=== PATIENT | male | born 1950 | race Caucasian/White ===

== ENCOUNTER 2018-06-22 02:18 | Emergency (ER) | payer OTHER ==
[2018-06-22] MEDS ORDERED: IBUPROFEN 400 MG TAB ONE (02:45)
[2018-06-22] MEDS ORDERED: HYDROCODONE/APAP 7.5/325 MG TAB ONE (02:46)
--- NOTE | 2018-06-22 03:09 | EDPHYS ---
Physician Documentation [facility] Name: Liam Richards Age: 68 yrs Sex: Male : 1950 Arrival Date: 06/22/2018 Time: 02:24 Bed 15 Private MD: ED Physician Lm Galindo HPI: 06/22 02:32 This 68 yrs old Male presents to ER via EMS with complaints of Knee Injury. cp 02:32 The patient presents with an injury, pain, that is acute, swelling, tenderness. The cp complaints affect the left knee. Context: resulted from a mis-step, while walking down stairs, left knee hyper flexed and foot landed under patient, the patient can fully bear weight, the patient is able to ambulate, with moderate difficulty. Onset: The symptoms/episode began/occurred tonight. Associated signs and symptoms: Pertinent negatives calf tenderness, numbness, tingling, warmth. Treatment prior to arrival includes: no previous treatment. Historical: - Allergies: 02:29 No Known Allergies; tl2 - Home Meds: 02:29 metoprolol succinate 25 mg oral Tb24 1 tab once daily [Active]; tl2 hydrochlorothiazide/lisinopril 10 mg daily [Active]; atorvastatin 40 mg oral tab 1 tab once daily [Active]; amlodipine 5 mg tab 1 tab once daily [Active]; aspirin 81 mg Oral chew 1 tab once daily [Active]; - PMHx: 02:29 Hypertension; Hyperlipidemia; tl2 - PSHx: 02:29 left total knee replacement; tl2 - Immunization history:: Adult Immunizations up to date. - Social history:: Smoking status: Patient/guardian denies using tobacco, the patient reports quitting approximately 3 years ago. - Ebola Screening: : No symptoms or risks identified at this time. ROS: 02:34 Eyes: Negative for injury, pain, redness, and discharge. cp 02:34 Constitutional: Negative for chills, fever, poor PO intake. 02:34 ENT: Negative for drainage from ear(s), ear pain, sore throat, difficulty swallowing, difficulty handling secretions. 02:34 Cardiovascular: Negative for chest pain, palpitations. 02:34 Respiratory: Negative for cough, shortness of breath, wheezing. 02:34 Abdomen/GI: Negative for nausea, vomiting, and diarrhea. 02:34 MS/extremity: Positive for injury or acute deformity, decreased range of motion, pain, swelling, tenderness, of the left knee. 02:34 Neuro: Negative for loss of consciousness, syncope, near syncope, weakness. 02:34 All other systems are negative. Exam: 02:38 Constitutional: The patient appears in no acute distress, alert, awake, cp non-diaphoretic, well developed, well nourished. 02:38 Head/Face: Normocephalic, atraumatic. cp 02:38 Eyes: Periorbital structures: appear normal, Conjunctiva: normal, no exudate, no injection, Lids and lashes: appear normal, bilaterally. 02:38 ENT: External ear(s): are unremarkable, Nose: is normal, Mouth: is normal, Posterior pharynx: is normal, airway is patent. 02:38 Neck: C-spine: vertebral tenderness, is not appreciated, crepitus, is not appreciated, ROM/movement: is normal, is supple, without pain, no range of motions limitations, no nuchal rigidity. 02:38 Chest/axilla: Inspection: normal. 02:38 Cardiovascular: Rate: normal. 02:38 Respiratory: the patient does not display signs of respiratory distress, Respirations: normal, no use of accessory muscles, no retractions, no splinting, no tachypnea. 02:38 Abdomen/GI: Inspection: abdomen appears normal, Palpation: abdomen is soft and non-tender, in all quadrants. 02:38 Back: pain, is absent, ROM is normal. 02:38 Musculoskeletal/extremity: Joints: All joints are normal except the left knee displays painful range of motion, swelling, tenderness. 02:38 Skin: cellulitis, is not appreciated, no rash present. Vital Signs: 02:29 BP 153 / 83; Pulse 76; Resp 18; Temp 98.5(O); Pulse Ox 96% on R/A; Weight 114.31 kg; tl2 Height 5 ft. 11 in. (180.34 cm); Pain 0/10; 02:29 Body Mass Index 35.15 (114.31 kg, 180.34 cm) tl2 Procedures: 03:20 Splinting: Splint applied to left knee using knee immobilizer, applied by nurse. cp Examined by me, post splint application: neurovascular intact, Patient tolerated well. 03:20 Crutch training provided to patient and/or family. Return demonstration given. cp MDM: 02:25 Patient medically screened. cp 02:30 Differential diagnosis: dislocation, closed fracture, contusion, tendonitis, ligament cp injury. 03:07 Data reviewed: vital signs, nurses notes, radiologic studies, plain films. cp 03:07 Test interpretation: by ED physician or midlevel provider: plain radiologic studies. cp Counseling: I had a detailed discussion with the patient and/or guardian regarding: the historical points, exam findings, and any diagnostic results supporting the discharge/admit diagnosis, radiology results, the need for outpatient follow up, a orthopedic surgeon, to return to the emergency department if symptoms worsen or persist or if there are any questions or concerns that arise at home. Response to treatment: the patient's symptoms have mildly improved after treatment, and as a result, I will discharge patient. 06/22 02:31 Order name: XRAY Knee LEFT 3 view; Complete Time: 02:55 cp 06/23 02:55 Interpretation: Report reviewed. cp 06/22 03:03 Order name: Crutches; Complete Time: 03:21 cp 06/22 03:03 Order name: Knee Immobilizer; Complete Time: 03:21 cp Administered Medications: 02:44 Drug: Hydrocodone-Acetaminophen (7.5 mg-325 mg) 1 tabs Route: PO; ao 03:21 Follow up: Response: No adverse reaction ao 02:45 Drug: Ibuprofen 800 mg Route: PO; ao 03:22 Follow up: Response: No adverse reaction ao Disposition: 06/22/18 03:08 Discharged to Home. Impression: Pain in left knee. - Condition is Stable. - Discharge Instructions: Knee Immobilizer, Knee Pain. - Prescriptions for Naprosyn 500 mg Oral Tablet - take 1 tablet by ORAL route 2 times per day take with food; 20 tablet. Tylenol- Codeine #3 300-30 mg Oral Tablet - take 2 tablets by ORAL route every 6 hours As needed; 15 tablet. - Medication Reconciliation Form, Thank You Letter, Antibiotic Education, Prescription Opioid Use form. - Follow up: Collin Odonnell MD; When: 2 - 3 days; Reason: Recheck today's complaints. - Problem is new. - Symptoms have improved. Addendum: 06/24/2018 06:30 Co-signature as Attending Physician, Lm Galindo MD I agree with the assessment and c fonseca plan of care. Signatures: Dispatcher [employer] Lm Adams MD MD cha Page, Corey, PA PA Chris Paige, RN RN Lydia Montaño RN RN tl2 Corrections: (The following items were deleted from the chart) 06/22 03:23 03:08 06/22/2018 03:08 Discharged to Home. Impression: Pain in left knee. Condition is ao Stable. Forms are Medication Reconciliation Form, Thank You Letter, Antibiotic Education, Prescription Opioid Use. Follow up: Collin Odonnell; When: 2 - 3 days; Reason: Recheck today's complaints. Problem is new. Symptoms have improved. cp
--- NOTE | 2018-06-22 03:09 | ER ---
Nurse's Notes [facility] Name: Liam Richards Age: 68 yrs Sex: Male : 1950 Arrival Date: 06/22/2018 Time: 02:24 Bed 15 Private MD: Diagnosis: Pain in left knee Presentation: 06/22 02:24 Presenting complaint: Patient states: I was going down the stairs and my left knee gave tl2 out and I landed on my left knee. Reports having a total replacement on left knee about 15 years ago. States he feels his knee is "loose and grinding". Transition of care: patient was not received from another setting of care. Onset of symptoms was June 22, 2018 at 01:50. Risk Assessment: Do you want to hurt yourself or someone else? Patient reports no desire to harm self or others. Initial Sepsis Screen: Does the patient meet any 2 criteria? No. Patient's initial sepsis screen is negative. Does the patient have a suspected source of infection? No. Patient's initial sepsis screen is negative. Care prior to arrival: None. 02:24 Method Of Arrival: EMS: [facility] tl2 02:24 Acuity: ALE 4 tl2 Triage Assessment: 02:29 General: Appears in no apparent distress. comfortable, Behavior is calm, cooperative, tl2 appropriate for age. Pain: Complains of pain in left knee. Musculoskeletal: Circulation, motion, and sensation intact. Range of motion: limited in left knee. Musculoskeletal: Swelling present in left knee. Injury Description: knee prosthetic appears to be dislocated. Historical: - Allergies: 02:29 No Known Allergies; tl2 - Home Meds: 02:29 metoprolol succinate 25 mg oral Tb24 1 tab once daily [Active]; tl2 hydrochlorothiazide/lisinopril 10 mg daily [Active]; atorvastatin 40 mg oral tab 1 tab once daily [Active]; amlodipine 5 mg tab 1 tab once daily [Active]; aspirin 81 mg Oral chew 1 tab once daily [Active]; - PMHx: 02:29 Hypertension; Hyperlipidemia; tl2 - PSHx: 02:29 left total knee replacement; tl2 - Immunization history:: Adult Immunizations up to date. - Social history:: Smoking status: Patient/guardian denies using tobacco, the patient reports quitting approximately 3 years ago. - Ebola Screening: : No symptoms or risks identified at this time. Screenin:31 Abuse screen: Denies threats or abuse. Nutritional screening: No deficits noted. tl2 Tuberculosis screening: No symptoms or risk factors identified. Fall Risk Fall in past 12 months (25 points). Gait- Impaired (20 pts.). Assessment: 02:30 General: Appears in no apparent distress. comfortable, Behavior is calm, cooperative, ao appropriate for age. Pain: Complains of pain in left knee Pain currently is 0 out of 10 on a pain scale. Neuro: Level of Consciousness is awake, alert, obeys commands, Oriented to person, place, time, situation, Appropriate for age Moves all extremities. Weakness in left leg(s) foot/feet Speech is normal, Facial symmetry appears normal. Cardiovascular: Denies chest pain, shortness of breath, Capillary refill < 3 seconds Patient's skin is warm and dry. Respiratory: Airway is patent Respiratory effort is even, unlabored, Respiratory pattern is regular, symmetrical. GI: Abdomen is obese. : No deficits noted. No signs and/or symptoms were reported regarding the genitourinary system. EENT: No signs and/or symptoms were reported regarding the EENT system. Derm: Skin is pink, warm \\T\\ dry. normal, Skin temperature is warm swelling left leg noted. Musculoskeletal: Range of motion: limited in left knee. Vital Signs: 02:29 BP 153 / 83; Pulse 76; Resp 18; Temp 98.5(O); Pulse Ox 96% on R/A; Weight 114.31 kg; tl2 Height 5 ft. 11 in. (180.34 cm); Pain 0/10; 02:29 Body Mass Index 35.15 (114.31 kg, 180.34 cm) tl2 ED Course: 02:24 Patient arrived in ED. tl2 02:25 Lm Stoddard PA is PHCP. cp 02:25 Lm Galindo MD is Attending Physician. cp 02:26 Triage completed. tl2 02:28 Chris Bridges, ELISABET is Primary Nurse. ao 02:29 Arm band placed on right wrist. tl2 02:31 Patient has correct armband on for positive identification. Bed in low position. Call tl2 light in reach. Side rails up X2. Adult w/ patient. 02:55 X-ray completed. Portable x-ray completed in exam room. Patient tolerated procedure kw well. 02:56 XRAY Knee LEFT 3 view In Process Unspecified. EDMS 03:07 Collin Odonnell MD is Referral Physician. cp 03:22 No provider procedures requiring assistance completed. Patient did not have IV access ao during this emergency room visit. Administered Medications: 02:44 Drug: Hydrocodone-Acetaminophen (7.5 mg-325 mg) 1 tabs Route: PO; ao 03:21 Follow up: Response: No adverse reaction ao 02:45 Drug: Ibuprofen 800 mg Route: PO; ao 03:22 Follow up: Response: No adverse reaction ao Outcome: 03:08 Discharge ordered by MD. cp 03:22 Discharged to home ambulatory, with crutches. ao 03:22 Condition: stable 03:22 Discharge instructions given to patient, Instructed on discharge instructions, follow up and referral plans. Demonstrated understanding of instructions, follow-up care, medications, Prescriptions given X 2. 03:23 Patient left the ED. ao Signatures: Dispatcher [employer] EDAZ Gayathri Calzada kw Lm Stoddard PA PA cp Chris Bridges, RN RN ao Lydia Ferrara RN RN tl2 Corrections: (The following items were deleted from the chart) 02:51 02:36 No provider procedures requiring assistance completed. ao ao 02:51 02:36 IV discontinued, intact, bleeding controlled, No redness/swelling at site. ao Pressure dressing applied, ao 02:51 08 23:50 Inserted saline lock: 20 gauge in right forearm, using aseptic technique. aoao 06/22 02:52 02:36 Condition: stable ao ao 02:52 02:36 Discharged to home ambulatory, ao ao 02:52 02:36 Discharge instructions given to patient, Instructed on discharge instructions, ao follow up and referral plans. Demonstrated understanding of instructions, follow-up care, Prescriptions given X 1, ao
[2018-06-22 03:28] VITALS: BP 153/83; TEMP 98.5; O2SAT 96
--- NOTE | 2018-06-22 09:09 | RAD REPORT ---
EXAM DESCRIPTION: RAD - Knee Left 3 View - 06/22/2018 2:56 am CLINICAL HISTORY: Left knee pain status post injury FINDINGS: A left knee arthroplasty has been performed The prosthesis is in good position without evidence of loosening. The bones are osteoporotic. A small joint effusion is suspected No fracture or dislocation is seen. If the patient continues to have symptoms to suggest an occult fr acture then CT would be recommended
== END 2018-06-22 03:23 | disposition home or self-care (01) ==
LOC: ER 02:18
DX: M25.562 Pain in left knee (principal); Z96.652 Presence of left artificial knee joint; I10 Essential (primary) hypertension; E78.5 Hyperlipidemia, unspecified; W10.8XXA Fall (on) (from) other stairs and steps, initial encounter
CPT/HCPCS: 99284

== ENCOUNTER 2018-11-02 01:18 | Emergency (ER) | payer OTHER ==
[2018-11-02] MEDS ORDERED: ONDANSETRON 4 MG/2 ML VIAL ONE ×2 (02:05→05:27)
[2018-11-02] MEDS ORDERED: MORPHINE 4 MG/ML SYR ONE ×4 (02:05→07:34)
[2018-11-02] MEDS ORDERED: FAMOTIDINE 20 MG/2 ML VIAL IV ONE (02:06)
[2018-11-02] MEDS ORDERED: NA CHLORIDE 0.9% 1,000 ML ONE ×2 (02:06→03:57)
[2018-11-02 02:15] LABS: Absolute Lymphocytes (CBC) 0.5 K/uL (0.7-4.9); Absolute Monocytes 1.2 K/uL (0.1-1.3); Absolute Neutrophil 13.5 K/uL (1.8-8.0); Basophils % 0.2 % (0-1.3); Hematocrit 45.4 % (39.6-49.0); MPV 8.9 fL (7.6-11.3); RBC Red Blood Cell Count 5.11 M/uL (4.33-5.43)
[2018-11-02 02:47] LABS: AST/SGOT 250 U/L (15-37); Albumin 3.5 g/dL (3.4-5.0); Alkaline Phosphatase 142 U/L (45-117); BUN Blood Urea Nitrogen 48 mg/dL (7-18); Bicarbonate 25 mmol/L (21-32); Bilirubin Direct 5.9 mg/dL (0-0.2); Glucose Level 136 mg/dL (74-106); Lipase 90 U/L (73-393); Potassium 3.9 mmol/L (3.5-5.1); Protein, Total 7.4 g/dL (6.4-8.2); Sodium Level 138 mmol/L (136-145); Troponin I < 0.02 ng/mL (0.0-0.045)
[2018-11-02 02:50] LABS: ALT/SGPT 343 U/L (12-78); Bilirubin Total 7.3 mg/dL (0.2-1.0)
[2018-11-02 02:54] LABS: Blood Morphology Comment NOT SEEN (NOT SEEN); Platelet Estimate ADEQ; Urine White Blood Cell Casts OK
[2018-11-02] MEDS ORDERED: FENTANYL CITR 100 MCG/2 ML ONE (03:30)
[2018-11-02] MEDS ORDERED: CEFOXITIN/SWI 1gm 1 GM/10 ML SYR ONE ×2 (06:39)
--- NOTE | 2018-11-02 07:08 | ER ---
Nurse's Notes [facility] Name: Liam Richards Age: 68 yrs Sex: Male : 1950 Arrival Date: 11/02/2018 Time: 01:19 Bed 19 Private MD: Diagnosis: Abdominal pain. Acute cholecystitis. Jaundice. Elevated liver functions Possible partial small bowel obstruction Presentation: 11/02 01:40 Presenting complaint: Patient states: bloated feeling and abdominal pain started 2 days rr5 ago. i keep on burping and passing gas. pain score of 8/10. Transition of care: patient was not received from another setting of care. Onset of symptoms was October 31, 2018. Risk Assessment: Do you want to hurt yourself or someone else? Patient reports no desire to harm self or others. Initial Sepsis Screen: Does the patient meet any 2 criteria? No. Patient's initial sepsis screen is negative. Does the patient have a suspected source of infection? No. Patient's initial sepsis screen is negative. Care prior to arrival: None. 01:42 Method Of Arrival: Ambulatory rr5 01:42 Acuity: ALE 3 rr5 Historical: - Allergies: 01:40 No Known Allergies; rr5 - Home Meds: 01:40 amlodipine 5 mg tab 1 tab once daily [Active]; aspirin 81 mg Oral chew 1 tab once daily rr5 [Active]; atorvastatin 40 mg Oral tab 1 tab once daily [Active]; hydrochlorothiazide/lisinopril 10 mg daily [Active]; metoprolol succinate 25 mg Oral Tb24 1 tab once daily [Active]; - PMHx: 01:40 Hyperlipidemia; Hypertension; AAA; rr5 - PSHx: 01:40 Carotid surgery; Heart stents; rr5 - Immunization history:: Adult Immunizations up to date, Pneumococcal vaccine is up to date, Flu vaccine is up to date. - Social history:: Smoking status: Patient/guardian denies using tobacco, Patient/guardian denies using alcohol, street drugs. - Ebola Screening: : Patient negative for fever greater than or equal to 101.5 degrees Fahrenheit, and additional compatible Ebola Virus Disease symptoms Patient denies exposure to infectious person Patient denies travel to an Ebola-affected area in the 21 days before illness onset. Screenin:40 Abuse screen: Denies threats or abuse. Denies injuries from another. Nutritional rr5 screening: No deficits noted. Tuberculosis screening: No symptoms or risk factors identified. Fall Risk IV access (20 points). Total Gabriel Fall Scale indicates No Risk (0-24 pts). Assessment: 01:40 General: Appears in no apparent distress. uncomfortable, ill, Behavior is calm, rr5 cooperative, appropriate for age. Pain: Complains of pain in abdomen Pain does not radiate. Pain currently is 8 out of 10 on a pain scale. Quality of pain is described as aching, Pain began gradually, Is intermittent. 01:40 Neuro: Level of Consciousness is awake, alert, obeys commands, Oriented to person, rr5 place, time, situation. Cardiovascular: Capillary refill < 3 seconds Patient's skin is warm and dry. Respiratory: Airway is patent Respiratory effort is even, unlabored, Respiratory pattern is tachypnea. GI: Bowel sounds present X 4 quads. Abdomen is tender to palpation X 4 quads. Reports lower abdominal pain, upper abdominal pain, bloating, flatulence, since 2 days ago burping. : No signs and/or symptoms were reported regarding the genitourinary system. EENT: No signs and/or symptoms were reported regarding the EENT system. Derm: Skin is intact, Skin is yellow. Musculoskeletal: Capillary refill < 3 seconds, Range of motion: intact in all extremities. 02:35 Reassessment: No changes from previously documented assessment. informed CT scan oral rr5 consumed at 0235H. 03:00 Reassessment: Patient appears in no apparent distress at this time. No changes from rr5 previously documented assessment. ED provider informed patient still having severe pain. 03:52 Reassessment: Patient appears in no apparent distress at this time. awaiting for CT rr5 scan procedure. 04:45 Reassessment: No changes from previously documented assessment. Patient and/or family cc3 updated on plan of care and expected duration. Pain level reassessed. Patient is alert, oriented x 3, equal unlabored respirations, skin warm/dry/pink. Patient came back from CT scan department. 05:25 Reassessment: Patient and/or family updated on plan of care and expected duration. Pain ea level reassessed. Patient is alert, oriented x 3, equal unlabored respirations, skin warm/dry/pink. Pt complaining of abdominal pain, provider notified, med order obtained, medication administered, pt tolerated well. 06:45 Reassessment: Patient and/or family updated on plan of care and expected duration. Pain ea level reassessed. Patient is alert, oriented x 3, equal unlabored respirations, skin warm/dry/pink. 07:13 Reassessment: Patient appears in no apparent distress at this time. No changes from em previously documented assessment. Patient and/or family updated on plan of care and expected duration. Pain level reassessed. Patient is alert, oriented x 3, equal unlabored respirations, skin warm/dry/pink. pending transfer. 07:31 Reassessment: Patient appears in no apparent distress at this time. Patient and/or em family updated on plan of care and expected duration. Pain level reassessed. Patient is alert, oriented x 3, equal unlabored respirations, skin warm/dry/pink. pt rates pain 8/10, request more pain medication prior to transfer, Dr. Galindo notified, new medication orders received. 07:40 Reassessment: report called to ELISABET Gutierres at [facility], pending completion of em ultrasound. Vital Signs: 01:40 BP 110 / 59; Pulse 75; Resp 24; Temp 97.9; Pulse Ox 98% ; Weight 115.67 kg; Height 5 rr5 ft. 11 in. (180.34 cm); Pain 8/10; 02:30 BP 108 / 70; Pulse 73; Resp 16; Pulse Ox 98% ; rr5 03:30 BP 103 / 63; Pulse 79; Resp 17; Pulse Ox 99% ; rr5 05:24 BP 104 / 63; Pulse 80; Resp 18; Pulse Ox 98% on R/A; ea 07:21 BP 118 / 70; Pulse 73; Resp 16; Temp 98.2(O); Pulse Ox 96% on 2 lpm NC; Pain 8/10; em 01:40 Body Mass Index 35.56 (115.67 kg, 180.34 cm) rr5 ED Course: 01:19 Patient arrived in ED. ag3 01:28 Lm Stoddard PA is PHCP. cp 01:28 Farhad Pires MD is Attending Physician. cp 01:40 Arm band placed on. rr5 01:42 Michael Srinivasan RN is Primary Nurse. rr5 01:44 Triage completed. rr5 02:00 Inserted saline lock: 18 gauge in right forearm, using aseptic technique. Blood rr5 collected. 02:08 X-ray completed. Portable x-ray completed in exam room. Patient tolerated procedure sg4 well. 02:10 XRAY Chest (1 view) In Process Unspecified. EDMS 04:[address] via stretcher. kw1 04:37 CT Abd/Pelvis - Without Cont: give oral contrast In Process Unspecified. EDMS 04:38 CT completed. Patient tolerated procedure well. Patient moved back from CT. kw1 05:25 Patient has correct armband on for positive identification. Bed in low position. Call ea light in reach. Side rails up X 1. 07:16 Report given to Benny TORRES. ea 07:45 No provider procedures requiring assistance completed. Patient transferred, IV remains em in place. 08:09 Ultrasound completed. Patient tolerated well. sg3 08:09 US Abdomen Limited In Process Unspecified. EDMS Administered Medications: 02:00 Drug: Pepcid 20 mg Route: IVP; Site: right forearm; rr5 04:01 Follow up: Response: No adverse reaction rr5 02:02 Drug: Zofran 4 mg Route: IVP; Site: left forearm; rr5 04:01 Follow up: Response: No adverse reaction rr5 02:05 Drug: morphine 4 mg Route: IVP; Site: right forearm; rr5 04:01 Follow up: Response: No adverse reaction rr5 02:13 Drug: NS 0.9% 1000 ml Route: IV; Rate: 100 ml/hr; Site: right forearm; rr5 08:10 Follow up: IV Status: Infusion continued upon transfer; IV Intake: 500ml em 03:29 Drug: NS 0.9% 1000 ml Route: IV; Rate: 1 bolus; Site: right forearm; rr5 07:15 Follow up: IV Status: Completed infusion; IV Intake: 1000ml em 03:30 Drug: fentaNYL (PF) 50 mcg Route: IVP; Site: right forearm; rr5 04:30 Follow up: Response: No adverse reaction; Pain is decreased ea 04:20 Not Given (Other Intervention Used; low BP): morphine 4 mg IVP once rr5 05:24 Drug: morphine 4 mg Route: IVP; Site: right antecubital; ea 06:00 Follow up: Response: No adverse reaction; Pain is decreased ea 05:24 Drug: Zofran 4 mg Route: IVP; Site: right antecubital; ea 06:00 Follow up: Response: No adverse reaction ea 06:39 Drug: Mefoxin 2 grams Route: IVPB; Infused Over: 30 mins; Site: right antecubital; ea 07:16 Follow up: Response: No adverse reaction; IV Status: Completed infusion ea 07:20 Follow up: Response: No adverse reaction; IV Status: Completed infusion em 07:33 Drug: morphine 4 mg Route: IVP; Site: right forearm; em 08:09 Follow up: Response: No adverse reaction; Pain is decreased em Intake: 07:15 IV: 1000ml; Total: 1000ml. em 08:10 IV: 500ml; Total: 1500ml. em Outcome: 07:08 ER care complete, transfer ordered by . becka 08:09 Transferred by ground EMS to [facility], Transfer form completed. em X-rays sent w/ patient. 08:09 Condition: good 08:09 Instructed on the need for transfer, Demonstrated understanding of instructions. 08:26 Patient left the ED. em Signatures: Dispatcher [employer] EDMS Farhad Pires MD MD pkBenny Child, LOOM CHANGER LOOM CHANGER em Lm Stoddard PA PA cp Antunez, Elena, RN RN Montserrat Madden kw1 Natali Hui sg3 Janie Lee cc3 Ruthann Cabrera3 Jazzmine Sharma sg4 Michael Srinivasan, RN RN rr5 Corrections: (The following items were deleted from the chart) 07:34 07:31 Reassessment: Patient appears in no apparent distress at this time. Patient em and/or family updated on plan of care and expected duration. Pain level reassessed. Patient is alert, oriented x 3, equal unlabored respirations, skin warm/dry/pink. pt rates pain 8/10, request more pain medication prior to transfer em
--- NOTE | 2018-11-02 07:08 | EDPHYS ---
Physician Documentation [facility] Name: Liam Richards Age: 68 yrs Sex: Male : 1950 Arrival Date: 11/02/2018 Time: 01:19 Bed 19 Private MD: ED Physician Farhad Pires HPI: 11/02 02:05 This 68 yrs old Male presents to ER via Ambulatory with complaints of cp Abdominal Pain. 02:05 The patient presents with abdominal pain that is diffuse, abdominal distention that is cp diffuse. Onset: The symptoms/episode began/occurred 2 day(s) ago. 02:05 Associated signs and symptoms: Pertinent positives: nausea, Pertinent negatives: blood cp in stools, chest pain, constipation, diarrhea, dysuria, fever, shortness of breath, testicular pain, vomiting. Historical: - Allergies: 01:40 No Known Allergies; rr5 - Home Meds: 01:40 amlodipine 5 mg tab 1 tab once daily [Active]; aspirin 81 mg Oral chew 1 tab once daily rr5 [Active]; atorvastatin 40 mg Oral tab 1 tab once daily [Active]; hydrochlorothiazide/lisinopril 10 mg daily [Active]; metoprolol succinate 25 mg Oral Tb24 1 tab once daily [Active]; - PMHx: 01:40 Hyperlipidemia; Hypertension; AAA; rr5 - PSHx: 01:40 Carotid surgery; Heart stents; rr5 - Immunization history:: Adult Immunizations up to date, Pneumococcal vaccine is up to date, Flu vaccine is up to date. - Social history:: Smoking status: Patient/guardian denies using tobacco, Patient/guardian denies using alcohol, street drugs. - Ebola Screening: : Patient negative for fever greater than or equal to 101.5 degrees Fahrenheit, and additional compatible Ebola Virus Disease symptoms Patient denies exposure to infectious person Patient denies travel to an Ebola-affected area in the 21 days before illness onset. ROS: 02:10 Constitutional: Negative for body aches, chills, fever, poor PO intake. cp 02:10 Eyes: Negative for injury, pain, redness, and discharge. cp 02:10 ENT: Negative for drainage from ear(s), ear pain, sore throat, difficulty swallowing, difficulty handling secretions. 02:10 Cardiovascular: Negative for chest pain, edema, palpitations. 02:10 Respiratory: Negative for cough, shortness of breath, wheezing. 02:10 Abdomen/GI: Positive for abdominal pain, nausea, abdominal distension, Negative for vomiting, diarrhea, constipation, anorexia, black/tarry stool, rectal bleeding. 02:10 Back: Negative for injury or acute deformity, decreased range of motion. 02:10 : Negative for urinary symptoms, testicular pain 02:10 Skin: Negative for cellulitis, rash. 02:10 Neuro: Negative for altered mental status, headache, weakness. 02:10 All other systems are negative. Exam: 02:15 Head/Face: Normocephalic, atraumatic. cp 02:15 Constitutional: The patient appears in no acute distress, alert, awake, non-diaphoretic, non-toxic, well developed, well nourished, obese, in obvious pain, uncomfortable. 02:15 Eyes: Periorbital structures: appear normal, Conjunctiva: normal, no exudate, no cp injection, Lids and lashes: appear normal, bilaterally. 02:15 ENT: External ear(s): are unremarkable, Ear canal(s): are normal, clear, TM's: are normal, Nose: is normal, Mouth: Lips: moist, Oral mucosa: pink and intact, moist, Posterior pharynx: is normal, airway is patent, no erythema, no exudate, Voice: is normal. 02:15 Neck: ROM/movement: is normal, is supple, without pain, no range of motions limitations, no meningismus, no nuchal rigidity. 02:15 Chest/axilla: Inspection: normal, Palpation: is normal, no crepitus, no tenderness. 02:15 Cardiovascular: Rate: normal, Rhythm: regular, Edema: is not appreciated, JVD: is not appreciated. 02:15 Respiratory: the patient does not display signs of respiratory distress, Respirations: normal, no use of accessory muscles, no retractions, no splinting, no tachypnea, labored breathing, is not present, Breath sounds: are clear throughout, no decreased breath sounds, no stridor, no wheezing. 02:15 Abdomen/GI: Inspection: obese Bowel sounds: active, all quadrants, Palpation: soft, in all quadrants, severe abdominal tenderness, in all quadrants, rebound tenderness, is not appreciated, voluntary guarding, is elicited in all quadrants. 02:15 Back: CVA tenderness, is absent. 02:15 Skin: cellulitis, is not appreciated, no rash present. 02:15 Neuro: Orientation: to person, place \T\ time. Mentation: is normal, Cerebellar function: is grossly normal, Motor: moves all fours, strength is normal, Sensation: is normal. Vital Signs: 01:40 BP 110 / 59; Pulse 75; Resp 24; Temp 97.9; Pulse Ox 98% ; Weight 115.67 kg; Height 5 rr5 ft. 11 in. (180.34 cm); Pain 8/10; 02:30 BP 108 / 70; Pulse 73; Resp 16; Pulse Ox 98% ; rr5 03:30 BP 103 / 63; Pulse 79; Resp 17; Pulse Ox 99% ; rr5 05:24 BP 104 / 63; Pulse 80; Resp 18; Pulse Ox 98% on R/A; ea 07:21 BP 118 / 70; Pulse 73; Resp 16; Temp 98.2(O); Pulse Ox 96% on 2 lpm NC; Pain 8/10; em 01:40 Body Mass Index 35.56 (115.67 kg, 180.34 cm) rr5 MDM: 01:28 Patient medically screened. cp 03:30 Data reviewed: vital signs, nurses notes, lab test result(s). cp 03:40 Transition of care: After a detail discussion of the patient's case, care is cp transferred to Farhad Pires MD. 11/02 01:50 Order name: Basic Metabolic Panel cp 11/02 01:50 Order name: CBC with Diff; Complete Time: 02:57 cp 11/02 02:53 Interpretation: Normal except: WBC 15.2; SHAUN% 88.8; LYM% 3.0; NEUT A 13.5. cp 11/02 01:50 Order name: Hepatic Function; Complete Time: 02:53 cp 11/02 02:53 Interpretation: Normal except: AST 250; ALT 343; ALK 142; BILIT 7.3; BILID 5.9; GLOB cp 3.9; A/G 0.9. 11/02 01:50 Order name: Lipase; Complete Time: 02:53 cp 11/02 01:50 Order name: Urine Microscopic Only cp 11/02 01:50 Order name: XRAY Chest (1 view) cp 11/02 01:50 Order name: Magnesium; Complete Time: 02:53 cp 11/02 01:50 Order name: Troponin I; Complete Time: 02:53 cp 11/02 01:50 Order name: Basic Metabolic Panel; Complete Time: 02:53 EDMS 11/02 02:54 Interpretation: Normal except: GLUC 136; BUN 48; CRE 2.04; GFR 33. cp 11/02 02:55 Order name: CBC Smear Scan; Complete Time: 02:57 EDMS 11/02 05:19 Order name: Lactate; Complete Time: 08:17 pkl 11/02 08:21 Order name: Urine Dipstick--Ancillary (enter results) ag 11/02 01:50 Order name: IV Saline Lock; Complete Time: 02:13 cp 11/02 01:50 Order name: Labs collected and sent; Complete Time: 02:13 cp 11/02 01:50 Order name: EKG; Complete Time: 01:50 cp 11/02 02:55 Order name: CT Abd/Pelvis - Without Cont: give oral contrast cp 11/02 06:37 Order name: US Abdomen Limited pkl 11/02 01:50 Order name: Urine Dipstick-Ancillary (obtain specimen); Complete Time: 08:09 cp 11/02 01:50 Order name: EKG - Nurse/Tech; Complete Time: 02:13 cp Administered Medications: 02:00 Drug: Pepcid 20 mg Route: IVP; Site: right forearm; rr5 04:01 Follow up: Response: No adverse reaction rr5 02:02 Drug: Zofran 4 mg Route: IVP; Site: left forearm; rr5 04:01 Follow up: Response: No adverse reaction rr5 02:05 Drug: morphine 4 mg Route: IVP; Site: right forearm; rr5 04:01 Follow up: Response: No adverse reaction rr5 02:13 Drug: NS 0.9% 1000 ml Route: IV; Rate: 100 ml/hr; Site: right forearm; rr5 08:10 Follow up: IV Status: Infusion continued upon transfer; IV Intake: 500ml em 03:29 Drug: NS 0.9% 1000 ml Route: IV; Rate: 1 bolus; Site: right forearm; rr5 07:15 Follow up: IV Status: Completed infusion; IV Intake: 1000ml em 03:30 Drug: fentaNYL (PF) 50 mcg Route: IVP; Site: right forearm; rr5 04:30 Follow up: Response: No adverse reaction; Pain is decreased ea 04:20 Not Given (Other Intervention Used; low BP): morphine 4 mg IVP once rr5 05:24 Drug: morphine 4 mg Route: IVP; Site: right antecubital; ea 06:00 Follow up: Response: No adverse reaction; Pain is decreased ea 05:24 Drug: Zofran 4 mg Route: IVP; Site: right antecubital; ea 06:00 Follow up: Response: No adverse reaction ea 06:39 Drug: Mefoxin 2 grams Route: IVPB; Infused Over: 30 mins; Site: right antecubital; ea 07:16 Follow up: Response: No adverse reaction; IV Status: Completed infusion ea 07:20 Follow up: Response: No adverse reaction; IV Status: Completed infusion em 07:33 Drug: morphine 4 mg Route: IVP; Site: right forearm; em 08:09 Follow up: Response: No adverse reaction; Pain is decreased em Disposition: 07:03 Co-signature as Attending Physician, Farhad Pires MD. becka Disposition: 11/02/18 07:[address] [facility]. Diagnosis is Abdominal pain. Acute cholecystitis. Jaundice. Elevated liver functions Possible partial small bowel obstruction. - Reason for transfer: Higher level of care. - Accepting physician is Dr. King. - Condition is Stable. - Problem is new. - Symptoms are unchanged. Signatures: Dispatcher [employer] EDDC Lm Galindo MD MD cha Lam, Pin, MD MD pkl Munoz, Edgar, ANESTHESIOLOGY MEDICAL DOCTOR ANESTHESIOLOGY MEDICAL DOCTOR em Lm Stoddard, PA PA Mary Leal RN RN ea Roque, Raymond, RN RN rr5 Corrections: (The following items were deleted from the chart) 02:48 01:50 Creatinine for Radiology+C.LAB.BRZ ordered. EDDC EDMS 02:53 02:53 Normal except: AST 250; ALT 343; ALK 142; BILIT 7.3; BILID 5.9; GLOB 3.9. cp cp 03:24 01:51 Abdomen Pelvis W Con+CT.RAD.BRZ ordered. EDDC EDMS 08:26 07:08 11/02/2018 07:[address] [facility]. Diagnosis is em Abdominal pain. Acute cholecystitis. Jaundice. Elevated liver functions Possible partial small bowel obstruction. Reason for transfer: Higher level of care. Accepting physician is Dr. King. Condition is Stable. Problem is new. Symptoms are unchanged. pkl
[2018-11-02 08:38] VITALS: BP 118/70; TEMP 98.2; O2SAT 96
[2018-11-02 08:40] LABS: Urine Blood NEGATIVE (NEG); Urine Glucose NEGATIVE (NEG); Urine Protein 2+ (NEG); Urine Specific Gravity >1.030 (1.005-1.030)
[2018-11-02 08:41] LABS: Urine Amorphous Sediment 1+ /HPF (NONE SEEN); Urine Bacteria 20-50 /HPF (NONE SEEN); Urine Culture Reflex Order REFLEXED; Urine RBC <5 /HPF (NONE SEEN)
--- NOTE | 2018-11-02 09:26 | RAD REPORT ---
EXAM DESCRIPTION: CT - Abdomen Pelvis Wo Contrast - 11/02/2018 6:25 am CLINICAL HISTORY: Abdominal pain /abdominal bloating COMPARISON: October 2015 TECHNIQUE: Computed axial tomography of the abdomen and pelvis was obtained. IV was not requested. O ral contrast was given. Coronal reconstructions performed. Preliminary report generated by virtual radiologic and review prior to dictation All CT scans are pe rformed using dose optimization technique as appropriate and may include automated exposure control o r mA/KV adjustment according to patient size. FINDINGS: An aorto bi-iliac stent has been placed into an abdominal aortic aneurysm. Periaortic hem atoma is not noted. The evaluation of solid organs and vessels is limited secondary to the lack of contrast administratio n. The liver, spleen, pancreas, adrenals and kidneys appear grossly normal. The cecum measures 9 centimeters. The transverse colon measures 4.5 centimeters. The descending colon is decompressed. There is no evidence of diverticulitis. Small inguinal hernias contain fat Borderline gallbladder distention IMPRESSION: Cecal distention measuring 9 centimeters. Most likely this is secondary to an ileus. Fol lowup abdominal plain film series is recommended. Borderline gallbladder distention
--- NOTE | 2018-11-02 09:31 | RAD REPORT ---
EXAM DESCRIPTION: US - Abdomen Exam Limited - 11/02/2018 8:09 am CLINICAL HISTORY: Abdominal pain. FINDINGS: Gallbladder is mildly distended. Gallbladder wall measures 4 millimeters. A gallstone is n ot seen. The biliary tree is normal caliber. IMPRESSION: Gallbladder is mildly distended with a mildly thickened wall. This may indicate acalculo us cholecystitis David of the ER notified 924 AM. November 02, 2018
--- NOTE | 2018-11-02 10:45 | RAD REPORT ---
EXAM DESCRIPTION: Matty Single View11/02/2018 2:11 am CLINICAL HISTORY: abd pain COMPARISON: 2016 FINDINGS: The lungs appear clear of acute infiltrate. The heart is borderline enlarged IMPRESSION: No acute abnormalities displayed
--- NOTE | 2018-11-02 13:54 | EKG ---
Test Date: 2018-11-02 Test Time: 02:16:10 Paper Machine Supervisor: KETURAH MEASUREMENT RESULTS: Intervals: Rate: 71 MD: 154 QRSD: 150 QT: 418 QTc: 454 [place]: P: 12 MD: 154 QRS: -34 T: -11 INTERPRETIVE STATEMENTS: Normal sinus rhythm Left axis deviation Right bundle branch block Inferior infarct, age undetermined T wave abnormality, consider lateral ischemia Abnormal ECG Compared to ECG 11/18/2015 06:41:06 Left-axis deviation now present Myocardial infarct finding now present T-wave abnormality now present Possible ischemia now present Sinus bradycardia no longer present Electronically Signed On 11-02-18 13:53:38 PLATE FINISHER by Ivan Talavera
== END 2018-11-02 08:26 | disposition short-term general hospital (02) ==
LOC: ER 01:18
DX: K81.0 Acute cholecystitis (principal); R17 Unspecified jaundice; R79.89 Other specified abnormal findings of blood chemistry; I10 Essential (primary) hypertension; E78.5 Hyperlipidemia, unspecified; Z79.82 Long term (current) use of aspirin; Z95.818 Presence of other cardiac implants and grafts
CPT/HCPCS: 36415; 71045; 74176; 76705; 80048; 80076; 81003; 81015; 83605; 83690; 83735; 84484; 85025; 87086; 87088; 93005; 99285; J2405; J3010; J7030

== ENCOUNTER 2019-09-12 07:54 | Emergency (ER) | payer OTHER ==
--- OUTSIDE RECORDS SUMMARY | 2019-09-12 07:58 | XMS REPORT ---
:1950 [facility] Address [address] [place] [address] Care Team Providers Name Role Phone ENRIQUE WESLEYEOMA Unavailable Unavailable Problems This patient has no known problems. Allergies, Adverse Reactions, Alerts This patient has no known allergies or adverse reactions. Medications This patient has no known medications. Results Test Description Test Time Test Comments Text Results Atomic Results Result Comments CBC W/PLT COUNT & AUTO DIFFERENTIAL 2018-11-08 15:04:00 Test Item Value Reference Range Comments WHITE BLOOD CELL COUNT (BEAKER) (test remz=094) 12.6 K/ L 3.5-10.5 RED BLOOD CELL COUNT (BEAKER) (test vcjh=960) 4.90 M/ L 4.63-6.08 HEMOGLOBIN (BEAKER) (test xist=835) 14.3 GM/DL 13.7-17.5 HEMATOCRIT (BEAKER) (test tkla=615) 45.5 % 40.1-51.0 MEAN CORPUSCULAR VOLUME (BEAKER) (test laul=425) 92.9 fL 79.0-92.2 MEAN CORPUSCULAR HEMOGLOBIN (BEAKER) (test qcpx=447) 29.2 pg 25.7-32.2 MEAN CORPUSCULAR HEMOGLOBIN CONC (BEAKER) (test fbdo=455) 31.4 GM/DL 32.3- 36.5 RED CELL DISTRIBUTION WIDTH (BEAKER) (test emxu=034) 14.9 % 11.6-14.4 PLATELET COUNT (BEAKER) (test qbam=565) 275 K/CU MM 150-450 MEAN PLATELET VOLUME (BEAKER) (test kfhz=225) 10.5 fL 9.4-12.4 NUCLEATED RED BLOOD CELLS (BEAKER) (test ultb=051) 0 /100 WBC 0-0 NEUTROPHILS RELATIVE PERCENT (BEAKER) (test kaxm=351) 74 % LYMPHOCYTES RELATIVE PERCENT (BEAKER) (test dqnw=437) 11 % MONOCYTES RELATIVE PERCENT (BEAKER) (test ruwn=213) 8 % EOSINOPHILS RELATIVE PERCENT (BEAKER) (test hehh=039) 2 % BASOPHILS RELATIVE PERCENT (BEAKER) (test ptve=881) 0 % NEUTROPHILS ABSOLUTE COUNT (BEAKER) (test uxmy=203) 9.36 K/ L 1.78-5.38 LYMPHOCYTES ABSOLUTE COUNT (BEAKER) (test wfgx=783) 1.43 K/ L 1.32-3.57 MONOCYTES ABSOLUTE COUNT (BEAKER) (test kfdg=132) 0.95 K/ L 0.30-0.82 EOSINOPHILS ABSOLUTE COUNT (BEAKER) (test blss=976) 0.19 K/ L 0.04-0.54 BASOPHILS ABSOLUTE COUNT (BEAKER) (test zkfh=577) 0.05 K/ L 0.01-0.08 IMMATURE GRANULOCYTES-RELATIVE PERCENT (BEAKER) (test 5 % 0-1 lcfc=1603) POCT-GLUCOSE [id number] 11:32:00 Test Item Value Reference Range Comments POC-GLUCOSE METER (BEAKER) 105 mg/dL 70-110 TESTED AT [address] (test nmcj=2010) [facility] [address] POCT-GLUCOSE [id number] 08:33:00 Test Item Value Reference Range Comments POC-GLUCOSE METER (BEAKER) 161 mg/dL 70-110 TESTED AT [address] (test gtqj=0937) [facility] [address] [id number] 06:09:00 Test Item Value Reference Range Comments MAGNESIUM (BEAKER) (test tmil=044) 1.8 mg/dL 1.6-2.6 COMPREHENSIVE METABOLIC [id number] 06:09:00 Test Item Value Reference Range Comments TOTAL PROTEIN (BEAKER) 6.9 gm/dL 6.0-8.3 (test qhee=311) ALBUMIN (BEAKER) (test 3.3 g/dL 3.5-5.0 yaiu=7957) ALKALINE PHOSPHATASE 164 U/L 40-150 (BEAKER) (test yayz=203) BILIRUBIN TOTAL (BEAKER) 1.5 mg/dL 0.2-1.2 (test hjyd=118) SODIUM (BEAKER) (test 140 meq/L 136-145 pynk=689) POTASSIUM (BEAKER) (test 3.1 meq/L 3.5-5.1 yoec=434) CHLORIDE (BEAKER) (test 102 meq/L 98-107 xpgi=878) CO2 (BEAKER) (test 30 meq/L 22-29 bxtv=510) BLOOD UREA NITROGEN 15 mg/dL 7-21 (BEAKER) (test qmvx=536) CREATININE (BEAKER) (test 1.04 mg/dL 0.57-1.25 udgu=012) GLUCOSE RANDOM (BEAKER) 121 mg/dL 70-105 (test scju=648) CALCIUM (BEAKER) (test 9.2 mg/dL 8.4-10.2 stfd=701) AST (SGOT) (BEAKER) (test 58 U/L 5-34 vkkt=635) ALT (SGPT) (BEAKER) (test 74 U/L 6-55 fvri=335) EGFR (BEAKER) (test 71 mL/min/1.73 sq m ESTIMATED GFR IS NOT nkgb=5826) ACCURATE CREATININE CLEARANCE IN PREDICTING GLOMERULAR FILTRATION RATE. ESTIMATED GFR IS NOT APPLICABLE FOR DIALYSIS PATIENTS. PROTHROMBIN [id number] 05:59:00 Test Item Value Reference Range Comments PROTIME (BEAKER) (test duhv=310) 14.2 seconds 11.7-14.7 INR (BEAKER) (test xyfn=658) 1.1 <=5.9 RECOMMENDED COUMADIN/WARFARIN INR THERAPY RANGESSTANDARD DOSE: 2.0 - 3.0 Includes: PROPHYLAXIS forvenous thrombosis, systemic embolization; TREATMENT for venous thrombosis and/or pulmonary embolus.HIGH RISK: Target INR is 2.5-3.5 for patients with mechanical heart valves.POCT-GLUCOSE [id number] 22:57:00 Test Item Value Reference Range Comments POC-GLUCOSE METER (BEAKER) 128 mg/dL 70-[address] [facility] [address] (test piwl=3625) [facility] [address] C. DIFFICILE GDH [id number] 19:04:00 Test Item Value Reference Range Comments CDT TOXIN (test Negative Negative sniu=[id number]) CDT GDH ANTIGEN (test Negative Negative No indication of Clostridium qutl=[id number]) difficile infection and no colonization. Discontinue enteric isolation and therapy. Testing performed by [employer] Rapid Cassette Assay. For GDH, published sensitivity of the assay is 98.7% compared to cytotoxicity testing. For Toxin AB, published sensitivity is 87.8% and specificity 99.4% compared to cytotoxicity testing.Verification of kit performance was done by the [facility] Microbiology Lab prior to clinical use.BLOOD [id number] 19:01:00 Test Item Value Reference Range Comments CULTURE (BEAKER) (test crpt=0060) No growth in 5 days POCT-GLUCOSE [id number] 18:29:00 Test Item Value Reference Range Comments POC-GLUCOSE METER (BEAKER) 143 mg/dL 70-110 TESTED AT [address] (test noir=2789) [place] [address] POCT-GLUCOSE [id number] 12:40:00 Test Item Value Reference Range Comments POC-GLUCOSE METER (BEAKER) 128 mg/dL 70-110 TESTED AT [address] (test fzhb=8762) [place] [address] TISSUE [id number] 09:49:00Surgical Pathology Report Case: [id number] Authorizing Provider: Parker Hurd MD Collected: 11/03/2018 0140 Ordering Location: [address] Received: 11/04/2018 0817 Cardiovascular Pathologist: Andrew Almaraz MD Specimen: Gallbladder, subtotal gallbladder Special stains for fungal organisms (GMS, PAS) performed on block A2 are NEGATIVE.Addendum electronically signed by Andrew Almaraz MD on 11/07/2018 at 9:49 AMPART A GALLBLADDER , SUBTOTAL CHOLECYSTECTOMY:GANGRENOUS NECROSIS OF GALLBLADDER.SPECIAL STAINS FOR INFECTIOUS ORGANISMS PENDING, AN ADDENDUM REPORT WILL FOLLOW. Signing Pathologist Direct Phone Line: [phone] signed by Andrew Almaraz MD on 11/06/2018 at 8:48 [id number], [id number] cholecystitis Subtotal gallbladderThe specimen is received in formalin-filled container labeled with the patient's information and labeled "subtotal gallbladder". It consists of an intact gallbladder measuring 8.5 x 3 cm with a gallbladder wall thickness up to 0.3 cm. the serosa is blue-purple and dull with green discoloration grosslyappearing to be gangrene. The mucosa is flattened and smooth and has a green discoloration throughout. No stones are present within the container.Section code: A1, resection margin en face; A2, gallbladder wall. CG/ew PERFORMEDBLOCK A2- GMS, PASPROTHROMBIN [id number] 06:22:00 Test Item Value Reference Range Comments PROTIME (BEAKER) (test xegf=472) 14.2 seconds 11.7-14.7 INR (BEAKER) (test kzxi=507) 1.1 <=5.9 RECOMMENDED COUMADIN/WARFARIN INR THERAPY RANGESSTANDARD DOSE: 2.0 - 3.0 Includes: PROPHYLAXIS forvenous thrombosis, systemic embolization; TREATMENT for venous thrombosis and/or pulmonary embolus.HIGH RISK: Target INR is 2.5-3.5 for patients with mechanical heart valves.[id number] 06:20:00 Test Item Value Reference Range Comments MAGNESIUM (BEAKER) (test tqkc=150) 1.7 mg/dL 1.6-2.6 COMPREHENSIVE METABOLIC [id number] 06:20:00 Test Item Value Reference Range Comments TOTAL PROTEIN (BEAKER) 6.0 gm/dL 6.0-8.3 (test duet=219) ALBUMIN (BEAKER) (test 2.9 g/dL 3.5-5.0 qzgb=6316) ALKALINE PHOSPHATASE 162 U/L 40-150 (BEAKER) (test nmro=169) BILIRUBIN TOTAL (BEAKER) 1.4 mg/dL 0.2-1.2 (test qxvu=987) SODIUM (BEAKER) (test 141 meq/L 136-145 vham=224) POTASSIUM (BEAKER) (test 3.6 meq/L 3.5-5.1 lote=644) CHLORIDE (BEAKER) (test 107 meq/L 98-107 rpnx=847) CO2 (BEAKER) (test 26 meq/L 22-29 qioo=719) BLOOD UREA NITROGEN 19 mg/dL 7-21 (BEAKER) (test oelm=289) CREATININE (BEAKER) (test 0.91 mg/dL 0.57-1.25 hhtk=898) GLUCOSE RANDOM (BEAKER) 123 mg/dL 70-105 (test eskg=536) CALCIUM (BEAKER) (test 8.6 mg/dL 8.4-10.2 vvqr=925) AST (SGOT) (BEAKER) (test 57 U/L 5-34 qhxv=149) ALT (SGPT) (BEAKER) (test 75 U/L 6-55 ykhx=688) EGFR (BEAKER) (test 83 mL/min/1.73 sq m ESTIMATED GFR IS NOT qhjz=8393) ACCURATE CREATININE CLEARANCE IN PREDICTING GLOMERULAR FILTRATION RATE. ESTIMATED GFR IS NOT APPLICABLE FOR DIALYSIS PATIENTS. CBC W/PLT COUNT & AUTO [id number] 05:59:00 Test Item Value Reference Range Comments WHITE BLOOD CELL COUNT (BEAKER) (test tmyv=179) 10.3 K/ L 3.5-10.5 RED BLOOD CELL COUNT (BEAKER) (test pbhc=631) 4.26 M/ L 4.63-6.08 HEMOGLOBIN (BEAKER) (test ifmd=383) 12.8 GM/DL 13.7-17.5 HEMATOCRIT (BEAKER) (test wpag=035) 42.4 % 40.1-51.0 MEAN CORPUSCULAR VOLUME (BEAKER) (test wdzv=126) 99.5 fL 79.0-92.2 MEAN CORPUSCULAR HEMOGLOBIN (BEAKER) (test 30.0 pg 25.7-32.2 myzi=720) MEAN CORPUSCULAR HEMOGLOBIN CONC (BEAKER) (test 30.2 GM/DL 32.3-36.5 rovg=956) RED CELL DISTRIBUTION WIDTH (BEAKER) (test 15.3 % 11.6-14.4 uxgj=374) PLATELET COUNT (BEAKER) (test qale=654) 170 K/CU MM 150-450 MEAN PLATELET VOLUME (BEAKER) (test step=599) 10.3 fL 9.4-12.4 NUCLEATED RED BLOOD CELLS (BEAKER) (test 0 /100 WBC 0-0 iqor=351) NEUTROPHILS RELATIVE PERCENT (BEAKER) (test 73 % lvfo=444) LYMPHOCYTES RELATIVE PERCENT (BEAKER) (test 11 % iyea=226) MONOCYTES RELATIVE PERCENT (BEAKER) (test 10 % gogu=760) EOSINOPHILS RELATIVE PERCENT (BEAKER) (test 2 % jier=714) BASOPHILS RELATIVE PERCENT (BEAKER) (test 1 % kknc=251) NEUTROPHILS ABSOLUTE COUNT (BEAKER) (test 7.55 K/ L 1.78-5.38 gtyh=444) LYMPHOCYTES ABSOLUTE COUNT (BEAKER) (test 1.18 K/ L 1.32-3.57 wesx=960) MONOCYTES ABSOLUTE COUNT (BEAKER) (test 1.00 K/ L 0.30-0.82 jdrr=269) EOSINOPHILS ABSOLUTE COUNT (BEAKER) (test 0.15 K/ L 0.04-0.54 flqg=211) BASOPHILS ABSOLUTE COUNT (BEAKER) (test 0.07 K/ L 0.01-0.08 cmkg=854) IMMATURE GRANULOCYTES-RELATIVE PERCENT (BEAKER) 4 % 0-1 (test skdb=5202) POCT-GLUCOSE [id number] 05:23:00 Test Item Value Reference Range Comments POC-GLUCOSE METER (BEAKER) 126 mg/dL 70-110 TESTED AT [address] (test wbcb=7100) [place] [address] POCT-GLUCOSE [id number] 00:18:00 Test Item Value Reference Range Comments POC-GLUCOSE METER (BEAKER) 132 mg/dL 70-110 TESTED AT [address] (test yyjg=4308) [place] [address] ANAEROBIC [id number] 18:46:00 Test Item Value Reference Range Comments CULTURE (BEAKER) (test kazz=5585) No anaerobes isolated POCT-GLUCOSE [id number] 17:39:00 Test Item Value Reference Range Comments POC-GLUCOSE METER (BEAKER) 141 mg/dL 70-110 TESTED AT [address] (test gdre=3975) [place] [address] POCT-GLUCOSE [id number] 12:40:00 Test Item Value Reference Range Comments POC-GLUCOSE METER (BEAKER) 132 mg/dL 70-110 TESTED AT [address] (test xnjt=2339) [place] [address] SURGICALLY OBTAINED CULTURE + GRAM [id number] 12:34:00 Test Item Value Reference Range Comments CULTURE (BEAKER) (test ESCHERICHIA COLI <1+ Escherichia toai=6551) coliESBL Positive Amikacin (test code=1) Ampicillin + Sulbactam (test code=6) Aztreonam (test code=32) Cefepime (test code=51) Cefoxitin (test code=68) Ceftazidime (test code=27) Ceftriaxone (test code=52) Ertapenem (test code=38) Gentamicin (test code=18) Levofloxacin (test code=22) Meropenem (test code=34) Nitrofurantoin (test code=23) Piperacillin + Tazobactam (test code=29) Tetracycline (test code=2) Tobramycin (test code=25) Trimethoprim + Sulfamethoxazole (test code=47) GRAM STAIN RESULT (BEAKER) 1+ WBCs (test zsmn=1221) GRAM STAIN RESULT (BEAKER) No organisms seen (test thfb=370614) MR, ABDOMEN, [id number] 09:00:00FINAL REPORT MRI of the abdomen, MRCP. 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 COMPARISON STUDY: CT scan dated November 02, 2018. TECHNIQUE: Multiplanar, multisequence images of the abdomen were acquired without the administration of intravenous gadolinium as per the MRCP protocol. Three-dimensional reconstructions were acquired and utilized by the dictating radiologist at the time of interpretation. FINDINGS: Atelectasis or consolidation is seen in the lung bases. The abdomen is limited by lack of contrast. Fatty infiltration of the liver is noted. The spleen, kidneys and adrenal glands are unremarkable. A partially visualized aortic aneurysm is seen measuring 4.6 x 4.7 cm in maximal transverse diameter with a stent graft in place. Mild diffuse anasarca is seen. No loculate collections are identified. There are no dilated loops of bowel. A midline laparotomy scar is present. The visualized osseous structures demonstrate degenerative changes. MRCP demonstrates a drainage catheter in the region of the gallbladder fossa with 3.8 x 2.1 cm increased T2-weighted structure in the region of the fossa, most likely some postsurgical fluid such as a seroma. Adjacent edema is seen. No evidence of intra or extra hepatic biliary dilatation is seen with the CBD measuring 3 mm. The pancreatic duct is normal in caliber. IMPRESSION:1. No evidence of Mirizzi syndrome with no evidence of intra or extrahepatic biliary dilatation.2. Postsurgical changes related to open cholecystectomy. A small amount of fluid is seen in the gallbladder fossa as well as a drainage catheter.3. Diffuse anasarca.4. Fatty liver.5. Atelectasis or consolidation in the lung bases.6. Aortic aneurysm with stent graft in place. Signed: Billy Muroort Verified Date/Time: 06/2019 09:00:12 Reading Location: [facility] Diagnostic Imaging Reading Room - [place] [address] RAD, CHEST, 1 VIEW, NON [id number] 08:11:00Reason for exam:->pleural effusionShould this be performed at the bedside?->YesFINAL REPORT CLINICAL HISTORY: pleural effusion TECHNIQUE: 1 view of the chest. COMPARISON: 11/05/2018 IMPRESSION: Pulmonary vascular congestion is again seen with mild increased bilateral lung markings. Blunting of the costophrenic angles is again seen. The cardiomediastinal silhouette is magnified by technique. Signed: Perez Keithort Verified Date/Time: 11/06/2018 08:11 :58 Reading Location: [facility] Radiology Reading Room [id number] 06:51: 00 Test Item Value Reference Range Comments MAGNESIUM (BEAKER) (test mdrf=329) 1.9 mg/dL 1.6-2.6 COMPREHENSIVE METABOLIC [id number] 06:51:00 Test Item Value Reference Range Comments TOTAL PROTEIN (BEAKER) 6.3 gm/dL 6.0-8.3 (test jozx=135) ALBUMIN (BEAKER) (test 2.9 g/dL 3.5-5.0 elrm=4764) ALKALINE PHOSPHATASE 114 U/L 40-150 (BEAKER) (test orik=407) BILIRUBIN TOTAL (BEAKER) 1.7 mg/dL 0.2-1.2 (test cdha=765) SODIUM (BEAKER) (test 144 meq/L 136-145 wpep=455) POTASSIUM (BEAKER) (test 3.3 meq/L 3.5-5.1 kmbd=273) CHLORIDE (BEAKER) (test 107 meq/L 98-107 wsbm=047) CO2 (BEAKER) (test 30 meq/L 22-29 hiah=213) BLOOD UREA NITROGEN 26 mg/dL 7-21 (BEAKER) (test bpvm=850) CREATININE (BEAKER) (test 1.07 mg/dL 0.57-1.25 nugc=991) GLUCOSE RANDOM (BEAKER) 128 mg/dL 70-105 (test crdd=945) CALCIUM (BEAKER) (test 8.9 mg/dL 8.4-10.2 vgjn=123) AST (SGOT) (BEAKER) (test 32 U/L 5-34 dlad=520) ALT (SGPT) (BEAKER) (test 77 U/L 6-55 khsu=154) EGFR (BEAKER) (test 69 mL/min/1.73 sq m ESTIMATED GFR IS NOT ssyy=8650) ACCURATE CREATININE CLEARANCE IN PREDICTING GLOMERULAR FILTRATION RATE. ESTIMATED GFR IS NOT APPLICABLE FOR DIALYSIS PATIENTS. CBC W/PLT COUNT & AUTO [id number] 06:40:00 Test Item Value Reference Range Comments WHITE BLOOD CELL COUNT (BEAKER) (test ityz=677) 10.2 K/ L 3.5-10.5 RED BLOOD CELL COUNT (BEAKER) (test akha=849) 4.16 M/ L 4.63-6.08 HEMOGLOBIN (BEAKER) (test etmx=804) 12.4 GM/DL 13.7-17.5 HEMATOCRIT (BEAKER) (test ppzd=448) 39.4 % 40.1-51.0 MEAN CORPUSCULAR VOLUME (BEAKER) (test wvks=981) 94.7 fL 79.0-92.2 MEAN CORPUSCULAR HEMOGLOBIN (BEAKER) (test 29.8 pg 25.7-32.2 iqiv=723) MEAN CORPUSCULAR HEMOGLOBIN CONC (BEAKER) (test 31.5 GM/DL 32.3-36.5 hemr=770) RED CELL DISTRIBUTION WIDTH (BEAKER) (test 15.2 % 11.6-14.4 yxnj=493) PLATELET COUNT (BEAKER) (test fkzy=482) 192 K/CU MM 150-450 MEAN PLATELET VOLUME (BEAKER) (test yvxt=984) 10.8 fL 9.4-12.4 NUCLEATED RED BLOOD CELLS (BEAKER) (test 0 /100 WBC 0-0 efbo=677) NEUTROPHILS RELATIVE PERCENT (BEAKER) (test 79 % drhr=758) LYMPHOCYTES RELATIVE PERCENT (BEAKER) (test 9 % mcrc=507) MONOCYTES RELATIVE PERCENT (BEAKER) (test 9 % slhh=152) EOSINOPHILS RELATIVE PERCENT (BEAKER) (test 0 % xrow=598) BASOPHILS RELATIVE PERCENT (BEAKER) (test 0 % upru=867) NEUTROPHILS ABSOLUTE COUNT (BEAKER) (test 8.13 K/ L 1.78-5.38 qbns=147) LYMPHOCYTES ABSOLUTE COUNT (BEAKER) (test 0.96 K/ L 1.32-3.57 jmfl=338) MONOCYTES ABSOLUTE COUNT (BEAKER) (test 0.90 K/ L 0.30-0.82 ythb=488) EOSINOPHILS ABSOLUTE COUNT (BEAKER) (test 0.04 K/ L 0.04-0.54 tzix=011) BASOPHILS ABSOLUTE COUNT (BEAKER) (test 0.03 K/ L 0.01-0.08 qmop=785) IMMATURE GRANULOCYTES-RELATIVE PERCENT (BEAKER) 2 % 0-1 (test slgd=9242) PROTHROMBIN [id number] 06:29:00 Test Item Value Reference Range Comments PROTIME (BEAKER) (test bfjq=074) 15.2 seconds 11.7-14.7 INR (BEAKER) (test rvhu=034) 1.2 <=5.9 RECOMMENDED COUMADIN/WARFARIN INR THERAPY RANGESSTANDARD DOSE: 2.0 - 3.0 Includes: PROPHYLAXIS forvenous thrombosis, systemic embolization; TREATMENT for venous thrombosis and/or pulmonary embolus.HIGH RISK: Target INR is 2.5-3.5 for patients with mechanical heart valves.POCT-GLUCOSE [id number] 05:55:00 Test Item Value Reference Range Comments POC-GLUCOSE METER (BEAKER) 164 mg/dL 70-110 TESTED AT [address] (test jnao=2524) [facility] [address] POCT-GLUCOSE [id number] 23:49:00 Test Item Value Reference Range Comments POC-GLUCOSE METER (BEAKER) 127 mg/dL 70-110 TESTED AT [address] (test swrn=7559) [facility] [address] POCT-GLUCOSE [id number] 16:20:00 Test Item Value Reference Range Comments POC-GLUCOSE METER (BEAKER) 134 mg/dL 70-110 TESTED AT [address] (test abwe=8011) [place] [id number] POCT-GLUCOSE [id number] 13:16:00 Test Item Value Reference Range Comments POC-GLUCOSE METER (BEAKER) 154 mg/dL 70-[address] [facility] [address] [facility] (test vegd=0976) [facility] [address] RAD, CHEST, 1 VIEW, NON [id number] 07:38:00Reason for exam:->pleural effusionShould this be performed at the bedside?->YesFINAL REPORT CLINICAL HISTORY: pleural effusion TECHNIQUE: 1 view of the chest. COMPARISON: 11/04/2018 IMPRESSION: The right central line has been removed. Bilateral lower lung opacities are unchanged. The cardiomediastinal silhouette is magnified by technique. Signed: Perez Keith Verified Date/Time: 11/05/2018 07:38:09 Reading Location: [facility] Radiology Reading Room POCT- GLUCOSE [id number] 05:22:00 Test Item Value Reference Range Comments POC-GLUCOSE METER (BEAKER) 141 mg/dL 70-110 TESTED AT [place] [id number] [facility] (test hahv=7111) [place] [id number] 04:47:00 Test Item Value Reference Range Comments MAGNESIUM (BEAKER) (test cgnm=516) 2.1 mg/dL 1.6-2.6 COMPREHENSIVE METABOLIC [id number] 04:47:00 Test Item Value Reference Range Comments TOTAL PROTEIN (BEAKER) 6.0 gm/dL 6.0-8.3 (test evve=334) ALBUMIN (BEAKER) (test 2.9 g/dL 3.5-5.0 owum=0256) ALKALINE PHOSPHATASE 109 U/L 40-150 (BEAKER) (test dxhj=667) BILIRUBIN TOTAL (BEAKER) 1.9 mg/dL 0.2-1.2 (test ypsw=918) SODIUM (BEAKER) (test 144 meq/L 136-145 zwzc=625) POTASSIUM (BEAKER) (test 4.0 meq/L 3.5-5.1 wahm=522) CHLORIDE (BEAKER) (test 110 meq/L 98-107 macy=704) CO2 (BEAKER) (test 27 meq/L 22-29 gzgq=142) BLOOD UREA NITROGEN 33 mg/dL 7-21 (BEAKER) (test lyzv=940) CREATININE (BEAKER) (test 1.21 mg/dL 0.57-1.25 shpw=603) GLUCOSE RANDOM (BEAKER) 123 mg/dL 70-105 (test lllf=091) CALCIUM (BEAKER) (test 9.0 mg/dL 8.4-10.2 epon=592) AST (SGOT) (BEAKER) (test 42 U/L 5-34 ffzu=759) ALT (SGPT) (BEAKER) (test 109 U/L 6-55 gxjr=161) EGFR (BEAKER) (test 59 mL/min/1.73 sq m ESTIMATED GFR IS NOT zeqj=5556) ACCURATE CREATININE CLEARANCE IN PREDICTING GLOMERULAR FILTRATION RATE. ESTIMATED GFR IS NOT APPLICABLE FOR DIALYSIS PATIENTS. PROTHROMBIN [id number] 04:42:00 Test Item Value Reference Range Comments PROTIME (BEAKER) (test ebue=263) 14.4 seconds 11.7-14.7 INR (BEAKER) (test lppg=484) 1.1 <=5.9 RECOMMENDED COUMADIN/WARFARIN INR THERAPY RANGESSTANDARD DOSE: 2.0 - 3.0 Includes: PROPHYLAXIS forvenous thrombosis, systemic embolization; TREATMENT for venous thrombosis and/or pulmonary embolus.HIGH RISK: Target INR is 2.5-3.5 for patients with mechanical heart valves.CBC W/PLT COUNT & AUTO [id number] 04:35:00 Test Item Value Reference Range Comments WHITE BLOOD CELL COUNT (BEAKER) (test jgsb=302) 11.0 K/ L 3.5-10.5 RED BLOOD CELL COUNT (BEAKER) (test tuoo=314) 4.05 M/ L 4.63-6.08 HEMOGLOBIN (BEAKER) (test yuqq=502) 12.0 GM/DL 13.7-17.5 HEMATOCRIT (BEAKER) (test hyzw=123) 38.6 % 40.1-51.0 MEAN CORPUSCULAR VOLUME (BEAKER) (test tgio=278) 95.3 fL 79.0-92.2 MEAN CORPUSCULAR HEMOGLOBIN (BEAKER) (test 29.6 pg 25.7-32.2 ikfw=436) MEAN CORPUSCULAR HEMOGLOBIN CONC (BEAKER) (test 31.1 GM/DL 32.3-36.5 pscd=542) RED CELL DISTRIBUTION WIDTH (BEAKER) (test 15.2 % 11.6-14.4 reby=342) PLATELET COUNT (BEAKER) (test osfn=843) 171 K/CU MM 150-450 MEAN PLATELET VOLUME (BEAKER) (test hsoh=662) 10.8 fL 9.4-12.4 NUCLEATED RED BLOOD CELLS (BEAKER) (test 0 /100 WBC 0-0 badn=656) NEUTROPHILS RELATIVE PERCENT (BEAKER) (test 83 % eykw=517) LYMPHOCYTES RELATIVE PERCENT (BEAKER) (test 7 % wrtt=792) MONOCYTES RELATIVE PERCENT (BEAKER) (test 9 % jzsl=433) EOSINOPHILS RELATIVE PERCENT (BEAKER) (test 1 % mylr=431) BASOPHILS RELATIVE PERCENT (BEAKER) (test 0 % sqmi=189) NEUTROPHILS ABSOLUTE COUNT (BEAKER) (test 9.12 K/ L 1.78-5.38 fesw=177) LYMPHOCYTES ABSOLUTE COUNT (BEAKER) (test 0.72 K/ L 1.32-3.57 sktz=172) MONOCYTES ABSOLUTE COUNT (BEAKER) (test 0.94 K/ L 0.30-0.82 gmms=854) EOSINOPHILS ABSOLUTE COUNT (BEAKER) (test 0.08 K/ L 0.04-0.54 mvzs=660) BASOPHILS ABSOLUTE COUNT (BEAKER) (test 0.02 K/ L 0.01-0.08 oopd=778) IMMATURE GRANULOCYTES-RELATIVE PERCENT (BEAKER) 1 % 0-1 (test ajgq=6466) POCT-GLUCOSE [id number] 23:38:00 Test Item Value Reference Range Comments POC-GLUCOSE METER (BEAKER) 140 mg/dL 70-110 TESTED AT [place] [id number] [facility] (test lthe=3040) [facility] [id number] POCT-GLUCOSE [id number] 18:02:00 Test Item Value Reference Range Comments POC-GLUCOSE METER (BEAKER) 131 mg/dL 70-110 TESTED AT [place] [id number] [facility] (test mjkm=3069) [facility] [address] RAD, ABDOMEN/KUB, 1 VIEW [id number] 16:24:00Reason for exam:->ileus evalShould this be performed at the bedside?->YesFINAL REPORT EXAM: Portable AP radiographs of the abdomen. 3 total images HISTORY PROVIDED: Ileus evaluation COMPARISON: 11/02/2018 IMPRESSION:There are dilated loops of air-filledcolon especially on the right without significantly dilated loops of small bowel which suggests ileus. Stool is seen within the right colon. While no definite free air is seen, this examination is insensitive for the detection of free air. A surgical drain tip projects over the right upper quadrant. Surgical hao project over the left abdomen. An aortobiiliac stent graft is in place. No acute osseous abnormality. Degenerative changes of the spine are noted. Signed: Ottoniel Holly MDReport Verified Date/Time: 11/04 16:24:26 [facility] Electronicallysigned by: OTTONIEL HOLLY on 11/04/2018 04:24 PMPOCT-GLUCOSE [id number] 12:28:00 Test Item Value Reference Range Comments POC-GLUCOSE METER (BEAKER) 152 mg/dL 70-110 TESTED AT [address] (test sonr=5289) [facility] [address] CBC W/PLT COUNT & AUTO [id number] 10:34:00 Test Item Value Reference Range Comments WHITE BLOOD CELL COUNT (BEAKER) (test jxmn=408) 9.0 K/ L 3.5-10.5 RED BLOOD CELL COUNT (BEAKER) (test ljwc=934) 4.00 M/ L 4.63-6.08 HEMOGLOBIN (BEAKER) (test zwbx=400) 11.8 GM/DL 13.7-17.5 HEMATOCRIT (BEAKER) (test vkix=015) 37.7 % 40.1-51.0 MEAN CORPUSCULAR VOLUME (BEAKER) (test bqmf=763) 94.3 fL 79.0-92.2 MEAN CORPUSCULAR HEMOGLOBIN (BEAKER) (test 29.5 pg 25.7-32.2 womk=164) MEAN CORPUSCULAR HEMOGLOBIN CONC (BEAKER) (test 31.3 GM/DL 32.3-36.5 fbuh=951) RED CELL DISTRIBUTION WIDTH (BEAKER) (test 15.0 % 11.6-14.4 rltw=571) PLATELET COUNT (BEAKER) (test yjra=227) 154 K/CU MM 150-450 MEAN PLATELET VOLUME (BEAKER) (test vvvo=690) 10.9 fL 9.4-12.4 NUCLEATED RED BLOOD CELLS (BEAKER) (test 0 /100 WBC 0-0 gvtz=978) (CELLAVISION MANUAL DIFF)2018-11-04 10:34:00 Test Item Value Reference Range Comments NEUTROPHILS - REL (CELLAVISION)(BEAKER) (test 63 % tont=9315) LYMPHOCYTES - REL (CELLAVISION)(BEAKER) (test 5 % ptds=9199) MONOCYTES - REL (CELLAVISION)(BEAKER) (test 6 % zvxq=2156) BANDS - REL (CELLAVISION)(BEAKER) (test msku=2838) 26 % 0-10 NEUTROPHILS - ABS (CELLAVISION)(BEAKER) (test 5.67 K/ul 1.78-5.38 wvnm=8821) LYMPHOCYTES - ABS (CELLAVISION)(BEAKER) (test 0.45 K/ul 1.32-3.57 kcut=0880) MONOCYTES - ABS (CELLAVISION)(BEAKER) (test 0.54 K/uL 0.30-0.82 jtoz=9304) BANDS - ABS (CELLAVISION)(BEAKER) (test dhsw=8466) 2.34 K/uL 0.00-0.80 TOTAL COUNTED (BEAKER) (test hykq=4591) 100 WBC MORPHOLOGY (BEAKER) (test ygrp=801) Normal PLT MORPHOLOGY (BEAKER) (test hpxs=119) Normal POLYCHROMATOPHILLIC RBCS(BEAKER) (test orwk=428) 1+ few ANISOCYTOSIS (BEAKER) (test psfl=031) 1+ few ARTIFACT (CELLAVISION)(BEAKER) (test lgla=1142) Present PLATELET CONCENTRATION (CELLAVISION)(BEAKER) (test Adequate hmub=0855) Received comment: User comments: Slide comments:LACTIC ACID, ARTERIAL, WHOLE [id number] 06:07:00 Test Item Value Reference Range Comments LACTATE BLOOD ARTERIAL (2) 0.8 mmol/L 0.5-2.2 Specimen slightly hemolyzed (BEAKER) (test mcat=3180) POCT-GLUCOSE [id number] 05:56:00 Test Item Value Reference Range Comments POC-GLUCOSE METER (BEAKER) 143 mg/dL 70-[address] [facility] [address] (test mhoh=8481) [facility] [address] [id number] 05:11:00 Test Item Value Reference Range Comments MAGNESIUM (BEAKER) (test okef=907) 1.9 mg/dL 1.6-2.6 COMPREHENSIVE METABOLIC [id number] 05:11:00 Test Item Value Reference Range Comments TOTAL PROTEIN (BEAKER) 5.9 gm/dL 6.0-8.3 (test oufv=652) ALBUMIN (BEAKER) (test 2.8 g/dL 3.5-5.0 sunp=2223) ALKALINE PHOSPHATASE 98 U/L 40-150 (BEAKER) (test ofzm=421) BILIRUBIN TOTAL (BEAKER) 2.3 mg/dL 0.2-1.2 (test hejx=507) SODIUM (BEAKER) (test 142 meq/L 136-145 eskx=047) POTASSIUM (BEAKER) (test 3.8 meq/L 3.5-5.1 rocg=818) CHLORIDE (BEAKER) (test 109 meq/L 98-107 vpgf=500) CO2 (BEAKER) (test 26 meq/L 22-29 hrix=059) BLOOD UREA NITROGEN 40 mg/dL 7-21 (BEAKER) (test ttbw=379) CREATININE (BEAKER) (test 1.48 mg/dL 0.57-1.25 zlmv=548) GLUCOSE RANDOM (BEAKER) 128 mg/dL 70-105 (test baug=783) CALCIUM (BEAKER) (test 8.9 mg/dL 8.4-10.2 diyk=534) AST (SGOT) (BEAKER) (test 74 U/L 5-34 nmet=469) ALT (SGPT) (BEAKER) (test 153 U/L 6-55 ncbu=501) EGFR (BEAKER) (test 47 mL/min/1.73 sq m ESTIMATED GFR IS NOT jrlj=4016) ACCURATE CREATININE CLEARANCE IN PREDICTING GLOMERULAR FILTRATION RATE. ESTIMATED GFR IS NOT APPLICABLE FOR DIALYSIS PATIENTS. PROTHROMBIN [id number] 05:00:00 Test Item Value Reference Range Comments PROTIME (BEAKER) (test sjkq=175) 15.4 seconds 11.7-14.7 INR (BEAKER) (test bdvp=506) 1.2 <=5.9 RECOMMENDED COUMADIN/WARFARIN INR THERAPY RANGESSTANDARD DOSE: 2.0 - 3.0 Includes: PROPHYLAXIS forvenous thrombosis, systemic embolization; TREATMENT for venous thrombosis and/or pulmonary embolus.HIGH RISK: Target INR is 2.5-3.5 for patients with mechanical heart valves.RAD, CHEST, 1 VIEW, NON [id number] 04:38:00Reason for exam:->pleural effusionShould this be performed at the bedside?->YesFINAL REPORT RAD, CHEST, 1 VIEW, NON DEPT INDICATION: pleural effusion COMPARISON: Prior day's exam FINDINGS: Portable frontal view of the chest. IMPRESSION: Support Lines: Interval extubation and removal of the previously seen enteric tube. Unchanged right IJ central venous catheter tip overlying the cavoatrial junction. Lungs and pleura : Slight interval increase in bibasilar bandlike opacities may represent atelectasis. Small bilateral pleural effusions. No pneumothorax.Heart and mediastinum: Stable contours. Additional findings: None. Signed: Celina Alvarado Verified Date/Time: 11/04/2018 04:38:30 Reading Location: [address] Transitional Reading Room POCT-GLUCOSE [id number] 00:09:00 Test Item Value Reference Range Comments POC-GLUCOSE METER (BEAKER) 135 mg/dL 70-110 TESTED AT [address] (test zgnw=6896) [facility] [address] POCT-GLUCOSE [id number] 17:42:00 Test Item Value Reference Range Comments POC-GLUCOSE METER (BEAKER) 160 mg/dL 70-110 TESTED AT [address] (test yjpb=7196) [facility] [address] BILIRUBIN, [id number] 12:54:00 Test Item Value Reference Range Comments BILIRUBIN DIRECT (BEAKER) (test suzh=239) 2.7 mg/dL 0.1-0.5 LACTIC ACID, ARTERIAL, WHOLE [id number] 12:48:00 Test Item Value Reference Range Comments LACTATE BLOOD ARTERIAL (2) (BEAKER) (test 2.3 mmol/L 0.5-2.2 tnkm=5732) HEMOGLOBIN AND [id number] 12:36:00 Test Item Value Reference Range Comments HEMOGLOBIN (BEAKER) (test nodh=635) 12.7 GM/DL 13.7-17.5 HEMATOCRIT (BEAKER) (test riqw=034) 40.4 % 40.1-51.0 BLOOD GAS, [id number] 12:30:00 Test Item Value Reference Range Comments PH ARTERIAL (BEAKER) (test vyxg=227) 7.32 7.35-7.45 PCO2 ARTERIAL (BEAKER) (test havv=679) 49 mmHg 35-45 PO2 ARTERIAL (BEAKER) (test osai=124) 83 mmHg 80-90 O2 SATURATION ARTERIAL (BEAKER) (test rcmp=670) 95.0 % 96.0-97.0 HCO3 ARTERIAL (BEAKER) (test sduh=418) 24 mmol/L 21-29 BASE EXCESS ARTERIAL (BEAKER) (test yoqz=390) -1.9 mmol/L -2.0-3.0 PATIENT TEMPERATURE (BEAKER) (test nrws=1744) 37.5 C FIO2 (BEAKER) (test sznm=4690) 40.0 % POCT-GLUCOSE [id number] 12:18:00 Test Item Value Reference Range Comments POC-GLUCOSE METER (BEAKER) 150 mg/dL 70-[address] [facility] [address] [facility] (test xlvm=4481) [facility] [address] CBC W/PLT COUNT & AUTO [id number] 10:47:00 Test Item Value Reference Range Comments WHITE BLOOD CELL COUNT (BEAKER) (test owgv=614) 8.0 K/ L 3.5-10.5 RED BLOOD CELL COUNT (BEAKER) (test mrya=391) 4.18 M/ L 4.63-6.08 HEMOGLOBIN (BEAKER) (test eavb=735) 12.5 GM/DL 13.7-17.5 HEMATOCRIT (BEAKER) (test xdvq=081) 38.8 % 40.1-51.0 MEAN CORPUSCULAR VOLUME (BEAKER) (test ncai=437) 92.8 fL 79.0-92.2 MEAN CORPUSCULAR HEMOGLOBIN (BEAKER) (test 29.9 pg 25.7-32.2 czjv=381) MEAN CORPUSCULAR HEMOGLOBIN CONC (BEAKER) (test 32.2 GM/DL 32.3-36.5 tpbc=748) RED CELL DISTRIBUTION WIDTH (BEAKER) (test 14.9 % 11.6-14.4 ovcg=367) PLATELET COUNT (BEAKER) (test jhal=094) 145 K/CU MM 150-450 MEAN PLATELET VOLUME (BEAKER) (test qjhc=613) 11.0 fL 9.4-12.4 NUCLEATED RED BLOOD CELLS (BEAKER) (test 0 /100 WBC 0-0 ncza=452) (CELLAVISION MANUAL DIFF)2018-11-03 10:47:00 Test Item Value Reference Range Comments NEUTROPHILS - REL (CELLAVISION)(BEAKER) (test 72 % wtnw=6183) LYMPHOCYTES - REL (CELLAVISION)(BEAKER) (test 1 % jurm=3645) MONOCYTES - REL (CELLAVISION)(BEAKER) (test 2 % adgn=6175) BASOPHILS - REL (CELLAVISION)(BEAKER) (test 1 % zgif=1946) BANDS - REL (CELLAVISION)(BEAKER) (test jvce=6909) 24 % 0-10 NEUTROPHILS - ABS (CELLAVISION)(BEAKER) (test 5.76 K/ul 1.78-5.38 hgjj=5210) LYMPHOCYTES - ABS (CELLAVISION)(BEAKER) (test 0.08 K/ul 1.32-3.57 uqqg=4747) MONOCYTES - ABS (CELLAVISION)(BEAKER) (test 0.16 K/uL 0.30-0.82 cmcr=6672) BASOPHILS - ABS (CELLAVISION)(BEAKER) (test 0.08 K/uL 0.01-0.08 mlhu=1899) BANDS - ABS (CELLAVISION)(BEAKER) (test obis=4162) 1.92 K/uL 0.00-0.80 TOTAL COUNTED (BEAKER) (test errs=0722) 100 RBC MORPHOLOGY (BEAKER) (test jlcr=448) Normal WBC MORPHOLOGY (BEAKER) (test qfzp=168) Normal PLT MORPHOLOGY (BEAKER) (test qhex=220) Normal ARTIFACT (CELLAVISION)(BEAKER) (test gmhj=0976) Present PLATELET CONCENTRATION (CELLAVISION)(BEAKER) (test Decreased xwti=7685) Received comment: User comments: Slide comments:POCT-GLUCOSE [id number] 09: 01:00 Test Item Value Reference Range Comments POC-GLUCOSE METER (BEAKER) 129 mg/dL 70-[address] [facility] [address] [facility] (test tdhl=9446) [place] [address] RAD, CHEST, 1 VIEW, NON [id number] 07:42:00Reason for exam:->intubated cvc placement verificationShould this be performed at the bedside?->YesFINAL REPORT Chest one view AP 11/03/2018 7:42 AM CLINICAL INDICATION: intubated cvc placement verification COMPARISON: 11/02/2018 IMPRESSION : Support hardware is in satisfactory radiographic position. Cardiomediastinal contours are stable. There is central pulmonary vasculature congestion without overt pulmonary edema. There are trace bilateral pleural effusions with adjacent basilar atelectasis. Signed: Silvino Kenny MDReport Verified Date/ Time: 11/03/2018 07:42:20 Reading Location: [address] Neuro Reading Room COMPREHENSIVE METABOLIC [id number] 07:21:00 Test Item Value Reference Range Comments TOTAL PROTEIN (BEAKER) 5.3 gm/dL 6.0-8.3 (test ogxh=868) ALBUMIN (BEAKER) (test 2.7 g/dL 3.5-5.0 ylrm=2093) ALKALINE PHOSPHATASE 98 U/L 40-150 (BEAKER) (test wkkq=196) BILIRUBIN TOTAL (BEAKER) 4.1 mg/dL 0.2-1.2 (test jopf=139) SODIUM (BEAKER) (test 141 meq/L 136-145 atya=269) POTASSIUM (BEAKER) (test 4.0 meq/L 3.5-5.1 iwwn=080) CHLORIDE (BEAKER) (test 110 meq/L 98-107 drvm=101) CO2 (BEAKER) (test 23 meq/L 22-29 lppo=096) BLOOD UREA NITROGEN 46 mg/dL 7-21 (BEAKER) (test tnif=259) CREATININE (BEAKER) (test 1.91 mg/dL 0.57-1.25 wpvi=922) GLUCOSE RANDOM (BEAKER) 122 mg/dL 70-105 (test grtx=340) CALCIUM (BEAKER) (test 8.2 mg/dL 8.4-10.2 mgoo=758) AST (SGOT) (BEAKER) (test 136 U/L 5-34 izny=922) ALT (SGPT) (BEAKER) (test 199 U/L 6-55 pghz=774) EGFR (BEAKER) (test mL/min/1.73 sq m INSUFFICIENT CLINICAL DATA fpow=0334) TO CALCULATE ESTIMATED GFR. Specimen slightly [id number] 07:19:00 Test Item Value Reference Range Comments MAGNESIUM (BEAKER) (test ajwv=738) 1.7 mg/dL 1.6-2.6 PROTHROMBIN TIME/[id number] 05:43:00 Test Item Value Reference Range Comments PROTIME (BEAKER) (test wixi=020) 17.3 seconds 11.7-14.7 INR (BEAKER) (test pgqz=936) 1.4 <=5.9 RECOMMENDED COUMADIN/WARFARIN INR THERAPY RANGESSTANDARD DOSE: 2.0 - 3.0 Includes: PROPHYLAXIS forvenous thrombosis, systemic embolization; TREATMENT for venous thrombosis and/or pulmonary embolus.HIGH RISK: Target INR is 2.5-3.5 for patients with mechanical heart valves.LACTIC ACID, ARTERIAL, WHOLE [id number] 05:17:00 Test Item Value Reference Range Comments LACTATE BLOOD ARTERIAL (2) (BEAKER) (test 1.3 mmol/L 0.5-2.2 jeai=4414) Specimen slightly ictericBLOOD GAS, [id number] 05:11:00 Test Item Value Reference Range Comments PH ARTERIAL (BEAKER) (test ezoe=013) 7.40 7.35-7.45 PCO2 ARTERIAL (BEAKER) (test xoqs=551) 38 mmHg 35-45 PO2 ARTERIAL (BEAKER) (test taox=532) 72 mmHg 80-90 O2 SATURATION ARTERIAL (BEAKER) (test ofmm=865) 94.8 % 96.0-97.0 HCO3 ARTERIAL (BEAKER) (test dxtp=437) 23 mmol/L 21-29 BASE EXCESS ARTERIAL (BEAKER) (test jodp=675) -1.4 mmol/L -2.0-3.0 PATIENT TEMPERATURE (BEAKER) (test wvst=2289) 36.8 C FIO2 (BEAKER) (test csvq=0633) 75.0 % POCT-GLUCOSE [id number] 04:59:00 Test Item Value Reference Range Comments POC-GLUCOSE METER (BEAKER) 121 mg/dL 70-110 TESTED AT [address] (test rjno=5961) [place] [address] BASIC METABOLIC [id number] 00:03:00 Test Item Value Reference Range Comments SODIUM (BEAKER) (test 139 meq/L 136-145 cqxr=151) POTASSIUM (BEAKER) (test 3.8 meq/L 3.5-5.1 pidc=485) CHLORIDE (BEAKER) (test 106 meq/L 98-107 pdnb=647) CO2 (BEAKER) (test 24 meq/L 22-29 ires=389) BLOOD UREA NITROGEN 49 mg/dL 7-21 (BEAKER) (test gqlb=938) CREATININE (BEAKER) (test 2.11 mg/dL 0.57-1.25 apxk=455) GLUCOSE RANDOM (BEAKER) 176 mg/dL 70-105 (test wvhi=937) CALCIUM (BEAKER) (test 8.0 mg/dL 8.4-10.2 lfsp=759) EGFR (BEAKER) (test mL/min/1.73 sq m INSUFFICIENT CLINICAL DATA htra=7008) TO CALCULATE ESTIMATED GFR. Specimen slightly ictericPOCT-GLUCOSE [id number] 23:45:00 Test Item Value Reference Range Comments POC-GLUCOSE METER (BEAKER) 209 mg/dL 70-110 TESTED AT [address] (test fuvl=8221) [place] [address] LACTIC ACID, ARTERIAL, WHOLE [id number] 23:40:00 Test Item Value Reference Range Comments LACTATE BLOOD ARTERIAL (2) (BEAKER) (test 1.8 mmol/L 0.5-2.2 kesa=9474) Specimen slightly ictericBLOOD GAS, [id number] 23:16:00 Test Item Value Reference Range Comments PH ARTERIAL (BEAKER) (test ltts=776) 7.30 7.35-7.45 PCO2 ARTERIAL (BEAKER) (test ziuk=782) 55 mmHg 35-45 PO2 ARTERIAL (BEAKER) (test ehby=518) 66 mmHg 80-90 O2 SATURATION ARTERIAL (BEAKER) (test uwbx=396) 91.0 % 96.0-97.0 HCO3 ARTERIAL (BEAKER) (test ufuk=536) 27 mmol/L 21-29 BASE EXCESS ARTERIAL (BEAKER) (test myxg=240) -0.5 mmol/L -2.0-3.0 PATIENT TEMPERATURE (BEAKER) (test sjxm=8555) 36.7 C FIO2 (BEAKER) (test pncq=0041) 60.0 % LIPID [id number] 23:08:00 Test Item Value Reference Range Comments TRIGLYCERIDES (BEAKER) (test meqh=868) 118 mg/dL CHOLESTEROL (BEAKER) (test ydhg=143) 73 mg/dL HDL CHOLESTEROL (BEAKER) (test ahsb=426) 15 mg/dL LDL CHOLESTEROL CALCULATED (BEAKER) (test 34 mg/dL hkpz=128) Triglyceride Reference Range: Low Risk <150 Borderline 150- 199 High Risk 200-499 Very High Risk >=500Cholesterol Reference Range: Low Risk <200 Borderline 200-239 High Risk > 240HDL Cholesterol Reference Range: Low Risk >=60 High Risk <40LDL Cholesterol Reference Range: Optimal <100 Near Optimal 100-129 Borderline 130-159 High 160-189 Very High >=190 Specimen slightly ictericCT, ABDOMEN, WITHOUT [id number] 22:49:00FINAL REPORT CT, ABDOMEN, WITHOUT CONTRAST INDICATION: RUQ pain, cholecystitis suspected COMPARISON: None TECHNIQUE: Noncontrast abdomen CT. Coronal and sagittal reformatted images obtained. DOSE REDUCTION: Dose modulation, iterative reconstruction, and/or weight-based adjustment of the mA/kV was utilized to reduce the radiation dose to as low as reasonably achievable. FINDINGS: Lower thorax: Bilateral lower lobe consolidative air space opacities favored to represent atelectasis or small bilateral pleural effusions however superimposed infection/aspiration cannot be excluded. The heart is globally enlarged. Coronary artery calcifications. Right basilar pleural based calcifications may be dystrophic however correlate for prior asbestos exposure. Liver: Lack of intravenous contrast material limits evaluation however no discrete lesions are identified.Gallbladder and biliarytree: Gallbladder is distended with gas in the gallbladder wall. There is surrounding pericholecystic fluid and inflammatory stranding with associated pneumobilia. The common bile duct is normal in caliber. Findings are consistent with emphysematous cholecystitis. Additionally there is small volume pneumoperitoneum suggestive of perforation.Pancreas: No acute findings.Spleen: Calcified granulomas in the spleen.Adrenal Glands: No acute findings.Kidneys and ureters: Bilateral perinephric stranding. Nonephrolithiasis or hydronephrosis. No contour deforming renal lesions. Stomach and Duodenum: The enteric tube is seen terminating in the gastric body. Stomach and duodenum are otherwise unremarkable.Visualized Small and large intestine: Normal calibers. Major vascular structures: Incompletely evaluated infrarenal abdominal spine and iliac stent graft with excluded infrarenal abdominal aortic aneurysm measuring 4.5 x 4.3 cm.Peritoneum and retroperitoneum: Pneumoperitoneum as described above. Inflammatory stranding surrounding the gallbladder fossa. No pathologically enlarged intra-abdominal lymph nodes. Skeleton: Multiple degenerative changes of the visualized thoracolumbar spine. No acute fracture or aggressive osseous lesion is identified. Additional findings: None. IMPRESSION:Acute emphysematous cholecystitis with associated pneumoperitoneum consistent with perforation. Incompletely evaluated infrarenal abdominal spine and iliac stent graft with excluded infrarenal abdominal aortic aneurysm measuring 4.5 x 4.3 cm. Bilateral lower lobe consolidative air space opacities favored to represent atelectasis or small bilateral pleural effusions however superimposed infection/aspiration cannotbe excluded. NOTIFICATION: The significant results of this study were discussed with and acknowledged by SELENA Bowie, by telephone on 11/02/2018 10:48 PM. Signed: Celina Alvarado Verified Date/Time: 11/02/2018 22:49:35 Reading Location: [address] Transitional Reading Room POCT-GLUCOSE [id number] 22:34:00 Test Item Value Reference Range Comments POC-GLUCOSE METER (BEAKER) 218 mg/dL 70-[address] [facility] [address] [facility] (test yuqr=1854) [facility] [address] U/S, ABDOMINAL, [id number] 20:43:00Abdomen limited area? Add comment if clarification is needed.->Gall BladderReason for exam:->possible cholelithiasis, choledocholithiasisShould this be performed at the bedside?-> YesFINAL REPORT INDICATION: possible cholelithiasis, choledocholithiasis COMPARISON: Same day CT abdomen and pelvis. TECHNIQUE: Real -time transabdominal lares scale and color Doppler ultrasound of the abdomen. FINDINGS:Liver: Size: 19.7cm. Echogenicity: Normal. Masses/lesions : None. Surface Nodularity: None. Intrahepatic bile ducts: Normal. Common bile duct: 0.9 cm. MPV: 1.1cm. Gallbladder: Diffuse wall echo shadow complex of the gallbladder is concerning for emphysematous cholecystitis. Pancreas: Head and uncinate process: Not well seen. Body and tail: Not well-seen. Right kidney: Size: 11.1 x 5.4 x 6.4 cm. Parenchyma: Normal echogenicity. No cysts. No stones. Hydronephrosis: None. Ascites: None. Regional Vasculature: The visible abdominal aorta, IVC and hepatic veins are patent. The aorta measures 2.4 cm proximally. Additional findings: None. IMPRESSION: Diffuse wall echo shadow complex of the gallbladder is concerning for emphysematous cholecystitis. Noncontrast CT abdomen would be helpful for further evaluation .Hepatomegaly. NOTIFICATION: The significant results of this study were discussed with and acknowledged by SELENA Bowie, by telephone on 2018 8:41 PM. Signed: Celina Alvarado Verified Date/Time: 2018 20:43:03 Reading Location: [address] Reading Room POCT -GLUCOSE [id number] 20:27:00 Test Item Value Reference Range Comments POC-GLUCOSE METER (BEAKER) 297 mg/dL 70-[address] [facility] [address] [facility] (test ahpv=1927) [facility] [address] URINALYSIS W/ [id number] 20:25:00 Test Item Value Reference Range Comments COLOR (BEAKER) (test ipfv=809) Yellow CLARITY (BEAKER) (test nndc=653) Clear SPECIFIC GRAVITY UA (BEAKER) (test plpj=463) 1.014 1.001-1.035 PH UA (BEAKER) (test yvtr=342) 5.0 5.0-8.0 PROTEIN UA (BEAKER) (test ajgy=194) Negative Negative GLUCOSE UA (BEAKER) (test jibg=498) >1000 mg/dL Negative KETONES UA (BEAKER) (test vhya=084) Negative Negative BILIRUBIN UA (BEAKER) (test keal=259) Positive Negative BLOOD UA (BEAKER) (test apdr=128) Small Negative NITRITE UA (BEAKER) (test oujt=267) Negative Negative LEUKOCYTE ESTERASE UA (BEAKER) (test dezg=336) Negative Negative UROBILINOGEN UA (BEAKER) (test qgwt=176) 0.2 mg/dL 0.2-1.0 RBC UA (BEAKER) (test wdaz=380) 2 /HPF WBC UA (BEAKER) (test ywws=107) 2 /HPF BACTERIA (BEAKER) (test fxac=622) Rare MUCUS (BEAKER) (test szty=8366) Rare SQUAMOUS EPITHELIAL (BEAKER) (test ccxt=248) < /HPF SOURCE(BEAKER) (test xnyv=1453) Urine, [place] COMPREHENSIVE METABOLIC [id number] 20:16:00 Test Item Value Reference Range Comments TOTAL PROTEIN (BEAKER) 5.7 gm/dL 6.0-8.3 (test jmyk=223) ALBUMIN (BEAKER) (test 2.9 g/dL 3.5-5.0 apev=7177) ALKALINE PHOSPHATASE 103 U/L 40-150 (BEAKER) (test eoob=464) BILIRUBIN TOTAL (BEAKER) 5.9 mg/dL 0.2-1.2 (test avrv=099) SODIUM (BEAKER) (test 135 meq/L 136-145 zffd=778) POTASSIUM (BEAKER) (test 3.7 meq/L 3.5-5.1 tdxm=728) CHLORIDE (BEAKER) (test 103 meq/L 98-107 zggd=579) CO2 (BEAKER) (test 23 meq/L 22-29 wkvy=895) BLOOD UREA NITROGEN 50 mg/dL 7-21 (BEAKER) (test jmol=028) CREATININE (BEAKER) (test 2.20 mg/dL 0.57-1.25 pqku=570) GLUCOSE RANDOM (BEAKER) 440 mg/dL 70-105 (test ongt=119) CALCIUM (BEAKER) (test 8.5 mg/dL 8.4-10.2 hgus=525) AST (SGOT) (BEAKER) (test 105 U/L 5-34 fsjj=514) ALT (SGPT) (BEAKER) (test 187 U/L 6-55 mbdk=132) EGFR (BEAKER) (test mL/min/1.73 sq m INSUFFICIENT CLINICAL DATA ncup=0127) TO CALCULATE ESTIMATED GFR. Specimen moderately [id number] 20:15:00 Test Item Value Reference Range Comments MAGNESIUM (BEAKER) (test milc=237) 1.7 mg/dL 1.6-2.6 [id number] 20:15:00 Test Item Value Reference Range Comments PHOSPHORUS (BEAKER) (test kxre=239) 3.8 mg/dL 2.3-4.7 LACTIC ACID, ARTERIAL, WHOLE [id number] 20:11:00 Test Item Value Reference Range Comments LACTATE BLOOD ARTERIAL (2) 2.3 mmol/L 0.5-2.2 Specimen slightly hemolyzed (BEAKER) (test ygtk=4755) Specimen slightly ictericPT/[id number] 20:03:00 Test Item Value Reference Range Comments PROTIME (BEAKER) (test szqs=265) 18.7 seconds 11.7-14.7 INR (BEAKER) (test iolh=002) 1.6 <=5.9 PARTIAL THROMBOPLASTIN TIME (BEAKER) (test 33.1 seconds 22.5-36.0 wobi=618) RECOMMENDED COUMADIN/WARFARIN INR THERAPY RANGESSTANDARD DOSE: 2.0 - 3.0 Includes: PROPHYLAXIS forvenous thrombosis, systemic embolization; TREATMENT for venous thrombosis and/or pulmonary embolus.HIGH RISK: Target INR is 2.5-3.5 for patients with mechanical heart valves.HEMOGLOBIN AND [id number] 19 :50:00 Test Item Value Reference Range Comments HEMOGLOBIN (BEAKER) (test nfoh=124) 12.0 GM/DL 13.7-17.5 HEMATOCRIT (BEAKER) (test nlvn=209) 37.9 % 40.1-51.0 BLOOD GAS, [id number] 19:47:00 Test Item Value Reference Range Comments PH ARTERIAL (BEAKER) (test rfqg=747) 7.32 7.35-7.45 PCO2 ARTERIAL (BEAKER) (test blbr=602) 48 mmHg 35-45 PO2 ARTERIAL (BEAKER) (test vtpl=841) 80 mmHg 80-90 O2 SATURATION ARTERIAL (BEAKER) (test lkde=305) 95.4 % 96.0-97.0 HCO3 ARTERIAL (BEAKER) (test tqlk=037) 24 mmol/L 21-29 BASE EXCESS ARTERIAL (BEAKER) (test lhgz=282) -2.4 mmol/L -2.0-3.0 PATIENT TEMPERATURE (BEAKER) (test vhok=1552) 36.0 C FIO2 (BEAKER) (test ljqb=0140) 60.0 % RAD, ABDOMEN/KUB, 1 VIEW [id number] 19:17:00Reason for exam:->OG tube placementShould this be performed at the bedside?->YesFINAL REPORT CLINICAL HISTORY: OG tube placement TECHNIQUE: RAD, ABDOMEN/KUB,1 VIEW AP COMPARISON: Same day plain radiograph of The abdomen. FINDINGS: Gastric decompression tubewith tip overlying the gastric body. Otherwise unchanged appearance of the abdomen when compared to prior study from same day. Please see dedicated plain radiograph of the chest further details on intrathoracic contents. Signed: Celina Alvarado Verified Date/Time: 11/02/2018 19:17:28 Reading Location: [address] Transitional Reading Room RAD , CHEST, 1 VIEW, NON [id number] 19:13:00Reason for exam:->verify intubationShould this be performed at the bedside?->YesFINAL REPORT RAD, CHEST, 1 VIEW, NON DEPT INDICATION: verify intubation COMPARISON: Same date examination. FINDINGS: Portable frontal view of the chest. IMPRESSION: Support Lines: Endotracheal tube terminates 7.7 cm above the beti at the level of the clavicular heads. Enteric tube is seen coursing below the diaphragm, point of termination below the inferior margin of the film.Lungs and pleura: Unchanged bandlike airspace opacities bilateral bases consistent with atelectasis. No pneumothorax.Heart and mediastinum: Stable contours. Additional findings: None. Signed: Celina Alvarado Verified Date/Time: 11/02/2018 19:13:30 Reading Location: [facility] C013T Transitional Reading Room [id number] 18:12:00 Test Item Value Reference Range Comments AMYLASE (BEAKER) (test hdzb=501) 16 U/L 25-125 Specimen moderately ictericBILIRUBIN, [id number] 18:12:00 Test Item Value Reference Range Comments BILIRUBIN DIRECT (BEAKER) (test iiju=095) 5.5 mg/dL 0.1-0.5 [id number] 18:12:00 Test Item Value Reference Range Comments LIPASE (BEAKER) (test vgzn=494) 49 U/L 8-78 Specimen moderately ictericBLOOD GAS, [id number] 17:47:00 Test Item Value Reference Range Comments PH ARTERIAL (BEAKER) (test nlka=163) 7.30 7.35-7.45 PCO2 ARTERIAL (BEAKER) (test tiln=011) 48 mmHg 35-45 PO2 ARTERIAL (BEAKER) (test rqfe=222) 175 mmHg 80-90 O2 SATURATION ARTERIAL (BEAKER) (test inbk=964) 99.1 % 96.0-97.0 HCO3 ARTERIAL (BEAKER) (test rxih=951) 24 mmol/L 21-29 BASE EXCESS ARTERIAL (BEAKER) (test awls=699) -3.4 mmol/L -2.0-3.0 PATIENT TEMPERATURE (BEAKER) (test slnu=5518) 36.0 C FIO2 (BEAKER) (test zegc=9139) 100.0 % POCT-GLUCOSE [id number] 16:31:00 Test Item Value Reference Range Comments POC-GLUCOSE METER (BEAKER) 203 mg/dL 70-[address] [facility] [address] [facility] (test dhzq=6765) [facility] [address] POCT-BLOOD GASES, [id number] 16:04:00 Test Item Value Reference Range Comments TEMP, CELSIUS-POC (BEAKER) 37.0 (test ujmw=3996) FIO2-POC (BEAKER) (test TESTED AT [place] [address] [address] pmny=9070) [place] [address] PH, ARTERIAL-POC (BEAKER) 7.280 7.350-7.450 (test exzf=5242) PCO2, ARTERIAL-POC (BEAKER) 50.6 mm Hg 35.0-45.0 (test qfbg=7798) PO2, ARTERIAL-POC (BEAKER) 98.0 mm Hg 80.0-90.0 (test vnja=3273) SO2, ARTERIAL-POC (BEAKER) 97.0 % 96.0-97.0 (test wwrk=7622) HCO3, ARTERIAL-POC (BEAKER) 23.8 meq/L 21.0-29.0 (test dett=8348) BASE EXCESS, ARTERIAL-POC -3.0 meq/L -2.0-3.0 (BEAKER) (test xqsm=3089) [id number] 16:04:00 Test Item Value Reference Range Comments POC-SODIUM (BEAKER) (test 139 meq/L 135-148 TESTED AT [address] pkot=0069) [place] [address] [id number] 16:04:00 Test Item Value Reference Range Comments POC-POTASSIUM (BEAKER) (test 3.9 meq/L 3.6-5.5 [address] tywi[address]9972) [place] [address] [id number] 16:04:00 Test Item Value Reference Range Comments POC-GLUCOSE (BEAKER) (test 209 mg/dL 70-110 TESTED AT [address] vjxo=1529) [place] [address] POCT-CALCIUM [id number] 16:04:00 Test Item Value Reference Range Comments POC-CALCIUM IONIZED (BEAKER) 1.16 mmol/L 1.12-1.27 TESTED AT [address] (test icjb=7690) [place] [address] [id number] 16:04:00 Test Item Value Reference Range Comments POC-HEMATOCRIT (BEAKER) (test 40 % 40-50 TESTED AT [address] vbki=9224) [place] [address] [id number] 16:04:00 Test Item Value Reference Range Comments POC-HEMOGLOBIN (BEAKER) 13.6 g/dL 13.0-16.[address] [facility] [address] [facility] (test vsro=0445) [facility] [address] [facility] [address] [facility] [address] RAD, ABDOMEN/KUB, 1 VIEW [id number] 14:50:00Reason for exam:->Bowel obstructionShould this be performed at the bedside?->YesFINAL REPORT INDICATION:Bowel obstruction. COMPARISON: None. TECHNIQUE: Abdomen radiograph one view FINDINGS / IMPRESSION:Contrast is present in nondilated small bowel loops in the mid abdomen and pelvis. Gas-filled nondilated colon is present. No obvious free intraperitoneal air. Bifurcating abdominal aortic stent graft noted. Signed: Davonte Cavazos MDReport Verified Date/Time: 11/02/2018 14:50:15 Reading Location: [address] Consult Reading Room Electronically signed by: DAVONTE CAVAZOS M.D. on 2018 02:50 PMCBC W/PLT COUNT & AUTO [id number] 14:40:00 Test Item Value Reference Range Comments WHITE BLOOD CELL COUNT (BEAKER) (test yuoy=502) 16.1 K/ L 3.5-10.5 RED BLOOD CELL COUNT (BEAKER) (test qfqj=261) 4.61 M/ L 4.63-6.08 HEMOGLOBIN (BEAKER) (test kmhf=238) 13.9 GM/DL 13.7-17.5 HEMATOCRIT (BEAKER) (test abih=135) 43.2 % 40.1-51.0 MEAN CORPUSCULAR VOLUME (BEAKER) (test esaa=567) 93.7 fL 79.0-92.2 MEAN CORPUSCULAR HEMOGLOBIN (BEAKER) (test 30.2 pg 25.7-32.2 jubq=572) MEAN CORPUSCULAR HEMOGLOBIN CONC (BEAKER) (test 32.2 GM/DL 32.3-36.5 cdru=358) RED CELL DISTRIBUTION WIDTH (BEAKER) (test 14.6 % 11.6-14.4 glfr=906) PLATELET COUNT (BEAKER) (test qdmh=428) 148 K/CU MM 150-450 MEAN PLATELET VOLUME (BEAKER) (test gtxo=103) 10.8 fL 9.4-12.4 NUCLEATED RED BLOOD CELLS (BEAKER) (test 0 /100 WBC 0-0 lilh=521) (CELLAVISION MANUAL DIFF)2018-11-02 14:40:00 Test Item Value Reference Range Comments NEUTROPHILS - REL (CELLAVISION)(BEAKER) (test 78 % usem=5659) MONOCYTES - REL (CELLAVISION)(BEAKER) (test 9 % tjdw=6992) BANDS - REL (CELLAVISION)(BEAKER) (test 13 % 0-10 hmpk=7732) NEUTROPHILS - ABS (CELLAVISION)(BEAKER) (test 12.56 K/ul 1.78-5.38 cjac=8921) MONOCYTES - ABS (CELLAVISION)(BEAKER) (test 1.45 K/uL 0.30-0.82 zqtl=7806) BANDS - ABS (CELLAVISION)(BEAKER) (test 2.09 K/uL 0.00-0.80 wnef=5369) TOTAL COUNTED (BEAKER) (test ykla=8657) 100 WBC MORPHOLOGY (BEAKER) (test nkjr=026) Normal PLT MORPHOLOGY (BEAKER) (test onwr=652) Normal RONA CELLS (BEAKER) (test kbcw=969) 2+ moderate ARTIFACT (CELLAVISION)(BEAKER) (test etau=1866) Present PLATELET CONCENTRATION (CELLAVISION)(BEAKER) Decreased (test uhuc=7864) Received comment: User comments: Slide comments:COMPREHENSIVE METABOLIC [id number] 14:32:00 Test Item Value Reference Range Comments TOTAL PROTEIN (BEAKER) 6.9 gm/dL 6.0-8.3 Specimen slightly (test ovto=787) hemolyzed ALBUMIN (BEAKER) (test 3.6 g/dL 3.5-5.0 Specimen slightly trjr=9087) hemolyzed ALKALINE PHOSPHATASE 134 U/L 40-150 (BEAKER) (test qaul=474) BILIRUBIN TOTAL (BEAKER) 7.6 mg/dL 0.2-1.2 Specimen slightly (test nkqa=778) hemolyzed SODIUM (BEAKER) (test 136 meq/L 136-145 ffuf=143) POTASSIUM (BEAKER) (test 4.4 meq/L 3.5-5.1 Specimen slightly hmat=115) hemolyzed CHLORIDE (BEAKER) (test 103 meq/L 98-107 igqt=126) CO2 (BEAKER) (test 20 meq/L 22-29 etur=940) BLOOD UREA NITROGEN 54 mg/dL 7-21 (BEAKER) (test gdti=355) CREATININE (BEAKER) (test 2.27 mg/dL 0.57-1.25 Specimen slightly iwbz=836) hemolyzed GLUCOSE RANDOM (BEAKER) 160 mg/dL 70-105 (test mqef=923) CALCIUM (BEAKER) (test 8.8 mg/dL 8.4-10.2 sjnk=787) AST (SGOT) (BEAKER) (test 152 U/L 5-34 Specimen slightly aczi=607) hemolyzed ALT (SGPT) (BEAKER) (test 245 U/L 6-55 Specimen slightly gjth=788) hemolyzed EGFR (BEAKER) (test mL/min/1.73 sq m INSUFFICIENT CLINICAL DATA uore=9684) TO CALCULATE ESTIMATED GFR. Specimen moderately [id number] 14:28:00 Test Item Value Reference Range Comments PROCALCITONIN (BEAKER) (test holq=8521) 15.73 ng/mL <0.05 SEPSIS RISK (ng/mL)Low: 0.05-0.50Intermediate: 0.51-2.00High: & gt;=2.01B-TYPE NATRIURETIC FACTOR (BNP)2018-11-02 14:20:00 Test Item Value Reference Range Comments B-TYPE NATRIURETIC PEPTIDE (BEAKER) (test 191 pg/mL 0-100 xkif=355) TROPONIN [id number] 14:20:00 Test Item Value Reference Range Comments TROPONIN I (BEAKER) (test hpnf=405) 0.03 ng/mL 0.00-0.03 Troponin I (TnI) levels must be interpreted in the context of the presenting symptoms and the clinical findings. Elevated TnI levels indicate myocardial damage, but are not specific for ischemic heart disease. Elevated TnI levels are seen in patients with other cardiac conditions (including myocarditis and congestive heart failure), and slight TnI elevations occur in patients with other conditions, including sepsis, renal failure, acidosis, acute neurological disease, and persistent tachyarrhythmia.LACTIC ACID, VENOUS, WHOLE [id number] 14:10:00 Test Item Value Reference Range Comments LACTATE BLOOD VENOUS (2) 1.6 mmol/L 0.5-2.2 Specimen slightly hemolyzed (BEAKER) (test jzcm=5461) Specimen moderately ictericPT/[id number] 14:08:00 Test Item Value Reference Range Comments PROTIME (BEAKER) (test cgrd=775) 17.3 seconds 11.7-14.7 INR (BEAKER) (test nmah=417) 1.4 <=5.9 PARTIAL THROMBOPLASTIN TIME (BEAKER) (test 22.2 seconds 22.5-36.0 ekpd=415) RECOMMENDED COUMADIN/WARFARIN INR THERAPY RANGESSTANDARD DOSE: 2.0 - 3.0 Includes: PROPHYLAXIS forvenous thrombosis, systemic embolization; TREATMENT for venous thrombosis and/or pulmonary embolus.HIGH RISK: Target INR is 2.5-3.5 for patients with mechanical heart valves.POCT-LACTIC ACID, [id number] 13:28:00 Test Item Value Reference Range Comments POC-LACTIC ACID, ARTERIAL 1.7 mmol/L 0.4-1.[address] [facility] [address]AKER[address] (test tcji=7849) [facility] [address]
[2019-09-12 08:41] LABS: Absolute Lymphocytes (CBC) 0.8 K/uL (0.7-4.9); Basophils % 0.2 % (0-1.3); Hematocrit 17.3 % (39.6-49.0); Lymphocytes % 16.5 % (15.3-44.8); MPV 8.1 fL (7.6-11.3); RBC Red Blood Cell Count 2.08 M/uL (4.33-5.43)
[2019-09-12 09:02] LABS: Albumin 3.6 g/dL (3.4-5.0); Bilirubin Direct 0.2 mg/dL (0-0.2); Bilirubin Total 0.6 mg/dL (0.2-1.0); Potassium 3.9 mmol/L (3.5-5.1); Protein, Total 6.7 g/dL (6.4-8.2)
[2019-09-12] MEDS ORDERED: FAMOTIDINE 20 MG/2 ML VIAL IV ONE (09:24)
[2019-09-12 09:36] LABS: Blood Morphology Comment NOT SEEN (NOT SEEN); Platelet Estimate DECR; Urine White Blood Cell Casts OK
--- NOTE | 2019-09-12 09:43 | RAD REPORT ---
EXAM DESCRIPTION: CTAbdomen Pelvis W Contrast - 09/12/2019 9:21 am CLINICAL HISTORY: Abdominal pain. belching;Abd pain COMPARISON: No comparisons TECHNIQUE: Biphasic CT imaging of the abdomen and pelvis was performed with 100 ml non-ionic IV cont rast. All CT scans are performed using dose optimization technique as appropriate and may include automated exposure control or mA/KV adjustment according to patient size. FINDINGS: Emphysematous lung bases are present. The liver, spleen, pancreas, adrenal glands and kidneys are within normal limits. Cholecystectomy cli ps. No bowel obstruction, free air, free fluid or abscess. Endograft is present within the abdominal aort a. The appendix is normal. Small containing umbilical hernia. Small fat containing left inguinal madonna ia. No evidence of significant lymphadenopathy. Mild lower lumbar degenerative changes. IMPRESSION: No acute intra-abdominal or pelvic finding.
[2019-09-12] MEDS ORDERED: PANTOPRAZOLE 40 MG INJ ONE (09:50)
--- NOTE | 2019-09-12 09:51 | ER ---
Nurse's Notes [facility] Name: Liam Richards Age: 69 yrs Sex: Male : 1950 Arrival Date: 09/12/2019 Time: 08:03 Bed 8 Private MD: Britany Arreola; Ivan Talavera S; Jeff Newton R Diagnosis: Abdominal and pelvic pain;GI Bleed, Anemia, Thrombocytopenia Presentation: 09/12 08:06 Presenting complaint: EMS states: pt complaining hearing heart beat in ears, described sg as a swishing sound, reports having epigastric pain and pressure that is relieved with belching, pain radiates upward into chest describes as feeling "full". Reports having a "pasty stool, that drips while sitting on the pot, has blood in the stool for several weeks." Recently started on new medication to help control high blood sugar, has had a dramatic effect with lowering the sugar levels in the blood, denies Vomiting, reports diarrhea post removal of ruptured gallbladder with gangrenous bowel several months ago. Transition of care: patient was not received from another setting of care. Onset of symptoms was September 12, 2019. Risk Assessment: Do you want to hurt yourself or someone else? Patient reports no desire to harm self or others. Initial Sepsis Screen: Does the patient meet any 2 criteria? No. Patient's initial sepsis screen is negative. Does the patient have a suspected source of infection? Yes: Acute abdominal pain. Care prior to arrival: IV attempt to left hand. 08:06 Method Of Arrival: EMS: [facility] 08:06 Acuity: ALE 3 sg Historical: - Allergies: 08:06 No Known Allergies; sg - Home Meds: 08:32 metoprolol succinate 25 mg Oral Tb24 1 tab once daily [Active]; lisinopril 10 mg Oral sg tab 1 tab once daily [Active]; atorvastatin 40 mg Oral tab .5 tab once daily [Active]; amlodipine 5 mg tab 1 tab once daily [Active]; aspirin 81 mg Oral chew 1 tab once daily [Active]; allopurinol 100 mg Oral tab 1 tab once daily [Active]; glipizide 5 mg Oral tab .5 tab 2 times per day [Active]; Fish Oil 1,000 mg oral cap twice a day [Active]; - PMHx: 08:06 AAA; Hyperlipidemia; Hypertension; sg - PSHx: 08:06 Carotid surgery; Heart stents; sg - Immunization history:: Adult Immunizations up to date. - Social history:: Smoking status: Patient/guardian denies using tobacco. - Ebola Screening: : Patient negative for fever greater than or equal to 101.5 degrees Fahrenheit, and additional compatible Ebola Virus Disease symptoms Patient denies exposure to infectious person Patient denies travel to an Ebola-affected area in the 21 days before illness onset No symptoms or risks identified at this time. Screenin:10 Abuse screen: Denies threats or abuse. Denies injuries from another. Nutritional sg screening: No deficits noted. Tuberculosis screening: No symptoms or risk factors identified. Never had TB. Fall Risk None identified. Assessment: 08:10 General: Appears uncomfortable, well groomed, well developed, well nourished, Behavior sg is calm, cooperative, appropriate for age. Pain: Complains of pain in epigastric area Quality of pain is described as "fullness". Neuro: Level of Consciousness is awake, alert, obeys commands, Oriented to person, place, time, Electrician Assistant are equal bilaterally Moves all extremities. Full function Gait is steady, Speech is normal, Facial symmetry appears normal. Cardiovascular: Capillary refill is brisk in bilateral fingers Patient's skin is warm and dry. Chest pain is denied. Respiratory: Airway is patent Respiratory effort is even, unlabored, Respiratory pattern is regular, symmetrical. GI: Abdomen is round non-distended, a surgical scar is noted on the abdomen Reports diarrhea, bloody stool, epigastric pain, indigestion. : No signs and/or symptoms were reported regarding the genitourinary system. EENT: No signs and/or symptoms were reported regarding the EENT system. Derm: Skin is pink, warm \\T\\ dry. Musculoskeletal: Circulation, motion, and sensation intact. Range of motion: intact in all extremities, Swelling absent a wrap is noted to the left knee, pt reports wearing this for support at home. 08:13 Reassessment: pt ,Queenie, at bedside at this time, awaiting evaluation by an ERP. sg 08:47 Reassessment: Hgb 6.1, HCT 17.3, PLT 27. ss 09:50 Reassessment: Patient appears in no apparent distress at this time. Patient and/or sg family updated on plan of care and expected duration. Pain level reassessed. Patient is alert, oriented x 3, equal unlabored respirations, skin warm/dry/pink. pt and pt family updated on POC and possible transfer, pt and pt family requesting to speak with provider prior to decision [facility], will continue to monitor. 11:00 Reassessment: Patient appears in no apparent distress at this time. Patient is alert, sg oriented x 3, equal unlabored respirations, skin warm/dry/pink. pt receiving first unit of PRBC at this time, awaiting plts from lab, pt tolerating transfusion well, see transfusion record. 11:30 Reassessment: Patient appears in no apparent distress at this time. plts transfusion sg initiated at this time, see transfusion record at this time. 11:50 Reassessment: Patient appears in no apparent distress at this time. Patient and/or sg family updated on plan of care and expected duration. Pain level reassessed. IV in LAC infiltrated, DC'D. New IV access to R Hand 22 G established, Plts continued infusing at new access site. pt tolerating infusion well. 12:10 Reassessment: Patient appears in no apparent distress at this time. plt transfusion sg complete, pt tolerated transfusion well, will continue to monitor. 12:30 Reassessment: Patient appears in no apparent distress at this time. Patient and/or sg family updated on plan of care and expected duration. Pain level reassessed. Patient is alert, oriented x 3, equal unlabored respirations, skin warm/dry/pink. Patient states feeling better. 12:45 Reassessment: Patient appears in no apparent distress at this time. Patient and/or sg family updated on plan of care and expected duration. Pain level reassessed. Patient is alert, oriented x 3, equal unlabored respirations, skin warm/dry/pink. pt receiving 2nd unit PRBC at this time, pt tolerating well, pt Queenie and family friend at bedside at this time. 13:10 Reassessment: pt reports having recently stopped taking Naproxen after several months sg of use for knee pain per his PCP instructions. Vital Signs: 08:05 BP 125 / 54; Pulse 79; Resp 18; Temp 98.2; Pulse Ox 98% on R/A; Pain 5/10; sg 08:39 BP 122 / 50 LA Supine (auto/lg); Pulse 80 MON; Resp 16; Pulse Ox 100% on R/A; sg 10:00 BP 128 / 53; Pulse 86; Resp 17 S; Pulse Ox 100% on R/A; jl7 11:00 BP 120 / 46; Pulse 79; Resp 18; Temp 98.1; Pulse Ox 100% on R/A; sg 11:30 BP 128 / 43; Pulse 81; Resp 16; Temp 97.9; Pulse Ox 100% on R/A; sg 12:00 BP 133 / 46; Pulse 85; Resp 18; Temp 98.0; Pulse Ox 100% on R/A; sg 12:30 BP 126 / 50; Pulse 83; Resp 18; Temp 98.1; Pulse Ox 100% on R/A; sg 12:45 BP 123 / 50; Pulse 83 MON; Resp 17 S; Temp 98.0; Pulse Ox 98% on R/A; sg 13:00 BP 134 / 52; Pulse 81 MON; Resp 18 S; Temp 97.9; Pulse Ox 100% on R/A; sg 13:30 BP 130 / 50 LA Supine (auto/reg); Pulse 84 MON; Resp 18 S; Temp 97.9; Pulse Ox 96% on sg R/A; ED Course: 08:03 Patient arrived in ED. sg 08:06 Arm band placed on. sg 08:10 Triage completed. sg 08:10 Patient has correct armband on for positive identification. Bed in low position. Call sg light in reach. Side rails up X2. freight elevator operator on. Pulse ox on. NIBP on. Warm blanket given. Head of bed elevated. 08:13 Alverto Kaur, RN is Primary Nurse. sg 08:16 Yovany Pollock MD is Attending Physician. kdr 08:25 Initial lab(s) drawn, by me, sent to lab. Inserted saline lock: 20 gauge in right sg antecubital area, using aseptic technique. Blood collected. 08:28 Awaiting ED provider evaluation. sg 08:33 Jeff Newton MD is Private Physician. sg 08:34 Jeff Newton MD is Private Physician. sg 08:34 Britany Arreola is Private Physician. sg 08:34 Ivan Talavera MD is Private Physician. sg 09:20 CT Abd/Pelvis - IV Contrast Only In Process Unspecified. EDMS 09:28 Patient moved back from CT. sg 09:50 attempted to transfer the patient to the .A and per Nay they are not taking any eb transfers currently they are at capacity. 09:57 Assisted to bedside commode. jl7 10:04 Kaylan Canada MD is Hospitalizing Provider. kdr 10:33 Inserted saline lock: 18 gauge in left antecubital area, using aseptic technique. dh3 10:55 initiated a transfer with Jeannie Chaidez from the [facility] transfer center. eb 11:[address] Espinoza the GI senior consulting manager for [facility] with Dr. Pollock for patient eb transfer consultation. 11:55 18 G LAC noted to be infiltrated, will obtain new IV access. sg 11:56 connected the Hospitalist senior consulting manager for [facility] with Dr. Pollock for patient eb transfer consultation. 12:00 Assisted to bedside commode. sg 12:10 administrative approval given by Jeannie Chaidez/ patient has been accepted to [facility] bed 931/ Dr. Ruiz has accepted the patient in transfer/ report to be called to [phone]. 12:15 Inserted saline lock: 22 gauge in right hand, using aseptic technique. sg 12:50 Assisted to bedside commode. sg 13:40 No provider procedures requiring assistance completed. sg Administered Medications: 09:30 Drug: Pepcid 20 mg Route: IVP; Site: right antecubital; sg 10:00 Follow up: Response: No adverse reaction sg 09:50 Drug: ProTONIX 40 mg Route: IVP; Site: right antecubital; sg 10:50 Follow up: Response: No adverse reaction sg 10:00 Drug: ProTONIX 8 mg/hr Route: IV; Rate: 25 ml/hr; Site: right antecubital; sg 11:30 Follow up: IV Pause: 09/12/2019 11:30; IV Pause Reason: Limited IV access/Medication sg interaction; blood products to be administered, pt limited IV access 12:15 Follow up: IV SiteChange: right hand; IV SiteChange Reason: Infiltration; IV Resume: sg 09/12/2019 12:15; IV Resume Reason: Additional IV access/No medication interaction 14:10 Follow up: Response: No adverse reaction; IV Status: Infusion continued upon transfer sg Intake: 13:17 IV: 700ml (Blood Products); Total: 700ml. sg Output: 13:17 Urine: 350ml (Voided); Total: 350ml. sg Outcome: 09:50 ER care complete, transfer ordered by . kdr 10:06 Decision to Hospitalize by Provider. kdr 13:11 ER care complete, transfer ordered by . kdr 13:39 Transferred Note: report given to ELISABET Camacho at [facility] 14:10 Condition: good sg 14:10 Instructed on the need for transfer, safety practices, Demonstrated understanding of instructions. 14:13 Patient left the ED. sg Signatures: Dispatcher [employer] EDMS Alverto Kaur RN Yovany Wilson MD MD [facility] Eva Baez RN RN Deborah Dodge RN RN [facility] Orin Macdonald [facility] Jeannie Peres Corrections: (The following items were deleted from the chart) 08:39 08:13 Reassessment: pt at bedside at this time, awaiting evaluation by an ERP at this time sg
--- NOTE | 2019-09-12 09:51 | EDPHYS ---
Physician Documentation [facility] Name: Liam Richards Age: 69 yrs Sex: Male : 1950 Arrival Date: 09/12/2019 Time: 08:03 Bed 8 Private MD: Britany Arreola; Ivan Talavera S; Jeff Newton R ED Physician Yovany Pollock HPI: 09/12 08:44 This 69 yrs old Male presents to ER via EMS with complaints of Epigastric kdr Pain. 10:40 The patient presents with abdominal pain Profuse belching and abdominal pain with blood kdr per rectum BRed and darker, "pasty." . Onset: The symptoms/episode began/occurred gradually, 2 week(s) ago. The symptoms do not radiate. Associated signs and symptoms: Pertinent positives: Belching and upper abdominal pain. The symptoms are described as achy, crampy, dull, intermittent. Modifying factors: The symptoms are alleviated by nothing, the symptoms are aggravated by movement, Sitting up causes him to have explosive belching that make him uncomfortable. Severity of pain: At its worst the pain was mild moderate just prior to arrival. The patient has experienced similar episodes in the past, a few times. The patient has been recently seen by a physician:. Historical: - Allergies: 08:06 No Known Allergies; sg - Home Meds: 08:32 metoprolol succinate 25 mg Oral Tb24 1 tab once daily [Active]; lisinopril 10 mg Oral sg tab 1 tab once daily [Active]; atorvastatin 40 mg Oral tab .5 tab once daily [Active]; amlodipine 5 mg tab 1 tab once daily [Active]; aspirin 81 mg Oral chew 1 tab once daily [Active]; allopurinol 100 mg Oral tab 1 tab once daily [Active]; glipizide 5 mg Oral tab .5 tab 2 times per day [Active]; Fish Oil 1,000 mg oral cap twice a day [Active]; - PMHx: 08:06 AAA; Hyperlipidemia; Hypertension; sg - PSHx: 08:06 Carotid surgery; Heart stents; sg - Immunization history:: Adult Immunizations up to date. - Social history:: Smoking status: Patient/guardian denies using tobacco. - Ebola Screening: : Patient negative for fever greater than or equal to 101.5 degrees Fahrenheit, and additional compatible Ebola Virus Disease symptoms Patient denies exposure to infectious person Patient denies travel to an Ebola-affected area in the 21 days before illness onset No symptoms or risks identified at this time. ROS: 10:55 Constitutional: Negative for fever, chills, and weight loss, Eyes: Negative for injury, kdr pain, redness, and discharge, ENT: Negative for injury, pain, and discharge, Neck: Negative for injury, pain, and swelling, Cardiovascular: Negative for chest pain, palpitations, and edema, Respiratory: Negative for shortness of breath, cough, wheezing, and pleuritic chest pain, Back: Negative for injury and pain, : Negative for injury, bleeding, discharge, and swelling, MS/Extremity: Negative for injury and deformity, Skin: Negative for injury, rash, and discoloration, Neuro: Negative for headache, weakness, numbness, tingling, and seizure activity. Psych: Negative for depression, anxiety, suicide ideation, homicidal ideation, and hallucinations, Allergy/Immunology: Negative for hives, rash, and allergies, Endocrine: Negative for neck swelling, polydipsia, polyuria, polyphagia, and marked weight changes, Hematologic/Lymphatic: Negative for swollen nodes, abnormal bleeding, and unusual bruising. 10:55 Abdomen/GI: Positive for abdominal pain, nausea, abdominal cramps, rectal bleeding, flatulence, Belching. Exam: 10:55 Constitutional: This is a well developed, well nourished patient who is awake, alert, kdr and in mild distress. Head/Face: Normocephalic, atraumatic. Eyes: Pupils equal round and reactive to light, extra-ocular motions intact. Lids and lashes normal. Conjunctiva and sclera are non-icteric and not injected. Cornea within normal limits. Periorbital areas with no swelling, redness, or edema. Neck: Trachea midline, no thyromegaly or masses palpated, and no cervical lymphadenopathy. Supple, full range of motion without nuchal rigidity, or vertebral point tenderness. No Meningismus. Chest/axilla: Normal chest wall appearance and motion. Nontender with no deformity. No lesions are appreciated. Cardiovascular: Regular rate and rhythm with a normal S1 and S2. No gallops, murmurs, or rubs. Normal PMI, no JVD. No pulse deficits. Respiratory: Lungs have equal breath sounds bilaterally, clear to auscultation and percussion. No rales, rhonchi or wheezes noted. No increased work of breathing, no retractions or nasal flaring. Back: No spinal tenderness. No costovertebral tenderness. Full range of motion. Skin: Warm, dry with normal turgor. Normal color with no rashes, no lesions, and no evidence of cellulitis. MS/ Extremity: Pulses equal, no cyanosis. Neurovascular intact. Full, normal range of motion. Neuro: Awake and alert, GCS 15, oriented to person, place, time, and situation. Cranial nerves II-XII grossly intact. Motor strength 5/5 in all extremities. Sensory grossly intact. Cerebellar exam normal. Normal gait. Psych: Awake, alert, with orientation to person, place and time. Behavior, mood, and affect are within normal limits. 10:55 Abdomen/GI: Inspection: obese scar(s), are noted in the umbilical area and suprapubic area, Bowel sounds: active, all quadrants, Palpation: soft, mild abdominal tenderness, in the abdomen diffusely, Rectal exam: Prostate: normal, rectal tone normal, Stool: daugherty, guaiac positive. Vital Signs: 08:05 BP 125 / 54; Pulse 79; Resp 18; Temp 98.2; Pulse Ox 98% on R/A; Pain 5/10; sg 08:39 BP 122 / 50 LA Supine (auto/lg); Pulse 80 MON; Resp 16; Pulse Ox 100% on R/A; sg 10:00 BP 128 / 53; Pulse 86; Resp 17 S; Pulse Ox 100% on R/A; jl7 11:00 BP 120 / 46; Pulse 79; Resp 18; Temp 98.1; Pulse Ox 100% on R/A; sg 11:30 BP 128 / 43; Pulse 81; Resp 16; Temp 97.9; Pulse Ox 100% on R/A; sg 12:00 BP 133 / 46; Pulse 85; Resp 18; Temp 98.0; Pulse Ox 100% on R/A; sg 12:30 BP 126 / 50; Pulse 83; Resp 18; Temp 98.1; Pulse Ox 100% on R/A; sg 12:45 BP 123 / 50; Pulse 83 MON; Resp 17 S; Temp 98.0; Pulse Ox 98% on R/A; sg 13:00 BP 134 / 52; Pulse 81 MON; Resp 18 S; Temp 97.9; Pulse Ox 100% on R/A; sg 13:30 BP 130 / 50 LA Supine (auto/reg); Pulse 84 MON; Resp 18 S; Temp 97.9; Pulse Ox 96% on sg R/A; MDM: 09:50 Patient medically screened. kdr 10:55 Data reviewed: vital signs, nurses notes, lab test result(s), radiologic studies. kdr Counseling: I had a detailed discussion with the patient and/or guardian regarding: the historical points, exam findings, and any diagnostic results supporting the discharge/admit diagnosis, lab results, radiology results, the need to transfer to another facility. ED course: Due to extensive and complicated GI history, Dr. Guthrie declined consult or admission. The patient continues to be stable in the ED.. 09/12 08:16 Order name: Basic Metabolic Panel; Complete Time: 09:12 [facility] 09/12 08:16 Order name: CBC with Diff; Complete Time: 09:46 [facility] 09/12 08:16 Order name: Creatinine for Radiology; Complete Time: 09:12 kdr 09/12 08:16 Order name: Hepatic Function; Complete Time: 09:12 [facility] 09/12 08:16 Order name: Lipase; Complete Time: 09:12 [facility] 09/12 08:40 Order name: Glucose, Ancillary Testing; Complete Time: 09:12 [facility] 09/12 08:42 Order name: CT Abd/Pelvis - IV Contrast Only; Complete Time: 09:46 [facility] 09/12 08:42 Order name: Type And Screen [facility] 09/12 08:42 Order name: Troponin (emerg Dept Use Only); Complete Time: 09:46 [facility] 09/12 08:51 Order name: CBC Smear Scan; Complete Time: 09:46 [facility] 09/12 09:24 Order name: Bb Add On eb 09/12 10:10 Order name: Packed RBC Leukored [facility] 09/12 10:10 Order name: Platelets, Leukored Pheresis [facility] 09/12 08:16 Order name: IV Saline Lock; Complete Time: 08:35 kdr 09/12 08:16 Order name: Labs collected and sent; Complete Time: 08:35 [facility] 09/12 08:42 Order name: EKG - Nurse/Tech; Complete Time: 10:07 [facility] 09/12 09:39 Order name: EKG Electrocardiogram EDMS Administered Medications: 09:30 Drug: Pepcid 20 mg Route: IVP; Site: right antecubital; sg 10:00 Follow up: Response: No adverse reaction 09:50 Drug: ProTONIX 40 mg Route: IVP; Site: right antecubital; sg 10:50 Follow up: Response: No adverse reaction sg 10:00 Drug: ProTONIX 8 mg/hr Route: IV; Rate: 25 ml/hr; Site: right antecubital; sg 11:30 Follow up: IV Pause: 09/12/2019 11:30; IV Pause Reason: Limited IV access/Medication sg interaction; blood products to be administered, pt limited IV access 12:15 Follow up: IV SiteChange: right hand; IV SiteChange Reason: Infiltration; IV Resume: sg 09/12/2019 12:15; IV Resume Reason: Additional IV access/No medication interaction 14:10 Follow up: Response: No adverse reaction; IV Status: Infusion continued upon transfer sg Disposition: 09/12/19 13:11 Transfer ordered to [facility]. Diagnosis are Abdominal and pelvic pain, GI Bleed, Anemia, Thrombocytopenia. - Reason for transfer: Higher level of care. - Accepting physician is Torey. - Condition is Fair. - Problem is an acute exacerbation. - Symptoms have improved. Signatures: Dispatcher [employer] EDMS Alverto Kaur RN RN Yovany Pollock MD MD [facility] Jeannie Peres Corrections: (The following items were deleted from the chart) 09:50 09:50 09/12/2019 09:[address] [facility]. Diagnosis is GI BLeeding. Reason for transfer: Higher level of care. Accepting physician is [facility]. Condition is Serious. Problem is an acute exacerbation. Symptoms have improved. kdr 10:04 09:50 09/12/2019 09:[address] [facility]. Diagnosis is GI BLeeding; Anemia, unspecified; Thrombocytopenia, unspecified; Weakness. Reason for transfer: Higher level of care. Accepting physician is [facility]. Condition is Serious. Problem is an acute exacerbation. Symptoms have improved. kdr 10:38 10:06 Hospitalization Ordered by Kaylan Canada MD for Inpatient Admission. Preliminary eb diagnosis is Weakness; Anemia, unspecified; GI Bleed; Thrombocytopenia, unspecified. Bed requested for Telemetry/MedSurg (Inpatient). Status is Inpatient Admission. Condition is Fair. Problem is new. Symptoms have improved. UTI on Admission? No. kdr 13:08 10:38 09/12/2019 10:06 Hospitalization Ordered by Kaylan Canada MD for Inpatient kdr Admission. Preliminary diagnosis is Weakness; Anemia, unspecified; GI Bleed; Thrombocytopenia, unspecified. Bed requested for Telemetry/MedSurg (Inpatient). Status is Inpatient Admission. Condition is Fair. Problem is new. Symptoms have improved. UTI on Admission? No. eb 14:13 13:11 09/12/2019 13:11 Transfer ordered to [facility]. Diagnosis is sg Abdominal and pelvic pain; GI Bleed, Anemia, Thrombocytopenia. Reason for transfer: Higher level of care. Accepting physician is Joseph. Condition is Fair. Problem is an acute exacerbation. Symptoms have improved. kdr
[2019-09-12] MEDS ORDERED: PANTOPRAZOLE INJ 80 MG in NA CHLORIDE 0.9% 250 ML IV ONE (10:00)
[2019-09-12] MEDS ORDERED: NA CHLORIDE 0.9% 250 ML ONE ×4 (10:49→12:41)
[2019-09-12 15:01] VITALS: TEMP 97.9
[2019-09-12 15:03] VITALS: BP 130/50; O2SAT 96
--- NOTE | 2019-09-12 16:51 | EKG ---
Test Date: 2019-09-12 Test Time: 08:54:39 Entry Operator: CHANDRIKA MEASUREMENT RESULTS: Intervals: Rate: 79 NJ: 154 QRSD: 150 QT: 424 QTc: 486 [place]: P: 16 NJ: 154 QRS: 11 T: 16 INTERPRETIVE STATEMENTS: Normal sinus rhythm Right bundle branch block Abnormal ECG Compared to ECG 11/02/2018 02:16:10 Left-axis deviation no longer present Myocardial infarct finding no longer present T-wave abnormality no longer present Possible ischemia no longer present Electronically Signed On 09-12-19 16:50:38 JACQUARD TWINE POLISHER OPERATOR by Denis Lomas
== END 2019-09-12 14:13 | disposition short-term general hospital (02) ==
LOC: ER 07:54
PROC: 30233N1 Transfusion of Nonautologous Red Blood Cells into Peripheral Vein, Percutaneous Approach (ICD-10-PCS; principal; 2019-09-12)
DX: K92.2 Gastrointestinal hemorrhage, unspecified (principal); D50.0 Iron deficiency anemia secondary to blood loss (chronic); D69.6 Thrombocytopenia, unspecified; R10.9 Unspecified abdominal pain; R10.2 Pelvic and perineal pain; I10 Essential (primary) hypertension; E78.5 Hyperlipidemia, unspecified; Z95.5 Presence of coronary angioplasty implant and graft
CPT/HCPCS: 93005; 85025; 80048; 36415; 86900; 86850; 86901; 82947; 80076; 84484; 83690; 74177; 36430; Q9967; C9113 ×2; P9035; P9016 ×2; J7030 ×5

== ENCOUNTER 2019-11-16 17:57 | Observation (INO) | payer OTHER ==
--- OUTSIDE RECORDS SUMMARY | 2019-11-16 18:14 | XMS REPORT ---
:1950 [facility] [address] [place] [address] Care Team Providers Name Role Phone MILLY VILLANUEVA Unavailable Unavailable JORGE OWENS Unavailable Unavailable KESHAWN VERDUGO Unavailable Unavailable JONE AVITIA Unavailable Unavailable ENRIQUE WESLEY Unavailable Unavailable Problems This patient has no known problems. Allergies, Adverse Reactions, Alerts This patient has no known allergies or adverse reactions. Medications This patient has no known medications. Results Test Description Test Time Test Comments Text Results Atomic Results Result Comments HEPATIC FUNCTION PANEL 2019-11-13 06:45:00 Test Item Value Reference Range Comments TOTAL PROTEIN (BEAKER) (test drts=026) 6.0 gm/dL 6.0-8.3 ALBUMIN (BEAKER) (test zzud=3768) 3.3 g/dL 3.5-5.0 BILIRUBIN TOTAL (BEAKER) (test nnew=925) 1.7 mg/dL 0.2-1.2 BILIRUBIN DIRECT (BEAKER) (test wsqx=950) 0.8 mg/dL 0.1-0.5 ALKALINE PHOSPHATASE (BEAKER) (test ydeh=652) 114 U/L 40-150 AST (SGOT) (BEAKER) (test gyct=028) 25 U/L 5-34 ALT (SGPT) (BEAKER) (test trah=195) 20 U/L 6-55 Bankruptcy Assistant ID - LEONEL WBASIC METABOLIC [id number] 06:45:00 Test Item Value Reference Range Comments SODIUM (BEAKER) (test 138 meq/L 136-145 kfav=684) POTASSIUM (BEAKER) (test 4.0 meq/L 3.5-5.1 helm=128) CHLORIDE (BEAKER) (test 101 meq/L 98-107 tkye=624) CO2 (BEAKER) (test 28 meq/L 22-29 aqla=291) BLOOD UREA NITROGEN 36 mg/dL 7-21 (BEAKER) (test zehg=664) CREATININE (BEAKER) (test 1.30 mg/dL 0.57-1.25 bcuy=564) GLUCOSE RANDOM (BEAKER) 113 mg/dL 70-105 (test npel=217) CALCIUM (BEAKER) (test 8.5 mg/dL 8.4-10.2 vthu=976) EGFR (BEAKER) (test 55 mL/min/1.73 sq m ESTIMATED GFR IS NOT onth=1332) ACCURATE CREATININE CLEARANCE IN PREDICTING GLOMERULAR FILTRATION RATE. ESTIMATED GFR IS NOT APPLICABLE FOR DIALYSIS PATIENTS. Bankruptcy Assistant ID - LEONEL [facility] (HEMOGRAM ONLY)2019-11-13 04:51:00 Test Item Value Reference Range Comments WHITE BLOOD CELL COUNT 3.6 K/ L 3.5-10.5 (BEAKER) (test trlj=621) RED BLOOD CELL COUNT (BEAKER) 2.87 M/ L 4.63-6.08 (test kksp=384) HEMOGLOBIN (BEAKER) (test 8.2 GM/DL 13.7-17.5 bnhx=463) HEMATOCRIT (BEAKER) (test 24.1 % 40.1-51.0 hihh=877) MEAN CORPUSCULAR VOLUME 84.0 fL 79.0-92.2 (BEAKER) (test rhhl=032) MEAN CORPUSCULAR HEMOGLOBIN 28.6 pg 25.7-32.2 (BEAKER) (test yzku=091) MEAN CORPUSCULAR HEMOGLOBIN 34.0 GM/DL 32.3-36.5 CONC (BEAKER) (test jvbe=464) RED CELL DISTRIBUTION WIDTH 15.3 % 11.6-14.4 (BEAKER) (test pskd=004) PLATELET COUNT (BEAKER) (test 29 K/CU MM 150-450 Discordant PLT result qwub=282) compared to previous result; clinical correlation required. MEAN PLATELET VOLUME (BEAKER) 10.3 fL 9.4-12.4 (test hasw=540) NUCLEATED RED BLOOD CELLS 1 /100 WBC 0-0 (BEAKER) (test jryk=394) (CELLAVISION MANUAL DIFF)2019-11-12 15:26:00 Test Item Value Reference Range Comments NEUTROPHILS - REL (CELLAVISION)(BEAKER) (test 63 % yelk=8529) LYMPHOCYTES - REL (CELLAVISION)(BEAKER) (test 20 % jfkl=3373) MONOCYTES - REL (CELLAVISION)(BEAKER) (test 11 % tobg=6805) MYELOCYTES - REL (CELLAVISION)(BEAKER) (test 1 % 0-0 ifie=4075) BANDS - REL (CELLAVISION)(BEAKER) (test 1 % 0-10 nyvw=1700) ATYPICAL LYMPHOCYTES - REL (CELLAVISION)(BEAKER) 4 % 0-0 (test biyj=2371) NEUTROPHILS - ABS (CELLAVISION)(BEAKER) (test 2.27 K/ul 1.78-5.38 gkye=1479) LYMPHOCYTES - ABS (CELLAVISION)(BEAKER) (test 0.72 K/ul 1.32-3.57 zgfw=9674) MONOCYTES - ABS (CELLAVISION)(BEAKER) (test 0.40 K/uL 0.30-0.82 hgmj=2105) MYELOCYTES-ABS (CELLAVISION)(BEAKER) (test 0.04 K/uL 0.00-0.00 qlvq=4925) BANDS - ABS (CELLAVISION)(BEAKER) (test 0.04 K/uL 0.00-0.80 vikf=6196) ATYPICAL LYMPHOCYTES - ABS (CELLAVISION)(BEAKER) 0.14 K/uL 0.00-0.00 (test bwtx=6269) TOTAL COUNTED (BEAKER) (test becw=2951) 100 MANUAL NRBC PER 100 CELLS (BEAKER) (test 3 /100 WBC 0-0 fnnt=3568) WBC MORPHOLOGY (BEAKER) (test ywig=445) Normal PLT MORPHOLOGY (BEAKER) (test boga=957) Normal HYPOCHROMIA (BEAKER) (test njji=593) 1+ few ANISOCYTOSIS (BEAKER) (test csce=165) 1+ few MICROCYTES (BEAKER) (test rcty=004) 1+ few POIKILOCYTES (BEAKER) (test kwpt=812) 2+ moderate ELLIPTOCYTES (BEAKER) (test kwkk=946) 1+ few OVALOCYTES (BEAKER) (test ywsq=892) 1+ few ARTIFACT (CELLAVISION)(BEAKER) (test btkb=2803) Present PLATELET CONCENTRATION (CELLAVISION)(BEAKER) Decreased (test bzav=3351) Bankruptcy Assistant ID - [id number] ID - Ottoniel Dave comments: Slide comments:CBC W/PLT COUNT & AUTO [id number] 15:25:00 Test Item Value Reference Range Comments WHITE BLOOD CELL COUNT 3.6 K/ L 3.5-10.5 (BEAKER) (test wpso=471) RED BLOOD CELL COUNT (BEAKER) 2.49 M/ L 4.63-6.08 (test oadf=038) HEMOGLOBIN (BEAKER) (test 7.0 GM/DL 13.7-17.5 ezpb=014) HEMATOCRIT (BEAKER) (test 20.4 % 40.1-51.0 yftv=252) MEAN CORPUSCULAR VOLUME 81.9 fL 79.0-92.2 (BEAKER) (test fjgu=148) MEAN CORPUSCULAR HEMOGLOBIN 28.1 pg 25.7-32.2 (BEAKER) (test ouvb=291) MEAN CORPUSCULAR HEMOGLOBIN 34.3 GM/DL 32.3-36.5 CONC (BEAKER) (test xigi=495) RED CELL DISTRIBUTION WIDTH 15.9 % 11.6-14.4 (BEAKER) (test mxdo=127) PLATELET COUNT (BEAKER) (test 13 K/CU MM 150-450 syvv=257) MEAN PLATELET VOLUME (BEAKER) Unable to report due to (test fsrt=218) abnormal Platelet population distribution. NUCLEATED RED BLOOD CELLS 1 /100 WBC 0-0 (BEAKER) (test wqqi=978) BASIC METABOLIC [id number] 15:08:00 Test Item Value Reference Range Comments SODIUM (BEAKER) (test 137 meq/L 136-145 mcce=016) POTASSIUM (BEAKER) (test 4.1 meq/L 3.5-5.1 nkis=369) CHLORIDE (BEAKER) (test 100 meq/L 98-107 blof=085) CO2 (BEAKER) (test 27 meq/L 22-29 dvvz=624) BLOOD UREA NITROGEN 37 mg/dL 7-21 (BEAKER) (test mhau=731) CREATININE (BEAKER) (test 1.56 mg/dL 0.57-1.25 ibik=971) GLUCOSE RANDOM (BEAKER) 117 mg/dL 70-105 (test yqlx=630) CALCIUM (BEAKER) (test 8.7 mg/dL 8.4-10.2 ayzs=938) EGFR (BEAKER) (test 44 mL/min/1.73 sq m ESTIMATED GFR IS NOT rtqo=1101) ACCURATE CREATININE CLEARANCE IN PREDICTING GLOMERULAR FILTRATION RATE. ESTIMATED GFR IS NOT APPLICABLE FOR DIALYSIS PATIENTS. Bankruptcy Assistant ID - JUSTINE FCBC W/PLT COUNT & AUTO [id number] 15:34: 00 Test Item Value Reference Range Comments WHITE BLOOD CELL COUNT (BEAKER) (test 3.1 K/ L 3.5-10.5 xkkt=778) RED BLOOD CELL COUNT (BEAKER) (test 2.92 M/ L 4.63-6.08 rozr=960) HEMOGLOBIN (BEAKER) (test hfmo=787) 8.3 GM/DL 13.7-17.5 HEMATOCRIT (BEAKER) (test pmkj=222) 24.7 % 40.1-51.0 Patient transfused MEAN CORPUSCULAR VOLUME (BEAKER) (test 84.6 fL 79.0-92.2 oxre=017) MEAN CORPUSCULAR HEMOGLOBIN (BEAKER) 28.4 pg 25.7-32.2 (test uihz=453) MEAN CORPUSCULAR HEMOGLOBIN CONC 33.6 GM/DL 32.3-36.5 (BEAKER) (test tnvh=448) RED CELL DISTRIBUTION WIDTH (BEAKER) 16.2 % 11.6-14.4 (test kxlw=927) PLATELET COUNT (BEAKER) (test amuq=176) 16 K/CU MM 150-450 MEAN PLATELET VOLUME (BEAKER) (test 9.7 fL 9.4-12.4 jgsm=841) NUCLEATED RED BLOOD CELLS (BEAKER) 1 /100 WBC 0-0 (test dcyy=967) (CELLAVISION MANUAL DIFF)2019-11-06 15:34:00 Test Item Value Reference Range Comments NEUTROPHILS - REL (CELLAVISION)(BEAKER) (test 75 % oqtp=8710) LYMPHOCYTES - REL (CELLAVISION)(BEAKER) (test 21 % qsjw=8007) MONOCYTES - REL (CELLAVISION)(BEAKER) (test 2 % vpby=3054) BANDS - REL (CELLAVISION)(BEAKER) (test 1 % 0-10 gegr=5987) NEUTROPHILS - ABS (CELLAVISION)(BEAKER) (test 2.33 K/ul 1.78-5.38 mtkv=9666) LYMPHOCYTES - ABS (CELLAVISION)(BEAKER) (test 0.65 K/ul 1.32-3.57 yrcs=8096) MONOCYTES - ABS (CELLAVISION)(BEAKER) (test 0.06 K/uL 0.30-0.82 xnmo=7566) BANDS - ABS (CELLAVISION)(BEAKER) (test 0.03 K/uL 0.00-0.80 ommi=9881) TOTAL COUNTED (BEAKER) (test hjuc=9633) 100 PLT MORPHOLOGY (BEAKER) (test qdlz=175) Normal TOXIC GRANULATION (BEAKER) (test vzut=457) Present PLASMACYTOID LYMPHS(BEAKER) (test jper=2445) Present POLYCHROMATOPHILLIC RBCS(BEAKER) (test epof=422) 1+ few ANISOCYTOSIS (BEAKER) (test habf=087) 3+ many MICROCYTES (BEAKER) (test ipyh=239) 3+ many POIKILOCYTES (BEAKER) (test uhfb=945) 2+ moderate ROULEAUX (BEAKER) (test lzgo=136) 1+ few ELLIPTOCYTES (BEAKER) (test kllm=004) 1+ few ARTIFACT (CELLAVISION)(BEAKER) (test wdct=4881) Present PLATELET CONCENTRATION (CELLAVISION)(BEAKER) Decreased (test srtb=8595) Bankruptcy Assistant ID - [id number] ID - Cedric comments: Slide comments:HEPATIC FUNCTION [id number] 14:06:00 Test Item Value Reference Range Comments TOTAL PROTEIN (BEAKER) (test doxh=266) 6.8 gm/dL 6.0-8.3 ALBUMIN (BEAKER) (test qojz=2389) 3.8 g/dL 3.5-5.0 BILIRUBIN TOTAL (BEAKER) (test wvoa=835) 0.8 mg/dL 0.2-1.2 BILIRUBIN DIRECT (BEAKER) (test owiy=453) 0.4 mg/dL 0.1-0.5 ALKALINE PHOSPHATASE (BEAKER) (test fdpj=291) 111 U/L 40-150 AST (SGOT) (BEAKER) (test prhw=925) 18 U/L 5-34 ALT (SGPT) (BEAKER) (test lrbs=738) 15 U/L 6-55 Bankruptcy Assistant ID - NTPBASIC METABOLIC [id number] 14:06:00 Test Item Value Reference Range Comments SODIUM (BEAKER) (test 140 meq/L 136-145 olmi=875) POTASSIUM (BEAKER) (test 4.1 meq/L 3.5-5.1 oldj=779) CHLORIDE (BEAKER) (test 104 meq/L 98-107 eeux=542) CO2 (BEAKER) (test 24 meq/L 22-29 haup=862) BLOOD UREA NITROGEN 30 mg/dL 7-21 (BEAKER) (test aicc=128) CREATININE (BEAKER) (test 1.51 mg/dL 0.57-1.25 pyhh=175) GLUCOSE RANDOM (BEAKER) 108 mg/dL 70-105 (test ptvp=239) CALCIUM (BEAKER) (test 9.1 mg/dL 8.4-10.2 jeaf=355) EGFR (BEAKER) (test 46 mL/min/1.73 sq m ESTIMATED GFR IS NOT zrbh=9282) ACCURATE CREATININE CLEARANCE IN PREDICTING GLOMERULAR FILTRATION RATE. ESTIMATED GFR IS NOT APPLICABLE FOR DIALYSIS PATIENTS. Bankruptcy Assistant ID - [id number] 14:01:00 Test Item Value Reference Range Comments PROTIME (BEAKER) (test eelz=453) 15.6 seconds 11.9-14.2 INR (BEAKER) (test szsk=862) 1.3 <=5.9 PARTIAL THROMBOPLASTIN TIME (BEAKER) (test 31.1 seconds 22.5-36.0 kjqq=716) Effective 03/26/2019: PT Reference Range ChangeNew: 11.9-14.2 Previous: 11.7- 14.7RECOMMENDED COUMADIN/WARFARIN INR THERAPY RANGESSTANDARD DOSE: 2.0-3.0 Includes: PROPHYLAXIS for venous thrombosis, systemic embolization; TREATMENT for venous thrombosis and/or pulmonary embolus.HIGH RISK: Target INR is2.5-3.5 for patients wiht mechanical heart valves.CBC W/PLT COUNT & AUTO [id number] 10:15:00 Test Item Value Reference Range Comments WHITE BLOOD CELL COUNT (BEAKER) (test hrkp=625) 4.5 K/ L 3.5-10.5 RED BLOOD CELL COUNT (BEAKER) (test ttfv=055) 2.54 M/ L 4.63-6.08 HEMOGLOBIN (BEAKER) (test nbda=328) 7.1 GM/DL 13.7-17.5 HEMATOCRIT (BEAKER) (test tazn=935) 21.3 % 40.1-51.0 MEAN CORPUSCULAR VOLUME (BEAKER) (test oxpk=858) 83.9 fL 79.0-92.2 MEAN CORPUSCULAR HEMOGLOBIN (BEAKER) (test 28.0 pg 25.7-32.2 sacl=748) MEAN CORPUSCULAR HEMOGLOBIN CONC (BEAKER) (test 33.3 GM/DL 32.3-36.5 eiul=112) RED CELL DISTRIBUTION WIDTH (BEAKER) (test 16.2 % 11.6-14.4 nzcl=459) PLATELET COUNT (BEAKER) (test fuyr=733) 15 K/CU MM 150-450 MEAN PLATELET VOLUME (BEAKER) (test ewfs=838) 10.0 fL 9.4-12.4 NUCLEATED RED BLOOD CELLS (BEAKER) (test 0 /100 WBC 0-0 dxos=955) CBC W/PLT COUNT & AUTO [id number] 10:15:00 Test Item Value Reference Range Comments WHITE BLOOD CELL COUNT (BEAKER) (test bpnn=627) 4.2 K/ L 3.5-10.5 RED BLOOD CELL COUNT (BEAKER) (test hcsb=580) 2.45 M/ L 4.63-6.08 HEMOGLOBIN (BEAKER) (test nsjo=243) 6.8 GM/DL 13.7-17.5 HEMATOCRIT (BEAKER) (test syvq=876) 21.1 % 40.1-51.0 MEAN CORPUSCULAR VOLUME (BEAKER) (test napp=079) 86.1 fL 79.0-92.2 MEAN CORPUSCULAR HEMOGLOBIN (BEAKER) (test 27.8 pg 25.7-32.2 loil=764) MEAN CORPUSCULAR HEMOGLOBIN CONC (BEAKER) (test 32.2 GM/DL 32.3-36.5 guvj=030) RED CELL DISTRIBUTION WIDTH (BEAKER) (test 16.4 % 11.6-14.4 cedr=439) PLATELET COUNT (BEAKER) (test mnpz=033) 15 K/CU MM 150-450 MEAN PLATELET VOLUME (BEAKER) (test dobf=996) 10.0 fL 9.4-12.4 NUCLEATED RED BLOOD CELLS (BEAKER) (test 0 /100 WBC 0-0 nwvz=110) (CELLAVISION MANUAL DIFF)2019-11-01 10:15:00 Test Item Value Reference Range Comments NEUTROPHILS - REL (CELLAVISION)(BEAKER) (test 84 % zbey=7052) LYMPHOCYTES - REL (CELLAVISION)(BEAKER) (test 9 % stmq=0929) MONOCYTES - REL (CELLAVISION)(BEAKER) (test 4 % donh=4794) BANDS - REL (CELLAVISION)(BEAKER) (test inhq=2143) 2 % 0-10 ATYPICAL LYMPHOCYTES - REL (CELLAVISION)(BEAKER) 1 % 0-0 (test pczw=2572) NEUTROPHILS - ABS (CELLAVISION)(BEAKER) (test 3.53 K/ul 1.78-5.38 zsvd=9635) LYMPHOCYTES - ABS (CELLAVISION)(BEAKER) (test 0.38 K/ul 1.32-3.57 fspz=2235) MONOCYTES - ABS (CELLAVISION)(BEAKER) (test 0.17 K/uL 0.30-0.82 mqhq=7939) BANDS - ABS (CELLAVISION)(BEAKER) (test objh=3637) 0.08 K/uL 0.00-0.80 ATYPICAL LYMPHOCYTES - ABS (CELLAVISION)(BEAKER) 0.04 K/uL 0.00-0.00 (test vqoy=9851) TOTAL COUNTED (BEAKER) (test qtqv=2818) 100 PLT MORPHOLOGY (BEAKER) (test dsbn=846) Normal TOXIC GRANULATION (BEAKER) (test fbpf=216) Present HYPOCHROMIA (BEAKER) (test ydcd=546) 1+ few ANISOCYTOSIS (BEAKER) (test pals=211) 1+ few ARTIFACT (CELLAVISION)(BEAKER) (test mbym=5087) Present PLATELET CONCENTRATION (CELLAVISION)(BEAKER) (test Decreased hoyp=9181) Received comment: User comments: Slide comments:URIC [id number] 06:30:00 Test Item Value Reference Range Comments URIC ACID (BEAKER) (test cvbm=889) 6.5 mg/dL 2.6-7.2 [id number] 06:30:00 Test Item Value Reference Range Comments MAGNESIUM (BEAKER) (test bdyq=480) 1.8 mg/dL 1.6-2.6 COMPREHENSIVE METABOLIC [id number] 06:30:00 Test Item Value Reference Range Comments TOTAL PROTEIN (BEAKER) 5.5 gm/dL 6.0-8.3 (test crbv=219) ALBUMIN (BEAKER) (test 3.2 g/dL 3.5-5.0 epao=5517) ALKALINE PHOSPHATASE 103 U/L 40-150 (BEAKER) (test vltf=455) BILIRUBIN TOTAL (BEAKER) 0.5 mg/dL 0.2-1.2 (test mdpt=623) SODIUM (BEAKER) (test 137 meq/L 136-145 manc=873) POTASSIUM (BEAKER) (test 4.1 meq/L 3.5-5.1 bmgi=441) CHLORIDE (BEAKER) (test 105 meq/L 98-107 tnrx=246) CO2 (BEAKER) (test 26 meq/L 22-29 oxvy=252) BLOOD UREA NITROGEN 22 mg/dL 7-21 (BEAKER) (test xhyy=113) CREATININE (BEAKER) (test 1.24 mg/dL 0.57-1.25 uyrb=419) GLUCOSE RANDOM (BEAKER) 114 mg/dL 70-105 (test arph=484) CALCIUM (BEAKER) (test 8.5 mg/dL 8.4-10.2 bizu=678) AST (SGOT) (BEAKER) (test 12 U/L 5-34 flsh=043) ALT (SGPT) (BEAKER) (test 10 U/L 6-55 xnpe=752) EGFR (BEAKER) (test 58 mL/min/1.73 sq m ESTIMATED GFR IS NOT rcvj=8244) ACCURATE CREATININE CLEARANCE IN PREDICTING GLOMERULAR FILTRATION RATE. ESTIMATED GFR IS NOT APPLICABLE FOR DIALYSIS PATIENTS. C. DIFFICILE GDH [id number] 19:16:00 Test Item Value Reference Range Comments CDT TOXIN (test Negative Negative kdhi=[id number]) CDT GDH ANTIGEN (test Negative Negative No indication of Clostridium ehro=[id number]) difficile infection and no colonization. Discontinue enteric isolation and therapy. Testing performed by [employer] Rapid Cassette Assay. For GDH, published sensitivity of the assay is 98.7% compared to cytotoxicity testing. For Toxin AB, published sensitivity is 87.8% and specificity 99.4% compared to cytotoxicity testing.Verification of kit performance was done by the [facility] Microbiology Lab prior to clinical use.CBC W/PLT COUNT & AUTO [id number] 10:04:00 Test Item Value Reference Range Comments WHITE BLOOD CELL COUNT (BEAKER) (test ztdl=574) 6.5 K/ L 3.5-10.5 RED BLOOD CELL COUNT (BEAKER) (test wxou=285) 2.62 M/ L 4.63-6.08 HEMOGLOBIN (BEAKER) (test hbny=180) 7.4 GM/DL 13.7-17.5 HEMATOCRIT (BEAKER) (test jxue=076) 22.3 % 40.1-51.0 MEAN CORPUSCULAR VOLUME (BEAKER) (test bybw=477) 85.1 fL 79.0-92.2 MEAN CORPUSCULAR HEMOGLOBIN (BEAKER) (test 28.2 pg 25.7-32.2 abzf=337) MEAN CORPUSCULAR HEMOGLOBIN CONC (BEAKER) (test 33.2 GM/DL 32.3-36.5 juqk=551) RED CELL DISTRIBUTION WIDTH (BEAKER) (test 16.8 % 11.6-14.4 mcxu=083) PLATELET COUNT (BEAKER) (test xamw=070) 18 K/CU MM 150-450 MEAN PLATELET VOLUME (BEAKER) (test mujy=016) 10.4 fL 9.4-12.4 NUCLEATED RED BLOOD CELLS (BEAKER) (test 0 /100 WBC 0-0 dtlg=541) (CELLAVISION MANUAL DIFF)2019-10-31 10:04:00 Test Item Value Reference Range Comments NEUTROPHILS - REL (CELLAVISION)(BEAKER) (test 81 % wckl=7765) LYMPHOCYTES - REL (CELLAVISION)(BEAKER) (test 10 % kayn=0998) MONOCYTES - REL (CELLAVISION)(BEAKER) (test 4 % mhvf=4238) BANDS - REL (CELLAVISION)(BEAKER) (test 5 % 0-10 mbjw=3550) NEUTROPHILS - ABS (CELLAVISION)(BEAKER) (test 5.27 K/ul 1.78-5.38 bdfx=8720) LYMPHOCYTES - ABS (CELLAVISION)(BEAKER) (test 0.65 K/ul 1.32-3.57 uoqu=7098) MONOCYTES - ABS (CELLAVISION)(BEAKER) (test 0.26 K/uL 0.30-0.82 uvin=7782) BANDS - ABS (CELLAVISION)(BEAKER) (test 0.33 K/uL 0.00-0.80 vste=2101) TOTAL COUNTED (BEAKER) (test otai=4634) 100 WBC MORPHOLOGY (BEAKER) (test baqj=086) Normal PLT MORPHOLOGY (BEAKER) (test hnof=449) Normal ANISOCYTOSIS (BEAKER) (test exmc=462) 2+ moderate MICROCYTES (BEAKER) (test jwjy=541) 2+ moderate POIKILOCYTES (BEAKER) (test lbuf=926) 1+ few ARTIFACT (CELLAVISION)(BEAKER) (test vwpv=1678) Present PLATELET CONCENTRATION (CELLAVISION)(BEAKER) Decreased (test cqxn=6436) Received comment: User comments: Slide comments:URIC [id number] 06:50:00 Test Item Value Reference Range Comments URIC ACID (BEAKER) (test elmp=447) 6.8 mg/dL 2.6-7.2 [id number] 06:50:00 Test Item Value Reference Range Comments MAGNESIUM (BEAKER) (test fzoj=974) 1.9 mg/dL 1.6-2.6 COMPREHENSIVE METABOLIC [id number] 06:50:00 Test Item Value Reference Range Comments TOTAL PROTEIN (BEAKER) 5.6 gm/dL 6.0-8.3 (test buvg=584) ALBUMIN (BEAKER) (test 3.3 g/dL 3.5-5.0 aogl=9148) ALKALINE PHOSPHATASE 108 U/L 40-150 (BEAKER) (test tvui=001) BILIRUBIN TOTAL (BEAKER) 0.5 mg/dL 0.2-1.2 (test ycwa=038) SODIUM (BEAKER) (test 138 meq/L 136-145 zemy=368) POTASSIUM (BEAKER) (test 4.3 meq/L 3.5-5.1 cfvk=503) CHLORIDE (BEAKER) (test 107 meq/L 98-107 fkxx=902) CO2 (BEAKER) (test 27 meq/L 22-29 etay=620) BLOOD UREA NITROGEN 26 mg/dL 7-21 (BEAKER) (test tzis=056) CREATININE (BEAKER) (test 1.49 mg/dL 0.57-1.25 vdvy=107) GLUCOSE RANDOM (BEAKER) 116 mg/dL 70-105 (test qlmf=175) CALCIUM (BEAKER) (test 8.6 mg/dL 8.4-10.2 puvi=400) AST (SGOT) (BEAKER) (test 17 U/L 5-34 kevd=566) ALT (SGPT) (BEAKER) (test 14 U/L 6-55 rrgl=540) EGFR (BEAKER) (test 47 mL/min/1.73 sq m ESTIMATED GFR IS NOT gjxb=8801) ACCURATE CREATININE CLEARANCE IN PREDICTING GLOMERULAR FILTRATION RATE. ESTIMATED GFR IS NOT APPLICABLE FOR DIALYSIS PATIENTS. RAD, CHEST, 1 VIEW, NON [id number] 02:37:00Reason for exam:->shortness of breathShould this be performed at the bedside?->YesFINAL REPORT History: Shortness of breath. Comparison: 10/24/2019 Findings: A single view of the chest is submitted. The cardiac silhouette is within normal limits for size. There is atherosclerotic calcification of the aorta. There are coarsened interstitial and patchy airspace opacities in the bilateral lower lungs, possibly atelectasis. Pneumonitis should be excluded clinically. There is no pneumothorax, large pleural effusion or acute bony abnormality. Signed: Jagjit Motley MDReport Verified Date/Time: 10/31/2019 02:37:49 POCT- GLUCOSE [id number] 00:34:00 Test Item Value Reference Range Comments POC-GLUCOSE METER (BEAKER) 122 mg/dL 70-110 : TESTED AT [facility] [address] (test ywnl=5801) [place], [id number]: Bankruptcy Assistant/Button Facing Machine Operator [id number] for Kristin Diaz CBC W/PLT COUNT & AUTO [id number] 10:30:00 Test Item Value Reference Range Comments WHITE BLOOD CELL COUNT (BEAKER) (test pdcq=455) 6.7 K/ L 3.5-10.5 RED BLOOD CELL COUNT (BEAKER) (test wall=006) 2.59 M/ L 4.63-6.08 HEMOGLOBIN (BEAKER) (test bkuc=218) 7.3 GM/DL 13.7-17.5 HEMATOCRIT (BEAKER) (test lthd=500) 21.9 % 40.1-51.0 MEAN CORPUSCULAR VOLUME (BEAKER) (test umwo=689) 84.6 fL 79.0-92.2 MEAN CORPUSCULAR HEMOGLOBIN (BEAKER) (test 28.2 pg 25.7-32.2 yagg=458) MEAN CORPUSCULAR HEMOGLOBIN CONC (BEAKER) (test 33.3 GM/DL 32.3-36.5 zysb=759) RED CELL DISTRIBUTION WIDTH (BEAKER) (test 17.0 % 11.6-14.4 xpxx=695) PLATELET COUNT (BEAKER) (test yzpv=508) 23 K/CU MM 150-450 MEAN PLATELET VOLUME (BEAKER) (test zqrn=674) 9.9 fL 9.4-12.4 NUCLEATED RED BLOOD CELLS (BEAKER) (test 0 /100 WBC 0-0 bfrg=651) (MANUAL DIFFERENTIAL)2019-10-30 10:30:00 Test Item Value Reference Range Comments NEUTROPHILS - REL (DIFF) (BEAKER) (test yrdd=0060) 68 % LYMPHOCYTES - REL (DIFF) (BEAKER) (test bfji=4719) 16 % MONOCYTES - REL (DIFF) (BEAKER) (test khap=0534) 3 % BANDS - REL (DIFF) (BEAKER) (test rcpl=2017) 13 % 0-10 NEUTROPHILS - ABS (DIFF) (BEAKER) (test xtmt=1530) 4.56 K/ L 1.80-8.00 LYMPHOCYTES - ABS (DIFF) (BEAKER) (test fpdi=2556) 1.07 K/ L 1.48-4.50 MONOCYTES - ABS (DIFF) (BEAKER) (test jqei=6429) 0.20 K/ L 0.00-1.30 BANDS-ABS (DIFF) (BEAKER) (test rrpy=1394) 0.9 K/ L 0.0-0.8 TOTAL COUNTED (BEAKER) (test iviz=3385) 100 BANDS + SEGMENTED NEUTROPHILS (BEAKER) (test 5.43 indd=1975) WBC MORPHOLOGY (BEAKER) (test fnat=878) Normal PLT MORPHOLOGY (BEAKER) (test utir=583) Normal RBC MORPHOLOGY (BEAKER) (test copb=215) Normal URIC [id number] 06:58:00 Test Item Value Reference Range Comments URIC ACID (BEAKER) (test assp=765) 7.3 mg/dL 2.6-7.2 [id number] 06:58:00 Test Item Value Reference Range Comments MAGNESIUM (BEAKER) (test zxid=155) 2.0 mg/dL 1.6-2.6 COMPREHENSIVE METABOLIC [id number] 06:58:00 Test Item Value Reference Range Comments TOTAL PROTEIN (BEAKER) 5.5 gm/dL 6.0-8.3 (test sefh=891) ALBUMIN (BEAKER) (test 3.3 g/dL 3.5-5.0 kmjg=8919) ALKALINE PHOSPHATASE 106 U/L 40-150 (BEAKER) (test gbts=502) BILIRUBIN TOTAL (BEAKER) 0.5 mg/dL 0.2-1.2 (test lrjz=502) SODIUM (BEAKER) (test 140 meq/L 136-145 lnfv=953) POTASSIUM (BEAKER) (test 4.4 meq/L 3.5-5.1 uimq=173) CHLORIDE (BEAKER) (test 106 meq/L 98-107 mvre=867) CO2 (BEAKER) (test 26 meq/L 22-29 qjvg=766) BLOOD UREA NITROGEN 30 mg/dL 7-21 (BEAKER) (test fwzh=672) CREATININE (BEAKER) (test 1.51 mg/dL 0.57-1.25 mdns=953) GLUCOSE RANDOM (BEAKER) 107 mg/dL 70-105 (test trmq=098) CALCIUM (BEAKER) (test 8.6 mg/dL 8.4-10.2 lfxe=640) AST (SGOT) (BEAKER) (test 15 U/L 5-34 mjst=716) ALT (SGPT) (BEAKER) (test 12 U/L 6-55 zubx=885) EGFR (BEAKER) (test 46 mL/min/1.73 sq m ESTIMATED GFR IS NOT krcb=9813) ACCURATE CREATININE CLEARANCE IN PREDICTING GLOMERULAR FILTRATION RATE. ESTIMATED GFR IS NOT APPLICABLE FOR DIALYSIS PATIENTS. CBC W/PLT COUNT & AUTO [id number] 10:22:00 Test Item Value Reference Range Comments WHITE BLOOD CELL COUNT (BEAKER) (test acsg=260) 6.3 K/ L 3.5-10.5 RED BLOOD CELL COUNT (BEAKER) (test uwtv=877) 2.66 M/ L 4.63-6.08 HEMOGLOBIN (BEAKER) (test ydjy=581) 7.5 GM/DL 13.7-17.5 HEMATOCRIT (BEAKER) (test vajz=017) 22.1 % 40.1-51.0 MEAN CORPUSCULAR VOLUME (BEAKER) (test xkqg=109) 83.1 fL 79.0-92.2 MEAN CORPUSCULAR HEMOGLOBIN (BEAKER) (test 28.2 pg 25.7-32.2 oyap=426) MEAN CORPUSCULAR HEMOGLOBIN CONC (BEAKER) (test 33.9 GM/DL 32.3-36.5 obsk=820) RED CELL DISTRIBUTION WIDTH (BEAKER) (test 17.2 % 11.6-14.4 sgkf=889) PLATELET COUNT (BEAKER) (test sjnf=817) 24 K/CU MM 150-450 MEAN PLATELET VOLUME (BEAKER) (test frvl=840) 10.7 fL 9.4-12.4 NUCLEATED RED BLOOD CELLS (BEAKER) (test 0 /100 WBC 0-0 ypca=626) (CELLAVISION MANUAL DIFF)2019-10-29 10:22:00 Test Item Value Reference Range Comments NEUTROPHILS - REL (CELLAVISION)(BEAKER) (test 65 % eekf=0206) LYMPHOCYTES - REL (CELLAVISION)(BEAKER) (test 14 % nnfy=7245) MONOCYTES - REL (CELLAVISION)(BEAKER) (test 6 % igyo=2957) EOSINOPHILS - REL (CELLAVISION)(BEAKER) (test 1 % ppwo=9714) BANDS - REL (CELLAVISION)(BEAKER) (test 10 % 0-10 cncw=7021) ATYPICAL LYMPHOCYTES - REL (CELLAVISION)(BEAKER) 3 % 0-0 (test ievz=1364) NEUTROPHILS - ABS (CELLAVISION)(BEAKER) (test 4.10 K/ul 1.78-5.38 hlef=8947) LYMPHOCYTES - ABS (CELLAVISION)(BEAKER) (test 0.88 K/ul 1.32-3.57 isef=7177) MONOCYTES - ABS (CELLAVISION)(BEAKER) (test 0.38 K/uL 0.30-0.82 iblb=7288) EOSINOPHILS - ABS (CELLAVISION)(BEAKER) (test 0.06 K/uL 0.04-0.54 wqvd=1481) BANDS - ABS (CELLAVISION)(BEAKER) (test 0.63 K/uL 0.00-0.80 xkvu=6763) ATYPICAL LYMPHOCYTES - ABS (CELLAVISION)(BEAKER) 0.19 K/uL 0.00-0.00 (test xokg=7942) TOTAL COUNTED (BEAKER) (test uoaa=6456) 100 WBC MORPHOLOGY (BEAKER) (test xnww=000) Normal PLT MORPHOLOGY (BEAKER) (test mxlv=847) Normal ANISOCYTOSIS (BEAKER) (test truo=744) 2+ moderate MICROCYTES (BEAKER) (test rerv=817) 2+ moderate ARTIFACT (CELLAVISION)(BEAKER) (test seqi=8770) Present PLATELET CONCENTRATION (CELLAVISION)(BEAKER) Decreased (test kexu=1085) Received comment: User comments: Slide comments:URIC [id number] 06:25:00 Test Item Value Reference Range Comments URIC ACID (BEAKER) (test vfoa=200) 7.2 mg/dL 2.6-7.2 [id number] 06:25:00 Test Item Value Reference Range Comments MAGNESIUM (BEAKER) (test tvth=297) 2.0 mg/dL 1.6-2.6 COMPREHENSIVE METABOLIC [id number] 06:25:00 Test Item Value Reference Range Comments TOTAL PROTEIN (BEAKER) 5.7 gm/dL 6.0-8.3 (test fgwl=728) ALBUMIN (BEAKER) (test 3.4 g/dL 3.5-5.0 vihj=3224) ALKALINE PHOSPHATASE 97 U/L 40-150 (BEAKER) (test whdm=352) BILIRUBIN TOTAL (BEAKER) 0.8 mg/dL 0.2-1.2 (test owba=713) SODIUM (BEAKER) (test 136 meq/L 136-145 slkf=280) POTASSIUM (BEAKER) (test 4.5 meq/L 3.5-5.1 xoeo=876) CHLORIDE (BEAKER) (test 104 meq/L 98-107 kdbq=126) CO2 (BEAKER) (test 25 meq/L 22-29 vdgi=863) BLOOD UREA NITROGEN 37 mg/dL 7-21 (BEAKER) (test oqsu=392) CREATININE (BEAKER) (test 1.77 mg/dL 0.57-1.25 lizm=998) GLUCOSE RANDOM (BEAKER) 111 mg/dL 70-105 (test qypm=615) CALCIUM (BEAKER) (test 8.7 mg/dL 8.4-10.2 mjck=574) AST (SGOT) (BEAKER) (test 13 U/L 5-34 tbnl=269) ALT (SGPT) (BEAKER) (test 11 U/L 6-55 tpfl=751) EGFR (BEAKER) (test 38 mL/min/1.73 sq m ESTIMATED GFR IS NOT bfzw=5591) ACCURATE CREATININE CLEARANCE IN PREDICTING GLOMERULAR FILTRATION RATE. ESTIMATED GFR IS NOT APPLICABLE FOR DIALYSIS PATIENTS. TROPONIN [id number] 00:30:00 Test Item Value Reference Range Comments TROPONIN I (BEAKER) (test okga=035) 0.03 ng/mL 0.00-0.03 Troponin I (TnI) levels [...] failure, acidosis, acute neurological disease, and persistent tachyarrhythmia.CBC W/PLT COUNT & AUTO [id number] 11:35:00 Test Item Value Reference Range Comments WHITE BLOOD CELL COUNT (BEAKER) (test nudu=679) 3.8 K/ L 3.5-10.5 RED BLOOD CELL COUNT (BEAKER) (test qmnc=372) 2.50 M/ L 4.63-6.08 HEMOGLOBIN (BEAKER) (test tjdf=244) 7.0 GM/DL 13.7-17.5 HEMATOCRIT (BEAKER) (test fgqi=844) 21.1 % 40.1-51.0 MEAN CORPUSCULAR VOLUME (BEAKER) (test khpr=195) 84.4 fL 79.0-92.2 MEAN CORPUSCULAR HEMOGLOBIN (BEAKER) (test 28.0 pg 25.7-32.2 ehpt=644) MEAN CORPUSCULAR HEMOGLOBIN CONC (BEAKER) (test 33.2 GM/DL 32.3-36.5 fxpi=250) RED CELL DISTRIBUTION WIDTH (BEAKER) (test 16.0 % 11.6-14.4 nmgq=498) PLATELET COUNT (BEAKER) (test guxh=279) 28 K/CU MM 150-450 MEAN PLATELET VOLUME (BEAKER) (test hlae=102) 10.4 fL 9.4-12.4 NUCLEATED RED BLOOD CELLS (BEAKER) (test 0 /100 WBC 0-0 ddri=897) (CELLAVISION MANUAL DIFF)2019-10-28 11:35:00 Test Item Value Reference Range Comments NEUTROPHILS - REL (CELLAVISION)(BEAKER) (test 64 % corl=0823) LYMPHOCYTES - REL (CELLAVISION)(BEAKER) (test 19 % rrkk=0065) MONOCYTES - REL (CELLAVISION)(BEAKER) (test 9 % gplm=9149) METAMYELOCYTES - REL (CELLAVISION)(BEAKER) (test 1 % 0-0 ndsc=7104) BANDS - REL (CELLAVISION)(BEAKER) (test tijf=9284) 6 % 0-10 ATYPICAL LYMPHOCYTES - REL (CELLAVISION)(BEAKER) 1 % 0-0 (test ljvq=3111) NEUTROPHILS - ABS (CELLAVISION)(BEAKER) (test 2.43 K/ul 1.78-5.38 ribz=0467) LYMPHOCYTES - ABS (CELLAVISION)(BEAKER) (test 0.72 K/ul 1.32-3.57 jddb=1077) MONOCYTES - ABS (CELLAVISION)(BEAKER) (test 0.34 K/uL 0.30-0.82 eder=7688) METAMYELOCYTES - ABS (CELLAVISION)(BEAKER) (test 0.04 K/uL 0.00-0.00 kwyp=2317) BANDS - ABS (CELLAVISION)(BEAKER) (test egde=1554) 0.23 K/uL 0.00-0.80 ATYPICAL LYMPHOCYTES - ABS (CELLAVISION)(BEAKER) 0.04 K/uL 0.00-0.00 (test lgsa=9325) TOTAL COUNTED (BEAKER) (test sppg=1677) 100 PLT MORPHOLOGY (BEAKER) (test gsac=001) Normal TOXIC GRANULATION (BEAKER) (test tlqw=787) Present POLYCHROMATOPHILLIC RBCS(BEAKER) (test yzkt=629) 1+ few HYPOCHROMIA (BEAKER) (test dalq=429) 1+ few ARTIFACT (CELLAVISION)(BEAKER) (test doyt=8038) Present PLATELET CONCENTRATION (CELLAVISION)(BEAKER) (test Decreased pteo=0375) Received comment: User comments: Slide comments:URIC [id number] 06:55:00 Test Item Value Reference Range Comments URIC ACID (BEAKER) (test xice=152) 6.4 mg/dL 2.6-7.2 [id number] 06:55:00 Test Item Value Reference Range Comments MAGNESIUM (BEAKER) (test mkdq=596) 1.8 mg/dL 1.6-2.6 COMPREHENSIVE METABOLIC [id number] 06:55:00 Test Item Value Reference Range Comments TOTAL PROTEIN (BEAKER) 5.8 gm/dL 6.0-8.3 (test ztzz=632) ALBUMIN (BEAKER) (test 3.4 g/dL 3.5-5.0 yssq=5483) ALKALINE PHOSPHATASE 91 U/L 40-150 (BEAKER) (test nvwe=782) BILIRUBIN TOTAL (BEAKER) 0.8 mg/dL 0.2-1.2 (test xuap=199) SODIUM (BEAKER) (test 135 meq/L 136-145 knut=303) POTASSIUM (BEAKER) (test 4.3 meq/L 3.5-5.1 kani=478) CHLORIDE (BEAKER) (test 102 meq/L 98-107 sbar=448) CO2 (BEAKER) (test 27 meq/L 22-29 igcd=281) BLOOD UREA NITROGEN 33 mg/dL 7-21 (BEAKER) (test gktx=562) CREATININE (BEAKER) (test 1.68 mg/dL 0.57-1.25 elak=046) GLUCOSE RANDOM (BEAKER) 110 mg/dL 70-105 (test rdax=371) CALCIUM (BEAKER) (test 8.6 mg/dL 8.4-10.2 vvml=446) AST (SGOT) (BEAKER) (test 11 U/L 5-34 ewmf=640) ALT (SGPT) (BEAKER) (test 11 U/L 6-55 uayc=051) EGFR (BEAKER) (test 41 mL/min/1.73 sq m ESTIMATED GFR IS NOT qmfr=1113) ACCURATE CREATININE CLEARANCE IN PREDICTING GLOMERULAR FILTRATION RATE. ESTIMATED GFR IS NOT APPLICABLE FOR DIALYSIS PATIENTS. CBC W/PLT COUNT & AUTO [id number] 16:19:00 Test Item Value Reference Range Comments WHITE BLOOD CELL COUNT (BEAKER) (test trhc=569) 2.3 K/ L 3.5-10.5 RED BLOOD CELL COUNT (BEAKER) (test cioj=262) 2.54 M/ L 4.63-6.08 HEMOGLOBIN (BEAKER) (test pmbp=236) 7.2 GM/DL 13.7-17.5 HEMATOCRIT (BEAKER) (test mzdf=609) 21.6 % 40.1-51.0 MEAN CORPUSCULAR VOLUME (BEAKER) (test vqsb=864) 85.0 fL 79.0-92.2 MEAN CORPUSCULAR HEMOGLOBIN (BEAKER) (test 28.3 pg 25.7-32.2 eyds=737) MEAN CORPUSCULAR HEMOGLOBIN CONC (BEAKER) (test 33.3 GM/DL 32.3-36.5 aocj=473) RED CELL DISTRIBUTION WIDTH (BEAKER) (test 16.2 % 11.6-14.4 wkmi=415) PLATELET COUNT (BEAKER) (test kwne=971) 36 K/CU MM 150-450 MEAN PLATELET VOLUME (BEAKER) (test revu=366) 10.3 fL 9.4-12.4 NUCLEATED RED BLOOD CELLS (BEAKER) (test 0 /100 WBC 0-0 gozt=697) NEUTROPHILS RELATIVE PERCENT (BEAKER) (test 44 % sudy=345) LYMPHOCYTES RELATIVE PERCENT (BEAKER) (test 26 % nvlt=959) MONOCYTES RELATIVE PERCENT (BEAKER) (test 26 % krha=365) EOSINOPHILS RELATIVE PERCENT (BEAKER) (test 1 % aidt=572) BASOPHILS RELATIVE PERCENT (BEAKER) (test 0 % kycl=763) NEUTROPHILS ABSOLUTE COUNT (BEAKER) (test 1.02 K/ L 1.78-5.38 kdnc=655) LYMPHOCYTES ABSOLUTE COUNT (BEAKER) (test 0.61 K/ L 1.32-3.57 cpbg=133) MONOCYTES ABSOLUTE COUNT (BEAKER) (test ihqe=498) 0.61 K/ L 0.30-0.82 EOSINOPHILS ABSOLUTE COUNT (BEAKER) (test 0.02 K/ L 0.04-0.54 vbfn=917) BASOPHILS ABSOLUTE COUNT (BEAKER) (test stiq=177) 0.01 K/ L 0.01-0.08 IMMATURE GRANULOCYTES-RELATIVE PERCENT (BEAKER) 3 % 0-1 (test ezjh=1089) COMPREHENSIVE METABOLIC [id number] 13:02:00 Test Item Value Reference Range Comments TOTAL PROTEIN (BEAKER) 5.7 gm/dL 6.0-8.3 (test lzhs=819) ALBUMIN (BEAKER) (test 3.4 g/dL 3.5-5.0 gqla=1969) ALKALINE PHOSPHATASE 82 U/L 40-150 (BEAKER) (test lwqx=622) BILIRUBIN TOTAL (BEAKER) 0.9 mg/dL 0.2-1.2 (test blrw=401) SODIUM (BEAKER) (test 137 meq/L 136-145 amnq=839) POTASSIUM (BEAKER) (test 4.2 meq/L 3.5-5.1 kemu=507) CHLORIDE (BEAKER) (test 104 meq/L 98-107 boor=457) CO2 (BEAKER) (test 25 meq/L 22-29 xuzq=119) BLOOD UREA NITROGEN 31 mg/dL 7-21 (BEAKER) (test icjy=286) CREATININE (BEAKER) (test 1.46 mg/dL 0.57-1.25 kubw=064) GLUCOSE RANDOM (BEAKER) 112 mg/dL 70-105 (test vayt=259) CALCIUM (BEAKER) (test 8.7 mg/dL 8.4-10.2 vjcy=140) AST (SGOT) (BEAKER) (test 12 U/L 5-34 uafn=440) ALT (SGPT) (BEAKER) (test 13 U/L 6-55 zpzw=580) EGFR (BEAKER) (test 48 mL/min/1.73 sq m ESTIMATED GFR IS NOT mwrf=2338) ACCURATE CREATININE CLEARANCE IN PREDICTING GLOMERULAR FILTRATION RATE. ESTIMATED GFR IS NOT APPLICABLE FOR DIALYSIS PATIENTS. URIC [id number] 13:02:00 Test Item Value Reference Range Comments URIC ACID (BEAKER) (test tvuo=124) 5.6 mg/dL 2.6-7.2 [id number] 13:02:00 Test Item Value Reference Range Comments MAGNESIUM (BEAKER) (test pgnf=368) 1.7 mg/dL 1.6-2.6 CBC W/PLT COUNT & AUTO [id number] 12:05:00 Test Item Value Reference Range Comments WHITE BLOOD CELL COUNT (BEAKER) (test jblz=086) 1.9 K/ L 3.5-10.5 RED BLOOD CELL COUNT (BEAKER) (test aoih=920) 2.81 M/ L 4.63-6.08 HEMOGLOBIN (BEAKER) (test vtzz=597) 7.9 GM/DL 13.7-17.5 HEMATOCRIT (BEAKER) (test dtpv=325) 23.3 % 40.1-51.0 MEAN CORPUSCULAR VOLUME (BEAKER) (test yeoi=733) 82.9 fL 79.0-92.2 MEAN CORPUSCULAR HEMOGLOBIN (BEAKER) (test 28.1 pg 25.7-32.2 bino=672) MEAN CORPUSCULAR HEMOGLOBIN CONC (BEAKER) (test 33.9 GM/DL 32.3-36.5 tcyl=993) RED CELL DISTRIBUTION WIDTH (BEAKER) (test 16.2 % 11.6-14.4 esin=211) PLATELET COUNT (BEAKER) (test bigq=974) 39 K/CU MM 150-450 MEAN PLATELET VOLUME (BEAKER) (test indh=497) 9.3 fL 9.4-12.4 NUCLEATED RED BLOOD CELLS (BEAKER) (test 0 /100 WBC 0-0 byig=142) (MANUAL DIFFERENTIAL)2019-10-26 12:05:00 Test Item Value Reference Range Comments NEUTROPHILS - REL (DIFF) (BEAKER) (test mgwj=1200) 28 % LYMPHOCYTES - REL (DIFF) (BEAKER) (test whrw=4286) 36 % MONOCYTES - REL (DIFF) (BEAKER) (test pzjq=6273) 18 % EOSINOPHILS - REL (DIFF) (BEAKER) (test sgww=0223) 3 % BASOPHILS - REL (DIFF) (BEAKER) (test meii=0698) 0 % METAMYELOCYTES-REL (DIFF) (BEAKER) (test alkx=233) 2 % 0-0 BANDS - REL (DIFF) (BEAKER) (test slsa=6444) 8 % 0-10 ATYPICAL LYMPHOCYTE - REL (DIFF) (BEAKER) (test 5 % 0-0 wdwd=977) NEUTROPHILS - ABS (DIFF) (BEAKER) (test vgtx=9508) 0.53 K/ L 1.80-8.00 LYMPHOCYTES - ABS (DIFF) (BEAKER) (test arpu=5075) 0.68 K/ L 1.48-4.50 MONOCYTES - ABS (DIFF) (BEAKER) (test khlm=1422) 0.34 K/ L 0.00-1.30 EOSINOPHILS - ABS (DIFF) (BEAKER) (test gyph=3246) 0.06 K/ L 0.00-0.50 BASOPHILS - ABS (DIFF) (BEAKER) (test aifq=0744) 0.00 K/ L 0.00-0.20 METAMYELOCTYES - ABS (DIFF) (BEAKER) (test 0.04 K/ L 0.00-0.00 nnad=903) BANDS-ABS (DIFF) (BEAKER) (test kndo=5189) 0.2 K/ L 0.0-0.8 ATYPICAL LYMPHOCYTES - ABS (DIFF) (BEAKER) (test 0.10 K/ L 0.00-0.00 geyo=133) TOTAL COUNTED (BEAKER) (test jvbf=0964) 100 BANDS + SEGMENTED NEUTROPHILS (BEAKER) (test 0.68 nqdk=8862) WBC MORPHOLOGY (BEAKER) (test ftup=075) Normal PLT MORPHOLOGY (BEAKER) (test gsyc=664) Normal ANISOCYTOSIS (BEAKER) (test wdaz=957) 1+ few URIC [id number] 07:28:00 Test Item Value Reference Range Comments URIC ACID (BEAKER) (test sowl=153) 4.9 mg/dL 2.6-7.2 [id number] 07:28:00 Test Item Value Reference Range Comments MAGNESIUM (BEAKER) (test skfd=788) 1.8 mg/dL 1.6-2.6 COMPREHENSIVE METABOLIC [id number] 07:28:00 Test Item Value Reference Range Comments TOTAL PROTEIN (BEAKER) 6.0 gm/dL 6.0-8.3 (test rnjv=787) ALBUMIN (BEAKER) (test 3.6 g/dL 3.5-5.0 cgpi=3986) ALKALINE PHOSPHATASE 88 U/L 40-150 (BEAKER) (test qlev=485) BILIRUBIN TOTAL (BEAKER) 1.1 mg/dL 0.2-1.2 (test ayfl=857) SODIUM (BEAKER) (test 137 meq/L 136-145 bwgg=140) POTASSIUM (BEAKER) (test 4.2 meq/L 3.5-5.1 fxvx=735) CHLORIDE (BEAKER) (test 104 meq/L 98-107 txov=171) CO2 (BEAKER) (test 25 meq/L 22-29 wgpr=704) BLOOD UREA NITROGEN 26 mg/dL 7-21 (BEAKER) (test vioi=794) CREATININE (BEAKER) (test 1.40 mg/dL 0.57-1.25 lpep=762) GLUCOSE RANDOM (BEAKER) 115 mg/dL 70-105 (test fgzl=927) CALCIUM (BEAKER) (test 8.9 mg/dL 8.4-10.2 qhae=432) AST (SGOT) (BEAKER) (test 11 U/L 5-34 qhsc=192) ALT (SGPT) (BEAKER) (test 15 U/L 6-55 xian=335) EGFR (BEAKER) (test 50 mL/min/1.73 sq m ESTIMATED GFR IS NOT wvyh=6463) ACCURATE CREATININE CLEARANCE IN PREDICTING GLOMERULAR FILTRATION RATE. ESTIMATED GFR IS NOT APPLICABLE FOR DIALYSIS PATIENTS. CBC W/PLT COUNT & AUTO [id number] 09:37:00 Test Item Value Reference Range Comments WHITE BLOOD CELL COUNT 1.0 K/ L 3.5-10.5 (BEAKER) (test qzrx=056) RED BLOOD CELL COUNT (BEAKER) 2.68 M/ L 4.63-6.08 (test wqwj=927) HEMOGLOBIN (BEAKER) (test 7.5 GM/DL 13.7-17.5 tecg=369) HEMATOCRIT (BEAKER) (test 22.4 % 40.1-51.0 ftve=341) MEAN CORPUSCULAR VOLUME 83.6 fL 79.0-92.2 Discordant MCV results (BEAKER) (test zlqe=480) compared to previous results; clinical correlation required. MEAN CORPUSCULAR HEMOGLOBIN 28.0 pg 25.7-32.2 (BEAKER) (test nccf=219) MEAN CORPUSCULAR HEMOGLOBIN 33.5 GM/DL 32.3-36.5 CONC (BEAKER) (test qnvp=510) RED CELL DISTRIBUTION WIDTH 16.8 % 11.6-14.4 (BEAKER) (test nfvk=530) PLATELET COUNT (BEAKER) (test 46 K/CU MM 150-450 klrs=834) MEAN PLATELET VOLUME (BEAKER) 9.7 fL 9.4-12.4 (test brjq=109) NUCLEATED RED BLOOD CELLS 0 /100 WBC 0-0 (BEAKER) (test jckf=182) (MANUAL DIFFERENTIAL)2019-10-25 09:37:00 Test Item Value Reference Range Comments NEUTROPHILS - REL (DIFF) (BEAKER) (test 6 % evrx=9336) LYMPHOCYTES - REL (DIFF) (BEAKER) (test 69 % gchg=1619) MONOCYTES - REL (DIFF) (BEAKER) (test rafk=6932) 18 % EOSINOPHILS - REL (DIFF) (BEAKER) (test 1 % xzag=4461) BANDS - REL (DIFF) (BEAKER) (test oqzo=6649) 3 % 0-10 ATYPICAL LYMPHOCYTE - REL (DIFF) (BEAKER) (test 3 % 0-0 ataa=864) NEUTROPHILS - ABS (DIFF) (BEAKER) (test 0.06 K/ L 1.80-8.00 pcyw=9012) LYMPHOCYTES - ABS (DIFF) (BEAKER) (test 0.69 K/ L 1.48-4.50 eaol=9380) MONOCYTES - ABS (DIFF) (BEAKER) (test dvyu=3502) 0.18 K/ L 0.00-1.30 EOSINOPHILS - ABS (DIFF) (BEAKER) (test 0.01 K/ L 0.00-0.50 asrk=5396) BANDS-ABS (DIFF) (BEAKER) (test bxgp=2056) 0.0 K/ L 0.0-0.8 ATYPICAL LYMPHOCYTES - ABS (DIFF) (BEAKER) (test 0.03 K/ L 0.00-0.00 xeaf=871) TOTAL COUNTED (BEAKER) (test odcg=6326) 100 BANDS + SEGMENTED NEUTROPHILS (BEAKER) (test 0.09 iqoc=7758) WBC MORPHOLOGY (BEAKER) (test nllo=468) Normal PLT MORPHOLOGY (BEAKER) (test xzaw=108) Normal ANISOCYTOSIS (BEAKER) (test vcfy=644) 2+ moderate HYPOCHROMIA (BEAKER) (test cidu=947) 1+ few MACROCYTES (BEAKER) (test wtgu=723) 2+ moderate MICROCYTES (BEAKER) (test juej=485) 1+ few OVALOCYTES (BEAKER) (test qupm=815) 1+ few POIKILOCYTES (BEAKER) (test lxmf=299) 1+ few URIC [id number] 06:33:00 Test Item Value Reference Range Comments URIC ACID (BEAKER) (test oaza=008) 4.3 mg/dL 2.6-7.2 [id number] 06:33:00 Test Item Value Reference Range Comments MAGNESIUM (BEAKER) (test ueba=291) 1.7 mg/dL 1.6-2.6 COMPREHENSIVE METABOLIC [id number] 06:33:00 Test Item Value Reference Range Comments TOTAL PROTEIN (BEAKER) 5.7 gm/dL 6.0-8.3 (test ufic=240) ALBUMIN (BEAKER) (test 3.4 g/dL 3.5-5.0 kzvl=1372) ALKALINE PHOSPHATASE 81 U/L 40-150 (BEAKER) (test xpfk=980) BILIRUBIN TOTAL (BEAKER) 1.7 mg/dL 0.2-1.2 (test zpoi=431) SODIUM (BEAKER) (test 139 meq/L 136-145 xikw=124) POTASSIUM (BEAKER) (test 4.2 meq/L 3.5-5.1 tgsn=042) CHLORIDE (BEAKER) (test 107 meq/L 98-107 yobh=672) CO2 (BEAKER) (test 24 meq/L 22-29 euic=877) BLOOD UREA NITROGEN 21 mg/dL 7-21 (BEAKER) (test dycq=133) CREATININE (BEAKER) (test 1.08 mg/dL 0.57-1.25 glnv=274) GLUCOSE RANDOM (BEAKER) 110 mg/dL 70-105 (test abnq=408) CALCIUM (BEAKER) (test 8.8 mg/dL 8.4-10.2 gdaz=090) AST (SGOT) (BEAKER) (test 13 U/L 5-34 qpwv=166) ALT (SGPT) (BEAKER) (test 17 U/L 6-55 qzyg=285) EGFR (BEAKER) (test 68 mL/min/1.73 sq m ESTIMATED GFR IS NOT zxtu=0392) ACCURATE CREATININE CLEARANCE IN PREDICTING GLOMERULAR FILTRATION RATE. ESTIMATED GFR IS NOT APPLICABLE FOR DIALYSIS PATIENTS. RAD, CHEST, 1 VIEW, NON [id number] 21:47:00Reason for exam:->chest painShould this be performed at the bedside?->YesFINAL REPORT Chest, 1 view. History: Chest pain. Comparison: 09/14/2019. Discussion : The trachea is midline. There are mildly increased bibasilar opacity suggestive of atelectasis. The lungs are otherwise symmetrically expanded without evidence of focal consolidation, pneumothorax, or significant pleural effusion. The cardiomediastinal silhouette is stable in appearance. Atherosclerotic calcifications noted within the thoracic aorta. No acute osseous abnormalities identified.The soft tissues are unremarkable. IMPRESSION : No acute cardiopulmonary process or significant interval change identified from 09/14/2019. Signed: Ronald Resendiz MDReport Verified Date/Time: 10/24/2019 21:47:50 Reading Location: [address] Neuro Reading Room B-TYPE NATRIURETIC FACTOR ( BNP)2019-10-24 18:50:00 Test Item Value Reference Range Comments B-TYPE NATRIURETIC PEPTIDE (BEAKER) (test 611 pg/mL 0-100 eyqq=578) TROPONIN [id number] 18:27:00 Test Item Value Reference Range Comments TROPONIN I (BEAKER) (test dohv=896) 0.03 ng/mL 0.00-0.03 Troponin I (TnI) levels [...] failure, acidosis, acute neurological disease, and persistent tachyarrhythmia.CBC W/PLT COUNT & AUTO [id number] 13:49:00 Test Item Value Reference Range Comments WHITE BLOOD CELL COUNT (BEAKER) (test nvgc=321) 0.6 K/ L 3.5-10.5 RED BLOOD CELL COUNT (BEAKER) (test bxtf=653) 2.45 M/ L 4.63-6.08 HEMOGLOBIN (BEAKER) (test rjzm=508) 7.0 GM/DL 13.7-17.5 HEMATOCRIT (BEAKER) (test qkie=034) 21.5 % 40.1-51.0 MEAN CORPUSCULAR VOLUME (BEAKER) (test qejt=051) 87.8 fL 79.0-92.2 MEAN CORPUSCULAR HEMOGLOBIN (BEAKER) (test 28.6 pg 25.7-32.2 mkki=381) MEAN CORPUSCULAR HEMOGLOBIN CONC (BEAKER) (test 32.6 GM/DL 32.3-36.5 vwsn=182) RED CELL DISTRIBUTION WIDTH (BEAKER) (test 13.5 % 11.6-14.4 gsgo=288) PLATELET COUNT (BEAKER) (test jiyo=250) 39 K/CU MM 150-450 MEAN PLATELET VOLUME (BEAKER) (test bigh=055) 9.6 fL 9.4-12.4 NUCLEATED RED BLOOD CELLS (BEAKER) (test 0 /100 WBC 0-0 kzck=178) (CELLAVISION MANUAL DIFF)2019-10-24 13:49:00 Test Item Value Reference Range Comments NEUTROPHILS - REL (CELLAVISION)(BEAKER) (test 9 % rtnt=1695) LYMPHOCYTES - REL (CELLAVISION)(BEAKER) (test 68 % vqvu=8612) MONOCYTES - REL (CELLAVISION)(BEAKER) (test 18 % pors=7545) ATYPICAL LYMPHOCYTES - REL (CELLAVISION)(BEAKER) 5 % 0-0 (test tsac=8852) NEUTROPHILS - ABS (CELLAVISION)(BEAKER) (test 0.05 K/ul 1.78-5.38 bvud=1662) LYMPHOCYTES - ABS (CELLAVISION)(BEAKER) (test 0.41 K/ul 1.32-3.57 aguq=0114) MONOCYTES - ABS (CELLAVISION)(BEAKER) (test 0.11 K/uL 0.30-0.82 qjin=8734) ATYPICAL LYMPHOCYTES - ABS (CELLAVISION)(BEAKER) 0.03 K/uL 0.00-0.00 (test ygfv=2454) TOTAL COUNTED (BEAKER) (test tanb=4995) 100 RBC MORPHOLOGY (BEAKER) (test ecan=671) Normal WBC MORPHOLOGY (BEAKER) (test hmda=738) Normal PLT MORPHOLOGY (BEAKER) (test gcay=088) Normal BASIC METABOLIC [id number] 12:26:00 Test Item Value Reference Range Comments SODIUM (BEAKER) (test 140 meq/L 136-145 whle=781) POTASSIUM (BEAKER) (test 4.4 meq/L 3.5-5.1 mgiy=675) CHLORIDE (BEAKER) (test 108 meq/L 98-107 cnty=837) CO2 (BEAKER) (test 24 meq/L 22-29 tfgf=573) BLOOD UREA NITROGEN 20 mg/dL 7-21 (BEAKER) (test hxdx=196) CREATININE (BEAKER) (test 1.21 mg/dL 0.57-1.25 lglj=591) GLUCOSE RANDOM (BEAKER) 105 mg/dL 70-105 (test dhub=055) CALCIUM (BEAKER) (test 9.2 mg/dL 8.4-10.2 lkwl=641) EGFR (BEAKER) (test 59 mL/min/1.73 sq m ESTIMATED GFR IS NOT pncj=2437) ACCURATE CREATININE CLEARANCE IN PREDICTING GLOMERULAR FILTRATION RATE. ESTIMATED GFR IS NOT APPLICABLE FOR DIALYSIS PATIENTS. CBC W/PLT COUNT & AUTO [id number] 10:27:00 Test Item Value Reference Range Comments WHITE BLOOD CELL COUNT (BEAKER) (test cjje=354) 0.8 K/ L 3.5-10.5 RED BLOOD CELL COUNT (BEAKER) (test bjfc=803) 2.70 M/ L 4.63-6.08 HEMOGLOBIN (BEAKER) (test qgmj=795) 7.8 GM/DL 13.7-17.5 HEMATOCRIT (BEAKER) (test qsan=756) 22.6 % 40.1-51.0 MEAN CORPUSCULAR VOLUME (BEAKER) (test attg=354) 83.7 fL 79.0-92.2 MEAN CORPUSCULAR HEMOGLOBIN (BEAKER) (test 28.9 pg 25.7-32.2 cgvu=853) MEAN CORPUSCULAR HEMOGLOBIN CONC (BEAKER) (test 34.5 GM/DL 32.3-36.5 esmi=702) RED CELL DISTRIBUTION WIDTH (BEAKER) (test 14.5 % 11.6-14.4 ncoe=646) PLATELET COUNT (BEAKER) (test xest=316) 18 K/CU MM 150-450 MEAN PLATELET VOLUME (BEAKER) (test mtvw=317) 10.2 fL 9.4-12.4 NUCLEATED RED BLOOD CELLS (BEAKER) (test 0 /100 WBC 0-0 wrke=314) (MANUAL DIFFERENTIAL)2019-10-18 10:27:00 Test Item Value Reference Range Comments NEUTROPHILS - REL (DIFF) (BEAKER) (test livj=9532) 28 % LYMPHOCYTES - REL (DIFF) (BEAKER) (test ffak=2914) 67 % MONOCYTES - REL (DIFF) (BEAKER) (test yczm=2406) 2 % EOSINOPHILS - REL (DIFF) (BEAKER) (test euln=7040) 2 % BANDS - REL (DIFF) (BEAKER) (test ttzv=8202) 1 % 0-10 NEUTROPHILS - ABS (DIFF) (BEAKER) (test bdrx=3745) 0.22 K/ L 1.80-8.00 LYMPHOCYTES - ABS (DIFF) (BEAKER) (test gyxc=8312) 0.54 K/ L 1.48-4.50 MONOCYTES - ABS (DIFF) (BEAKER) (test iewj=7046) 0.02 K/ L 0.00-1.30 EOSINOPHILS - ABS (DIFF) (BEAKER) (test rvly=2361) 0.02 K/ L 0.00-0.50 BANDS-ABS (DIFF) (BEAKER) (test yydo=3478) 0.0 K/ L 0.0-0.8 TOTAL COUNTED (BEAKER) (test towf=0665) 100 BANDS + SEGMENTED NEUTROPHILS (BEAKER) (test 0.23 pkws=7043) WBC MORPHOLOGY (BEAKER) (test ujze=926) Normal PLT MORPHOLOGY (BEAKER) (test vhcv=972) Normal RBC MORPHOLOGY (BEAKER) (test jnpt=775) Normal [id number] 06:37:00 Test Item Value Reference Range Comments MAGNESIUM (BEAKER) (test bmji=378) 1.9 mg/dL 1.6-2.6 COMPREHENSIVE METABOLIC [id number] 06:37:00 Test Item Value Reference Range Comments TOTAL PROTEIN (BEAKER) 5.8 gm/dL 6.0-8.3 (test cumv=432) ALBUMIN (BEAKER) (test 3.5 g/dL 3.5-5.0 shyh=9392) ALKALINE PHOSPHATASE 80 U/L 40-150 (BEAKER) (test qbzt=094) BILIRUBIN TOTAL (BEAKER) 1.4 mg/dL 0.2-1.2 (test vpyi=549) SODIUM (BEAKER) (test 134 meq/L 136-145 knpc=062) POTASSIUM (BEAKER) (test 4.2 meq/L 3.5-5.1 uzxc=335) CHLORIDE (BEAKER) (test 104 meq/L 98-107 ekql=550) CO2 (BEAKER) (test 25 meq/L 22-29 igyp=850) BLOOD UREA NITROGEN 21 mg/dL 7-21 (BEAKER) (test mmts=436) CREATININE (BEAKER) (test 1.23 mg/dL 0.57-1.25 oxli=849) GLUCOSE RANDOM (BEAKER) 107 mg/dL 70-105 (test zgft=995) CALCIUM (BEAKER) (test 8.6 mg/dL 8.4-10.2 sdza=141) AST (SGOT) (BEAKER) (test 16 U/L 5-34 wctx=412) ALT (SGPT) (BEAKER) (test 24 U/L 6-55 idgc=610) EGFR (BEAKER) (test 58 mL/min/1.73 sq m ESTIMATED GFR IS NOT rhvk=5074) ACCURATE CREATININE CLEARANCE IN PREDICTING GLOMERULAR FILTRATION RATE. ESTIMATED GFR IS NOT APPLICABLE FOR DIALYSIS PATIENTS. CBC W/PLT COUNT & AUTO [id number] 11:30:00 Test Item Value Reference Range Comments WHITE BLOOD CELL COUNT (BEAKER) (test uzdc=635) 0.9 K/ L 3.5-10.5 RED BLOOD CELL COUNT (BEAKER) (test ynep=479) 2.41 M/ L 4.63-6.08 HEMOGLOBIN (BEAKER) (test pnyn=660) 7.0 GM/DL 13.7-17.5 HEMATOCRIT (BEAKER) (test gkwa=443) 20.5 % 40.1-51.0 MEAN CORPUSCULAR VOLUME (BEAKER) (test kjln=520) 85.1 fL 79.0-92.2 MEAN CORPUSCULAR HEMOGLOBIN (BEAKER) (test 29.0 pg 25.7-32.2 kixx=515) MEAN CORPUSCULAR HEMOGLOBIN CONC (BEAKER) (test 34.1 GM/DL 32.3-36.5 lhsy=053) RED CELL DISTRIBUTION WIDTH (BEAKER) (test 13.9 % 11.6-14.4 lejv=337) PLATELET COUNT (BEAKER) (test hyab=364) 23 K/CU MM 150-450 MEAN PLATELET VOLUME (BEAKER) (test fejw=194) 10.4 fL 9.4-12.4 NUCLEATED RED BLOOD CELLS (BEAKER) (test 0 /100 WBC 0-0 jonq=734) (CELLAVISION MANUAL DIFF)2019-10-17 11:30:00 Test Item Value Reference Range Comments NEUTROPHILS - REL (CELLAVISION)(BEAKER) (test 31 % vjzc=4526) LYMPHOCYTES - REL (CELLAVISION)(BEAKER) (test 60 % axfu=0190) MONOCYTES - REL (CELLAVISION)(BEAKER) (test 2 % bpyr=5412) EOSINOPHILS - REL (CELLAVISION)(BEAKER) (test 2 % xvhv=9497) BASOPHILS - REL (CELLAVISION)(BEAKER) (test 1 % xxkf=0021) ATYPICAL LYMPHOCYTES - REL (CELLAVISION)(BEAKER) 4 % 0-0 (test jtgy=3864) NEUTROPHILS - ABS (CELLAVISION)(BEAKER) (test 0.28 K/ul 1.78-5.38 vtpa=2330) LYMPHOCYTES - ABS (CELLAVISION)(BEAKER) (test 0.54 K/ul 1.32-3.57 wojv=4865) MONOCYTES - ABS (CELLAVISION)(BEAKER) (test 0.02 K/uL 0.30-0.82 dyzv=6186) EOSINOPHILS - ABS (CELLAVISION)(BEAKER) (test 0.02 K/uL 0.04-0.54 dhfi=3103) BASOPHILS - ABS (CELLAVISION)(BEAKER) (test 0.01 K/uL 0.01-0.08 xanv=8857) ATYPICAL LYMPHOCYTES - ABS (CELLAVISION)(BEAKER) 0.04 K/uL 0.00-0.00 (test gwhs=4131) TOTAL COUNTED (BEAKER) (test chuj=3800) 100 RBC MORPHOLOGY (BEAKER) (test ihpd=279) Normal WBC MORPHOLOGY (BEAKER) (test kdxa=386) Normal PLT MORPHOLOGY (BEAKER) (test ldzz=687) Normal [id number] 06:36:00 Test Item Value Reference Range Comments MAGNESIUM (BEAKER) (test 2.0 mg/dL 1.6-2.6 Specimen slightly hemolyzed xtvf=160) COMPREHENSIVE METABOLIC [id number] 06:36:00 Test Item Value Reference Range Comments TOTAL PROTEIN (BEAKER) 6.0 gm/dL 6.0-8.3 Specimen slightly (test xedp=151) hemolyzed ALBUMIN (BEAKER) (test 3.5 g/dL 3.5-5.0 Specimen slightly cgel=1926) hemolyzed ALKALINE PHOSPHATASE 75 U/L 40-150 (BEAKER) (test tqlp=213) BILIRUBIN TOTAL (BEAKER) 1.2 mg/dL 0.2-1.2 Specimen slightly (test zkwd=324) hemolyzed SODIUM (BEAKER) (test 134 meq/L 136-145 btwg=938) POTASSIUM (BEAKER) (test 4.4 meq/L 3.5-5.1 Specimen slightly isur=850) hemolyzed CHLORIDE (BEAKER) (test 103 meq/L 98-107 arnl=615) CO2 (BEAKER) (test 26 meq/L 22-29 ljae=228) BLOOD UREA NITROGEN 26 mg/dL 7-21 (BEAKER) (test gvng=254) CREATININE (BEAKER) (test 1.32 mg/dL 0.57-1.25 Specimen slightly rrme=300) hemolyzed GLUCOSE RANDOM (BEAKER) 112 mg/dL 70-105 (test wxez=265) CALCIUM (BEAKER) (test 8.6 mg/dL 8.4-10.2 laml=539) AST (SGOT) (BEAKER) (test 20 U/L 5-34 Specimen slightly wfsa=217) hemolyzed ALT (SGPT) (BEAKER) (test 27 U/L 6-55 Specimen slightly ipzz=792) hemolyzed EGFR (BEAKER) (test 54 mL/min/1.73 sq m ESTIMATED GFR IS NOT sbwm=4920) ACCURATE CREATININE CLEARANCE IN PREDICTING GLOMERULAR FILTRATION RATE. ESTIMATED GFR IS NOT APPLICABLE FOR DIALYSIS PATIENTS. CBC W/PLT COUNT & AUTO [id number] 16:15:00 Test Item Value Reference Range Comments WHITE BLOOD CELL COUNT (BEAKER) (test wvjt=656) 1.0 K/ L 3.5-10.5 RED BLOOD CELL COUNT (BEAKER) (test qpni=251) 2.53 M/ L 4.63-6.08 HEMOGLOBIN (BEAKER) (test mlhw=487) 7.5 GM/DL 13.7-17.5 HEMATOCRIT (BEAKER) (test pkdb=975) 21.4 % 40.1-51.0 MEAN CORPUSCULAR VOLUME (BEAKER) (test yaig=636) 84.6 fL 79.0-92.2 MEAN CORPUSCULAR HEMOGLOBIN (BEAKER) (test 29.6 pg 25.7-32.2 sfvk=402) MEAN CORPUSCULAR HEMOGLOBIN CONC (BEAKER) (test 35.0 GM/DL 32.3-36.5 rfgt=265) RED CELL DISTRIBUTION WIDTH (BEAKER) (test 13.8 % 11.6-14.4 ghpy=607) PLATELET COUNT (BEAKER) (test rbnw=960) 17 K/CU MM 150-450 MEAN PLATELET VOLUME (BEAKER) (test uszk=500) 9.3 fL 9.4-12.4 NUCLEATED RED BLOOD CELLS (BEAKER) (test 0 /100 WBC 0-0 gzep=431) (CELLAVISION MANUAL DIFF)2019-10-16 16:15:00 Test Item Value Reference Range Comments NEUTROPHILS - REL (CELLAVISION)(BEAKER) (test 23 % wgef=5135) LYMPHOCYTES - REL (CELLAVISION)(BEAKER) (test 53 % yvtl=4885) MONOCYTES - REL (CELLAVISION)(BEAKER) (test 7 % sqev=1563) EOSINOPHILS - REL (CELLAVISION)(BEAKER) (test 1 % zzjx=2328) METAMYELOCYTES - REL (CELLAVISION)(BEAKER) (test 1 % 0-0 djzf=8632) BANDS - REL (CELLAVISION)(BEAKER) (test 1 % 0-10 yqxd=3446) ATYPICAL LYMPHOCYTES - REL (CELLAVISION)(BEAKER) 14 % 0-0 (test sceg=0934) NEUTROPHILS - ABS (CELLAVISION)(BEAKER) (test 0.23 K/ul 1.78-5.38 usoo=5783) LYMPHOCYTES - ABS (CELLAVISION)(BEAKER) (test 0.53 K/ul 1.32-3.57 emlg=4132) MONOCYTES - ABS (CELLAVISION)(BEAKER) (test 0.07 K/uL 0.30-0.82 qgfo=4454) EOSINOPHILS - ABS (CELLAVISION)(BEAKER) (test 0.01 K/uL 0.04-0.54 oxdb=1033) METAMYELOCYTES - ABS (CELLAVISION)(BEAKER) (test 0.01 K/uL 0.00-0.00 qsqg=6111) BANDS - ABS (CELLAVISION)(BEAKER) (test 0.01 K/uL 0.00-0.80 fzzl=6747) ATYPICAL LYMPHOCYTES - ABS (CELLAVISION)(BEAKER) 0.14 K/uL 0.00-0.00 (test tpmi=2914) TOTAL COUNTED (BEAKER) (test anln=6661) 100 MANUAL NRBC PER 100 CELLS (BEAKER) (test 3 /100 WBC 0-0 csaf=5994) RBC MORPHOLOGY (BEAKER) (test xhgh=936) Normal PLT MORPHOLOGY (BEAKER) (test qwsa=924) Normal PLASMACYTOID LYMPHS(BEAKER) (test sbgr=5887) Present ARTIFACT (CELLAVISION)(BEAKER) (test qjwj=1500) Present PLATELET CONCENTRATION (CELLAVISION)(BEAKER) Decreased (test cfxk=5792) Received comment: User comments: Slide comments:[id number] 08:34:00 Test Item Value Reference Range Comments MAGNESIUM (BEAKER) (test nord=199) 2.0 mg/dL 1.6-2.6 COMPREHENSIVE METABOLIC [id number] 08:34:00 Test Item Value Reference Range Comments TOTAL PROTEIN (BEAKER) 5.9 gm/dL 6.0-8.3 (test ntvw=152) ALBUMIN (BEAKER) (test 3.6 g/dL 3.5-5.0 ammx=6553) ALKALINE PHOSPHATASE 77 U/L 40-150 (BEAKER) (test fkny=811) BILIRUBIN TOTAL (BEAKER) 1.4 mg/dL 0.2-1.2 (test tdxu=679) SODIUM (BEAKER) (test 137 meq/L 136-145 mfpn=976) POTASSIUM (BEAKER) (test 4.4 meq/L 3.5-5.1 bysi=544) CHLORIDE (BEAKER) (test 105 meq/L 98-107 sveb=632) CO2 (BEAKER) (test 28 meq/L 22-29 wuqa=541) BLOOD UREA NITROGEN 27 mg/dL 7-21 (BEAKER) (test iujd=824) CREATININE (BEAKER) (test 1.20 mg/dL 0.57-1.25 fbyo=872) GLUCOSE RANDOM (BEAKER) 107 mg/dL 70-105 (test nadl=419) CALCIUM (BEAKER) (test 8.7 mg/dL 8.4-10.2 uwqt=402) AST (SGOT) (BEAKER) (test 22 U/L 5-34 jsdt=777) ALT (SGPT) (BEAKER) (test 29 U/L 6-55 fvzm=627) EGFR (BEAKER) (test 60 mL/min/1.73 sq m ESTIMATED GFR IS NOT myet=5564) ACCURATE CREATININE CLEARANCE IN PREDICTING GLOMERULAR FILTRATION RATE. ESTIMATED GFR IS NOT APPLICABLE FOR DIALYSIS PATIENTS. URINALYSIS W/ [id number] 12:20:00 Test Item Value Reference Range Comments COLOR (BEAKER) (test cxzw=529) Yellow CLARITY (BEAKER) (test wufe=895) Clear SPECIFIC GRAVITY UA (BEAKER) (test thgz=107) 1.016 1.001-1.035 PH UA (BEAKER) (test coci=084) 5.5 5.0-8.0 PROTEIN UA (BEAKER) (test ltpu=538) 20 mg/dL Negative GLUCOSE UA (BEAKER) (test cbwt=864) Negative Negative KETONES UA (BEAKER) (test msle=807) Negative Negative BILIRUBIN UA (BEAKER) (test kkbf=153) Negative Negative BLOOD UA (BEAKER) (test bgjo=920) Negative Negative NITRITE UA (BEAKER) (test ukfu=825) Negative Negative LEUKOCYTE ESTERASE UA (BEAKER) (test zqkq=256) Trace Negative UROBILINOGEN UA (BEAKER) (test dfgz=853) 0.2 mg/dL 0.2-1.0 RBC UA (BEAKER) (test xsqa=279) 1 /HPF WBC UA (BEAKER) (test qtul=253) 1 /HPF SQUAMOUS EPITHELIAL (BEAKER) (test evdu=814) 1 /HPF SOURCE(BEAKER) (test foqd=3330) CREATININE, RANDOM [id number] 12:01:00 Test Item Value Reference Range Comments CREATININE URINE (BEAKER) (test zjsc=761) 88.7 mg/dL Reference Range: No NormalsSODIUM, RANDOM [id number] 12:01:00 Test Item Value Reference Range Comments SODIUM URINE (BEAKER) (test ufod=452) 84 meq/L Reference Range: No NormalsCBC W/PLT COUNT & AUTO [id number] 09: 37:00 Test Item Value Reference Range Comments WHITE BLOOD CELL COUNT (BEAKER) (test cfsd=518) 1.0 K/ L 3.5-10.5 RED BLOOD CELL COUNT (BEAKER) (test doul=506) 2.41 M/ L 4.63-6.08 HEMOGLOBIN (BEAKER) (test vsci=951) 6.9 GM/DL 13.7-17.5 HEMATOCRIT (BEAKER) (test jfqg=168) 20.9 % 40.1-51.0 MEAN CORPUSCULAR VOLUME (BEAKER) (test eqdr=630) 86.7 fL 79.0-92.2 MEAN CORPUSCULAR HEMOGLOBIN (BEAKER) (test 28.6 pg 25.7-32.2 owsg=030) MEAN CORPUSCULAR HEMOGLOBIN CONC (BEAKER) (test 33.0 GM/DL 32.3-36.5 efud=043) RED CELL DISTRIBUTION WIDTH (BEAKER) (test 13.8 % 11.6-14.4 tptl=313) PLATELET COUNT (BEAKER) (test ksnl=285) 15 K/CU MM 150-450 MEAN PLATELET VOLUME (BEAKER) (test hnpa=096) 8.7 fL 9.4-12.4 NUCLEATED RED BLOOD CELLS (BEAKER) (test 0 /100 WBC 0-0 hyli=441) (MANUAL DIFFERENTIAL)2019-10-15 09:37:00 Test Item Value Reference Range Comments NEUTROPHILS - REL (DIFF) (BEAKER) (test 32 % lris=1401) LYMPHOCYTES - REL (DIFF) (BEAKER) (test 45 % whbj=6972) MONOCYTES - REL (DIFF) (BEAKER) (test 0 % bvco=1021) EOSINOPHILS - REL (DIFF) (BEAKER) (test 0 % czii=7796) BASOPHILS - REL (DIFF) (BEAKER) (test 0 % ogjo=3990) BANDS - REL (DIFF) (BEAKER) (test 1 % 0-10 gndr=8942) ATYPICAL LYMPHOCYTE - REL (DIFF) (BEAKER) 22 % 0-0 Reactive lymphs (test nlfa=938) NEUTROPHILS - ABS (DIFF) (BEAKER) (test 0.32 K/ L 1.80-8.00 zeva=2561) LYMPHOCYTES - ABS (DIFF) (BEAKER) (test 0.45 K/ L 1.48-4.50 ixyf=3472) MONOCYTES - ABS (DIFF) (BEAKER) (test 0.00 K/ L 0.00-1.30 tyeg=1147) EOSINOPHILS - ABS (DIFF) (BEAKER) (test 0.00 K/ L 0.00-0.50 xcbx=3932) BASOPHILS - ABS (DIFF) (BEAKER) (test 0.00 K/ L 0.00-0.20 kius=8357) BANDS-ABS (DIFF) (BEAKER) (test kvcv=1105) 0.0 K/ L 0.0-0.8 ATYPICAL LYMPHOCYTES - ABS (DIFF) (BEAKER) 0.22 K/ L 0.00-0.00 (test iztw=003) TOTAL COUNTED (BEAKER) (test ywhy=1901) 100 BANDS + SEGMENTED NEUTROPHILS (BEAKER) 0.33 (test dctl=7625) MANUAL NRBC PER 100 CELLS (BEAKER) (test 1 /100 WBC 0-0 jdeq=9907) WBC MORPHOLOGY (BEAKER) (test rqfx=189) Normal PLT MORPHOLOGY (BEAKER) (test fmvy=954) Normal RBC MORPHOLOGY (BEAKER) (test suah=330) Normal [id number] 06:20:00 Test Item Value Reference Range Comments MAGNESIUM (BEAKER) (test bxca=587) 2.0 mg/dL 1.6-2.6 COMPREHENSIVE METABOLIC [id number] 06:20:00 Test Item Value Reference Range Comments TOTAL PROTEIN (BEAKER) 6.0 gm/dL 6.0-8.3 (test funw=200) ALBUMIN (BEAKER) (test 3.6 g/dL 3.5-5.0 ynpj=5525) ALKALINE PHOSPHATASE 78 U/L 40-150 (BEAKER) (test jymd=678) BILIRUBIN TOTAL (BEAKER) 1.2 mg/dL 0.2-1.2 (test cxus=175) SODIUM (BEAKER) (test 135 meq/L 136-145 enim=732) POTASSIUM (BEAKER) (test 4.5 meq/L 3.5-5.1 icrv=973) CHLORIDE (BEAKER) (test 104 meq/L 98-107 bdcm=830) CO2 (BEAKER) (test 24 meq/L 22-29 qvfx=466) BLOOD UREA NITROGEN 32 mg/dL 7-21 (BEAKER) (test njqu=923) CREATININE (BEAKER) (test 1.32 mg/dL 0.57-1.25 miqw=769) GLUCOSE RANDOM (BEAKER) 108 mg/dL 70-105 (test yrhg=505) CALCIUM (BEAKER) (test 8.8 mg/dL 8.4-10.2 qmwc=782) AST (SGOT) (BEAKER) (test 21 U/L 5-34 wpsp=286) ALT (SGPT) (BEAKER) (test 31 U/L 6-55 mfns=959) EGFR (BEAKER) (test 54 mL/min/1.73 sq m ESTIMATED GFR IS NOT ypnb=8460) ACCURATE CREATININE CLEARANCE IN PREDICTING GLOMERULAR FILTRATION RATE. ESTIMATED GFR IS NOT APPLICABLE FOR DIALYSIS PATIENTS. CBC W/PLT COUNT & AUTO [id number] 08:15:00 Test Item Value Reference Range Comments WHITE BLOOD CELL COUNT (BEAKER) (test xars=952) 1.0 K/ L 3.5-10.5 RED BLOOD CELL COUNT (BEAKER) (test mcxw=675) 2.48 M/ L 4.63-6.08 HEMOGLOBIN (BEAKER) (test xfya=013) 7.2 GM/DL 13.7-17.5 HEMATOCRIT (BEAKER) (test vdjb=330) 21.6 % 40.1-51.0 MEAN CORPUSCULAR VOLUME (BEAKER) (test pwgc=876) 87.1 fL 79.0-92.2 MEAN CORPUSCULAR HEMOGLOBIN (BEAKER) (test 29.0 pg 25.7-32.2 mide=020) MEAN CORPUSCULAR HEMOGLOBIN CONC (BEAKER) (test 33.3 GM/DL 32.3-36.5 ccoc=607) RED CELL DISTRIBUTION WIDTH (BEAKER) (test 14.0 % 11.6-14.4 qduq=580) PLATELET COUNT (BEAKER) (test bdcy=467) 14 K/CU MM 150-450 MEAN PLATELET VOLUME (BEAKER) (test icuq=594) 9.5 fL 9.4-12.4 NUCLEATED RED BLOOD CELLS (BEAKER) (test 2 /100 WBC 0-0 yplz=462) (MANUAL DIFFERENTIAL)2019-10-14 08:15:00 Test Item Value Reference Range Comments NEUTROPHILS - REL (DIFF) (BEAKER) (test lvne=9640) 27 % LYMPHOCYTES - REL (DIFF) (BEAKER) (test jjim=6480) 69 % MONOCYTES - REL (DIFF) (BEAKER) (test auzd=0552) 3 % EOSINOPHILS - REL (DIFF) (BEAKER) (test lnlt=3320) 1 % NEUTROPHILS - ABS (DIFF) (BEAKER) (test zjaj=8818) 0.27 K/ L 1.80-8.00 LYMPHOCYTES - ABS (DIFF) (BEAKER) (test oaqy=5990) 0.69 K/ L 1.48-4.50 MONOCYTES - ABS (DIFF) (BEAKER) (test gflb=0104) 0.03 K/ L 0.00-1.30 EOSINOPHILS - ABS (DIFF) (BEAKER) (test gchw=5136) 0.01 K/ L 0.00-0.50 TOTAL COUNTED (BEAKER) (test ulot=4316) 100 WBC MORPHOLOGY (BEAKER) (test gxfi=442) Normal PLT MORPHOLOGY (BEAKER) (test uxzi=116) Normal RBC MORPHOLOGY (BEAKER) (test algg=011) Normal URIC [id number] 06:44:00 Test Item Value Reference Range Comments URIC ACID (BEAKER) (test hfhs=804) 5.7 mg/dL 2.6-7.2 [id number] 06:44:00 Test Item Value Reference Range Comments MAGNESIUM (BEAKER) (test vyvg=838) 2.1 mg/dL 1.6-2.6 COMPREHENSIVE METABOLIC [id number] 06:44:00 Test Item Value Reference Range Comments TOTAL PROTEIN (BEAKER) 6.0 gm/dL 6.0-8.3 (test ybyi=715) ALBUMIN (BEAKER) (test 3.6 g/dL 3.5-5.0 xygt=4285) ALKALINE PHOSPHATASE 80 U/L 40-150 (BEAKER) (test omxt=108) BILIRUBIN TOTAL (BEAKER) 1.3 mg/dL 0.2-1.2 (test mrnh=293) SODIUM (BEAKER) (test 140 meq/L 136-145 taqo=211) POTASSIUM (BEAKER) (test 4.2 meq/L 3.5-5.1 orjp=816) CHLORIDE (BEAKER) (test 106 meq/L 98-107 kwfg=641) CO2 (BEAKER) (test 27 meq/L 22-29 ykix=087) BLOOD UREA NITROGEN 29 mg/dL 7-21 (BEAKER) (test bvqg=354) CREATININE (BEAKER) (test 1.19 mg/dL 0.57-1.25 efko=451) GLUCOSE RANDOM (BEAKER) 108 mg/dL 70-105 (test ziok=532) CALCIUM (BEAKER) (test 8.8 mg/dL 8.4-10.2 tdrh=922) AST (SGOT) (BEAKER) (test 25 U/L 5-34 petl=348) ALT (SGPT) (BEAKER) (test 33 U/L 6-55 kimr=781) EGFR (BEAKER) (test 60 mL/min/1.73 sq m ESTIMATED GFR IS NOT xczr=6014) ACCURATE CREATININE CLEARANCE IN PREDICTING GLOMERULAR FILTRATION RATE. ESTIMATED GFR IS NOT APPLICABLE FOR DIALYSIS PATIENTS. LACTATE DEHYDROGENASE (LDH)2019-10-14 06:44:00 Test Item Value Reference Range Comments LACTATE DEHYDROGENASE (BEAKER) (test itwd=097) 218 U/L 125-220 [id number] 06:29:00 Test Item Value Reference Range Comments PROTIME (BEAKER) (test mowy=114) 15.2 seconds 11.9-14.2 INR (BEAKER) (test ipyp=643) 1.3 <=5.9 PARTIAL THROMBOPLASTIN TIME (BEAKER) (test 31.3 seconds 22.5-36.0 rfpi=636) Effective 03/26/2019: PT Reference Range ChangeNew: 11.9-14.2 Previous: 11.7- 14.7RECOMMENDED COUMADIN/WARFARIN INR THERAPY RANGESSTANDARD DOSE: 2.0-3.0 Includes: PROPHYLAXIS for venous thrombosis, systemic embolization; TREATMENT for venous thrombosis and/or pulmonary embolus.HIGH RISK: Target INR is2.5-3.5 for patients wiht mechanical heart valves.[id number] 06:29:00 Test Item Value Reference Range Comments FIBRINOGEN LEVEL (BEAKER) (test nvuy=061) 244 mg/dl 225-434 CBC W/PLT COUNT & AUTO [id number] 09:59:00 Test Item Value Reference Range Comments WHITE BLOOD CELL COUNT (BEAKER) (test eqtp=932) 1.1 K/ L 3.5-10.5 RED BLOOD CELL COUNT (BEAKER) (test dkjt=436) 2.46 M/ L 4.63-6.08 HEMOGLOBIN (BEAKER) (test jvsf=527) 7.3 GM/DL 13.7-17.5 HEMATOCRIT (BEAKER) (test mpvs=683) 21.1 % 40.1-51.0 MEAN CORPUSCULAR VOLUME (BEAKER) (test aybw=850) 85.8 fL 79.0-92.2 MEAN CORPUSCULAR HEMOGLOBIN (BEAKER) (test 29.7 pg 25.7-32.2 teey=430) MEAN CORPUSCULAR HEMOGLOBIN CONC (BEAKER) (test 34.6 GM/DL 32.3-36.5 dhzi=549) RED CELL DISTRIBUTION WIDTH (BEAKER) (test 14.2 % 11.6-14.4 rtnk=523) PLATELET COUNT (BEAKER) (test wevv=244) 12 K/CU MM 150-450 MEAN PLATELET VOLUME (BEAKER) (test lagn=629) 9.5 fL 9.4-12.4 NUCLEATED RED BLOOD CELLS (BEAKER) (test 0 /100 WBC 0-0 nxsm=793) (CELLAVISION MANUAL DIFF)2019-10-13 09:59:00 Test Item Value Reference Range Comments NEUTROPHILS - REL (CELLAVISION)(BEAKER) (test 39 % egsf=5433) LYMPHOCYTES - REL (CELLAVISION)(BEAKER) (test 56 % rpcy=1452) EOSINOPHILS - REL (CELLAVISION)(BEAKER) (test 2 % wqha=8931) ATYPICAL LYMPHOCYTES - REL (CELLAVISION)(BEAKER) 3 % 0-0 (test ifzo=4613) NEUTROPHILS - ABS (CELLAVISION)(BEAKER) (test 0.43 K/ul 1.78-5.38 hlhu=0359) LYMPHOCYTES - ABS (CELLAVISION)(BEAKER) (test 0.62 K/ul 1.32-3.57 rgnb=7209) EOSINOPHILS - ABS (CELLAVISION)(BEAKER) (test 0.02 K/uL 0.04-0.54 moto=2221) ATYPICAL LYMPHOCYTES - ABS (CELLAVISION)(BEAKER) 0.03 K/uL 0.00-0.00 (test ymeu=0616) TOTAL COUNTED (BEAKER) (test igeo=0844) 100 MANUAL NRBC PER 100 CELLS (BEAKER) (test 2 /100 WBC 0-0 vnml=1522) WBC MORPHOLOGY (BEAKER) (test hbrs=660) Normal GIANT PLATELETS (BEAKER) (test iusq=558) Present LARGE PLT(BEAKER) (test essh=6548) Present POLYCHROMATOPHILLIC RBCS(BEAKER) (test dyif=654) 1+ few ANISOCYTOSIS (BEAKER) (test rpvl=835) 2+ moderate MICROCYTES (BEAKER) (test rxov=904) 2+ moderate POIKILOCYTES (BEAKER) (test yksp=858) 1+ few SPHEROCYTES (BEAKER) (test modu=739) 1+ few ELLIPTOCYTES (BEAKER) (test ybkj=581) 1+ few OVALOCYTES (BEAKER) (test lcld=231) 1+ few TEAR DROP CELLS (BEAKER) (test uvxu=789) 1+ few ARTIFACT (CELLAVISION)(BEAKER) (test acku=5246) Present PLATELET CONCENTRATION (CELLAVISION)(BEAKER) Decreased (test ywoe=2095) Received comment: User comments: Slide comments: WBC: SEGMENTED WITH TOXIC GRANULATIONS PRESENTURIC [id number] 07:06:00 Test Item Value Reference Range Comments URIC ACID (BEAKER) (test dotn=769) 5.5 mg/dL 2.6-7.2 [id number] 07:06:00 Test Item Value Reference Range Comments MAGNESIUM (BEAKER) (test gzje=111) 2.0 mg/dL 1.6-2.6 COMPREHENSIVE METABOLIC [id number] 07:06:00 Test Item Value Reference Range Comments TOTAL PROTEIN (BEAKER) 5.8 gm/dL 6.0-8.3 (test kocj=994) ALBUMIN (BEAKER) (test 3.5 g/dL 3.5-5.0 vyia=6890) ALKALINE PHOSPHATASE 79 U/L 40-150 (BEAKER) (test egkc=645) BILIRUBIN TOTAL (BEAKER) 1.3 mg/dL 0.2-1.2 (test ddjl=786) SODIUM (BEAKER) (test 138 meq/L 136-145 aiza=212) POTASSIUM (BEAKER) (test 4.0 meq/L 3.5-5.1 prbv=204) CHLORIDE (BEAKER) (test 105 meq/L 98-107 rofn=468) CO2 (BEAKER) (test 27 meq/L 22-29 hqfh=298) BLOOD UREA NITROGEN 32 mg/dL 7-21 (BEAKER) (test synw=115) CREATININE (BEAKER) (test 1.24 mg/dL 0.57-1.25 ntpc=303) GLUCOSE RANDOM (BEAKER) 108 mg/dL 70-105 (test lnfd=398) CALCIUM (BEAKER) (test 8.7 mg/dL 8.4-10.2 geuy=982) AST (SGOT) (BEAKER) (test 22 U/L 5-34 sljx=574) ALT (SGPT) (BEAKER) (test 33 U/L 6-55 tmmy=511) EGFR (BEAKER) (test 58 mL/min/1.73 sq m ESTIMATED GFR IS NOT itfp=1812) ACCURATE CREATININE CLEARANCE IN PREDICTING GLOMERULAR FILTRATION RATE. ESTIMATED GFR IS NOT APPLICABLE FOR DIALYSIS PATIENTS. LACTATE DEHYDROGENASE (LDH)2019-10-13 07:06:00 Test Item Value Reference Range Comments LACTATE DEHYDROGENASE (BEAKER) (test onyx=187) 203 U/L 125-220 [id number] 06:11:00 Test Item Value Reference Range Comments PROTIME (BEAKER) (test cgqm=404) 15.6 seconds 11.9-14.2 INR (BEAKER) (test uzdo=513) 1.3 <=5.9 PARTIAL THROMBOPLASTIN TIME (BEAKER) (test 29.5 seconds 22.5-36.0 rrmc=505) Effective 03/26/2019: PT Reference Range ChangeNew: 11.9-14.2 Previous: 11.7- 14.7RECOMMENDED COUMADIN/WARFARIN INR THERAPY RANGESSTANDARD DOSE: 2.0-3.0 Includes: PROPHYLAXIS for venous thrombosis, systemic embolization; TREATMENT for venous thrombosis and/or pulmonary embolus.HIGH RISK: Target INR is2.5-3.5 for patients wiht mechanical heart valves.[id number] 06:11:00 Test Item Value Reference Range Comments FIBRINOGEN LEVEL (BEAKER) (test awey=319) 256 mg/dl 225-434 CBC W/PLT COUNT & AUTO [id number] 09:35:00 Test Item Value Reference Range Comments WHITE BLOOD CELL COUNT (BEAKER) (test qlmo=459) 1.4 K/ L 3.5-10.5 RED BLOOD CELL COUNT (BEAKER) (test yonc=037) 2.66 M/ L 4.63-6.08 HEMOGLOBIN (BEAKER) (test gths=556) 7.7 GM/DL 13.7-17.5 HEMATOCRIT (BEAKER) (test cxts=665) 22.9 % 40.1-51.0 MEAN CORPUSCULAR VOLUME (BEAKER) (test bdtt=468) 86.1 fL 79.0-92.2 MEAN CORPUSCULAR HEMOGLOBIN (BEAKER) (test 28.9 pg 25.7-32.2 cqbt=548) MEAN CORPUSCULAR HEMOGLOBIN CONC (BEAKER) (test 33.6 GM/DL 32.3-36.5 oumf=109) RED CELL DISTRIBUTION WIDTH (BEAKER) (test 14.4 % 11.6-14.4 azfg=149) PLATELET COUNT (BEAKER) (test cuin=936) 12 K/CU MM 150-450 MEAN PLATELET VOLUME (BEAKER) (test xrpx=067) 9.5 fL 9.4-12.4 NUCLEATED RED BLOOD CELLS (BEAKER) (test 0 /100 WBC 0-0 drad=846) (CELLAVISION MANUAL DIFF)2019-10-12 09:35:00 Test Item Value Reference Range Comments NEUTROPHILS - REL (CELLAVISION)(BEAKER) (test 53 % undu=8132) LYMPHOCYTES - REL (CELLAVISION)(BEAKER) (test 41 % bbzn=4830) MONOCYTES - REL (CELLAVISION)(BEAKER) (test 1 % nsyx=5412) EOSINOPHILS - REL (CELLAVISION)(BEAKER) (test 3 % qyjf=2436) BASOPHILS - REL (CELLAVISION)(BEAKER) (test 1 % upnj=5824) BANDS - REL (CELLAVISION)(BEAKER) (test pcon=4394) 1 % 0-10 NEUTROPHILS - ABS (CELLAVISION)(BEAKER) (test 0.74 K/ul 1.78-5.38 ucck=2562) LYMPHOCYTES - ABS (CELLAVISION)(BEAKER) (test 0.57 K/ul 1.32-3.57 mfvf=4026) MONOCYTES - ABS (CELLAVISION)(BEAKER) (test 0.01 K/uL 0.30-0.82 netu=1922) EOSINOPHILS - ABS (CELLAVISION)(BEAKER) (test 0.04 K/uL 0.04-0.54 trra=1487) BASOPHILS - ABS (CELLAVISION)(BEAKER) (test 0.01 K/uL 0.01-0.08 ahnb=6789) BANDS - ABS (CELLAVISION)(BEAKER) (test sdsu=5437) 0.01 K/uL 0.00-0.80 TOTAL COUNTED (BEAKER) (test nwlz=8103) 100 WBC MORPHOLOGY (BEAKER) (test jnom=017) Normal PLT MORPHOLOGY (BEAKER) (test kggx=629) Normal ANISOCYTOSIS (BEAKER) (test gkpb=423) 1+ few MICROCYTES (BEAKER) (test cupe=136) 1+ few ARTIFACT (CELLAVISION)(BEAKER) (test lfnx=4846) Present PLATELET CONCENTRATION (CELLAVISION)(BEAKER) (test Decreased xtdh=6856) Received comment: User comments: Slide comments:[id number] 06:22:00 Test Item Value Reference Range Comments MAGNESIUM (BEAKER) (test jzlo=448) 2.0 mg/dL 1.6-2.6 COMPREHENSIVE METABOLIC [id number] 06:22:00 Test Item Value Reference Range Comments TOTAL PROTEIN (BEAKER) 6.0 gm/dL 6.0-8.3 (test eomv=036) ALBUMIN (BEAKER) (test 3.6 g/dL 3.5-5.0 qcqk=9863) ALKALINE PHOSPHATASE 85 U/L 40-150 (BEAKER) (test owsn=946) BILIRUBIN TOTAL (BEAKER) 1.5 mg/dL 0.2-1.2 (test mlcd=105) SODIUM (BEAKER) (test 139 meq/L 136-145 leqd=915) POTASSIUM (BEAKER) (test 3.9 meq/L 3.5-5.1 ztyi=617) CHLORIDE (BEAKER) (test 105 meq/L 98-107 caag=867) CO2 (BEAKER) (test 27 meq/L 22-29 bwrp=718) BLOOD UREA NITROGEN 33 mg/dL 7-21 (BEAKER) (test xnab=488) CREATININE (BEAKER) (test 1.23 mg/dL 0.57-1.25 agpk=032) GLUCOSE RANDOM (BEAKER) 109 mg/dL 70-105 (test zmgm=815) CALCIUM (BEAKER) (test 8.8 mg/dL 8.4-10.2 lcqx=740) AST (SGOT) (BEAKER) (test 22 U/L 5-34 ehjz=944) ALT (SGPT) (BEAKER) (test 32 U/L 6-55 ngmx=453) EGFR (BEAKER) (test 58 mL/min/1.73 sq m ESTIMATED GFR IS NOT dhig=3641) ACCURATE CREATININE CLEARANCE IN PREDICTING GLOMERULAR FILTRATION RATE. ESTIMATED GFR IS NOT APPLICABLE FOR DIALYSIS PATIENTS. LACTATE DEHYDROGENASE (LDH)2019-10-12 06:22:00 Test Item Value Reference Range Comments LACTATE DEHYDROGENASE (BEAKER) (test lnba=416) 206 U/L 125-220 URIC [id number] 06:21:00 Test Item Value Reference Range Comments URIC ACID (BEAKER) (test aagz=890) 5.4 mg/dL 2.6-7.2 [id number] 05:32:00 Test Item Value Reference Range Comments FIBRINOGEN LEVEL (BEAKER) (test wipv=672) 266 mg/dl 225-434 [id number] 05:32:00 Test Item Value Reference Range Comments PROTIME (BEAKER) (test gkif=087) 15.6 seconds 11.9-14.2 INR (BEAKER) (test rnce=479) 1.3 <=5.9 PARTIAL THROMBOPLASTIN TIME (BEAKER) (test 28.8 seconds 22.5-36.0 zriz=494) Effective 03/26/2019: PT Reference Range ChangeNew: 11.9-14.2 Previous: 11.7- 14.7RECOMMENDED COUMADIN/WARFARIN INR THERAPY RANGESSTANDARD DOSE: 2.0-3.0 Includes: PROPHYLAXIS for venous thrombosis, systemic embolization; TREATMENT for venous thrombosis and/or pulmonary embolus.HIGH RISK: Target INR is2.5-3.5 for patients wiht mechanical heart valves.CBC W/PLT COUNT & AUTO [id number] 12:07:00 Test Item Value Reference Range Comments WHITE BLOOD CELL COUNT (BEAKER) (test stuj=424) 1.6 K/ L 3.5-10.5 RED BLOOD CELL COUNT (BEAKER) (test hjbz=090) 2.31 M/ L 4.63-6.08 HEMOGLOBIN (BEAKER) (test supi=116) 6.9 GM/DL 13.7-17.5 HEMATOCRIT (BEAKER) (test dkup=849) 20.3 % 40.1-51.0 MEAN CORPUSCULAR VOLUME (BEAKER) (test wdbg=309) 87.9 fL 79.0-92.2 MEAN CORPUSCULAR HEMOGLOBIN (BEAKER) (test 29.9 pg 25.7-32.2 ydch=685) MEAN CORPUSCULAR HEMOGLOBIN CONC (BEAKER) (test 34.0 GM/DL 32.3-36.5 seec=622) RED CELL DISTRIBUTION WIDTH (BEAKER) (test 13.8 % 11.6-14.4 qtjr=277) PLATELET COUNT (BEAKER) (test socc=876) 11 K/CU MM 150-450 MEAN PLATELET VOLUME (BEAKER) (test uxob=188) 10.1 fL 9.4-12.4 NUCLEATED RED BLOOD CELLS (BEAKER) (test 0 /100 WBC 0-0 nzew=022) (CELLAVISION MANUAL DIFF)2019-10-11 12:07:00 Test Item Value Reference Range Comments NEUTROPHILS - REL (CELLAVISION)(BEAKER) (test 57 % xtum=9747) LYMPHOCYTES - REL (CELLAVISION)(BEAKER) (test 34 % kauf=7989) MONOCYTES - REL (CELLAVISION)(BEAKER) (test 4 % beph=5924) BASOPHILS - REL (CELLAVISION)(BEAKER) (test 1 % ttac=0311) BANDS - REL (CELLAVISION)(BEAKER) (test dhpv=6253) 4 % 0-10 NEUTROPHILS - ABS (CELLAVISION)(BEAKER) (test 0.91 K/ul 1.78-5.38 ryuh=0222) LYMPHOCYTES - ABS (CELLAVISION)(BEAKER) (test 0.54 K/ul 1.32-3.57 fiiz=3099) MONOCYTES - ABS (CELLAVISION)(BEAKER) (test 0.06 K/uL 0.30-0.82 oarc=1799) BASOPHILS - ABS (CELLAVISION)(BEAKER) (test 0.02 K/uL 0.01-0.08 ljdo=7409) BANDS - ABS (CELLAVISION)(BEAKER) (test gldv=1737) 0.06 K/uL 0.00-0.80 TOTAL COUNTED (BEAKER) (test jyum=0644) 100 WBC MORPHOLOGY (BEAKER) (test zcly=482) Normal PLT MORPHOLOGY (BEAKER) (test yzub=593) Normal HYPOCHROMIA (BEAKER) (test sisa=941) 1+ few ANISOCYTOSIS (BEAKER) (test wltv=325) 1+ few MACROCYTES (BEAKER) (test rhyd=149) 1+ few POIKILOCYTES (BEAKER) (test dqcm=839) 1+ few OVALOCYTES (BEAKER) (test ivor=086) 1+ few ARTIFACT (CELLAVISION)(BEAKER) (test xpjy=7047) Present PLATELET CONCENTRATION (CELLAVISION)(BEAKER) (test Decreased rrlx=3505) Received comment: User comments: Slide comments:[id number] 06:04:00 Test Item Value Reference Range Comments MAGNESIUM (BEAKER) (test cabj=675) 2.0 mg/dL 1.6-2.6 COMPREHENSIVE METABOLIC [id number] 06:04:00 Test Item Value Reference Range Comments TOTAL PROTEIN (BEAKER) 6.0 gm/dL 6.0-8.3 (test xqlh=411) ALBUMIN (BEAKER) (test 3.7 g/dL 3.5-5.0 fxoy=8910) ALKALINE PHOSPHATASE 86 U/L 40-150 (BEAKER) (test qssf=353) BILIRUBIN TOTAL (BEAKER) 1.0 mg/dL 0.2-1.2 (test vojy=722) SODIUM (BEAKER) (test 139 meq/L 136-145 lobw=641) POTASSIUM (BEAKER) (test 4.5 meq/L 3.5-5.1 xkfy=692) CHLORIDE (BEAKER) (test 105 meq/L 98-107 pnif=265) CO2 (BEAKER) (test 29 meq/L 22-29 jjoc=778) BLOOD UREA NITROGEN 34 mg/dL 7-21 (BEAKER) (test note=157) CREATININE (BEAKER) (test 1.32 mg/dL 0.57-1.25 jpas=890) GLUCOSE RANDOM (BEAKER) 110 mg/dL 70-105 (test dgxz=143) CALCIUM (BEAKER) (test 8.9 mg/dL 8.4-10.2 rtck=060) AST (SGOT) (BEAKER) (test 23 U/L 5-34 iaij=126) ALT (SGPT) (BEAKER) (test 33 U/L 6-55 fqnt=591) EGFR (BEAKER) (test 54 mL/min/1.73 sq m ESTIMATED GFR IS NOT qgyf=8357) ACCURATE CREATININE CLEARANCE IN PREDICTING GLOMERULAR FILTRATION RATE. ESTIMATED GFR IS NOT APPLICABLE FOR DIALYSIS PATIENTS. CBC W/PLT COUNT & AUTO [id number] 12:00:00 Test Item Value Reference Range Comments WHITE BLOOD CELL COUNT 1.8 K/ L 3.5-10.5 (BEAKER) (test xcal=816) RED BLOOD CELL COUNT (BEAKER) 2.52 M/ L 4.63-6.08 (test iwem=264) HEMOGLOBIN (BEAKER) (test 7.4 GM/DL 13.7-17.5 jlwi=529) HEMATOCRIT (BEAKER) (test 22.1 % 40.1-51.0 nznu=159) MEAN CORPUSCULAR VOLUME 87.7 fL 79.0-92.2 (BEAKER) (test wsiu=732) MEAN CORPUSCULAR HEMOGLOBIN 29.4 pg 25.7-32.2 (BEAKER) (test zosp=273) MEAN CORPUSCULAR HEMOGLOBIN 33.5 GM/DL 32.3-36.5 CONC (BEAKER) (test hrxi=272) RED CELL DISTRIBUTION WIDTH 13.6 % 11.6-14.4 (BEAKER) (test zkzd=147) PLATELET COUNT (BEAKER) (test 12 K/CU MM 150-450 Discordant PLT result wcqh=394) compared to previous result; clinical correlation required. MEAN PLATELET VOLUME (BEAKER) 9.8 fL 9.4-12.4 (test yrtz=323) NUCLEATED RED BLOOD CELLS 0 /100 WBC 0-0 (BEAKER) (test yctr=462) (CELLAVISION MANUAL DIFF)2019-10-10 12:00:00 Test Item Value Reference Range Comments NEUTROPHILS - REL (CELLAVISION)(BEAKER) (test 57 % xfqz=8228) LYMPHOCYTES - REL (CELLAVISION)(BEAKER) (test 38 % iitd=0174) MONOCYTES - REL (CELLAVISION)(BEAKER) (test 3 % pojf=0598) ATYPICAL LYMPHOCYTES - REL (CELLAVISION)(BEAKER) 2 % 0-0 (test skii=1204) NEUTROPHILS - ABS (CELLAVISION)(BEAKER) (test 1.03 K/ul 1.78-5.38 fjif=0150) LYMPHOCYTES - ABS (CELLAVISION)(BEAKER) (test 0.68 K/ul 1.32-3.57 rlob=6905) MONOCYTES - ABS (CELLAVISION)(BEAKER) (test 0.05 K/uL 0.30-0.82 lmjv=3702) ATYPICAL LYMPHOCYTES - ABS (CELLAVISION)(BEAKER) 0.04 K/uL 0.00-0.00 (test qvgs=2069) TOTAL COUNTED (BEAKER) (test dxxm=8228) 100 WBC MORPHOLOGY (BEAKER) (test qtyg=038) Normal LARGE PLT(BEAKER) (test qomb=1633) Present BASOPHILIC STIPPLING (BEAKER) (test xxpb=587) Present ARTIFACT (CELLAVISION)(BEAKER) (test wftz=7542) Present PLATELET CONCENTRATION (CELLAVISION)(BEAKER) (test Decreased jbyy=9596) Received comment: User comments: Slide comments:BONE MARROW [id number] 11:34 :00Bone Marrow Pathology Report Case: [id number] Authorizing Provider: Akiko Doss, Collected: 09/19/2019 1115 OrderingLocation: [address] Received: 09/19/2019 1147 Service Pathologist: Maria Esther Hemphill MD Specimens: A) -Iliac Crest, Right B) - C) - As reported by [facility], classical cytogenetic studies show a complex karyotype (see attached report). 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 Addendum electronically signed by MariaE sther Hemphill MD on 10/10/2019 at 11:34 AMPreliminary result electronically signed by Maria Esther Hemphill MD on 09/26/2019 at 1:05 PMBONE MARROW ASPIRATE, CLOT, AND DECALCIFIED BIOPSY:-HYPERCELLULAR MARROW WITH INCREASED BLASTS (22%), PROMINENT IMMATURE ERYTHROID COMPONENT, AND BACKGROUND DYSPLASIA -STAINABLE IRON PRESENT WITH RING SIDEROBLASTS-PENDING CYTOGENETIC AND MOLECULAR STUDIES-SEE COMMENTPERIPHERAL BLOOD:-NORMOCYTIC ANEMIA , THROMBOCYTOPENIA, WITH OCCASIONAL CIRCULATING BLASTSSigning Pathologist Direct Phone Line: [phone] signed by Maria Esther Hemphill MD on 09/23/2019 at 2:06 PMApproximately 22% blasts are noted on aspirate smears, present in association with a prominent left-shifted erythroid population with megaloblastoid changes and dyserythropoiesis. Flow cytometry demonstrates a CD34+ myeloblast phenotype ([id number]), and immunostains performed on the biopsy confirm greater than 20% CD34+ blasts in the context of a prominent e-cadherin+CD117+CD34- erythroid component. The overall findings would support involvement by acute myeloid leukemia; final classification per 2016 WHO criteria requires correlation with the cytogenetic and molecular findings. Final results were communicated to Dr. Parnell 09/23/2019. The bone marrow biopsy and aspiration procedure was performed by Dr. Daphne Mix, clinical pathologist. [id number]; 68762; 58446 x 2; 74450; 80289 x 3; 06083 x 2; 16570 x 14; 77620Uzbivdqpdx; no history of prior chemotherapy as per Dr. Chiu marrowA. Received labeled with the patient's information and accession number are separate aspirate smears including one unstained slide for iron stain. B. Received in formalin labeled with the patient's name, accession number and "blood clot" and is a 0.9 x 0.9 x 0.9 cm dark red blood clot. Specimen is sectioned and entirely submitted in cassette B1.C. Received in formalin labeled with the patient's name, accession number and "bone core" and is a daugherty- red 0.5 cm in length x 0.2 cm in diameter bone core. Specimen is submitted entirely in cassette C1. NW/bc BONE MARROW ASPIRATE:QUALITY:Aspirate- AdequateTouch imprint- AdequateMARROW DIFFERENTIAL COUNT: Number of cells counted: 37882% Blasts 5% Promyelocytes 9% Myelocytes/Metamyelocytes 8% Bands/ Segmented granulocytes 2% Eosinophils and precursors 0% Basophils and precursors 51% Erythroid precursors 3% Lymphocytes 0% Monocytes0% Plasma cellsMyeloid: Erythroid Ratio: N/ABlasts: Increased; blasts show high nuclear: cytoplasmic ratios, fine chromatin, and nucleoli; Distinction from left- shifted immature, megaloblastoid erythroid precursorsis morphologically difficultErythropoiesis: Markedly left shifted with megaloblastoid maturation, and many dyserythropoietic forms Myelopoiesis: Left shifted with increased blasts; occasional mature forms show dysplastic changes including hyposegmentationMegakaryocytes:Focally presentStainable iron is present based on an iron stain performed on the aspirate smear.There are numerous ring sideroblasts identified. BONE MARROW BIOPSY:Biopsy- SuboptimalClot- SuboptimalCellular. Sheetsof immature- appearing mononuclear cells replace the normal marrow hematopoietic elements. Megakaryocytes are decreased. Immunohistochemical stains performed on the bone marrow clot and biopsy sections show many e-cadherin positive, CD117 positive, glycophorin positive, MPO negative, CD34 negative immature erythroid cells. CD34 positive blasts are increased with clustering on marrow biopsy; on marrow clot preparation, sheets of CD34+ blasts are noted which account for greater than 20% of marrow cellularity overall. CD61 highlights dysplastic megakaryocytes, and also appears to highlight a subset of the immature mononuclear cells. CD138 highlights rare scattered plasma cells. Pankeratin is negative for metastatic carcinoma. Reticulin stain shows a mild, patchy increase in reticulin fibrosis. Bony trabeculae: Compatible with a largely subcortical samplingStainable iron is present based radha iron stain performed on the clot section. PERIPHERAL BLOOD:RBCs: Normocytic WBCs: Occasional circulating blasts; occasional neutrophils with abnormal nuclear segmentation Platelets: DecreasedThe interpretation of this case included the use of immunohistochemistry or special stains.B1: reticulin, iron, CD138, pankeratin, CD61, MPO, glycophorin, e-cadherin, CD117, CD34C1: reticulin, pankeratin, CD138 , e-cadherin, glycophorin, MPO, CD61, CD34, [id number] Slides Examined: In- house known positive controls were evaluated along with the test tissue. These control slides run alongside of the patients sample show appropriate staining. Internal positive and negative controls when available are evaluated Immunohistochemistry technical testing was performed at [facility], Pathology Laboratory where it was developed and its performance characteristics were determined. It has not been cleared or approved by the U.S. Food and Drug Administration. The FDA has determined that such clearance orapproval is not necessary. The test is used for clinical purposes. It should not be regarded as investigational or for research. This laboratory is certified under the Clinical Laboratory Improvement Amendments of 1988 (CLIA-88 ) as qualified to perform high complexity clinical laboratory testing.[facility], Department of Pathology, [address] [place] [address], [place] [address], [id number] 06:49:00 Test Item Value Reference Range Comments MAGNESIUM (BEAKER) (test hcfa=494) 2.0 mg/dL 1.6-2.6 COMPREHENSIVE METABOLIC [id number] 06:49:00 Test Item Value Reference Range Comments TOTAL PROTEIN (BEAKER) 6.2 gm/dL 6.0-8.3 (test sbqz=929) ALBUMIN (BEAKER) (test 3.7 g/dL 3.5-5.0 kzjx=3857) ALKALINE PHOSPHATASE 91 U/L 40-150 (BEAKER) (test fmix=251) BILIRUBIN TOTAL (BEAKER) 1.2 mg/dL 0.2-1.2 (test cgni=576) SODIUM (BEAKER) (test 139 meq/L 136-145 jznv=882) POTASSIUM (BEAKER) (test 4.3 meq/L 3.5-5.1 iflf=969) CHLORIDE (BEAKER) (test 104 meq/L 98-107 hqip=550) CO2 (BEAKER) (test 29 meq/L 22-29 ccli=161) BLOOD UREA NITROGEN 24 mg/dL 7-21 (BEAKER) (test omdv=572) CREATININE (BEAKER) (test 1.05 mg/dL 0.57-1.25 jxyh=738) GLUCOSE RANDOM (BEAKER) 111 mg/dL 70-105 (test nnpr=708) CALCIUM (BEAKER) (test 8.9 mg/dL 8.4-10.2 ljpb=794) AST (SGOT) (BEAKER) (test 19 U/L 5-34 inhn=676) ALT (SGPT) (BEAKER) (test 27 U/L 6-55 endp=384) EGFR (BEAKER) (test 70 mL/min/1.73 sq m ESTIMATED GFR IS NOT zrcv=4221) ACCURATE CREATININE CLEARANCE IN PREDICTING GLOMERULAR FILTRATION RATE. ESTIMATED GFR IS NOT APPLICABLE FOR DIALYSIS PATIENTS. CBC W/PLT COUNT & AUTO [id number] 10:12:00 Test Item Value Reference Range Comments WHITE BLOOD CELL COUNT (BEAKER) (test kadj=404) 1.6 K/ L 3.5-10.5 RED BLOOD CELL COUNT (BEAKER) (test udin=305) 2.25 M/ L 4.63-6.08 HEMOGLOBIN (BEAKER) (test gtra=458) 6.6 GM/DL 13.7-17.5 HEMATOCRIT (BEAKER) (test wsos=253) 19.6 % 40.1-51.0 MEAN CORPUSCULAR VOLUME (BEAKER) (test wazf=639) 87.1 fL 79.0-92.2 MEAN CORPUSCULAR HEMOGLOBIN (BEAKER) (test 29.3 pg 25.7-32.2 odxz=186) MEAN CORPUSCULAR HEMOGLOBIN CONC (BEAKER) (test 33.7 GM/DL 32.3-36.5 igsa=405) RED CELL DISTRIBUTION WIDTH (BEAKER) (test 13.9 % 11.6-14.4 qxuy=435) PLATELET COUNT (BEAKER) (test ffzm=009) 8 K/CU MM 150-450 MEAN PLATELET VOLUME (BEAKER) (test trch=389) 10.5 fL 9.4-12.4 NUCLEATED RED BLOOD CELLS (BEAKER) (test 0 /100 WBC 0-0 ffbz=781) (CELLAVISION MANUAL DIFF)2019-10-09 10:12:00 Test Item Value Reference Range Comments NEUTROPHILS - REL (CELLAVISION)(BEAKER) (test 50 % mmup=1780) LYMPHOCYTES - REL (CELLAVISION)(BEAKER) (test 47 % prtv=7430) MONOCYTES - REL (CELLAVISION)(BEAKER) (test 1 % uczz=3801) EOSINOPHILS - REL (CELLAVISION)(BEAKER) (test 1 % dylo=7292) NEUTROPHILS - ABS (CELLAVISION)(BEAKER) (test 0.80 K/ul 1.78-5.38 oehi=0211) LYMPHOCYTES - ABS (CELLAVISION)(BEAKER) (test 0.75 K/ul 1.32-3.57 sggl=0948) MONOCYTES - ABS (CELLAVISION)(BEAKER) (test 0.02 K/uL 0.30-0.82 rmgj=9619) EOSINOPHILS - ABS (CELLAVISION)(BEAKER) (test 0.02 K/uL 0.04-0.54 ness=4678) TOTAL COUNTED (BEAKER) (test vpdm=0392) 100 WBC MORPHOLOGY (BEAKER) (test lzid=634) Normal PLT MORPHOLOGY (BEAKER) (test dwim=938) Normal POLYCHROMATOPHILLIC RBCS(BEAKER) (test hnox=234) 1+ few ANISOCYTOSIS (BEAKER) (test npae=327) 2+ moderate MICROCYTES (BEAKER) (test pkrd=883) 2+ moderate ARTIFACT (CELLAVISION)(BEAKER) (test gejp=1179) Present PLATELET CONCENTRATION (CELLAVISION)(BEAKER) Decreased (test zvfm=7384) Received comment: User comments: Slide comments:[id number] 06:39:00 Test Item Value Reference Range Comments MAGNESIUM (BEAKER) (test fbhu=335) 2.1 mg/dL 1.6-2.6 COMPREHENSIVE METABOLIC [id number] 06:39:00 Test Item Value Reference Range Comments TOTAL PROTEIN (BEAKER) 6.0 gm/dL 6.0-8.3 (test rnaf=912) ALBUMIN (BEAKER) (test 3.5 g/dL 3.5-5.0 ebpe=4596) ALKALINE PHOSPHATASE 92 U/L 40-150 (BEAKER) (test nnlx=546) BILIRUBIN TOTAL (BEAKER) 0.8 mg/dL 0.2-1.2 (test uuou=734) SODIUM (BEAKER) (test 140 meq/L 136-145 sfwl=202) POTASSIUM (BEAKER) (test 3.9 meq/L 3.5-5.1 bexy=108) CHLORIDE (BEAKER) (test 105 meq/L 98-107 ngdr=846) CO2 (BEAKER) (test 27 meq/L 22-29 jhxh=059) BLOOD UREA NITROGEN 26 mg/dL 7-21 (BEAKER) (test ysbe=828) CREATININE (BEAKER) (test 1.05 mg/dL 0.57-1.25 fdfv=345) GLUCOSE RANDOM (BEAKER) 116 mg/dL 70-105 (test turg=703) CALCIUM (BEAKER) (test 8.6 mg/dL 8.4-10.2 qidq=670) AST (SGOT) (BEAKER) (test 18 U/L 5-34 uuzb=982) ALT (SGPT) (BEAKER) (test 26 U/L 6-55 jqrv=735) EGFR (BEAKER) (test 70 mL/min/1.73 sq m ESTIMATED GFR IS NOT bgaa=9860) ACCURATE CREATININE CLEARANCE IN PREDICTING GLOMERULAR FILTRATION RATE. ESTIMATED GFR IS NOT APPLICABLE FOR DIALYSIS PATIENTS. CBC W/PLT COUNT & AUTO [id number] 12:03:00 Test Item Value Reference Range Comments WHITE BLOOD CELL COUNT (BEAKER) (test jhth=519) 1.6 K/ L 3.5-10.5 RED BLOOD CELL COUNT (BEAKER) (test pukr=170) 2.42 M/ L 4.63-6.08 HEMOGLOBIN (BEAKER) (test bbtq=123) 7.1 GM/DL 13.7-17.5 HEMATOCRIT (BEAKER) (test quad=435) 20.7 % 40.1-51.0 MEAN CORPUSCULAR VOLUME (BEAKER) (test ujfu=033) 85.5 fL 79.0-92.2 MEAN CORPUSCULAR HEMOGLOBIN (BEAKER) (test 29.3 pg 25.7-32.2 vhpe=485) MEAN CORPUSCULAR HEMOGLOBIN CONC (BEAKER) (test 34.3 GM/DL 32.3-36.5 puni=963) RED CELL DISTRIBUTION WIDTH (BEAKER) (test 13.6 % 11.6-14.4 ykuc=971) PLATELET COUNT (BEAKER) (test caix=800) 7 K/CU MM 150-450 MEAN PLATELET VOLUME (BEAKER) (test azfv=303) 10.8 fL 9.4-12.4 NUCLEATED RED BLOOD CELLS (BEAKER) (test 1 /100 WBC 0-0 whrj=673) (MANUAL DIFFERENTIAL)2019-10-08 12:03:00 Test Item Value Reference Range Comments NEUTROPHILS - REL (DIFF) (BEAKER) (test bbjp=9239) 54 % LYMPHOCYTES - REL (DIFF) (BEAKER) (test jgpv=5722) 42 % MONOCYTES - REL (DIFF) (BEAKER) (test jdjr=3010) 2 % EOSINOPHILS - REL (DIFF) (BEAKER) (test jgkk=8002) 1 % BASOPHILS - REL (DIFF) (BEAKER) (test wicq=1701) 0 % ATYPICAL LYMPHOCYTE - REL (DIFF) (BEAKER) (test 1 % 0-0 oikt=811) NEUTROPHILS - ABS (DIFF) (BEAKER) (test dlpa=5650) 0.86 K/ L 1.80-8.00 LYMPHOCYTES - ABS (DIFF) (BEAKER) (test tlhr=6024) 0.67 K/ L 1.48-4.50 MONOCYTES - ABS (DIFF) (BEAKER) (test bipc=9950) 0.03 K/ L 0.00-1.30 EOSINOPHILS - ABS (DIFF) (BEAKER) (test qcvp=9493) 0.02 K/ L 0.00-0.50 BASOPHILS - ABS (DIFF) (BEAKER) (test xwak=9076) 0.00 K/ L 0.00-0.20 ATYPICAL LYMPHOCYTES - ABS (DIFF) (BEAKER) (test 0.02 K/ L 0.00-0.00 ssrg=273) TOTAL COUNTED (BEAKER) (test quce=4104) 100 WBC MORPHOLOGY (BEAKER) (test yhsu=610) Normal PLT MORPHOLOGY (BEAKER) (test vrbs=234) Normal RBC MORPHOLOGY (BEAKER) (test nqpa=940) Normal [id number] 06:46:00 Test Item Value Reference Range Comments MAGNESIUM (BEAKER) (test grcf=744) 2.0 mg/dL 1.6-2.6 COMPREHENSIVE METABOLIC [id number] 06:46:00 Test Item Value Reference Range Comments TOTAL PROTEIN (BEAKER) 5.8 gm/dL 6.0-8.3 (test useg=786) ALBUMIN (BEAKER) (test 3.4 g/dL 3.5-5.0 uram=6193) ALKALINE PHOSPHATASE 94 U/L 40-150 (BEAKER) (test nhow=062) BILIRUBIN TOTAL (BEAKER) 1.3 mg/dL 0.2-1.2 (test xltr=475) SODIUM (BEAKER) (test 139 meq/L 136-145 knyv=842) POTASSIUM (BEAKER) (test 4.2 meq/L 3.5-5.1 dgxu=243) CHLORIDE (BEAKER) (test 105 meq/L 98-107 qlgm=695) CO2 (BEAKER) (test 28 meq/L 22-29 arok=014) BLOOD UREA NITROGEN 22 mg/dL 7-21 (BEAKER) (test gihm=998) CREATININE (BEAKER) (test 0.99 mg/dL 0.57-1.25 mqsz=459) GLUCOSE RANDOM (BEAKER) 111 mg/dL 70-105 (test xobm=188) CALCIUM (BEAKER) (test 8.7 mg/dL 8.4-10.2 trcc=257) AST (SGOT) (BEAKER) (test 15 U/L 5-34 iaau=535) ALT (SGPT) (BEAKER) (test 23 U/L 6-55 nhre=190) EGFR (BEAKER) (test 75 mL/min/1.73 sq m ESTIMATED GFR IS NOT pwny=8450) ACCURATE CREATININE CLEARANCE IN PREDICTING GLOMERULAR FILTRATION RATE. ESTIMATED GFR IS NOT APPLICABLE FOR DIALYSIS PATIENTS. HEMOGLOBIN AND [id number] 12:40:00 Test Item Value Reference Range Comments HEMOGLOBIN (BEAKER) (test cckm=848) 7.7 GM/DL 13.7-17.5 HEMATOCRIT (BEAKER) (test mcwn=637) 23.0 % 40.1-51.0 CBC W/PLT COUNT & AUTO [id number] 10:59:00 Test Item Value Reference Range Comments WHITE BLOOD CELL COUNT (BEAKER) (test jyyj=594) 1.7 K/ L 3.5-10.5 RED BLOOD CELL COUNT (BEAKER) (test yslq=373) 2.52 M/ L 4.63-6.08 HEMOGLOBIN (BEAKER) (test suve=816) 7.4 GM/DL 13.7-17.5 HEMATOCRIT (BEAKER) (test xqbx=800) 22.1 % 40.1-51.0 MEAN CORPUSCULAR VOLUME (BEAKER) (test aeeh=999) 87.7 fL 79.0-92.2 MEAN CORPUSCULAR HEMOGLOBIN (BEAKER) (test 29.4 pg 25.7-32.2 xpll=161) MEAN CORPUSCULAR HEMOGLOBIN CONC (BEAKER) (test 33.5 GM/DL 32.3-36.5 oflu=107) RED CELL DISTRIBUTION WIDTH (BEAKER) (test 13.6 % 11.6-14.4 ygea=002) PLATELET COUNT (BEAKER) (test ugeo=873) 10 K/CU MM 150-450 MEAN PLATELET VOLUME (BEAKER) (test uwny=453) 11.0 fL 9.4-12.4 NUCLEATED RED BLOOD CELLS (BEAKER) (test 0 /100 WBC 0-0 bkcg=546) (CELLAVISION MANUAL DIFF)2019-10-07 10:59:00 Test Item Value Reference Range Comments NEUTROPHILS - REL (CELLAVISION)(BEAKER) (test 52 % dhdt=5263) LYMPHOCYTES - REL (CELLAVISION)(BEAKER) (test 42 % dozx=7751) MONOCYTES - REL (CELLAVISION)(BEAKER) (test 3 % btsv=3505) EOSINOPHILS - REL (CELLAVISION)(BEAKER) (test 2 % awcw=5436) BASOPHILS - REL (CELLAVISION)(BEAKER) (test 1 % zowz=3160) NEUTROPHILS - ABS (CELLAVISION)(BEAKER) (test 0.88 K/ul 1.78-5.38 mkmd=7121) LYMPHOCYTES - ABS (CELLAVISION)(BEAKER) (test 0.71 K/ul 1.32-3.57 matq=9177) MONOCYTES - ABS (CELLAVISION)(BEAKER) (test 0.05 K/uL 0.30-0.82 xbvx=1426) EOSINOPHILS - ABS (CELLAVISION)(BEAKER) (test 0.03 K/uL 0.04-0.54 sipr=5125) BASOPHILS - ABS (CELLAVISION)(BEAKER) (test 0.02 K/uL 0.01-0.08 zpli=2214) TOTAL COUNTED (BEAKER) (test ammz=1273) 100 WBC MORPHOLOGY (BEAKER) (test enpa=485) Normal PLT MORPHOLOGY (BEAKER) (test vhvz=732) Normal ANISOCYTOSIS (BEAKER) (test pqoe=054) 1+ few MICROCYTES (BEAKER) (test tvbj=816) 1+ few ARTIFACT (CELLAVISION)(BEAKER) (test wwvy=8763) Present PLATELET CONCENTRATION (CELLAVISION)(BEAKER) (test Decreased jbai=5854) Received comment: User comments: Slide comments:[id number] 07:03:00 Test Item Value Reference Range Comments MAGNESIUM (BEAKER) (test fngg=674) 2.1 mg/dL 1.6-2.6 COMPREHENSIVE METABOLIC [id number] 07:03:00 Test Item Value Reference Range Comments TOTAL PROTEIN (BEAKER) 5.8 gm/dL 6.0-8.3 (test dxij=772) ALBUMIN (BEAKER) (test 3.4 g/dL 3.5-5.0 hrdd=1051) ALKALINE PHOSPHATASE 98 U/L 40-150 (BEAKER) (test mfvh=965) BILIRUBIN TOTAL (BEAKER) 1.3 mg/dL 0.2-1.2 (test fbbb=334) SODIUM (BEAKER) (test 139 meq/L 136-145 zgzz=167) POTASSIUM (BEAKER) (test 4.2 meq/L 3.5-5.1 rffo=992) CHLORIDE (BEAKER) (test 105 meq/L 98-107 zciz=639) CO2 (BEAKER) (test 29 meq/L 22-29 shqj=603) BLOOD UREA NITROGEN 21 mg/dL 7-21 (BEAKER) (test ybsu=619) CREATININE (BEAKER) (test 0.98 mg/dL 0.57-1.25 utlk=217) GLUCOSE RANDOM (BEAKER) 108 mg/dL 70-105 (test bcet=382) CALCIUM (BEAKER) (test 8.8 mg/dL 8.4-10.2 mcad=326) AST (SGOT) (BEAKER) (test 16 U/L 5-34 nbpz=923) ALT (SGPT) (BEAKER) (test 24 U/L 6-55 atwt=352) EGFR (BEAKER) (test 76 mL/min/1.73 sq m ESTIMATED GFR IS NOT lmko=6629) ACCURATE CREATININE CLEARANCE IN PREDICTING GLOMERULAR FILTRATION RATE. ESTIMATED GFR IS NOT APPLICABLE FOR DIALYSIS PATIENTS. CBC W/PLT COUNT & AUTO [id number] 10:11:00 Test Item Value Reference Range Comments WHITE BLOOD CELL COUNT (BEAKER) (test qqts=209) 1.9 K/ L 3.5-10.5 RED BLOOD CELL COUNT (BEAKER) (test jwbn=173) 2.63 M/ L 4.63-6.08 HEMOGLOBIN (BEAKER) (test yggp=859) 7.8 GM/DL 13.7-17.5 HEMATOCRIT (BEAKER) (test weht=722) 22.9 % 40.1-51.0 MEAN CORPUSCULAR VOLUME (BEAKER) (test fshf=908) 87.1 fL 79.0-92.2 MEAN CORPUSCULAR HEMOGLOBIN (BEAKER) (test 29.7 pg 25.7-32.2 xaej=635) MEAN CORPUSCULAR HEMOGLOBIN CONC (BEAKER) (test 34.1 GM/DL 32.3-36.5 ucld=306) RED CELL DISTRIBUTION WIDTH (BEAKER) (test 13.6 % 11.6-14.4 yfep=069) PLATELET COUNT (BEAKER) (test gwgc=944) 7 K/CU MM 150-450 MEAN PLATELET VOLUME (BEAKER) (test fkkb=577) 9.4 fL 9.4-12.4 NUCLEATED RED BLOOD CELLS (BEAKER) (test 0 /100 WBC 0-0 vgdd=112) (CELLAVISION MANUAL DIFF)2019-10-06 10:11:00 Test Item Value Reference Range Comments NEUTROPHILS - REL (CELLAVISION)(BEAKER) (test 61 % cubi=1602) LYMPHOCYTES - REL (CELLAVISION)(BEAKER) (test 34 % rtff=7269) MONOCYTES - REL (CELLAVISION)(BEAKER) (test 1 % urpe=4347) EOSINOPHILS - REL (CELLAVISION)(BEAKER) (test 1 % urqn=6504) BASOPHILS - REL (CELLAVISION)(BEAKER) (test 1 % gfgf=1330) ATYPICAL LYMPHOCYTES - REL (CELLAVISION)(BEAKER) 2 % 0-0 (test ljvq=6938) NEUTROPHILS - ABS (CELLAVISION)(BEAKER) (test 1.16 K/ul 1.78-5.38 oslc=4614) LYMPHOCYTES - ABS (CELLAVISION)(BEAKER) (test 0.65 K/ul 1.32-3.57 qefo=8291) MONOCYTES - ABS (CELLAVISION)(BEAKER) (test 0.02 K/uL 0.30-0.82 fbmh=9317) EOSINOPHILS - ABS (CELLAVISION)(BEAKER) (test 0.02 K/uL 0.04-0.54 nkce=7972) BASOPHILS - ABS (CELLAVISION)(BEAKER) (test 0.02 K/uL 0.01-0.08 asze=6370) ATYPICAL LYMPHOCYTES - ABS (CELLAVISION)(BEAKER) 0.04 K/uL 0.00-0.00 (test unvh=6604) TOTAL COUNTED (BEAKER) (test oqwt=8004) 100 RBC MORPHOLOGY (BEAKER) (test bxfa=140) Normal PLT MORPHOLOGY (BEAKER) (test ybcy=165) Normal TOXIC GRANULATION (BEAKER) (test vcte=375) Present ARTIFACT (CELLAVISION)(BEAKER) (test ercp=3256) Present PLATELET CONCENTRATION (CELLAVISION)(BEAKER) (test Decreased eafe=5401) Received comment: User comments: Slide comments:[id number] 07:37:00 Test Item Value Reference Range Comments MAGNESIUM (BEAKER) (test czpl=636) 2.1 mg/dL 1.6-2.6 COMPREHENSIVE METABOLIC [id number] 07:37:00 Test Item Value Reference Range Comments TOTAL PROTEIN (BEAKER) 6.0 gm/dL 6.0-8.3 (test yook=317) ALBUMIN (BEAKER) (test 3.5 g/dL 3.5-5.0 bxaa=0909) ALKALINE PHOSPHATASE 98 U/L 40-150 (BEAKER) (test nhuf=677) BILIRUBIN TOTAL (BEAKER) 1.6 mg/dL 0.2-1.2 (test veek=104) SODIUM (BEAKER) (test 137 meq/L 136-145 nlqr=665) POTASSIUM (BEAKER) (test 4.1 meq/L 3.5-5.1 rruf=105) CHLORIDE (BEAKER) (test 101 meq/L 98-107 bgfm=370) CO2 (BEAKER) (test 30 meq/L 22-29 gtww=249) BLOOD UREA NITROGEN 20 mg/dL 7-21 (BEAKER) (test khwi=665) CREATININE (BEAKER) (test 1.04 mg/dL 0.57-1.25 redl=640) GLUCOSE RANDOM (BEAKER) 104 mg/dL 70-105 (test jodp=594) CALCIUM (BEAKER) (test 8.7 mg/dL 8.4-10.2 pfxs=808) AST (SGOT) (BEAKER) (test 17 U/L 5-34 tupd=779) ALT (SGPT) (BEAKER) (test 25 U/L 6-55 wlzf=844) EGFR (BEAKER) (test 71 mL/min/1.73 sq m ESTIMATED GFR IS NOT wewg=3497) ACCURATE CREATININE CLEARANCE IN PREDICTING GLOMERULAR FILTRATION RATE. ESTIMATED GFR IS NOT APPLICABLE FOR DIALYSIS PATIENTS. CBC W/PLT COUNT & AUTO [id number] 09:09:00 Test Item Value Reference Range Comments WHITE BLOOD CELL COUNT (BEAKER) (test rerp=467) 1.8 K/ L 3.5-10.5 RED BLOOD CELL COUNT (BEAKER) (test frvw=812) 2.38 M/ L 4.63-6.08 HEMOGLOBIN (BEAKER) (test ltei=011) 7.0 GM/DL 13.7-17.5 HEMATOCRIT (BEAKER) (test opdi=916) 20.7 % 40.1-51.0 MEAN CORPUSCULAR VOLUME (BEAKER) (test omat=765) 87.0 fL 79.0-92.2 MEAN CORPUSCULAR HEMOGLOBIN (BEAKER) (test 29.4 pg 25.7-32.2 obdc=091) MEAN CORPUSCULAR HEMOGLOBIN CONC (BEAKER) (test 33.8 GM/DL 32.3-36.5 qbid=098) RED CELL DISTRIBUTION WIDTH (BEAKER) (test 13.8 % 11.6-14.4 nasz=226) PLATELET COUNT (BEAKER) (test bcyk=537) 6 K/CU MM 150-450 MEAN PLATELET VOLUME (BEAKER) (test ulov=401) 10.6 fL 9.4-12.4 NUCLEATED RED BLOOD CELLS (BEAKER) (test 0 /100 WBC 0-0 ubao=795) (CELLAVISION MANUAL DIFF)[id number] 09:09:00 Test Item Value Reference Range Comments NEUTROPHILS - REL (CELLAVISION)(BEAKER) (test 57 % ucou=3905) LYMPHOCYTES - REL (CELLAVISION)(BEAKER) (test 39 % hrgl=5045) EOSINOPHILS - REL (CELLAVISION)(BEAKER) (test 2 % rynw=6656) ATYPICAL LYMPHOCYTES - REL (CELLAVISION)(BEAKER) 2 % 0-0 (test kibk=5183) NEUTROPHILS - ABS (CELLAVISION)(BEAKER) (test 1.03 K/ul 1.78-5.38 wecp=2508) LYMPHOCYTES - ABS (CELLAVISION)(BEAKER) (test 0.70 K/ul 1.32-3.57 cdqd=3841) EOSINOPHILS - ABS (CELLAVISION)(BEAKER) (test 0.04 K/uL 0.04-0.54 yttv=6439) ATYPICAL LYMPHOCYTES - ABS (CELLAVISION)(BEAKER) 0.04 K/uL 0.00-0.00 (test dxcz=1068) TOTAL COUNTED (BEAKER) (test usmy=6339) 100 MANUAL NRBC PER 100 CELLS (BEAKER) (test 2 /100 WBC 0-0 halc=3157) WBC MORPHOLOGY (BEAKER) (test fqzf=365) Normal PLT MORPHOLOGY (BEAKER) (test xeum=879) Normal POLYCHROMATOPHILLIC RBCS(BEAKER) (test dwrb=668) 1+ few ARTIFACT (CELLAVISION)(BEAKER) (test oupj=7017) Present PLATELET CONCENTRATION (CELLAVISION)(BEAKER) Decreased (test pglt=8352) Received comment: User comments: Slide comments:[id number] 06:48:00 Test Item Value Reference Range Comments MAGNESIUM (BEAKER) (test ufem=420) 2.0 mg/dL 1.6-2.6 COMPREHENSIVE METABOLIC [id number] 06:48:00 Test Item Value Reference Range Comments TOTAL PROTEIN (BEAKER) 5.8 gm/dL 6.0-8.3 (test jspu=077) ALBUMIN (BEAKER) (test 3.3 g/dL 3.5-5.0 wyot=4193) ALKALINE PHOSPHATASE 98 U/L 40-150 (BEAKER) (test hzol=064) BILIRUBIN TOTAL (BEAKER) 1.3 mg/dL 0.2-1.2 (test qrog=721) SODIUM (BEAKER) (test 139 meq/L 136-145 zqow=930) POTASSIUM (BEAKER) (test 4.1 meq/L 3.5-5.1 fzhw=237) CHLORIDE (BEAKER) (test 103 meq/L 98-107 utqv=073) CO2 (BEAKER) (test 31 meq/L 22-29 xtno=086) BLOOD UREA NITROGEN 18 mg/dL 7-21 (BEAKER) (test qkfe=741) CREATININE (BEAKER) (test 0.98 mg/dL 0.57-1.25 cnlj=374) GLUCOSE RANDOM (BEAKER) 103 mg/dL 70-105 (test gcvf=127) CALCIUM (BEAKER) (test 8.7 mg/dL 8.4-10.2 ocqs=430) AST (SGOT) (BEAKER) (test 19 U/L 5-34 jymt=654) ALT (SGPT) (BEAKER) (test 28 U/L 6-55 jntz=137) EGFR (BEAKER) (test 76 mL/min/1.73 sq m ESTIMATED GFR IS NOT zvjc=4678) ACCURATE CREATININE CLEARANCE IN PREDICTING GLOMERULAR FILTRATION RATE. ESTIMATED GFR IS NOT APPLICABLE FOR DIALYSIS PATIENTS. CBC W/PLT COUNT & AUTO [id number] 09:29:00 Test Item Value Reference Range Comments WHITE BLOOD CELL COUNT (BEAKER) (test hiqx=423) 1.7 K/ L 3.5-10.5 RED BLOOD CELL COUNT (BEAKER) (test fvag=757) 2.41 M/ L 4.63-6.08 HEMOGLOBIN (BEAKER) (test wrik=666) 7.1 GM/DL 13.7-17.5 HEMATOCRIT (BEAKER) (test okft=639) 21.2 % 40.1-51.0 MEAN CORPUSCULAR VOLUME (BEAKER) (test fpxd=525) 88.0 fL 79.0-92.2 MEAN CORPUSCULAR HEMOGLOBIN (BEAKER) (test 29.5 pg 25.7-32.2 cgka=455) MEAN CORPUSCULAR HEMOGLOBIN CONC (BEAKER) (test 33.5 GM/DL 32.3-36.5 lmkl=608) RED CELL DISTRIBUTION WIDTH (BEAKER) (test 13.9 % 11.6-14.4 dxwx=860) PLATELET COUNT (BEAKER) (test ieus=589) 6 K/CU MM 150-450 MEAN PLATELET VOLUME (BEAKER) (test zfyo=591) 12.8 fL 9.4-12.4 NUCLEATED RED BLOOD CELLS (BEAKER) (test 0 /100 WBC 0-0 rnms=852) (CELLAVISION MANUAL DIFF)2019-10-04 09:29:00 Test Item Value Reference Range Comments NEUTROPHILS - REL (CELLAVISION)(BEAKER) (test 63 % xwex=2825) LYMPHOCYTES - REL (CELLAVISION)(BEAKER) (test 35 % vdpw=9572) MONOCYTES - REL (CELLAVISION)(BEAKER) (test 1 % ftwz=2046) BANDS - REL (CELLAVISION)(BEAKER) (test csky=2733) 1 % 0-10 NEUTROPHILS - ABS (CELLAVISION)(BEAKER) (test 1.07 K/ul 1.78-5.38 txxy=4277) LYMPHOCYTES - ABS (CELLAVISION)(BEAKER) (test 0.60 K/ul 1.32-3.57 pkjg=2954) MONOCYTES - ABS (CELLAVISION)(BEAKER) (test 0.02 K/uL 0.30-0.82 xyvh=4460) BANDS - ABS (CELLAVISION)(BEAKER) (test vqja=6391) 0.02 K/uL 0.00-0.80 TOTAL COUNTED (BEAKER) (test rfil=7539) 100 RBC MORPHOLOGY (BEAKER) (test moti=555) Normal SMUDGE CELLS (BEAKER) (test lhym=6876) Present GIANT PLATELETS (BEAKER) (test pzqt=064) Present ARTIFACT (CELLAVISION)(BEAKER) (test vkdx=9645) Present PLATELET CONCENTRATION (CELLAVISION)(BEAKER) (test Decreased hzch=4957) Received comment: User comments: Slide comments:[id number] 07:14:00 Test Item Value Reference Range Comments MAGNESIUM (BEAKER) (test werg=249) 2.0 mg/dL 1.6-2.6 COMPREHENSIVE METABOLIC [id number] 07:14:00 Test Item Value Reference Range Comments TOTAL PROTEIN (BEAKER) 5.5 gm/dL 6.0-8.3 (test ogum=275) ALBUMIN (BEAKER) (test 3.1 g/dL 3.5-5.0 wkqz=2980) ALKALINE PHOSPHATASE 93 U/L 40-150 (BEAKER) (test rufy=759) BILIRUBIN TOTAL (BEAKER) 0.6 mg/dL 0.2-1.2 (test gcav=773) SODIUM (BEAKER) (test 138 meq/L 136-145 wppy=968) POTASSIUM (BEAKER) (test 4.1 meq/L 3.5-5.1 nwyi=818) CHLORIDE (BEAKER) (test 102 meq/L 98-107 seiw=098) CO2 (BEAKER) (test 30 meq/L 22-29 psci=199) BLOOD UREA NITROGEN 19 mg/dL 7-21 (BEAKER) (test ibgx=296) CREATININE (BEAKER) (test 1.17 mg/dL 0.57-1.25 flfb=846) GLUCOSE RANDOM (BEAKER) 110 mg/dL 70-105 (test ctca=354) CALCIUM (BEAKER) (test 8.3 mg/dL 8.4-10.2 enbx=656) AST (SGOT) (BEAKER) (test 19 U/L 5-34 kxxd=510) ALT (SGPT) (BEAKER) (test 27 U/L 6-55 wypv=285) EGFR (BEAKER) (test 62 mL/min/1.73 sq m ESTIMATED GFR IS NOT ukyd=3401) ACCURATE CREATININE CLEARANCE IN PREDICTING GLOMERULAR FILTRATION RATE. ESTIMATED GFR IS NOT APPLICABLE FOR DIALYSIS PATIENTS. CBC W/PLT COUNT & AUTO [id number] 11:15:00 Test Item Value Reference Range Comments WHITE BLOOD CELL COUNT (BEAKER) (test vhli=002) 1.9 K/ L 3.5-10.5 RED BLOOD CELL COUNT (BEAKER) (test otjg=089) 2.52 M/ L 4.63-6.08 HEMOGLOBIN (BEAKER) (test clpg=992) 7.4 GM/DL 13.7-17.5 HEMATOCRIT (BEAKER) (test rrcr=404) 22.2 % 40.1-51.0 MEAN CORPUSCULAR VOLUME (BEAKER) (test uheu=594) 88.1 fL 79.0-92.2 MEAN CORPUSCULAR HEMOGLOBIN (BEAKER) (test 29.4 pg 25.7-32.2 umhu=321) MEAN CORPUSCULAR HEMOGLOBIN CONC (BEAKER) (test 33.3 GM/DL 32.3-36.5 gqbv=437) RED CELL DISTRIBUTION WIDTH (BEAKER) (test 14.0 % 11.6-14.4 grbl=147) PLATELET COUNT (BEAKER) (test yhxu=903) 4 K/CU MM 150-450 MEAN PLATELET VOLUME (BEAKER) (test vlfx=470) 9.9 fL 9.4-12.4 NUCLEATED RED BLOOD CELLS (BEAKER) (test 0 /100 WBC 0-0 tqii=639) (CELLAVISION MANUAL DIFF)2019-10-03 11:15:00 Test Item Value Reference Range Comments NEUTROPHILS - REL (CELLAVISION)(BEAKER) (test 73 % vbeh=1529) LYMPHOCYTES - REL (CELLAVISION)(BEAKER) (test 23 % cxcm=5608) EOSINOPHILS - REL (CELLAVISION)(BEAKER) (test 3 % ghdw=0576) BASOPHILS - REL (CELLAVISION)(BEAKER) (test 1 % lnfp=8011) NEUTROPHILS - ABS (CELLAVISION)(BEAKER) (test 1.39 K/ul 1.78-5.38 rave=9748) LYMPHOCYTES - ABS (CELLAVISION)(BEAKER) (test 0.44 K/ul 1.32-3.57 ufqf=5087) EOSINOPHILS - ABS (CELLAVISION)(BEAKER) (test 0.06 K/uL 0.04-0.54 obkk=7140) BASOPHILS - ABS (CELLAVISION)(BEAKER) (test 0.02 K/uL 0.01-0.08 cwlv=7624) TOTAL COUNTED (BEAKER) (test htpc=7434) 100 RBC MORPHOLOGY (BEAKER) (test tbzi=609) Normal PLT MORPHOLOGY (BEAKER) (test igmk=265) Normal TOXIC GRANULATION (BEAKER) (test fkjv=709) Present ARTIFACT (CELLAVISION)(BEAKER) (test dfbh=1818) Present PLATELET CONCENTRATION (CELLAVISION)(BEAKER) (test Decreased iejg=2162) Received comment: User comments: Slide comments:[id number] 07:23:00 Test Item Value Reference Range Comments MAGNESIUM (BEAKER) (test swnc=163) 1.9 mg/dL 1.6-2.6 COMPREHENSIVE METABOLIC [id number] 07:23:00 Test Item Value Reference Range Comments TOTAL PROTEIN (BEAKER) 5.5 gm/dL 6.0-8.3 (test piid=502) ALBUMIN (BEAKER) (test 3.1 g/dL 3.5-5.0 jool=2653) ALKALINE PHOSPHATASE 90 U/L 40-150 (BEAKER) (test topc=124) BILIRUBIN TOTAL (BEAKER) 0.9 mg/dL 0.2-1.2 (test vidi=762) SODIUM (BEAKER) (test 138 meq/L 136-145 lvrh=938) POTASSIUM (BEAKER) (test 4.2 meq/L 3.5-5.1 bsen=282) CHLORIDE (BEAKER) (test 101 meq/L 98-107 pjpq=845) CO2 (BEAKER) (test 34 meq/L 22-29 jenp=449) BLOOD UREA NITROGEN 17 mg/dL 7-21 (BEAKER) (test mewt=553) CREATININE (BEAKER) (test 0.98 mg/dL 0.57-1.25 ffkr=824) GLUCOSE RANDOM (BEAKER) 106 mg/dL 70-105 (test qatl=684) CALCIUM (BEAKER) (test 8.6 mg/dL 8.4-10.2 chnz=725) AST (SGOT) (BEAKER) (test 17 U/L 5-34 uloa=225) ALT (SGPT) (BEAKER) (test 27 U/L 6-55 qlez=984) EGFR (BEAKER) (test 76 mL/min/1.73 sq m ESTIMATED GFR IS NOT ypwp=0573) ACCURATE CREATININE CLEARANCE IN PREDICTING GLOMERULAR FILTRATION RATE. ESTIMATED GFR IS NOT APPLICABLE FOR DIALYSIS PATIENTS. BLOOD [id number] 11:00:00 Test Item Value Reference Range Comments CULTURE (BEAKER) (test nlbu=0538) No growth in 5 days BLOOD [id number] 11:00:00 Test Item Value Reference Range Comments CULTURE (BEAKER) (test curs=5877) No growth in 5 days CBC W/PLT COUNT & AUTO [id number] 10:31:00 Test Item Value Reference Range Comments WHITE BLOOD CELL COUNT (BEAKER) (test vmrb=527) 2.0 K/ L 3.5-10.5 RED BLOOD CELL COUNT (BEAKER) (test kqhb=849) 2.49 M/ L 4.63-6.08 HEMOGLOBIN (BEAKER) (test pfic=424) 7.3 GM/DL 13.7-17.5 HEMATOCRIT (BEAKER) (test ojqr=316) 21.7 % 40.1-51.0 MEAN CORPUSCULAR VOLUME (BEAKER) (test vsmi=350) 87.1 fL 79.0-92.2 MEAN CORPUSCULAR HEMOGLOBIN (BEAKER) (test 29.3 pg 25.7-32.2 kfpz=166) MEAN CORPUSCULAR HEMOGLOBIN CONC (BEAKER) (test 33.6 GM/DL 32.3-36.5 pjaw=578) RED CELL DISTRIBUTION WIDTH (BEAKER) (test 14.2 % 11.6-14.4 nzli=368) PLATELET COUNT (BEAKER) (test zerl=811) 5 K/CU MM 150-450 MEAN PLATELET VOLUME (BEAKER) (test jwka=485) 11.1 fL 9.4-12.4 NUCLEATED RED BLOOD CELLS (BEAKER) (test 0 /100 WBC 0-0 yyfj=971) (CELLAVISION MANUAL DIFF)2019-10-02 10:31:00 Test Item Value Reference Range Comments NEUTROPHILS - REL (CELLAVISION)(BEAKER) (test 69 % uqam=2104) LYMPHOCYTES - REL (CELLAVISION)(BEAKER) (test 22 % sezn=3409) MONOCYTES - REL (CELLAVISION)(BEAKER) (test 6 % afgt=3793) EOSINOPHILS - REL (CELLAVISION)(BEAKER) (test 1 % klbc=8562) BANDS - REL (CELLAVISION)(BEAKER) (test fvhi=8631) 2 % 0-10 NEUTROPHILS - ABS (CELLAVISION)(BEAKER) (test 1.38 K/ul 1.78-5.38 rsuk=6701) LYMPHOCYTES - ABS (CELLAVISION)(BEAKER) (test 0.44 K/ul 1.32-3.57 vwai=6293) MONOCYTES - ABS (CELLAVISION)(BEAKER) (test 0.12 K/uL 0.30-0.82 sacy=2755) EOSINOPHILS - ABS (CELLAVISION)(BEAKER) (test 0.02 K/uL 0.04-0.54 okqk=6719) BANDS - ABS (CELLAVISION)(BEAKER) (test odmu=1160) 0.04 K/uL 0.00-0.80 TOTAL COUNTED (BEAKER) (test ahey=8058) 100 RBC MORPHOLOGY (BEAKER) (test zoqv=389) Normal WBC MORPHOLOGY (BEAKER) (test ancv=219) Normal PLT MORPHOLOGY (BEAKER) (test hzsn=711) Normal ARTIFACT (CELLAVISION)(BEAKER) (test ynqu=1557) Present PLATELET CONCENTRATION (CELLAVISION)(BEAKER) (test Decreased chec=9772) Received comment: User comments: Slide comments:[id number] 05:34:00 Test Item Value Reference Range Comments MAGNESIUM (BEAKER) (test hqnr=494) 1.7 mg/dL 1.6-2.6 COMPREHENSIVE METABOLIC [id number] 05:34:00 Test Item Value Reference Range Comments TOTAL PROTEIN (BEAKER) 5.2 gm/dL 6.0-8.3 (test cfot=646) ALBUMIN (BEAKER) (test 3.0 g/dL 3.5-5.0 yeyz=8517) ALKALINE PHOSPHATASE 82 U/L 40-150 (BEAKER) (test bvsa=954) BILIRUBIN TOTAL (BEAKER) 1.0 mg/dL 0.2-1.2 (test elqr=528) SODIUM (BEAKER) (test 138 meq/L 136-145 udzr=605) POTASSIUM (BEAKER) (test 3.7 meq/L 3.5-5.1 swup=484) CHLORIDE (BEAKER) (test 102 meq/L 98-107 etjp=673) CO2 (BEAKER) (test 31 meq/L 22-29 lmcd=624) BLOOD UREA NITROGEN 17 mg/dL 7-21 (BEAKER) (test ytbg=702) CREATININE (BEAKER) (test 1.05 mg/dL 0.57-1.25 xahc=774) GLUCOSE RANDOM (BEAKER) 109 mg/dL 70-105 (test jdfg=082) CALCIUM (BEAKER) (test 8.1 mg/dL 8.4-10.2 lohe=276) AST (SGOT) (BEAKER) (test 14 U/L 5-34 cejm=818) ALT (SGPT) (BEAKER) (test 26 U/L 6-55 xbqt=787) EGFR (BEAKER) (test 70 mL/min/1.73 sq m ESTIMATED GFR IS NOT wltf=7590) ACCURATE CREATININE CLEARANCE IN PREDICTING GLOMERULAR FILTRATION RATE. ESTIMATED GFR IS NOT APPLICABLE FOR DIALYSIS PATIENTS. LACTATE DEHYDROGENASE (LDH)2019-10-01 07:05:00 Test Item Value Reference Range Comments LACTATE DEHYDROGENASE (BEAKER) (test khnw=907) 223 U/L 125-220 URIC [id number] 07:04:00 Test Item Value Reference Range Comments URIC ACID (BEAKER) (test rlac=052) 4.4 mg/dL 2.6-7.2 [id number] 07:04:00 Test Item Value Reference Range Comments MAGNESIUM (BEAKER) (test yfcc=529) 1.8 mg/dL 1.6-2.6 COMPREHENSIVE METABOLIC [id number] 07:04:00 Test Item Value Reference Range Comments TOTAL PROTEIN (BEAKER) 5.4 gm/dL 6.0-8.3 (test ivsl=684) ALBUMIN (BEAKER) (test 3.1 g/dL 3.5-5.0 kpbc=5177) ALKALINE PHOSPHATASE 78 U/L 40-150 (BEAKER) (test dyza=620) BILIRUBIN TOTAL (BEAKER) 0.9 mg/dL 0.2-1.2 (test xdwe=651) SODIUM (BEAKER) (test 138 meq/L 136-145 mrru=922) POTASSIUM (BEAKER) (test 3.9 meq/L 3.5-5.1 slud=455) CHLORIDE (BEAKER) (test 105 meq/L 98-107 ppmm=422) CO2 (BEAKER) (test 30 meq/L 22-29 qrhs=161) BLOOD UREA NITROGEN 18 mg/dL 7-21 (BEAKER) (test ihmt=672) CREATININE (BEAKER) (test 1.08 mg/dL 0.57-1.25 fscm=568) GLUCOSE RANDOM (BEAKER) 108 mg/dL 70-105 (test rqrf=213) CALCIUM (BEAKER) (test 8.3 mg/dL 8.4-10.2 cgox=979) AST (SGOT) (BEAKER) (test 16 U/L 5-34 xelt=678) ALT (SGPT) (BEAKER) (test 30 U/L 6-55 npml=704) EGFR (BEAKER) (test 68 mL/min/1.73 sq m ESTIMATED GFR IS NOT xjlw=2417) ACCURATE CREATININE CLEARANCE IN PREDICTING GLOMERULAR FILTRATION RATE. ESTIMATED GFR IS NOT APPLICABLE FOR DIALYSIS PATIENTS. CBC W/PLT COUNT & AUTO [id number] 06:59:00 Test Item Value Reference Range Comments WHITE BLOOD CELL COUNT (BEAKER) (test zwww=940) 2.0 K/ L 3.5-10.5 RED BLOOD CELL COUNT (BEAKER) (test mmyb=021) 2.38 M/ L 4.63-6.08 HEMOGLOBIN (BEAKER) (test ptxa=469) 6.9 GM/DL 13.7-17.5 HEMATOCRIT (BEAKER) (test yztn=163) 20.8 % 40.1-51.0 MEAN CORPUSCULAR VOLUME (BEAKER) (test wtsz=339) 87.4 fL 79.0-92.2 MEAN CORPUSCULAR HEMOGLOBIN (BEAKER) (test 29.0 pg 25.7-32.2 rele=214) MEAN CORPUSCULAR HEMOGLOBIN CONC (BEAKER) (test 33.2 GM/DL 32.3-36.5 mlzs=221) RED CELL DISTRIBUTION WIDTH (BEAKER) (test 14.4 % 11.6-14.4 gqbk=497) PLATELET COUNT (BEAKER) (test tals=324) 5 K/CU MM 150-450 MEAN PLATELET VOLUME (BEAKER) (test qfzo=012) 10.1 fL 9.4-12.4 NUCLEATED RED BLOOD CELLS (BEAKER) (test 0 /100 WBC 0-0 btsb=557) NEUTROPHILS RELATIVE PERCENT (BEAKER) (test 60 % ppbb=741) LYMPHOCYTES RELATIVE PERCENT (BEAKER) (test 29 % lahs=313) MONOCYTES RELATIVE PERCENT (BEAKER) (test 8 % ikep=685) EOSINOPHILS RELATIVE PERCENT (BEAKER) (test 3 % tnhh=596) BASOPHILS RELATIVE PERCENT (BEAKER) (test 0 % tell=029) NEUTROPHILS ABSOLUTE COUNT (BEAKER) (test 1.22 K/ L 1.78-5.38 kqrl=266) LYMPHOCYTES ABSOLUTE COUNT (BEAKER) (test 0.58 K/ L 1.32-3.57 krgi=697) MONOCYTES ABSOLUTE COUNT (BEAKER) (test vnbr=729) 0.16 K/ L 0.30-0.82 EOSINOPHILS ABSOLUTE COUNT (BEAKER) (test 0.06 K/ L 0.04-0.54 onqf=543) BASOPHILS ABSOLUTE COUNT (BEAKER) (test tpvu=269) 0.00 K/ L 0.01-0.08 IMMATURE GRANULOCYTES-RELATIVE PERCENT (BEAKER) 1 % 0-1 (test vfab=4073) CBC W/PLT COUNT & AUTO [id number] 10:04:00 Test Item Value Reference Range Comments WHITE BLOOD CELL COUNT (BEAKER) (test bjcu=764) 2.2 K/ L 3.5-10.5 RED BLOOD CELL COUNT (BEAKER) (test ofoh=986) 2.53 M/ L 4.63-6.08 HEMOGLOBIN (BEAKER) (test ekiv=169) 7.2 GM/DL 13.7-17.5 HEMATOCRIT (BEAKER) (test itsf=681) 22.3 % 40.1-51.0 MEAN CORPUSCULAR VOLUME (BEAKER) (test rejd=912) 88.1 fL 79.0-92.2 MEAN CORPUSCULAR HEMOGLOBIN (BEAKER) (test 28.5 pg 25.7-32.2 colq=851) MEAN CORPUSCULAR HEMOGLOBIN CONC (BEAKER) (test 32.3 GM/DL 32.3-36.5 phgr=611) RED CELL DISTRIBUTION WIDTH (BEAKER) (test 14.5 % 11.6-14.4 gort=722) PLATELET COUNT (BEAKER) (test bnao=812) 5 K/CU MM 150-450 MEAN PLATELET VOLUME (BEAKER) (test qyca=416) 10.2 fL 9.4-12.4 NUCLEATED RED BLOOD CELLS (BEAKER) (test 0 /100 WBC 0-0 dyuz=871) (CELLAVISION MANUAL DIFF)2019-09-30 10:04:00 Test Item Value Reference Range Comments NEUTROPHILS - REL (CELLAVISION)(BEAKER) (test 63 % fgkk=9447) LYMPHOCYTES - REL (CELLAVISION)(BEAKER) (test 25 % maic=7607) MONOCYTES - REL (CELLAVISION)(BEAKER) (test 10 % llfe=8222) EOSINOPHILS - REL (CELLAVISION)(BEAKER) (test 1 % mrhf=9642) BANDS - REL (CELLAVISION)(BEAKER) (test 1 % 0-10 fiqh=2094) NEUTROPHILS - ABS (CELLAVISION)(BEAKER) (test 1.39 K/ul 1.78-5.38 wmcw=7079) LYMPHOCYTES - ABS (CELLAVISION)(BEAKER) (test 0.55 K/ul 1.32-3.57 uybs=4553) MONOCYTES - ABS (CELLAVISION)(BEAKER) (test 0.22 K/uL 0.30-0.82 xaxq=0406) EOSINOPHILS - ABS (CELLAVISION)(BEAKER) (test 0.02 K/uL 0.04-0.54 ydhu=7985) BANDS - ABS (CELLAVISION)(BEAKER) (test 0.02 K/uL 0.00-0.80 kemo=6427) TOTAL COUNTED (BEAKER) (test lmfb=8686) 100 WBC MORPHOLOGY (BEAKER) (test vpug=521) Normal PLT MORPHOLOGY (BEAKER) (test ekio=450) Normal ANISOCYTOSIS (BEAKER) (test wxvk=058) 2+ moderate MICROCYTES (BEAKER) (test jppw=741) 2+ moderate ARTIFACT (CELLAVISION)(BEAKER) (test zeox=1352) Present PLATELET CONCENTRATION (CELLAVISION)(BEAKER) Decreased (test xkow=7076) Received comment: User comments: Slide comments:URIC [id number] 07:04:00 Test Item Value Reference Range Comments URIC ACID (BEAKER) (test toev=537) 5.0 mg/dL 2.6-7.2 [id number] 07:04:00 Test Item Value Reference Range Comments MAGNESIUM (BEAKER) (test ghgi=277) 1.9 mg/dL 1.6-2.6 COMPREHENSIVE METABOLIC [id number] 07:04:00 Test Item Value Reference Range Comments TOTAL PROTEIN (BEAKER) 5.3 gm/dL 6.0-8.3 (test cahy=980) ALBUMIN (BEAKER) (test 3.1 g/dL 3.5-5.0 xxoy=4050) ALKALINE PHOSPHATASE 74 U/L 40-150 (BEAKER) (test vuey=656) BILIRUBIN TOTAL (BEAKER) 0.9 mg/dL 0.2-1.2 (test nvdj=098) SODIUM (BEAKER) (test 137 meq/L 136-145 hodl=400) POTASSIUM (BEAKER) (test 4.0 meq/L 3.5-5.1 dnhw=962) CHLORIDE (BEAKER) (test 107 meq/L 98-107 ghsy=358) CO2 (BEAKER) (test 27 meq/L 22-29 jglr=418) BLOOD UREA NITROGEN 22 mg/dL 7-21 (BEAKER) (test sohq=496) CREATININE (BEAKER) (test 1.14 mg/dL 0.57-1.25 bhpo=098) GLUCOSE RANDOM (BEAKER) 108 mg/dL 70-105 (test mkzl=411) CALCIUM (BEAKER) (test 8.1 mg/dL 8.4-10.2 uecs=992) AST (SGOT) (BEAKER) (test 18 U/L 5-34 vape=209) ALT (SGPT) (BEAKER) (test 33 U/L 6-55 oifo=264) EGFR (BEAKER) (test 64 mL/min/1.73 sq m ESTIMATED GFR IS NOT dpjx=9940) ACCURATE CREATININE CLEARANCE IN PREDICTING GLOMERULAR FILTRATION RATE. ESTIMATED GFR IS NOT APPLICABLE FOR DIALYSIS PATIENTS. LACTATE DEHYDROGENASE (LDH)2019-09-30 07:04:00 Test Item Value Reference Range Comments LACTATE DEHYDROGENASE (BEAKER) (test kyee=724) 227 U/L 125-220 CBC W/PLT COUNT & AUTO [id number] 12:38:00 Test Item Value Reference Range Comments WHITE BLOOD CELL COUNT (BEAKER) (test wtgh=554) 3.4 K/ L 3.5-10.5 RED BLOOD CELL COUNT (BEAKER) (test epco=826) 2.71 M/ L 4.63-6.08 HEMOGLOBIN (BEAKER) (test raum=334) 7.9 GM/DL 13.7-17.5 HEMATOCRIT (BEAKER) (test kyjo=671) 23.8 % 40.1-51.0 MEAN CORPUSCULAR VOLUME (BEAKER) (test abev=270) 87.8 fL 79.0-92.2 MEAN CORPUSCULAR HEMOGLOBIN (BEAKER) (test 29.2 pg 25.7-32.2 jdln=699) MEAN CORPUSCULAR HEMOGLOBIN CONC (BEAKER) (test 33.2 GM/DL 32.3-36.5 xeuf=276) RED CELL DISTRIBUTION WIDTH (BEAKER) (test 14.0 % 11.6-14.4 ioil=532) PLATELET COUNT (BEAKER) (test jcnd=554) 8 K/CU MM 150-450 MEAN PLATELET VOLUME (BEAKER) (test gldg=669) 11.6 fL 9.4-12.4 NUCLEATED RED BLOOD CELLS (BEAKER) (test 0 /100 WBC 0-0 oxdl=093) (MANUAL DIFFERENTIAL)2019-09-29 12:38:00 Test Item Value Reference Range Comments NEUTROPHILS - REL (DIFF) (BEAKER) (test byxy=7154) 73 % LYMPHOCYTES - REL (DIFF) (BEAKER) (test rnwp=8111) 17 % MONOCYTES - REL (DIFF) (BEAKER) (test dltq=2942) 2 % EOSINOPHILS - REL (DIFF) (BEAKER) (test cila=1103) 2 % BASOPHILS - REL (DIFF) (BEAKER) (test clsd=7287) 0 % BANDS - REL (DIFF) (BEAKER) (test bksj=6524) 3 % 0-10 ATYPICAL LYMPHOCYTE - REL (DIFF) (BEAKER) (test 3 % 0-0 hzjx=186) NEUTROPHILS - ABS (DIFF) (BEAKER) (test wfhs=3742) 2.48 K/ L 1.80-8.00 LYMPHOCYTES - ABS (DIFF) (BEAKER) (test qekv=6533) 0.58 K/ L 1.48-4.50 MONOCYTES - ABS (DIFF) (BEAKER) (test inld=1825) 0.07 K/ L 0.00-1.30 EOSINOPHILS - ABS (DIFF) (BEAKER) (test bvyl=2024) 0.07 K/ L 0.00-0.50 BASOPHILS - ABS (DIFF) (BEAKER) (test ytzx=6349) 0.00 K/ L 0.00-0.20 BANDS-ABS (DIFF) (BEAKER) (test ddsi=2950) 0.1 K/ L 0.0-0.8 ATYPICAL LYMPHOCYTES - ABS (DIFF) (BEAKER) (test 0.10 K/ L 0.00-0.00 gxmu=806) TOTAL COUNTED (BEAKER) (test jkqg=7205) 100 BANDS + SEGMENTED NEUTROPHILS (BEAKER) (test 2.58 anjn=7770) WBC MORPHOLOGY (BEAKER) (test cqrs=128) Normal PLT MORPHOLOGY (BEAKER) (test zvtl=045) Normal RBC MORPHOLOGY (BEAKER) (test nmng=738) Normal U/S, RENAL, [id number] 10:42:00Reason for exam:->AKIFINAL REPORT Renal ultrasound dated 09/29/2019 Comment: Real-time transabdominal renal ultrasound was performed.Right kidney measures 11.3 x 5.6 x 5.9 cm. Left kidney measures 12.0 x 5.4 x 4.7 cm. Right renal cortex measures 1.8 cm. Left renal cortex measures 1.8 cm. Echogenicity of both renal parenchyma is normal. No hydronephrosis, solid or cystic mass seen. The urinary bladder measures 150 cc. Doppler ultrasound demonstrates patent main renal artery and vein bilaterally. Impression: Unremarkable renal ultrasound. Signed : Simon Elizondo Verified Date/Time: 09/29/2019 10:42:42 Reading Location : [address] Radiology Reading Room URIC [id number] 07:42:00 Test Item Value Reference Range Comments URIC ACID (BEAKER) (test fixf=607) 6.3 mg/dL 2.6-7.2 BASIC METABOLIC [id number] 07:42:00 Test Item Value Reference Range Comments SODIUM (BEAKER) (test 136 meq/L 136-145 klui=953) POTASSIUM (BEAKER) (test 4.3 meq/L 3.5-5.1 hynt=070) CHLORIDE (BEAKER) (test 109 meq/L 98-107 ywyj=101) CO2 (BEAKER) (test 22 meq/L 22-29 rpie=068) BLOOD UREA NITROGEN 33 mg/dL 7-21 (BEAKER) (test jxuj=292) CREATININE (BEAKER) (test 1.63 mg/dL 0.57-1.25 buqn=600) GLUCOSE RANDOM (BEAKER) 122 mg/dL 70-105 (test erlc=416) CALCIUM (BEAKER) (test 8.0 mg/dL 8.4-10.2 sqcy=235) EGFR (BEAKER) (test 42 mL/min/1.73 sq m ESTIMATED GFR IS NOT seft=1023) ACCURATE CREATININE CLEARANCE IN PREDICTING GLOMERULAR FILTRATION RATE. ESTIMATED GFR IS NOT APPLICABLE FOR DIALYSIS PATIENTS. LACTATE DEHYDROGENASE (LDH)2019-09-29 07:42:00 Test Item Value Reference Range Comments LACTATE DEHYDROGENASE (BEAKER) (test doju=478) 262 U/L 125-220 UREA NITROGEN, RANDOM [id number] 14:34:00 Test Item Value Reference Range Comments UREA NITROGEN URINE (BEAKER) (test cida=389) 839 mg/dL Reference Range: No NormalsCREATININE, RANDOM [id number] 14:12:00 Test Item Value Reference Range Comments CREATININE URINE (BEAKER) (test ngln=273) 192.6 mg/dL Reference Range: No NormalsPROTEIN, RANDOM [id number] 14:12:00 Test Item Value Reference Range Comments PROTEIN, URINE (BEAKER) (test xdmy=3156) 33 mg/dL 0-14 SODIUM, RANDOM [id number] 14:12:00 Test Item Value Reference Range Comments SODIUM URINE (BEAKER) (test gjqg=875) 27 meq/L Reference Range: No NormalsURINALYSIS W/ [id number] 14:04:00 Test Item Value Reference Range Comments COLOR (BEAKER) (test wjkq=696) Yellow CLARITY (BEAKER) (test lzcv=948) Clear SPECIFIC GRAVITY UA (BEAKER) (test xeoi=291) 1.020 1.001-1.035 PH UA (BEAKER) (test lhiv=756) 5.0 5.0-8.0 PROTEIN UA (BEAKER) (test mram=630) 30 mg/dL Negative GLUCOSE UA (BEAKER) (test xpnn=527) Negative Negative KETONES UA (BEAKER) (test vgjw=960) Trace Negative BILIRUBIN UA (BEAKER) (test iuoi=120) Negative Negative BLOOD UA (BEAKER) (test higw=116) Negative Negative NITRITE UA (BEAKER) (test ncah=258) Negative Negative LEUKOCYTE ESTERASE UA (BEAKER) (test hwlb=851) Negative Negative UROBILINOGEN UA (BEAKER) (test vhjh=837) 0.2 mg/dL 0.2-1.0 RBC UA (BEAKER) (test jlay=707) 1 /HPF WBC UA (BEAKER) (test utys=897) < /HPF BACTERIA (BEAKER) (test vvqs=689) Occasional HYALINE CASTS (BEAKER) (test ddsv=303) 3 /LPF SOURCE(BEAKER) (test hrwz=9162) VANCOMYCIN LEVEL, [id number] 12:54:00 Test Item Value Reference Range Comments VANCOMYCIN TROUGH (BEAKER) (test agfb=674) 15.9 ug/mL 10.0-20.0 CBC W/PLT COUNT & AUTO [id number] 10:21:00 Test Item Value Reference Range Comments WHITE BLOOD CELL COUNT (BEAKER) (test plsn=669) 3.1 K/ L 3.5-10.5 RED BLOOD CELL COUNT (BEAKER) (test cfit=615) 2.12 M/ L 4.63-6.08 HEMOGLOBIN (BEAKER) (test mvus=478) 6.1 GM/DL 13.7-17.5 HEMATOCRIT (BEAKER) (test pymv=009) 18.8 % 40.1-51.0 MEAN CORPUSCULAR VOLUME (BEAKER) (test pzla=543) 88.7 fL 79.0-92.2 MEAN CORPUSCULAR HEMOGLOBIN (BEAKER) (test 28.8 pg 25.7-32.2 oism=974) MEAN CORPUSCULAR HEMOGLOBIN CONC (BEAKER) (test 32.4 GM/DL 32.3-36.5 pksl=106) RED CELL DISTRIBUTION WIDTH (BEAKER) (test 14.3 % 11.6-14.4 ltwv=651) PLATELET COUNT (BEAKER) (test pnlk=184) 11 K/CU MM 150-450 MEAN PLATELET VOLUME (BEAKER) (test ezwg=059) 12.6 fL 9.4-12.4 NUCLEATED RED BLOOD CELLS (BEAKER) (test 0 /100 WBC 0-0 yfwc=001) (CELLAVISION MANUAL DIFF)2019-09-28 10:21:00 Test Item Value Reference Range Comments NEUTROPHILS - REL (CELLAVISION)(BEAKER) (test 67 % yckp=8263) LYMPHOCYTES - REL (CELLAVISION)(BEAKER) (test 18 % njnn=5565) MONOCYTES - REL (CELLAVISION)(BEAKER) (test 10 % tiqw=2065) BANDS - REL (CELLAVISION)(BEAKER) (test btzs=4767) 4 % 0-10 NEUTROPHILS - ABS (CELLAVISION)(BEAKER) (test 2.08 K/ul 1.78-5.38 pjfd=5782) LYMPHOCYTES - ABS (CELLAVISION)(BEAKER) (test 0.56 K/ul 1.32-3.57 wnza=9140) MONOCYTES - ABS (CELLAVISION)(BEAKER) (test 0.31 K/uL 0.30-0.82 njms=5069) BANDS - ABS (CELLAVISION)(BEAKER) (test tluv=5337) 0.12 K/uL 0.00-0.80 TOTAL COUNTED (BEAKER) (test pkis=6960) 100 WBC MORPHOLOGY (BEAKER) (test aazo=996) Normal PLT MORPHOLOGY (BEAKER) (test knof=373) Normal ANISOCYTOSIS (BEAKER) (test mlgl=256) 1+ few MICROCYTES (BEAKER) (test xgwb=547) 1+ few ARTIFACT (CELLAVISION)(BEAKER) (test wbuk=2435) Present PLATELET CONCENTRATION (CELLAVISION)(BEAKER) (test Decreased xrow=6339) Received comment: User comments: Slide comments:URIC [id number] 09:32:00 Test Item Value Reference Range Comments URIC ACID (BEAKER) (test plmo=437) 6.5 mg/dL 2.6-7.2 LACTATE DEHYDROGENASE (LDH)2019-09-28 09:32:00 Test Item Value Reference Range Comments LACTATE DEHYDROGENASE (BEAKER) (test qmio=989) 243 U/L 125-220 BASIC METABOLIC [id number] 07:14:00 Test Item Value Reference Range Comments SODIUM (BEAKER) (test 133 meq/L 136-145 nlho=350) POTASSIUM (BEAKER) (test 4.3 meq/L 3.5-5.1 mpci=060) CHLORIDE (BEAKER) (test 107 meq/L 98-107 niwi=188) CO2 (BEAKER) (test 21 meq/L 22-29 fkqi=856) BLOOD UREA NITROGEN 37 mg/dL 7-21 (BEAKER) (test ebee=610) CREATININE (BEAKER) (test 2.08 mg/dL 0.57-1.25 aeyy=412) GLUCOSE RANDOM (BEAKER) 119 mg/dL 70-105 (test yorg=806) CALCIUM (BEAKER) (test 7.6 mg/dL 8.4-10.2 sapi=783) EGFR (BEAKER) (test 32 mL/min/1.73 sq m ESTIMATED GFR IS NOT hpcb=5804) ACCURATE CREATININE CLEARANCE IN PREDICTING GLOMERULAR FILTRATION RATE. ESTIMATED GFR IS NOT APPLICABLE FOR DIALYSIS PATIENTS. POCT-LACTIC ACID, [id number] 02:57:00 Test Item Value Reference Range Comments POC-LACTIC ACID, VENOUS 1.2 mmol/L 0.9-1.7 TESTED AT [facility] [address] ([facility] (test zeny=1265) [facility] [address] CBC W/PLT COUNT & AUTO [id number] 11:28:00 Test Item Value Reference Range Comments WHITE BLOOD CELL COUNT (BEAKER) (test bvbi=995) 4.6 K/ L 3.5-10.5 RED BLOOD CELL COUNT (BEAKER) (test dnqw=322) 2.66 M/ L 4.63-6.08 HEMOGLOBIN (BEAKER) (test uhkr=662) 7.7 GM/DL 13.7-17.5 HEMATOCRIT (BEAKER) (test gczc=752) 23.2 % 40.1-51.0 MEAN CORPUSCULAR VOLUME (BEAKER) (test wmac=598) 87.2 fL 79.0-92.2 MEAN CORPUSCULAR HEMOGLOBIN (BEAKER) (test 28.9 pg 25.7-32.2 atfe=028) MEAN CORPUSCULAR HEMOGLOBIN CONC (BEAKER) (test 33.2 GM/DL 32.3-36.5 ofke=584) RED CELL DISTRIBUTION WIDTH (BEAKER) (test 14.1 % 11.6-14.4 erfk=089) PLATELET COUNT (BEAKER) (test qkfy=270) 10 K/CU MM 150-450 MEAN PLATELET VOLUME (BEAKER) (test enkh=251) 12.8 fL 9.4-12.4 NUCLEATED RED BLOOD CELLS (BEAKER) (test 0 /100 WBC 0-0 vtbl=337) (CELLAVISION MANUAL DIFF)2019-09-27 11:28:00 Test Item Value Reference Range Comments NEUTROPHILS - REL (CELLAVISION)(BEAKER) (test 82 % uiaq=0491) LYMPHOCYTES - REL (CELLAVISION)(BEAKER) (test 9 % cctw=5457) MONOCYTES - REL (CELLAVISION)(BEAKER) (test 3 % zkql=0358) EOSINOPHILS - REL (CELLAVISION)(BEAKER) (test 2 % kkwk=9219) METAMYELOCYTES - REL (CELLAVISION)(BEAKER) (test 1 % 0-0 toxn=9689) BANDS - REL (CELLAVISION)(BEAKER) (test xjah=2907) 3 % 0-10 NEUTROPHILS - ABS (CELLAVISION)(BEAKER) (test 3.77 K/ul 1.78-5.38 zcih=4416) LYMPHOCYTES - ABS (CELLAVISION)(BEAKER) (test 0.41 K/ul 1.32-3.57 wiqc=2384) MONOCYTES - ABS (CELLAVISION)(BEAKER) (test 0.14 K/uL 0.30-0.82 dnld=7412) EOSINOPHILS - ABS (CELLAVISION)(BEAKER) (test 0.09 K/uL 0.04-0.54 mnuw=6236) METAMYELOCYTES - ABS (CELLAVISION)(BEAKER) (test 0.05 K/uL 0.00-0.00 lkxc=9752) BANDS - ABS (CELLAVISION)(BEAKER) (test gpax=4452) 0.14 K/uL 0.00-0.80 TOTAL COUNTED (BEAKER) (test pklc=8441) 100 WBC MORPHOLOGY (BEAKER) (test zcbh=425) Normal PLT MORPHOLOGY (BEAKER) (test wmpc=022) Normal HYPOCHROMIA (BEAKER) (test oagc=336) 1+ few ANISOCYTOSIS (BEAKER) (test ohmt=023) 1+ few MACROCYTES (BEAKER) (test vyly=190) 1+ few POIKILOCYTES (BEAKER) (test ebcr=266) 1+ few OVALOCYTES (BEAKER) (test bcur=214) 1+ few ARTIFACT (CELLAVISION)(BEAKER) (test flii=7593) Present PLATELET CONCENTRATION (CELLAVISION)(BEAKER) (test Decreased pebt=7006) Received comment: User comments: Slide comments:BASIC METABOLIC [id number] 06:07:00 Test Item Value Reference Range Comments SODIUM (BEAKER) (test 137 meq/L 136-145 ppom=014) POTASSIUM (BEAKER) (test 4.4 meq/L 3.5-5.1 Specimen slightly dhwy=332) hemolyzed CHLORIDE (BEAKER) (test 108 meq/L 98-107 ltxu=391) CO2 (BEAKER) (test 24 meq/L 22-29 shop=177) BLOOD UREA NITROGEN 21 mg/dL 7-21 (BEAKER) (test cuvu=292) CREATININE (BEAKER) (test 1.18 mg/dL 0.57-1.25 Specimen slightly irlt=798) hemolyzed GLUCOSE RANDOM (BEAKER) 113 mg/dL 70-105 (test mxow=103) CALCIUM (BEAKER) (test 8.4 mg/dL 8.4-10.2 njow=782) EGFR (BEAKER) (test 61 mL/min/1.73 sq m ESTIMATED GFR IS NOT fgxj=9920) ACCURATE CREATININE CLEARANCE IN PREDICTING GLOMERULAR FILTRATION RATE. ESTIMATED GFR IS NOT APPLICABLE FOR DIALYSIS PATIENTS. CBC W/PLT COUNT & AUTO [id number] 11:26:00 Test Item Value Reference Range Comments WHITE BLOOD CELL COUNT (BEAKER) (test ektc=464) 3.7 K/ L 3.5-10.5 RED BLOOD CELL COUNT (BEAKER) (test lrtk=390) 2.24 M/ L 4.63-6.08 HEMOGLOBIN (BEAKER) (test xnvg=394) 6.5 GM/DL 13.7-17.5 HEMATOCRIT (BEAKER) (test lkhq=343) 19.4 % 40.1-51.0 MEAN CORPUSCULAR VOLUME (BEAKER) (test btdk=567) 86.6 fL 79.0-92.2 MEAN CORPUSCULAR HEMOGLOBIN (BEAKER) (test 29.0 pg 25.7-32.2 rbzs=043) MEAN CORPUSCULAR HEMOGLOBIN CONC (BEAKER) (test 33.5 GM/DL 32.3-36.5 wsel=690) RED CELL DISTRIBUTION WIDTH (BEAKER) (test 13.9 % 11.6-14.4 vgmd=580) PLATELET COUNT (BEAKER) (test skxn=089) 9 K/CU MM 150-450 MEAN PLATELET VOLUME (BEAKER) (test sfzz=417) 11.4 fL 9.4-12.4 NUCLEATED RED BLOOD CELLS (BEAKER) (test 0 /100 WBC 0-0 cycs=697) (CELLAVISION MANUAL DIFF)2019-09-26 11:26:00 Test Item Value Reference Range Comments NEUTROPHILS - REL (CELLAVISION)(BEAKER) (test 83 % cszt=4043) LYMPHOCYTES - REL (CELLAVISION)(BEAKER) (test 12 % myhr=7523) MONOCYTES - REL (CELLAVISION)(BEAKER) (test 3 % nooi=7775) EOSINOPHILS - REL (CELLAVISION)(BEAKER) (test 2 % oqcu=6510) NEUTROPHILS - ABS (CELLAVISION)(BEAKER) (test 3.07 K/ul 1.78-5.38 qtjm=8908) LYMPHOCYTES - ABS (CELLAVISION)(BEAKER) (test 0.44 K/ul 1.32-3.57 qtnl=1607) MONOCYTES - ABS (CELLAVISION)(BEAKER) (test 0.11 K/uL 0.30-0.82 wewg=1128) EOSINOPHILS - ABS (CELLAVISION)(BEAKER) (test 0.07 K/uL 0.04-0.54 kctc=4341) TOTAL COUNTED (BEAKER) (test cwqd=6059) 100 RBC MORPHOLOGY (BEAKER) (test zpbj=248) Normal PLT MORPHOLOGY (BEAKER) (test jtbj=293) Normal TOXIC GRANULATION (BEAKER) (test tgve=424) Present ARTIFACT (CELLAVISION)(BEAKER) (test auvu=4318) Present PLATELET CONCENTRATION (CELLAVISION)(BEAKER) (test Decreased qlaw=6919) Received comment: User comments: Slide comments:BASIC METABOLIC [id number] 06:55:00 Test Item Value Reference Range Comments SODIUM (BEAKER) (test 141 meq/L 136-145 cjsj=943) POTASSIUM (BEAKER) (test 4.1 meq/L 3.5-5.1 cldb=168) CHLORIDE (BEAKER) (test 112 meq/L 98-107 admg=414) CO2 (BEAKER) (test 25 meq/L 22-29 ooje=089) BLOOD UREA NITROGEN 33 mg/dL 7-21 (BEAKER) (test qavp=314) CREATININE (BEAKER) (test 1.23 mg/dL 0.57-1.25 jpje=978) GLUCOSE RANDOM (BEAKER) 112 mg/dL 70-105 (test pcem=425) CALCIUM (BEAKER) (test 8.4 mg/dL 8.4-10.2 hwbg=137) EGFR (BEAKER) (test 58 mL/min/1.73 sq m ESTIMATED GFR IS NOT ikrm=5428) ACCURATE CREATININE CLEARANCE IN PREDICTING GLOMERULAR FILTRATION RATE. ESTIMATED GFR IS NOT APPLICABLE FOR DIALYSIS PATIENTS. CBC W/PLT COUNT & AUTO [id number] 12:12:00 Test Item Value Reference Range Comments WHITE BLOOD CELL COUNT (BEAKER) (test rhnf=409) 4.7 K/ L 3.5-10.5 RED BLOOD CELL COUNT (BEAKER) (test uktn=190) 2.47 M/ L 4.63-6.08 HEMOGLOBIN (BEAKER) (test xqtx=724) 7.0 GM/DL 13.7-17.5 HEMATOCRIT (BEAKER) (test jxia=907) 21.2 % 40.1-51.0 MEAN CORPUSCULAR VOLUME (BEAKER) (test oary=220) 85.8 fL 79.0-92.2 MEAN CORPUSCULAR HEMOGLOBIN (BEAKER) (test 28.3 pg 25.7-32.2 urod=565) MEAN CORPUSCULAR HEMOGLOBIN CONC (BEAKER) (test 33.0 GM/DL 32.3-36.5 lyzw=293) RED CELL DISTRIBUTION WIDTH (BEAKER) (test 13.8 % 11.6-14.4 zkws=002) PLATELET COUNT (BEAKER) (test sasj=161) 11 K/CU MM 150-450 MEAN PLATELET VOLUME (BEAKER) (test zqax=609) 11.2 fL 9.4-12.4 NUCLEATED RED BLOOD CELLS (BEAKER) (test 0 /100 WBC 0-0 gxtt=210) (CELLAVISION MANUAL DIFF)2019-09-25 12:12:00 Test Item Value Reference Range Comments NEUTROPHILS - REL (CELLAVISION)(BEAKER) (test 76 % fbyc=5943) LYMPHOCYTES - REL (CELLAVISION)(BEAKER) (test 18 % ysuj=5879) MONOCYTES - REL (CELLAVISION)(BEAKER) (test 3 % oqqb=4464) EOSINOPHILS - REL (CELLAVISION)(BEAKER) (test 3 % guof=2345) NEUTROPHILS - ABS (CELLAVISION)(BEAKER) (test 3.57 K/ul 1.78-5.38 bzto=7574) LYMPHOCYTES - ABS (CELLAVISION)(BEAKER) (test 0.85 K/ul 1.32-3.57 byud=0571) MONOCYTES - ABS (CELLAVISION)(BEAKER) (test 0.14 K/uL 0.30-0.82 rarv=3378) EOSINOPHILS - ABS (CELLAVISION)(BEAKER) (test 0.14 K/uL 0.04-0.54 lzyt=3579) TOTAL COUNTED (BEAKER) (test gqrj=0058) 100 PLT MORPHOLOGY (BEAKER) (test zwdr=343) Normal SMUDGE CELLS (BEAKER) (test kpph=3459) Present ANISOCYTOSIS (BEAKER) (test zjqk=848) 3+ many MICROCYTES (BEAKER) (test norl=078) 3+ many ARTIFACT (CELLAVISION)(BEAKER) (test aefp=8027) Present PLATELET CONCENTRATION (CELLAVISION)(BEAKER) (test Decreased qvxf=6204) Received comment: User comments: Slide comments:BASIC METABOLIC [id number] 06:13:00 Test Item Value Reference Range Comments SODIUM (BEAKER) (test 139 meq/L 136-145 rftv=142) POTASSIUM (BEAKER) (test 3.9 meq/L 3.5-5.1 sovi=693) CHLORIDE (BEAKER) (test 107 meq/L 98-107 dumt=957) CO2 (BEAKER) (test 26 meq/L 22-29 iejp=767) BLOOD UREA NITROGEN 39 mg/dL 7-21 (BEAKER) (test ogvv=268) CREATININE (BEAKER) (test 1.55 mg/dL 0.57-1.25 xjdw=473) GLUCOSE RANDOM (BEAKER) 114 mg/dL 70-105 (test pulr=663) CALCIUM (BEAKER) (test 8.2 mg/dL 8.4-10.2 xbpe=867) EGFR (BEAKER) (test 45 mL/min/1.73 sq m ESTIMATED GFR IS NOT fksx=7536) ACCURATE CREATININE CLEARANCE IN PREDICTING GLOMERULAR FILTRATION RATE. ESTIMATED GFR IS NOT APPLICABLE FOR DIALYSIS PATIENTS. CBC W/PLT COUNT & AUTO [id number] 10:10:00 Test Item Value Reference Range Comments WHITE BLOOD CELL COUNT (BEAKER) (test yfmy=878) 5.2 K/ L 3.5-10.5 RED BLOOD CELL COUNT (BEAKER) (test mzzk=619) 2.77 M/ L 4.63-6.08 HEMOGLOBIN (BEAKER) (test fxuw=533) 8.1 GM/DL 13.7-17.5 HEMATOCRIT (BEAKER) (test driz=124) 23.5 % 40.1-51.0 MEAN CORPUSCULAR VOLUME (BEAKER) (test zqfj=748) 84.8 fL 79.0-92.2 MEAN CORPUSCULAR HEMOGLOBIN (BEAKER) (test 29.2 pg 25.7-32.2 srsl=870) MEAN CORPUSCULAR HEMOGLOBIN CONC (BEAKER) (test 34.5 GM/DL 32.3-36.5 cxmm=791) RED CELL DISTRIBUTION WIDTH (BEAKER) (test 13.8 % 11.6-14.4 vbaa=565) PLATELET COUNT (BEAKER) (test qsxy=214) 10 K/CU MM 150-450 MEAN PLATELET VOLUME (BEAKER) (test xtyv=929) 10.7 fL 9.4-12.4 NUCLEATED RED BLOOD CELLS (BEAKER) (test 0 /100 WBC 0-0 awei=897) (CELLAVISION MANUAL DIFF)2019-09-24 10:10:00 Test Item Value Reference Range Comments NEUTROPHILS - REL (CELLAVISION)(BEAKER) (test 85 % tzyw=8970) LYMPHOCYTES - REL (CELLAVISION)(BEAKER) (test 11 % jkvc=8337) MONOCYTES - REL (CELLAVISION)(BEAKER) (test 3 % xhbs=9030) METAMYELOCYTES - REL (CELLAVISION)(BEAKER) (test 1 % 0-0 evpt=3755) NEUTROPHILS - ABS (CELLAVISION)(BEAKER) (test 4.42 K/ul 1.78-5.38 xgxg=1809) LYMPHOCYTES - ABS (CELLAVISION)(BEAKER) (test 0.57 K/ul 1.32-3.57 riyy=5662) MONOCYTES - ABS (CELLAVISION)(BEAKER) (test 0.16 K/uL 0.30-0.82 wsmd=8892) METAMYELOCYTES - ABS (CELLAVISION)(BEAKER) (test 0.05 K/uL 0.00-0.00 vpig=0206) TOTAL COUNTED (BEAKER) (test xxzj=5340) 100 PLT MORPHOLOGY (BEAKER) (test ncqh=563) Normal TOXIC GRANULATION (BEAKER) (test fksa=571) Present POIKILOCYTES (BEAKER) (test jgdz=477) 1+ few ARTIFACT (CELLAVISION)(BEAKER) (test eqjd=7630) Present PLATELET CONCENTRATION (CELLAVISION)(BEAKER) (test Decreased cyfw=4040) Received comment: User comments: Slide comments:BASIC METABOLIC [id number] 06:49:00 Test Item Value Reference Range Comments SODIUM (BEAKER) (test 137 meq/L 136-145 zwnc=010) POTASSIUM (BEAKER) (test 4.1 meq/L 3.5-5.1 ddnx=418) CHLORIDE (BEAKER) (test 106 meq/L 98-107 knjp=486) CO2 (BEAKER) (test 26 meq/L 22-29 tfwh=482) BLOOD UREA NITROGEN 36 mg/dL 7-21 (BEAKER) (test exsi=530) CREATININE (BEAKER) (test 1.40 mg/dL 0.57-1.25 rbdt=101) GLUCOSE RANDOM (BEAKER) 112 mg/dL 70-105 (test kfmr=209) CALCIUM (BEAKER) (test 8.4 mg/dL 8.4-10.2 cuyo=350) EGFR (BEAKER) (test 50 mL/min/1.73 sq m ESTIMATED GFR IS NOT ljvd=3634) ACCURATE CREATININE CLEARANCE IN PREDICTING GLOMERULAR FILTRATION RATE. ESTIMATED GFR IS NOT APPLICABLE FOR DIALYSIS PATIENTS. CBC W/PLT COUNT & AUTO [id number] 10:51:00 Test Item Value Reference Range Comments WHITE BLOOD CELL COUNT (BEAKER) (test xgsy=842) 4.8 K/ L 3.5-10.5 RED BLOOD CELL COUNT (BEAKER) (test drye=770) 2.49 M/ L 4.63-6.08 HEMOGLOBIN (BEAKER) (test twid=232) 7.1 GM/DL 13.7-17.5 HEMATOCRIT (BEAKER) (test jlfg=501) 21.0 % 40.1-51.0 MEAN CORPUSCULAR VOLUME (BEAKER) (test lwkv=047) 84.3 fL 79.0-92.2 MEAN CORPUSCULAR HEMOGLOBIN (BEAKER) (test 28.5 pg 25.7-32.2 vtsn=240) MEAN CORPUSCULAR HEMOGLOBIN CONC (BEAKER) (test 33.8 GM/DL 32.3-36.5 hmhc=035) RED CELL DISTRIBUTION WIDTH (BEAKER) (test 13.6 % 11.6-14.4 ksxh=530) PLATELET COUNT (BEAKER) (test edfa=612) 14 K/CU MM 150-450 MEAN PLATELET VOLUME (BEAKER) (test sfky=301) 11.8 fL 9.4-12.4 NUCLEATED RED BLOOD CELLS (BEAKER) (test 0 /100 WBC 0-0 plmg=377) (CELLAVISION MANUAL DIFF)2019-09-23 10:51:00 Test Item Value Reference Range Comments NEUTROPHILS - REL (CELLAVISION)(BEAKER) (test 83 % zsob=9992) LYMPHOCYTES - REL (CELLAVISION)(BEAKER) (test 11 % wbqr=9990) MONOCYTES - REL (CELLAVISION)(BEAKER) (test 5 % pyjl=5431) EOSINOPHILS - REL (CELLAVISION)(BEAKER) (test 1 % tuqq=8288) NEUTROPHILS - ABS (CELLAVISION)(BEAKER) (test 3.98 K/ul 1.78-5.38 owzh=0769) LYMPHOCYTES - ABS (CELLAVISION)(BEAKER) (test 0.53 K/ul 1.32-3.57 snpk=4450) MONOCYTES - ABS (CELLAVISION)(BEAKER) (test 0.24 K/uL 0.30-0.82 mwld=5637) EOSINOPHILS - ABS (CELLAVISION)(BEAKER) (test 0.05 K/uL 0.04-0.54 nwus=8671) TOTAL COUNTED (BEAKER) (test gnuu=6281) 100 WBC MORPHOLOGY (BEAKER) (test fupz=908) Normal PLT MORPHOLOGY (BEAKER) (test lnqp=381) Normal ANISOCYTOSIS (BEAKER) (test lcao=347) 1+ few MICROCYTES (BEAKER) (test slfy=452) 1+ few ARTIFACT (CELLAVISION)(BEAKER) (test giyt=0345) Present PLATELET CONCENTRATION (CELLAVISION)(BEAKER) (test Decreased paxa=6290) Received comment: User comments: Slide comments:BASIC METABOLIC [id number] 09:26:00 Test Item Value Reference Range Comments SODIUM (BEAKER) (test 139 meq/L 136-145 ahfn=096) POTASSIUM (BEAKER) (test 3.9 meq/L 3.5-5.1 yvju=129) CHLORIDE (BEAKER) (test 106 meq/L 98-107 pxdc=837) CO2 (BEAKER) (test 27 meq/L 22-29 zxgl=110) BLOOD UREA NITROGEN 38 mg/dL 7-21 (BEAKER) (test qqsb=137) CREATININE (BEAKER) (test 1.38 mg/dL 0.57-1.25 sxeu=625) GLUCOSE RANDOM (BEAKER) 128 mg/dL 70-105 (test fbxh=040) CALCIUM (BEAKER) (test 8.6 mg/dL 8.4-10.2 dxgo=266) EGFR (BEAKER) (test 51 mL/min/1.73 sq m ESTIMATED GFR IS NOT andq=0168) ACCURATE CREATININE CLEARANCE IN PREDICTING GLOMERULAR FILTRATION RATE. ESTIMATED GFR IS NOT APPLICABLE FOR DIALYSIS PATIENTS. BASIC METABOLIC [id number] 07:06:00 Test Item Value Reference Range Comments SODIUM (BEAKER) (test 138 meq/L 136-145 anez=194) POTASSIUM (BEAKER) (test 3.8 meq/L 3.5-5.1 xrmo=508) CHLORIDE (BEAKER) (test 106 meq/L 98-107 vrrt=607) CO2 (BEAKER) (test 24 meq/L 22-29 sqjv=394) BLOOD UREA NITROGEN 39 mg/dL 7-21 (BEAKER) (test ehzy=965) CREATININE (BEAKER) (test 1.34 mg/dL 0.57-1.25 sbsc=348) GLUCOSE RANDOM (BEAKER) 94 mg/dL 70-105 (test pdge=934) CALCIUM (BEAKER) (test 8.4 mg/dL 8.4-10.2 xtrh=991) EGFR (BEAKER) (test 53 mL/min/1.73 sq m ESTIMATED GFR IS NOT drqp=5842) ACCURATE CREATININE CLEARANCE IN PREDICTING GLOMERULAR FILTRATION RATE. ESTIMATED GFR IS NOT APPLICABLE FOR DIALYSIS PATIENTS. CBC (HEMOGRAM ONLY)2019-09-22 07:05:00 Test Item Value Reference Range Comments WHITE BLOOD CELL COUNT (BEAKER) (test jlsy=983) 4.7 K/ L 3.5-10.5 RED BLOOD CELL COUNT (BEAKER) (test dkvg=536) 2.61 M/ L 4.63-6.08 HEMOGLOBIN (BEAKER) (test beuc=343) 7.6 GM/DL 13.7-17.5 HEMATOCRIT (BEAKER) (test fuyp=222) 22.1 % 40.1-51.0 MEAN CORPUSCULAR VOLUME (BEAKER) (test kwoq=404) 84.7 fL 79.0-92.2 MEAN CORPUSCULAR HEMOGLOBIN (BEAKER) (test 29.1 pg 25.7-32.2 bjdc=322) MEAN CORPUSCULAR HEMOGLOBIN CONC (BEAKER) (test 34.4 GM/DL 32.3-36.5 ksnq=510) RED CELL DISTRIBUTION WIDTH (BEAKER) (test 14.0 % 11.6-14.4 gphy=772) PLATELET COUNT (BEAKER) (test pahw=270) 17 K/CU MM 150-450 MEAN PLATELET VOLUME (BEAKER) (test jpzo=037) 11.5 fL 9.4-12.4 NUCLEATED RED BLOOD CELLS (BEAKER) (test 0 /100 WBC 0-0 ihlw=834) B-TYPE NATRIURETIC FACTOR (BNP)2019-09-22 07:00:00 Test Item Value Reference Range Comments B-TYPE NATRIURETIC PEPTIDE (BEAKER) (test 137 pg/mL 0-100 mkeo=243) CBC W/PLT COUNT & AUTO [id number] 09:00:00 Test Item Value Reference Range Comments WHITE BLOOD CELL COUNT 4.3 K/ L 3.5-10.5 (BEAKER) (test hfqd=783) RED BLOOD CELL COUNT (BEAKER) 2.27 M/ L 4.63-6.08 (test tkws=038) HEMOGLOBIN (BEAKER) (test 6.6 GM/DL 13.7-17.5 reae=993) HEMATOCRIT (BEAKER) (test 19.4 % 40.1-51.0 tijd=922) MEAN CORPUSCULAR VOLUME 85.5 fL 79.0-92.2 (BEAKER) (test ekni=114) MEAN CORPUSCULAR HEMOGLOBIN 29.1 pg 25.7-32.2 (BEAKER) (test dlrd=923) MEAN CORPUSCULAR HEMOGLOBIN 34.0 GM/DL 32.3-36.5 CONC (BEAKER) (test giei=157) RED CELL DISTRIBUTION WIDTH 13.5 % 11.6-14.4 (BEAKER) (test wmyq=434) PLATELET COUNT (BEAKER) (test 30 K/CU MM 150-450 Discordant PLT results qcjg=686) compared to previous results; clinical correlation required. MEAN PLATELET VOLUME (BEAKER) 10.8 fL 9.4-12.4 (test edqp=096) NUCLEATED RED BLOOD CELLS 0 /100 WBC 0-0 (BEAKER) (test aaac=806) (CELLAVISION MANUAL DIFF)2019-09-21 09:00:00 Test Item Value Reference Range Comments NEUTROPHILS - REL (CELLAVISION)(BEAKER) (test 73 % opaa=8334) LYMPHOCYTES - REL (CELLAVISION)(BEAKER) (test 18 % iwfm=4801) MONOCYTES - REL (CELLAVISION)(BEAKER) (test 8 % ujbt=7986) EOSINOPHILS - REL (CELLAVISION)(BEAKER) (test 1 % sxqd=7021) NEUTROPHILS - ABS (CELLAVISION)(BEAKER) (test 3.14 K/ul 1.78-5.38 plkd=6821) LYMPHOCYTES - ABS (CELLAVISION)(BEAKER) (test 0.77 K/ul 1.32-3.57 syud=3610) MONOCYTES - ABS (CELLAVISION)(BEAKER) (test 0.34 K/uL 0.30-0.82 uwgn=4113) EOSINOPHILS - ABS (CELLAVISION)(BEAKER) (test 0.04 K/uL 0.04-0.54 fbme=8617) TOTAL COUNTED (BEAKER) (test yahw=5353) 100 WBC MORPHOLOGY (BEAKER) (test scbd=078) Normal PLT MORPHOLOGY (BEAKER) (test vrdy=571) Normal ANISOCYTOSIS (BEAKER) (test sdma=306) 2+ moderate MICROCYTES (BEAKER) (test hosx=273) 2+ moderate ARTIFACT (CELLAVISION)(BEAKER) (test wgdl=6402) Present PLATELET CONCENTRATION (CELLAVISION)(BEAKER) Decreased (test wqvh=5591) Received comment: User comments: Slide comments:BASIC METABOLIC [id number] 04:47:00 Test Item Value Reference Range Comments SODIUM (BEAKER) (test 139 meq/L 136-145 qkxk=561) POTASSIUM (BEAKER) (test 3.9 meq/L 3.5-5.1 lmfi=253) CHLORIDE (BEAKER) (test 105 meq/L 98-107 jdkx=503) CO2 (BEAKER) (test 27 meq/L 22-29 grmx=125) BLOOD UREA NITROGEN 43 mg/dL 7-21 (BEAKER) (test qddz=246) CREATININE (BEAKER) (test 1.30 mg/dL 0.57-1.25 ncwc=748) GLUCOSE RANDOM (BEAKER) 116 mg/dL 70-105 (test jhwy=703) CALCIUM (BEAKER) (test 8.7 mg/dL 8.4-10.2 gzvb=624) EGFR (BEAKER) (test 55 mL/min/1.73 sq m ESTIMATED GFR IS NOT hlga=8820) ACCURATE CREATININE CLEARANCE IN PREDICTING GLOMERULAR FILTRATION RATE. ESTIMATED GFR IS NOT APPLICABLE FOR DIALYSIS PATIENTS. COMPREHENSIVE METABOLIC [id number] 07:19:00 Test Item Value Reference Range Comments TOTAL PROTEIN (BEAKER) 6.2 gm/dL 6.0-8.3 (test mtne=764) ALBUMIN (BEAKER) (test 3.9 g/dL 3.5-5.0 lnyf=2267) ALKALINE PHOSPHATASE 70 U/L 40-150 (BEAKER) (test rvkz=714) BILIRUBIN TOTAL (BEAKER) 1.2 mg/dL 0.2-1.2 (test cupk=676) SODIUM (BEAKER) (test 138 meq/L 136-145 ecme=829) POTASSIUM (BEAKER) (test 3.7 meq/L 3.5-5.1 ztwd=931) CHLORIDE (BEAKER) (test 104 meq/L 98-107 tahb=288) CO2 (BEAKER) (test 27 meq/L 22-29 rowf=901) BLOOD UREA NITROGEN 46 mg/dL 7-21 (BEAKER) (test wfep=073) CREATININE (BEAKER) (test 1.44 mg/dL 0.57-1.25 jils=612) GLUCOSE RANDOM (BEAKER) 117 mg/dL 70-105 (test sppj=910) CALCIUM (BEAKER) (test 8.9 mg/dL 8.4-10.2 inpk=817) AST (SGOT) (BEAKER) (test 10 U/L 5-34 szhp=442) ALT (SGPT) (BEAKER) (test 22 U/L 6-55 edie=663) EGFR (BEAKER) (test 48 mL/min/1.73 sq m ESTIMATED GFR IS NOT gabt=5262) ACCURATE CREATININE CLEARANCE IN PREDICTING GLOMERULAR FILTRATION RATE. ESTIMATED GFR IS NOT APPLICABLE FOR DIALYSIS PATIENTS. CBC (HEMOGRAM ONLY)2019-09-20 06:24:00 Test Item Value Reference Range Comments WHITE BLOOD CELL COUNT (BEAKER) (test edir=011) 4.9 K/ L 3.5-10.5 RED BLOOD CELL COUNT (BEAKER) (test wzdy=813) 2.48 M/ L 4.63-6.08 HEMOGLOBIN (BEAKER) (test wfbb=668) 7.2 GM/DL 13.7-17.5 HEMATOCRIT (BEAKER) (test gykz=302) 21.4 % 40.1-51.0 MEAN CORPUSCULAR VOLUME (BEAKER) (test vlpu=168) 86.3 fL 79.0-92.2 MEAN CORPUSCULAR HEMOGLOBIN (BEAKER) (test 29.0 pg 25.7-32.2 xbre=860) MEAN CORPUSCULAR HEMOGLOBIN CONC (BEAKER) (test 33.6 GM/DL 32.3-36.5 tztq=718) RED CELL DISTRIBUTION WIDTH (BEAKER) (test 13.5 % 11.6-14.4 kksj=388) PLATELET COUNT (BEAKER) (test yrsg=798) 18 K/CU MM 150-450 MEAN PLATELET VOLUME (BEAKER) (test ephj=995) 11.3 fL 9.4-12.4 NUCLEATED RED BLOOD CELLS (BEAKER) (test 0 /100 WBC 0-0 xroq=558) FLOW CYTOMETRY [id number] 19:44:00 Test Item Value Reference Range Comments FLOW CYTOMETRY RESULT POINTER (BEAKER) See Separate Report (test mjkl=3556) FLOW CYTOMETRY AP CASE # (BEAKER) (test [id number] zzkr=4073) FLOW [id number] 17:14:00Flow Cytometry Report Case: [id number] Authorizing Provider: Akiko Doss, Collected: 09/19/2019 1115 MD OrderingLocation: [address] Received: 2018 1220 Service Pathologist: Maria Esther Hemphill MD Specimen: Other BONE MARROW, FLOW CYTOMETRY:- INCREASED, ABERRANT CD34+ MYELOBLAST POPULATION (APPROXIMATELY 14% OF TOTAL CELLS)-INCREASED, ABERRANT CD34-, CD117+ IMMATURE POPULATION (APPROXIMATELY 18.3 % OF TOTAL CELLS)-NO MONOTYPIC B CELLPOPULATION-NO ABERRANT T CELL POPULATION- SEE COMMENT The CD117+ CD34 negative population may represent an immature erythroid population (see immunophenotypic findings for full description). These results would support involvement by a high grade myeloid neoplasm, either high grade myelodysplastic syndrome (MDS) or acute myeloid leukemia. As flow cytometric blast counts may be altered by hemodilution and/or lysis of erythroid precursors , these results require correlation with the morphologic and other features for definitive diagnosis - see [id number] for correlation with the bone marrow findings. Results discussed with on 09/19/2019. [id number]; also history of HTN, AAA repair, CAD s/p stents x 2Bone marrowCD8, surface-[place], CD56, surface-Lambda, CD5, CD19, CD10, CD3, CD20, CD4, CD45, CD14, CD13, CD33, CD117, CD34, cKappa, cLambda, CD38, CD138, cytoplasmic (c) MPO, cCD79a, CD7, cCD3, CD16, CD11b, CD36, CD64, HLA-DR, cTdT, [id number] Viability: 89.9% Number of Events Acquired: [id number], aberrant myeloblast population identified (14% of cellularity)POSITIVE: dim CD45, CD34, CD117, CD13, CD33, CD7 (partial), [id number]: CD19, CD14, CD3 (surface and cytoplasmic), CD5, cCD79a , cMPO, HLA-DR, CD16, CD11b, cTdT, CD56 In addition, the following populations are identified: Blasts: the increased, aberrant myeloblast population is described above. Also present is a CD117+ (18.3% of total events) CD34 negative , CD45 dim to negative, CD36+, CD13 negative, CD33 negative, CD7 negative, HLA- DR negative population which may represent an immature erythroid population. Lymphocytes: Bright CD45+ lymphocytes comprise 10.7% of total cells. T cells show a CD4:CD8 ratio of 1.7 and normal expression of the [place] T cell antigens CD3 and CD5. B cells are polytypic with a kappa:lambda ratio of 1.5. Myeloid/ monocytic populations: As identified by CD45 and light scatter characteristics, granulocytes comprise the 29% of cells analyzed, and monocytes comprise 2.0% of total cells. Plasma cells: 0.4% CD138 positive plasma cells are noted with polytypic cytoplasmic light chain expression. The remaining events analyzed represent nonviable cells, non-hematolymphoid cells, and debrisThese tests were developedand their performance characteristics determined by [facility]. They have notbeen cleared or approved by the U.[place]. Food and Drug Administration. The FDA has determined that such clearance or approval is not necessary. It should not be regarded as investigational or for research.This laboratory is certified under the Clinical Laboratory Improvement Amendments of 1988 ("CLIA") as qualified to perform high-complexity clinical testing.[facility], Department of Pathology, [address] [place] [address], [place] [address], [facility] MARROW PROCESS.2019-09-19 12:01: 00 Test Item Value Reference Range Comments ANATOMIC CASE# (BEAKER) (test qxsa=6651) [id number] ORDERED BY DOCTOR# (BEAKER) (test ihfv=8782) Walsh Shirley PERFORMED BY DOCTOR# (BEAKER) (test iaoe=8258) Dominguez CLOT RECEIVED? (BEAKER) (test wiah=8511) Yes BIOPSY RECEIVED? (BEAKER) (test lrgw=5393) Yes CULTURE RECEIVED? (BEAKER) (test pqft=7575) No FLOW RECEIVED? (BEAKER) (test xdnr=3997) Yes CYTOGENICS? (BEAKER) (test ghor=7402) Yes MOLECULAR GENETICS? (BEAKER) (test izqi=7987) Yes Good collection by Dr Mix. Slides are great(Moira).BASIC METABOLIC [id number] 07:40:00 Test Item Value Reference Range Comments SODIUM (BEAKER) (test 137 meq/L 136-145 yyal=985) POTASSIUM (BEAKER) (test 4.1 meq/L 3.5-5.1 aghe=035) CHLORIDE (BEAKER) (test 103 meq/L 98-107 rrwn=442) CO2 (BEAKER) (test 25 meq/L 22-29 eujw=779) BLOOD UREA NITROGEN 47 mg/dL 7-21 (BEAKER) (test envw=677) CREATININE (BEAKER) (test 1.43 mg/dL 0.57-1.25 ozji=751) GLUCOSE RANDOM (BEAKER) 138 mg/dL 70-105 (test zfjp=875) CALCIUM (BEAKER) (test 8.9 mg/dL 8.4-10.2 qvfp=130) EGFR (BEAKER) (test 49 mL/min/1.73 sq m ESTIMATED GFR IS NOT kncy=3951) ACCURATE CREATININE CLEARANCE IN PREDICTING GLOMERULAR FILTRATION RATE. ESTIMATED GFR IS NOT APPLICABLE FOR DIALYSIS PATIENTS. CBC (HEMOGRAM ONLY)2019-09-19 06:02:00 Test Item Value Reference Range Comments WHITE BLOOD CELL COUNT (BEAKER) (test alxs=976) 3.9 K/ L 3.5-10.5 RED BLOOD CELL COUNT (BEAKER) (test qakc=579) 2.48 M/ L 4.63-6.08 HEMOGLOBIN (BEAKER) (test barw=832) 7.3 GM/DL 13.7-17.5 HEMATOCRIT (BEAKER) (test hlge=072) 21.2 % 40.1-51.0 MEAN CORPUSCULAR VOLUME (BEAKER) (test dqun=982) 85.5 fL 79.0-92.2 MEAN CORPUSCULAR HEMOGLOBIN (BEAKER) (test 29.4 pg 25.7-32.2 ojap=194) MEAN CORPUSCULAR HEMOGLOBIN CONC (BEAKER) (test 34.4 GM/DL 32.3-36.5 mylh=399) RED CELL DISTRIBUTION WIDTH (BEAKER) (test 13.7 % 11.6-14.4 evjc=746) PLATELET COUNT (BEAKER) (test wxxj=968) 21 K/CU MM 150-450 MEAN PLATELET VOLUME (BEAKER) (test edzt=682) 11.2 fL 9.4-12.4 NUCLEATED RED BLOOD CELLS (BEAKER) (test 0 /100 WBC 0-0 uosv=009) TISSUE [id number] 17:16:00Surgical Pathology Report Case: [id number] Authorizing Provider: Radha Boone MD Collected: 09/15/2019 1000 Ordering Location: [address] Received: 09/15/2019 1502 Service Pathologist: Sylvia Amaro MD Specimens: A) - Biopsy, Gastric, Gastric Body and Antrum Bx B) -Cecum, Cecum Ulcer Bx A. STOMACH, BODY ANDANTRUM, BIOPSY: - FOCAL INTESTINAL METAPLASIA - CHRONIC INACTIVE GASTRITIS WITH FOCAL ACTIVITY (SEE COMMENT) - FEATURES SUGGESTIVE OF REACTIVE GASTROPATHY - NEGATIVE FOR DEFINITIVE HELICOBACTER BY WARTHIN- STARRY STAIN AND IMMUNOHISTOCHEMISTRYB. CECUM, ULCER, BIOPSY: - ACUTE COLITISWITH ULCERATION, AND FEATURES SUGGESTIVE OF ISCHEMIC TYPE CHANGES ( SEE COMMENT) - ADJACENTCOLONIC MUCOSA WITH EDEMA AND REACTIVE CHANGES Signing Pathologist Direct Phone Line: [phone] signed by Sylvia Amaro MD on 09/18/2019 at 5:16 PMPreliminary result electronically signed by Sylvia Amaro MD on 09/17/2019 at 6:17 PMA. Due to the presence of intestinal metaplasia,additional immunostains were performed to evaluate for atrophic gastritis. Immunostains for gastrin,synaptophysin and chromogranin highlight mainly the G cells, compatible with predominantly antrum sampling. No diagnostic features of metaplastic atrophic gastritis are seen. B. The findings are not specific. Clinical correlation is recommended. Additionally, an immunostain for CMV is negative. 75145 X 2, 05310, 91610 X 2, 06566 X 3Anemia, unspecified type Received in two parts. A. Gastric body and antrum biopsy; B. Cecum ulcer biopsy A. Received in formalin labeled with the patient's name, accession number and "biopsy, gastric" are two irregular daugherty soft-tissue fragments measuring 0.3 cm and 0.2 cm which are submitted in toto in A1. B. Received in formalin labeled with the patient's name, accession number and "cecum" are three irregular daugherty soft-tissue fragments ranging 0.1-0.3 cm which are submitted in toto in B1. CG/bc Performed.The interpretation of this case included the use of immunohistochemistry or special stains.Warthin-StarMoira see the immunohistochemistry results in the COMMENT section. Control Slides Examined: In-house known positive controls were evaluated along withthe test tissue. These control slides run alongside of the patients sample show appropriate staining. Internal positive and negative controls when available are evaluated Immunohistochemistry technical testing was performed at [facility], Pathology Laboratory where it was developed and its performance characteristics were determined. It has not been cleared or approved by the U.S. Food and Drug Administration. The FDA has determined that such clearance or approval is not necessary. The test is used for clinical purposes. It should not be regarded as investigational or for research. This laboratory is certified under the Clinical Laboratory Improvement Amendments of 1988 (CLIA-88) as qualified to perform high complexity clinical laboratory testing.HEMOGLOBIN [id number] 07:46:00 Test Item Value Reference Range Comments HEMOGLOBIN A1C (BEAKER) (test ldsd=341) 6.9 % 4.3-6.1 BASIC METABOLIC [id number] 06:44:00 Test Item Value Reference Range Comments SODIUM (BEAKER) (test 138 meq/L 136-145 tafi=782) POTASSIUM (BEAKER) (test 3.7 meq/L 3.5-5.1 zzvu=888) CHLORIDE (BEAKER) (test 102 meq/L 98-107 jrst=438) CO2 (BEAKER) (test 27 meq/L 22-29 lulo=483) BLOOD UREA NITROGEN 42 mg/dL 7-21 (BEAKER) (test uarg=318) CREATININE (BEAKER) (test 1.54 mg/dL 0.57-1.25 gfye=515) GLUCOSE RANDOM (BEAKER) 116 mg/dL 70-105 (test xkwk=245) CALCIUM (BEAKER) (test 9.1 mg/dL 8.4-10.2 rswp=937) EGFR (BEAKER) (test 45 mL/min/1.73 sq m ESTIMATED GFR IS NOT bqwn=1974) ACCURATE CREATININE CLEARANCE IN PREDICTING GLOMERULAR FILTRATION RATE. ESTIMATED GFR IS NOT APPLICABLE FOR DIALYSIS PATIENTS. CBC (HEMOGRAM ONLY)2019-09-18 06:09:00 Test Item Value Reference Range Comments WHITE BLOOD CELL COUNT (BEAKER) (test sifn=103) 4.9 K/ L 3.5-10.5 RED BLOOD CELL COUNT (BEAKER) (test lxaj=591) 2.46 M/ L 4.63-6.08 HEMOGLOBIN (BEAKER) (test usmr=373) 7.2 GM/DL 13.7-17.5 HEMATOCRIT (BEAKER) (test sgnn=520) 21.3 % 40.1-51.0 MEAN CORPUSCULAR VOLUME (BEAKER) (test mqmz=228) 86.6 fL 79.0-92.2 MEAN CORPUSCULAR HEMOGLOBIN (BEAKER) (test 29.3 pg 25.7-32.2 bedd=331) MEAN CORPUSCULAR HEMOGLOBIN CONC (BEAKER) (test 33.8 GM/DL 32.3-36.5 sfah=035) RED CELL DISTRIBUTION WIDTH (BEAKER) (test 13.7 % 11.6-14.4 xcjg=333) PLATELET COUNT (BEAKER) (test bqwy=780) 24 K/CU MM 150-450 MEAN PLATELET VOLUME (BEAKER) (test iipx=928) 10.7 fL 9.4-12.4 NUCLEATED RED BLOOD CELLS (BEAKER) (test 0 /100 WBC 0-0 aamq=565) HEMOGLOBIN AND [id number] 10:27:00 Test Item Value Reference Range Comments HEMOGLOBIN (BEAKER) (test pqjr=573) 7.4 GM/DL 13.7-17.5 HEMATOCRIT (BEAKER) (test dcjv=131) 21.9 % 40.1-51.0 BASIC METABOLIC [id number] 07:15:00 Test Item Value Reference Range Comments SODIUM (BEAKER) (test 140 meq/L 136-145 momu=447) POTASSIUM (BEAKER) (test 3.8 meq/L 3.5-5.1 bdts=260) CHLORIDE (BEAKER) (test 105 meq/L 98-107 mewj=811) CO2 (BEAKER) (test 28 meq/L 22-29 ygnr=492) BLOOD UREA NITROGEN 28 mg/dL 7-21 (BEAKER) (test hnok=509) CREATININE (BEAKER) (test 1.26 mg/dL 0.57-1.25 grce=692) GLUCOSE RANDOM (BEAKER) 112 mg/dL 70-105 (test xyfm=923) CALCIUM (BEAKER) (test 8.9 mg/dL 8.4-10.2 ipbk=965) EGFR (BEAKER) (test 57 mL/min/1.73 sq m ESTIMATED GFR IS NOT zezc=1656) ACCURATE CREATININE CLEARANCE IN PREDICTING GLOMERULAR FILTRATION RATE. ESTIMATED GFR IS NOT APPLICABLE FOR DIALYSIS PATIENTS. CBC (HEMOGRAM ONLY)2019-09-17 06:30:00 Test Item Value Reference Range Comments WHITE BLOOD CELL COUNT (BEAKER) (test fnws=258) 4.9 K/ L 3.5-10.5 RED BLOOD CELL COUNT (BEAKER) (test hdtu=703) 2.28 M/ L 4.63-6.08 HEMOGLOBIN (BEAKER) (test yoov=326) 6.8 GM/DL 13.7-17.5 HEMATOCRIT (BEAKER) (test bjdw=708) 19.8 % 40.1-51.0 MEAN CORPUSCULAR VOLUME (BEAKER) (test shkm=474) 86.8 fL 79.0-92.2 MEAN CORPUSCULAR HEMOGLOBIN (BEAKER) (test 29.8 pg 25.7-32.2 dwii=417) MEAN CORPUSCULAR HEMOGLOBIN CONC (BEAKER) (test 34.3 GM/DL 32.3-36.5 qflr=309) RED CELL DISTRIBUTION WIDTH (BEAKER) (test 13.9 % 11.6-14.4 cjtk=672) PLATELET COUNT (BEAKER) (test olwf=810) 30 K/CU MM 150-450 MEAN PLATELET VOLUME (BEAKER) (test cczu=376) 10.2 fL 9.4-12.4 NUCLEATED RED BLOOD CELLS (BEAKER) (test 0 /100 WBC 0-0 cuxn=780) B-TYPE NATRIURETIC FACTOR (BNP)2019-09-17 06:18:00 Test Item Value Reference Range Comments B-TYPE NATRIURETIC PEPTIDE (BEAKER) (test 306 pg/mL 0-100 zgpj=043) CBC W/PLT COUNT & AUTO [id number] 13:26:00 Test Item Value Reference Range Comments WHITE BLOOD CELL COUNT (BEAKER) (test vqkz=038) 4.2 K/ L 3.5-10.5 RED BLOOD CELL COUNT (BEAKER) (test nxta=698) 2.46 M/ L 4.63-6.08 HEMOGLOBIN (BEAKER) (test hfrm=978) 7.2 GM/DL 13.7-17.5 HEMATOCRIT (BEAKER) (test covz=458) 20.9 % 40.1-51.0 MEAN CORPUSCULAR VOLUME (BEAKER) (test ndbm=177) 85.0 fL 79.0-92.2 MEAN CORPUSCULAR HEMOGLOBIN (BEAKER) (test 29.3 pg 25.7-32.2 jlvr=806) MEAN CORPUSCULAR HEMOGLOBIN CONC (BEAKER) (test 34.4 GM/DL 32.3-36.5 gcqy=058) RED CELL DISTRIBUTION WIDTH (BEAKER) (test 13.8 % 11.6-14.4 dpji=843) PLATELET COUNT (BEAKER) (test egzh=668) 37 K/CU MM 150-450 MEAN PLATELET VOLUME (BEAKER) (test edcm=675) 10.2 fL 9.4-12.4 NUCLEATED RED BLOOD CELLS (BEAKER) (test 0 /100 WBC 0-0 ixdp=635) (CELLAVISION MANUAL DIFF)2019-09-16 13:26:00 Test Item Value Reference Range Comments NEUTROPHILS - REL (CELLAVISION)(BEAKER) (test 87 % neoq=7466) LYMPHOCYTES - REL (CELLAVISION)(BEAKER) (test 6 % naux=1067) MONOCYTES - REL (CELLAVISION)(BEAKER) (test 5 % woiv=8779) ATYPICAL LYMPHOCYTES - REL (CELLAVISION)(BEAKER) 2 % 0-0 (test tcyx=0716) NEUTROPHILS - ABS (CELLAVISION)(BEAKER) (test 3.65 K/ul 1.78-5.38 fdwq=9579) LYMPHOCYTES - ABS (CELLAVISION)(BEAKER) (test 0.25 K/ul 1.32-3.57 aszn=5050) MONOCYTES - ABS (CELLAVISION)(BEAKER) (test 0.21 K/uL 0.30-0.82 apjo=6576) ATYPICAL LYMPHOCYTES - ABS (CELLAVISION)(BEAKER) 0.08 K/uL 0.00-0.00 (test ixrq=9471) TOTAL COUNTED (BEAKER) (test sozs=2249) 100 WBC MORPHOLOGY (BEAKER) (test tijl=725) Normal PLT MORPHOLOGY (BEAKER) (test lnez=410) Normal POLYCHROMATOPHILLIC RBCS(BEAKER) (test nwpo=517) 1+ few ARTIFACT (CELLAVISION)(BEAKER) (test nfyj=9438) Present PLATELET CONCENTRATION (CELLAVISION)(BEAKER) (test Decreased zyzu=0223) Received comment: User comments: Slide comments:POCT-GLUCOSE [id number] 11: 04:00 Test Item Value Reference Range Comments POC-GLUCOSE METER (BEAKER) 100 mg/dL 70-110 : TESTED AT [address] (test mmps=3997) [facility], [address]: Bankruptcy Assistant/Button Facing Machine Operator SJ=[id number] for JENNIFER ANNHA POCT-GLUCOSE [id number] 09:20:00 Test Item Value Reference Range Comments POC-GLUCOSE METER (BEAKER) 116 mg/dL 70-110 : TESTED AT [place] [id number] [facility] (test vglm=7834) [facility], [address]: Bankruptcy Assistant/Button Facing Machine Operator KQ=[id number] for RODRÍGUEZ QUINN PERIPHERAL BLOOD SMEAR - PATHOLOGIST [id number] 09:10:00 Test Item Value Reference Range Comments PERIPHERAL SMR REVIEW No circulating blasts. No (BEAKER) (test yukz=2284) significantly increased schistocytes. [id number] Andrew Almaraz, (BEAKER) (test vatf=1276) Lorenzo(electronic signature) BASIC METABOLIC [id number] 07:02:00 Test Item Value Reference Range Comments SODIUM (BEAKER) (test 136 meq/L 136-145 yney=833) POTASSIUM (BEAKER) (test 4.3 meq/L 3.5-5.1 ahip=410) CHLORIDE (BEAKER) (test 105 meq/L 98-107 sydm=256) CO2 (BEAKER) (test 26 meq/L 22-29 zqfv=917) BLOOD UREA NITROGEN 22 mg/dL 7-21 (BEAKER) (test lucp=494) CREATININE (BEAKER) (test 1.23 mg/dL 0.57-1.25 lypd=921) GLUCOSE RANDOM (BEAKER) 107 mg/dL 70-105 (test ufpe=991) CALCIUM (BEAKER) (test 8.7 mg/dL 8.4-10.2 tfsg=671) EGFR (BEAKER) (test 58 mL/min/1.73 sq m ESTIMATED GFR IS NOT ubzc=4174) ACCURATE CREATININE CLEARANCE IN PREDICTING GLOMERULAR FILTRATION RATE. ESTIMATED GFR IS NOT APPLICABLE FOR DIALYSIS PATIENTS. B-TYPE NATRIURETIC FACTOR (BNP)2019-09-15 06:51:00 Test Item Value Reference Range Comments B-TYPE NATRIURETIC PEPTIDE (BEAKER) (test 338 pg/mL 0-100 goiu=384) CBC (HEMOGRAM ONLY)2019-09-15 05:13:00 Test Item Value Reference Range Comments WHITE BLOOD CELL COUNT (BEAKER) (test pbka=605) 4.6 K/ L 3.5-10.5 RED BLOOD CELL COUNT (BEAKER) (test zpmx=190) 2.37 M/ L 4.63-6.08 HEMOGLOBIN (BEAKER) (test hvuc=445) 7.1 GM/DL 13.7-17.5 HEMATOCRIT (BEAKER) (test loag=792) 20.2 % 40.1-51.0 MEAN CORPUSCULAR VOLUME (BEAKER) (test swcr=424) 85.2 fL 79.0-92.2 MEAN CORPUSCULAR HEMOGLOBIN (BEAKER) (test 30.0 pg 25.7-32.2 fehi=074) MEAN CORPUSCULAR HEMOGLOBIN CONC (BEAKER) (test 35.1 GM/DL 32.3-36.5 cagx=781) RED CELL DISTRIBUTION WIDTH (BEAKER) (test 14.1 % 11.6-14.4 kecb=955) PLATELET COUNT (BEAKER) (test keuu=678) 50 K/CU MM 150-450 MEAN PLATELET VOLUME (BEAKER) (test jptr=229) 10.1 fL 9.4-12.4 NUCLEATED RED BLOOD CELLS (BEAKER) (test 0 /100 WBC 0-0 iopk=830) RAD, CHEST, 1 VIEW, NON [id number] 14:17:00Reason for exam:->sobShould this be performed at the bedside?->YesFINAL REPORT Exam: Chest radiograph Clinical History: Shortness of breath COMPARISON: November 06, 2018 Findings: The cardiomediastinal silhouette and lungs are normal. The regional skeleton and soft tissue are unremarkable. There is no evidence of pleural effusion or pneumothorax. Impression: No radiographic evidence of acute cardiopulmonary disease. Signed: Chela Lucas MDReport Verified Date/Time: 09/14/2019 14:17:38 Reading Location: [address] Ortho Consult Reading Room Electronically signed by: CHELA LUCAS M.D. on 02:17 PMBASI METABOLIC [id number] 06:39:00 Test Item Value Reference Range Comments SODIUM (BEAKER) (test 136 meq/L 136-145 pvyo=890) POTASSIUM (BEAKER) (test 4.3 meq/L 3.5-5.1 zqux=779) CHLORIDE (BEAKER) (test 105 meq/L 98-107 vhlx=756) CO2 (BEAKER) (test 26 meq/L 22-29 pyod=247) BLOOD UREA NITROGEN 23 mg/dL 7-21 (BEAKER) (test rqpa=251) CREATININE (BEAKER) (test 1.27 mg/dL 0.57-1.25 szoc=919) GLUCOSE RANDOM (BEAKER) 101 mg/dL 70-105 (test fott=663) CALCIUM (BEAKER) (test 8.5 mg/dL 8.4-10.2 yxqt=760) EGFR (BEAKER) (test 56 mL/min/1.73 sq m ESTIMATED GFR IS NOT dyuh=3705) ACCURATE CREATININE CLEARANCE IN PREDICTING GLOMERULAR FILTRATION RATE. ESTIMATED GFR IS NOT APPLICABLE FOR DIALYSIS PATIENTS. CBC (HEMOGRAM ONLY)2019-09-14 05:42:00 Test Item Value Reference Range Comments WHITE BLOOD CELL COUNT (BEAKER) (test cwix=786) 4.8 K/ L 3.5-10.5 RED BLOOD CELL COUNT (BEAKER) (test cuwu=502) 2.48 M/ L 4.63-6.08 HEMOGLOBIN (BEAKER) (test niub=704) 7.2 GM/DL 13.7-17.5 HEMATOCRIT (BEAKER) (test ugce=810) 21.4 % 40.1-51.0 MEAN CORPUSCULAR VOLUME (BEAKER) (test oymq=733) 86.3 fL 79.0-92.2 MEAN CORPUSCULAR HEMOGLOBIN (BEAKER) (test 29.0 pg 25.7-32.2 pvgr=681) MEAN CORPUSCULAR HEMOGLOBIN CONC (BEAKER) (test 33.6 GM/DL 32.3-36.5 sxke=600) RED CELL DISTRIBUTION WIDTH (BEAKER) (test 13.8 % 11.6-14.4 vcgd=916) PLATELET COUNT (BEAKER) (test lacs=937) 28 K/CU MM 150-450 MEAN PLATELET VOLUME (BEAKER) (test wgdl=248) 10.1 fL 9.4-12.4 NUCLEATED RED BLOOD CELLS (BEAKER) (test 0 /100 WBC 0-0 egqr=623) HEMOGLOBIN AND [id number] 20:37:00 Test Item Value Reference Range Comments HEMOGLOBIN (BEAKER) (test jrpx=459) 7.7 GM/DL 13.7-17.5 HEMATOCRIT (BEAKER) (test tiwr=816) 22.8 % 40.1-51.0 TROPONIN [id number] 18:35:00 Test Item Value Reference Range Comments TROPONIN I (BEAKER) (test kugd=293) 0.02 ng/mL 0.00-0.03 Troponin I (TnI) levels must [...] failure, acidosis, acute neurological disease, and persistent tachyarrhythmia.HEMOGLOBIN AND [id number] 11: 58:00 Test Item Value Reference Range Comments HEMOGLOBIN (BEAKER) (test juwk=626) 8.6 GM/DL 13.7-17.5 HEMATOCRIT (BEAKER) (test onla=603) 25.7 % 40.1-51.0 BASIC METABOLIC [id number] 07:08:00 Test Item Value Reference Range Comments SODIUM (BEAKER) (test 139 meq/L 136-145 jimv=120) POTASSIUM (BEAKER) (test 4.5 meq/L 3.5-5.1 anwm=621) CHLORIDE (BEAKER) (test 109 meq/L 98-107 izam=576) CO2 (BEAKER) (test 25 meq/L 22-29 jean=310) BLOOD UREA NITROGEN 26 mg/dL 7-21 (BEAKER) (test xnyb=640) CREATININE (BEAKER) (test 1.28 mg/dL 0.57-1.25 uozr=930) GLUCOSE RANDOM (BEAKER) 113 mg/dL 70-105 (test oosv=813) CALCIUM (BEAKER) (test 8.7 mg/dL 8.4-10.2 uxpw=900) EGFR (BEAKER) (test 56 mL/min/1.73 sq m ESTIMATED GFR IS NOT hddy=3635) ACCURATE CREATININE CLEARANCE IN PREDICTING GLOMERULAR FILTRATION RATE. ESTIMATED GFR IS NOT APPLICABLE FOR DIALYSIS PATIENTS. CBC (HEMOGRAM ONLY)2019-09-13 06:43:00 Test Item Value Reference Range Comments WHITE BLOOD CELL COUNT (BEAKER) (test elvn=577) 5.0 K/ L 3.5-10.5 RED BLOOD CELL COUNT (BEAKER) (test xids=132) 2.55 M/ L 4.63-6.08 HEMOGLOBIN (BEAKER) (test pgcb=066) 7.4 GM/DL 13.7-17.5 HEMATOCRIT (BEAKER) (test uhpp=147) 21.8 % 40.1-51.0 MEAN CORPUSCULAR VOLUME (BEAKER) (test bgae=997) 85.5 fL 79.0-92.2 MEAN CORPUSCULAR HEMOGLOBIN (BEAKER) (test 29.0 pg 25.7-32.2 lkzm=574) MEAN CORPUSCULAR HEMOGLOBIN CONC (BEAKER) (test 33.9 GM/DL 32.3-36.5 cdrf=100) RED CELL DISTRIBUTION WIDTH (BEAKER) (test 13.8 % 11.6-14.4 txhf=252) PLATELET COUNT (BEAKER) (test vmxj=915) 37 K/CU MM 150-450 MEAN PLATELET VOLUME (BEAKER) (test ufub=555) 9.8 fL 9.4-12.4 NUCLEATED RED BLOOD CELLS (BEAKER) (test 0 /100 WBC 0-0 gqax=922) B-TYPE NATRIURETIC FACTOR (BNP)2019-09-13 06:33:00 Test Item Value Reference Range Comments B-TYPE NATRIURETIC PEPTIDE (BEAKER) (test 474 pg/mL 0-100 zygp=396) IRON, TIBC, % SAT. (WITHOUT FERRITIN)2019-09-12 19:12:00 Test Item Value Reference Range Comments IRON (BEAKER) (test ebgw=382) 181.0 ug/dL 40.0-160.0 TOTAL IRON BINDING CAPACITY (BEAKER) (test 264 ug/dL 250-450 auih=599) IRON % SATURATION (2) (BEAKER) (test bqdz=7467) 69 % 20-55 [id number] 19:11:00 Test Item Value Reference Range Comments HAPTOGLOBIN (BEAKER) (test voro=783) 79 mg/dL 14-258 VITAMIN B12 AND [id number] 18:26:00 Test Item Value Reference Range Comments VITAMIN B12 (BEAKER) (test dgao=873) > pg/mL 213-816 FOLATE (BEAKER) (test mxcn=620) 13.1 ng/mL >=7.0 [id number] 18:25:00 Test Item Value Reference Range Comments FERRITIN (BEAKER) (test jiqg=123) 573 ng/mL 5-275 CBC W/PLT COUNT & AUTO [id number] 17:57:00 Test Item Value Reference Range Comments WHITE BLOOD CELL COUNT (BEAKER) (test pabf=094) 5.4 K/ L 3.5-10.5 RED BLOOD CELL COUNT (BEAKER) (test luni=611) 2.66 M/ L 4.63-6.08 HEMOGLOBIN (BEAKER) (test felw=237) 7.9 GM/DL 13.7-17.5 HEMATOCRIT (BEAKER) (test clxf=269) 22.6 % 40.1-51.0 MEAN CORPUSCULAR VOLUME (BEAKER) (test vwts=000) 85.0 fL 79.0-92.2 MEAN CORPUSCULAR HEMOGLOBIN (BEAKER) (test 29.7 pg 25.7-32.2 ijfl=301) MEAN CORPUSCULAR HEMOGLOBIN CONC (BEAKER) (test 35.0 GM/DL 32.3-36.5 zogp=221) RED CELL DISTRIBUTION WIDTH (BEAKER) (test 13.3 % 11.6-14.4 knep=607) PLATELET COUNT (BEAKER) (test snyy=696) 36 K/CU MM 150-450 MEAN PLATELET VOLUME (BEAKER) (test uapx=876) 9.7 fL 9.4-12.4 NUCLEATED RED BLOOD CELLS (BEAKER) (test 0 /100 WBC 0-0 gyci=010) (CELLAVISION MANUAL DIFF)2019-09-12 17:57:00 Test Item Value Reference Range Comments NEUTROPHILS - REL (CELLAVISION)(BEAKER) (test 83 % pkir=0715) LYMPHOCYTES - REL (CELLAVISION)(BEAKER) (test 8 % sfdd=3770) MONOCYTES - REL (CELLAVISION)(BEAKER) (test 7 % tjpj=2642) BANDS - REL (CELLAVISION)(BEAKER) (test 1 % 0-10 ykzv=1560) ATYPICAL LYMPHOCYTES - REL (CELLAVISION)(BEAKER) 1 % 0-0 (test mdec=4064) NEUTROPHILS - ABS (CELLAVISION)(BEAKER) (test 4.48 K/ul 1.78-5.38 eabe=4622) LYMPHOCYTES - ABS (CELLAVISION)(BEAKER) (test 0.43 K/ul 1.32-3.57 lfbo=4448) MONOCYTES - ABS (CELLAVISION)(BEAKER) (test 0.38 K/uL 0.30-0.82 bwlz=4569) BANDS - ABS (CELLAVISION)(BEAKER) (test 0.05 K/uL 0.00-0.80 gfyo=9221) ATYPICAL LYMPHOCYTES - ABS (CELLAVISION)(BEAKER) 0.05 K/uL 0.00-0.00 (test vqar=7376) TOTAL COUNTED (BEAKER) (test acgu=4999) 100 PLT MORPHOLOGY (BEAKER) (test pybq=533) Normal SMUDGE CELLS (BEAKER) (test thzv=8662) Present ANISOCYTOSIS (BEAKER) (test vqnv=220) 2+ moderate MICROCYTES (BEAKER) (test roic=957) 2+ moderate ARTIFACT (CELLAVISION)(BEAKER) (test jhwc=9615) Present PLATELET CONCENTRATION (CELLAVISION)(BEAKER) Decreased (test iiwz=6299) Received comment: User comments: Slide comments:CBC W/PLT COUNT & AUTO [id number] 17:57:00 Test Item Value Reference Range Comments WHITE BLOOD CELL COUNT (BEAKER) (test ldyj=891) 5.5 K/ L 3.5-10.5 RED BLOOD CELL COUNT (BEAKER) (test pgau=729) 2.83 M/ L 4.63-6.08 HEMOGLOBIN (BEAKER) (test xlub=453) 8.4 GM/DL 13.7-17.5 HEMATOCRIT (BEAKER) (test fdxt=553) 24.1 % 40.1-51.0 MEAN CORPUSCULAR VOLUME (BEAKER) (test bltu=827) 85.2 fL 79.0-92.2 MEAN CORPUSCULAR HEMOGLOBIN (BEAKER) (test 29.7 pg 25.7-32.2 ifni=383) MEAN CORPUSCULAR HEMOGLOBIN CONC (BEAKER) (test 34.9 GM/DL 32.3-36.5 naou=432) RED CELL DISTRIBUTION WIDTH (BEAKER) (test 13.2 % 11.6-14.4 iyky=145) PLATELET COUNT (BEAKER) (test fyhe=277) 39 K/CU MM 150-450 MEAN PLATELET VOLUME (BEAKER) (test latp=024) 10.1 fL 9.4-12.4 NUCLEATED RED BLOOD CELLS (BEAKER) (test 0 /100 WBC 0-0 onbx=671) (CELLAVISION MANUAL DIFF)2019-09-12 17:57:00 Test Item Value Reference Range Comments NEUTROPHILS - REL (CELLAVISION)(BEAKER) (test 77 % wphb=3327) LYMPHOCYTES - REL (CELLAVISION)(BEAKER) (test 8 % ytyh=9339) MONOCYTES - REL (CELLAVISION)(BEAKER) (test 12 % dgft=9836) EOSINOPHILS - REL (CELLAVISION)(BEAKER) (test 1 % uwms=3002) ATYPICAL LYMPHOCYTES - REL (CELLAVISION)(BEAKER) 2 % 0-0 (test wqgz=3969) NEUTROPHILS - ABS (CELLAVISION)(BEAKER) (test 4.24 K/ul 1.78-5.38 dvvt=6825) LYMPHOCYTES - ABS (CELLAVISION)(BEAKER) (test 0.44 K/ul 1.32-3.57 xyge=5073) MONOCYTES - ABS (CELLAVISION)(BEAKER) (test 0.66 K/uL 0.30-0.82 mrqo=0446) EOSINOPHILS - ABS (CELLAVISION)(BEAKER) (test 0.06 K/uL 0.04-0.54 khek=3583) ATYPICAL LYMPHOCYTES - ABS (CELLAVISION)(BEAKER) 0.11 K/uL 0.00-0.00 (test wqmr=1331) TOTAL COUNTED (BEAKER) (test nffe=2735) 100 PLT MORPHOLOGY (BEAKER) (test byfg=895) Normal SMUDGE CELLS (BEAKER) (test cpjt=7048) Present ANISOCYTOSIS (BEAKER) (test jmxc=516) 2+ moderate MICROCYTES (BEAKER) (test kdlw=941) 2+ moderate ARTIFACT (CELLAVISION)(BEAKER) (test nwsd=0967) Present PLATELET CONCENTRATION (CELLAVISION)(BEAKER) Decreased (test djwa=7830) Received comment: User comments: Slide comments:LACTATE DEHYDROGENASE (LDH)09-12 17:51:00 Test Item Value Reference Range Comments LACTATE DEHYDROGENASE (BEAKER) (test auqq=663) 292 U/L 125-220 COMPREHENSIVE METABOLIC [id number] 17:51:00 Test Item Value Reference Range Comments TOTAL PROTEIN (BEAKER) 6.0 gm/dL 6.0-8.3 (test lsfd=451) ALBUMIN (BEAKER) (test 3.8 g/dL 3.5-5.0 lrlq=5159) ALKALINE PHOSPHATASE 75 U/L 40-150 (BEAKER) (test lfkb=372) BILIRUBIN TOTAL (BEAKER) 1.4 mg/dL 0.2-1.2 (test sooi=109) SODIUM (BEAKER) (test 142 meq/L 136-145 efyq=494) POTASSIUM (BEAKER) (test 3.7 meq/L 3.5-5.1 jlcf=829) CHLORIDE (BEAKER) (test 110 meq/L 98-107 sfvs=554) CO2 (BEAKER) (test 25 meq/L 22-29 ydjv=098) BLOOD UREA NITROGEN 26 mg/dL 7-21 (BEAKER) (test rxqc=866) CREATININE (BEAKER) (test 1.12 mg/dL 0.57-1.25 clal=790) GLUCOSE RANDOM (BEAKER) 122 mg/dL 70-105 (test vamj=658) CALCIUM (BEAKER) (test 8.5 mg/dL 8.4-10.2 adsf=841) AST (SGOT) (BEAKER) (test 16 U/L 5-34 ouei=802) ALT (SGPT) (BEAKER) (test 22 U/L 6-55 nmvk=924) EGFR (BEAKER) (test 65 mL/min/1.73 sq m ESTIMATED GFR IS NOT fauc=1931) ACCURATE CREATININE CLEARANCE IN PREDICTING GLOMERULAR FILTRATION RATE. ESTIMATED GFR IS NOT APPLICABLE FOR DIALYSIS PATIENTS. [id number] 17:41:00 Test Item Value Reference Range Comments D-DIMER QUANTITATIVE (BEAKER) (test ydwf=084) 1.00 MG/L FEU <0.50 Intended Use: The D-Dimer Assay can be used to aid in the diagnosis of Deep Vein Thrombosis (DVT) and Pulmonary Embolism Disease (PED).In patients with low pre-test probability, various studies concerning STA Liatest D-dimer test have reported that with a cutoff value of 0.50 MG/L FEU, the Negative Predictive Value (NPV) regarding the exclusion of thrombosis is within 95-100% range.PERIPHERAL BLOOD SMEAR - HOLD [id number] 17:41:00 Test Item Value Reference Range Comments PERIPHERAL SMEAR SAVE (BEAKER) (test mkef=6687) saved PROTHROMBIN [id number] 17:38:00 Test Item Value Reference Range Comments PROTIME (BEAKER) (test spqg=298) 15.7 seconds 11.9-14.2 INR (BEAKER) (test tuci=726) 1.3 <=5.9 Effective 03/26/2019: PT Reference Range ChangeNew: 11.9-14.2 Previous: 11.7- 14.7RECOMMENDED COUMADIN/WARFARIN INR THERAPY RANGESSTANDARD DOSE: 2.0-3.0 Includes: PROPHYLAXIS for venous thrombosis, systemic embolization; TREATMENT for venous thrombosis and/or pulmonary embolus.HIGH RISK: Target INR is2.5-3.5 for patients wiht mechanical heart valves.[id number] 17:38:00 Test Item Value Reference Range Comments FIBRINOGEN LEVEL (BEAKER) (test hlvq=298) 329 mg/dl 225-434 RETICULOCYTE [id number] 17:27:00 Test Item Value Reference Range Comments RETICULOCYTE COUNT PCT (BEAKER) (test gsim=933) 0.6 % 0.5-1.8 CBC W/PLT COUNT & AUTO [id number] 15:04:00 Test Item Value Reference Range Comments WHITE BLOOD CELL COUNT (BEAKER) (test lcyf=005) 12.6 K/ L 3.5-10.5 RED BLOOD CELL COUNT (BEAKER) (test qoje=465) 4.90 M/ L 4.63-6.08 HEMOGLOBIN (BEAKER) (test vkke=708) 14.3 GM/DL 13.7-17.5 HEMATOCRIT (BEAKER) (test uqge=381) 45.5 % 40.1-51.0 MEAN CORPUSCULAR VOLUME (BEAKER) (test bkyj=410) 92.9 fL 79.0-92.2 MEAN CORPUSCULAR HEMOGLOBIN (BEAKER) (test 29.2 pg 25.7-32.2 gyqi=670) MEAN CORPUSCULAR HEMOGLOBIN CONC (BEAKER) (test 31.4 GM/DL 32.3-36.5 kdso=742) RED CELL DISTRIBUTION WIDTH (BEAKER) (test 14.9 % 11.6-14.4 sagk=124) PLATELET COUNT (BEAKER) (test dbvb=067) 275 K/CU MM 150-450 MEAN PLATELET VOLUME (BEAKER) (test uncz=652) 10.5 fL 9.4-12.4 NUCLEATED RED BLOOD CELLS (BEAKER) (test 0 /100 WBC 0-0 vfkb=797) NEUTROPHILS RELATIVE PERCENT (BEAKER) (test 74 % gegt=329) LYMPHOCYTES RELATIVE PERCENT (BEAKER) (test 11 % nqtr=547) MONOCYTES RELATIVE PERCENT (BEAKER) (test 8 % jkwn=870) EOSINOPHILS RELATIVE PERCENT (BEAKER) (test 2 % yviw=511) BASOPHILS RELATIVE PERCENT (BEAKER) (test 0 % stvq=175) NEUTROPHILS ABSOLUTE COUNT (BEAKER) (test 9.36 K/ L 1.78-5.38 zqgq=668) LYMPHOCYTES ABSOLUTE COUNT (BEAKER) (test 1.43 K/ L 1.32-3.57 wwfq=785) MONOCYTES ABSOLUTE COUNT (BEAKER) (test 0.95 K/ L 0.30-0.82 bxcz=450) EOSINOPHILS ABSOLUTE COUNT (BEAKER) (test 0.19 K/ L 0.04-0.54 wjgx=204) BASOPHILS ABSOLUTE COUNT (BEAKER) (test 0.05 K/ L 0.01-0.08 psss=743) IMMATURE GRANULOCYTES-RELATIVE PERCENT (BEAKER) 5 % 0-1 (test mawb=1335) POCT-GLUCOSE [id number] 11:32:00 Test Item Value Reference Range Comments POC-GLUCOSE METER (BEAKER) 105 mg/dL 70-110 TESTED AT [address] (test yuyo=1437) [facility] [address] POCT-GLUCOSE [id number] 08:33:00 Test Item Value Reference Range Comments POC-GLUCOSE METER (BEAKER) 161 mg/dL 70-110 TESTED AT [address] (test pfei=6554) [place] [id number] 06:09:00 Test Item Value Reference Range Comments MAGNESIUM (BEAKER) (test xpky=640) 1.8 mg/dL 1.6-2.6 COMPREHENSIVE METABOLIC [id number] 06:09:00 Test Item Value Reference Range Comments TOTAL PROTEIN (BEAKER) 6.9 gm/dL 6.0-8.3 (test sglz=805) ALBUMIN (BEAKER) (test 3.3 g/dL 3.5-5.0 yftb=3057) ALKALINE PHOSPHATASE 164 U/L 40-150 (BEAKER) (test xdrg=616) BILIRUBIN TOTAL (BEAKER) 1.5 mg/dL 0.2-1.2 (test orva=352) SODIUM (BEAKER) (test 140 meq/L 136-145 egig=979) POTASSIUM (BEAKER) (test 3.1 meq/L 3.5-5.1 ayjo=078) CHLORIDE (BEAKER) (test 102 meq/L 98-107 fmaw=653) CO2 (BEAKER) (test 30 meq/L 22-29 jdjn=721) BLOOD UREA NITROGEN 15 mg/dL 7-21 (BEAKER) (test jdcf=773) CREATININE (BEAKER) (test 1.04 mg/dL 0.57-1.25 xqox=456) GLUCOSE RANDOM (BEAKER) 121 mg/dL 70-105 (test vjcm=124) CALCIUM (BEAKER) (test 9.2 mg/dL 8.4-10.2 gmbh=342) AST (SGOT) (BEAKER) (test 58 U/L 5-34 clhl=143) ALT (SGPT) (BEAKER) (test 74 U/L 6-55 ebhs=719) EGFR (BEAKER) (test 71 mL/min/1.73 sq m ESTIMATED GFR IS NOT mjeo=8735) ACCURATE CREATININE CLEARANCE IN PREDICTING GLOMERULAR FILTRATION RATE. ESTIMATED GFR IS NOT APPLICABLE FOR DIALYSIS PATIENTS. PROTHROMBIN TIME/[id number] 05:59:00 Test Item Value Reference Range Comments PROTIME (BEAKER) (test mecl=726) 14.2 seconds 11.7-14.7 INR (BEAKER) (test skzq=069) 1.1 <=5.9 RECOMMENDED COUMADIN/WARFARIN INR THERAPY RANGESSTANDARD DOSE: 2.0 - 3.0 Includes: PROPHYLAXIS forvenous thrombosis, systemic embolization; TREATMENT for venous thrombosis and/or pulmonary embolus.HIGH RISK: Target INR is 2.5-3.5 for patients with mechanical heart valves.POCT-GLUCOSE [id number] 22:57:00 Test Item Value Reference Range Comments POC-GLUCOSE METER (BEAKER) 128 mg/dL 70-110 TESTED AT [facility] [address] [facility] (test vpvv=9110) [facility] [address] C. DIFFICILE GDH [id number] 19:04:00 Test Item Value Reference Range Comments CDT TOXIN (test Negative Negative iqqy=[id number]) CDT GDH ANTIGEN (test Negative Negative No indication of Clostridium ewrb=[id number]) difficile infection and no colonization. Discontinue enteric isolation and therapy. Testing performed by [employer] Rapid Cassette Assay. For GDH, published sensitivity of the assay is 98.7% compared to cytotoxicity testing. For Toxin AB, published sensitivity is 87.8% and specificity 99.4% compared to cytotoxicity testing.Verification of kit performance was done by the [facility] Microbiology Lab prior to clinical use.BLOOD [id number] 19:01:00 Test Item Value Reference Range Comments CULTURE (BEAKER) (test fwvm=7410) No growth in 5 days POCT-GLUCOSE [id number] 18:29:00 Test Item Value Reference Range Comments POC-GLUCOSE METER (BEAKER) 143 mg/dL 70-110 TESTED AT [address] (test ydzt=2990) [place] [address] POCT-GLUCOSE [id number] 12:40:00 Test Item Value Reference Range Comments POC-GLUCOSE METER (BEAKER) 128 mg/dL 70-110 TESTED AT [address] (test kqbh=6305) [place] [address] TISSUE [id number] 09:49:00Surgical Pathology Report Case: [id number] Authorizing Provider: Parker Hurd MD Collected: 11/03/2018 0140 Ordering Location: [address] Received: 11/04/2018 0817 Cardiovascular Pathologist: Andrew Almaraz MD Specimen: Gallbladder, subtotal gallbladder Special stains for fungal organisms (GMS, PAS) performed on block A2 are NEGATIVE.Addendum electronically signed by Andrew Almaraz MD on 11/07/2018 at 9:49 AMPART A GALLBLADDER , SUBTOTAL CHOLECYSTECTOMY:GANGRENOUS NECROSIS OF GALLBLADDER.SPECIAL STAINS FOR INFECTIOUS ORGANISMS PENDING, AN ADDENDUM REPORT WILL FOLLOW. Signing Pathologist Direct Phone Line: [phone] signed by Andrew Almaraz MD on 11/06/2018 at 8:48 [id number], [id number] cholecystitis Subtotal gallbladderThe specimen is received in [...] gallbladder wall. CG/ew PERFORMEDBLOCK A2- GMS, PASPROTHROMBIN TIME/[id number] 06:22:00 Test Item Value Reference Range Comments PROTIME (BEAKER) (test wmzx=077) 14.2 seconds 11.7-14.7 INR (BEAKER) (test tici=549) 1.1 <=5.9 RECOMMENDED COUMADIN/WARFARIN INR THERAPY RANGESSTANDARD DOSE: 2.0 - 3.0 Includes: PROPHYLAXIS forvenous thrombosis, systemic embolization; TREATMENT for venous thrombosis and/or pulmonary embolus.HIGH RISK: Target INR is 2.5-3.5 for patients with mechanical heart valves.[id number] 06:20:00 Test Item Value Reference Range Comments MAGNESIUM (BEAKER) (test pwdq=831) 1.7 mg/dL 1.6-2.6 COMPREHENSIVE METABOLIC [id number] 06:20:00 Test Item Value Reference Range Comments TOTAL PROTEIN (BEAKER) 6.0 gm/dL 6.0-8.3 (test sdfs=278) ALBUMIN (BEAKER) (test 2.9 g/dL 3.5-5.0 eehc=2022) ALKALINE PHOSPHATASE 162 U/L 40-150 (BEAKER) (test wxyn=206) BILIRUBIN TOTAL (BEAKER) 1.4 mg/dL 0.2-1.2 (test dhgb=753) SODIUM (BEAKER) (test 141 meq/L 136-145 alen=943) POTASSIUM (BEAKER) (test 3.6 meq/L 3.5-5.1 uscp=234) CHLORIDE (BEAKER) (test 107 meq/L 98-107 szmf=696) CO2 (BEAKER) (test 26 meq/L 22-29 sksb=282) BLOOD UREA NITROGEN 19 mg/dL 7-21 (BEAKER) (test wyhk=417) CREATININE (BEAKER) (test 0.91 mg/dL 0.57-1.25 ektk=296) GLUCOSE RANDOM (BEAKER) 123 mg/dL 70-105 (test rykh=386) CALCIUM (BEAKER) (test 8.6 mg/dL 8.4-10.2 boyt=820) AST (SGOT) (BEAKER) (test 57 U/L 5-34 jpdk=322) ALT (SGPT) (BEAKER) (test 75 U/L 6-55 okzc=989) EGFR (BEAKER) (test 83 mL/min/1.73 sq m ESTIMATED GFR IS NOT viln=3552) ACCURATE CREATININE CLEARANCE IN PREDICTING GLOMERULAR FILTRATION RATE. ESTIMATED GFR IS NOT APPLICABLE FOR DIALYSIS PATIENTS. CBC W/PLT COUNT & AUTO [id number] 05:59:00 Test Item Value Reference Range Comments WHITE BLOOD CELL COUNT (BEAKER) (test jqzw=528) 10.3 K/ L 3.5-10.5 RED BLOOD CELL COUNT (BEAKER) (test vavs=943) 4.26 M/ L 4.63-6.08 HEMOGLOBIN (BEAKER) (test oyxx=206) 12.8 GM/DL 13.7-17.5 HEMATOCRIT (BEAKER) (test gfkt=890) 42.4 % 40.1-51.0 MEAN CORPUSCULAR VOLUME (BEAKER) (test xggz=729) 99.5 fL 79.0-92.2 MEAN CORPUSCULAR HEMOGLOBIN (BEAKER) (test 30.0 pg 25.7-32.2 dfif=354) MEAN CORPUSCULAR HEMOGLOBIN CONC (BEAKER) (test 30.2 GM/DL 32.3-36.5 rjth=041) RED CELL DISTRIBUTION WIDTH (BEAKER) (test 15.3 % 11.6-14.4 aqws=893) PLATELET COUNT (BEAKER) (test hflx=635) 170 K/CU MM 150-450 MEAN PLATELET VOLUME (BEAKER) (test nyyu=432) 10.3 fL 9.4-12.4 NUCLEATED RED BLOOD CELLS (BEAKER) (test 0 /100 WBC 0-0 phph=710) NEUTROPHILS RELATIVE PERCENT (BEAKER) (test 73 % jxve=413) LYMPHOCYTES RELATIVE PERCENT (BEAKER) (test 11 % desk=336) MONOCYTES RELATIVE PERCENT (BEAKER) (test 10 % bvtb=027) EOSINOPHILS RELATIVE PERCENT (BEAKER) (test 2 % enea=207) BASOPHILS RELATIVE PERCENT (BEAKER) (test 1 % goat=702) NEUTROPHILS ABSOLUTE COUNT (BEAKER) (test 7.55 K/ L 1.78-5.38 hysc=485) LYMPHOCYTES ABSOLUTE COUNT (BEAKER) (test 1.18 K/ L 1.32-3.57 clqb=335) MONOCYTES ABSOLUTE COUNT (BEAKER) (test 1.00 K/ L 0.30-0.82 dbjf=978) EOSINOPHILS ABSOLUTE COUNT (BEAKER) (test 0.15 K/ L 0.04-0.54 tvnl=129) BASOPHILS ABSOLUTE COUNT (BEAKER) (test 0.07 K/ L 0.01-0.08 auwb=881) IMMATURE GRANULOCYTES-RELATIVE PERCENT (BEAKER) 4 % 0-1 (test qubs=9984) POCT-GLUCOSE [id number] 05:23:00 Test Item Value Reference Range Comments POC-GLUCOSE METER (BEAKER) 126 mg/dL 70-110 TESTED AT [address] (test mwcc=5222) [place] [address] POCT-GLUCOSE [id number] 00:18:00 Test Item Value Reference Range Comments POC-GLUCOSE METER (BEAKER) 132 mg/dL 70-110 TESTED AT [address] (test vxrs=4162) [place] [address] ANAEROBIC [id number] 18:46:00 Test Item Value Reference Range Comments CULTURE (BEAKER) (test huwl=5009) No anaerobes isolated POCT-GLUCOSE [id number] 17:39:00 Test Item Value Reference Range Comments POC-GLUCOSE METER (BEAKER) 141 mg/dL 70-110 TESTED AT [address] (test pgeq=0282) [place] [address] POCT-GLUCOSE [id number] 12:40:00 Test Item Value Reference Range Comments POC-GLUCOSE METER (BEAKER) 132 mg/dL 70-110 TESTED AT [address] (test jitt=7568) [place] [address] SURGICALLY OBTAINED CULTURE + GRAM [id number] 12:34:00 Test Item Value Reference Range Comments CULTURE (BEAKER) (test ESCHERICHIA COLI <1+ Escherichia inyv=3062) coliESBL Positive Amikacin (test code=1) Ampicillin + Sulbactam (test code=6) Aztreonam (test code=32) Cefepime (test code=51) Cefoxitin (test code=68) Ceftazidime (test code=27) Ceftriaxone (test code=52) Ertapenem (test code=38) Gentamicin (test code=18) Levofloxacin (test code=22) Meropenem (test code=34) Nitrofurantoin (test code=23) Piperacillin + Tazobactam (test code=29) Tetracycline (test code=2) Tobramycin (test code=25) Trimethoprim + Sulfamethoxazole (test code=47) GRAM STAIN RESULT (BEAKER) 1+ WBCs (test sfon=3628) GRAM STAIN RESULT (BEAKER) No organisms seen (test zzav=652106) MR, ABDOMEN, [id number] 09:00:00FINAL REPORT MRI of the abdomen, MRCP. [...] with stent graft in place. Signed: [facility] Verified Date/Time: 06/2019 09:00:12 Reading Location: [facility] Diagnostic Imaging Reading Room - [place] [address] RAD, CHEST, 1 VIEW, NON [id number] 08:11:00Reason for exam:->pleural effusionShould this be performed at the bedside?->YesFINAL REPORT CLINICAL HISTORY: pleural effusion TECHNIQUE: 1 view of the chest. COMPARISON: 11/05/2018 IMPRESSION: Pulmonary vascular congestion is again seen with mild increased bilateral lung markings. Blunting of the costophrenic angles is again seen. The cardiomediastinal silhouette is magnified by technique. Signed: Perez Keith Verified Date/Time: 11/06/2018 08:11 :58 Reading Location: [facility] Radiology Reading Room [id number] 06:51: 00 Test Item Value Reference Range Comments MAGNESIUM (BEAKER) (test femi=867) 1.9 mg/dL 1.6-2.6 COMPREHENSIVE METABOLIC [id number] 06:51:00 Test Item Value Reference Range Comments TOTAL PROTEIN (BEAKER) 6.3 gm/dL 6.0-8.3 (test nlao=777) ALBUMIN (BEAKER) (test 2.9 g/dL 3.5-5.0 nsts=6824) ALKALINE PHOSPHATASE 114 U/L 40-150 (BEAKER) (test fvqa=375) BILIRUBIN TOTAL (BEAKER) 1.7 mg/dL 0.2-1.2 (test eujx=353) SODIUM (BEAKER) (test 144 meq/L 136-145 igmm=968) POTASSIUM (BEAKER) (test 3.3 meq/L 3.5-5.1 lvwm=841) CHLORIDE (BEAKER) (test 107 meq/L 98-107 ctho=520) CO2 (BEAKER) (test 30 meq/L 22-29 nmnu=993) BLOOD UREA NITROGEN 26 mg/dL 7-21 (BEAKER) (test vfti=430) CREATININE (BEAKER) (test 1.07 mg/dL 0.57-1.25 mooi=096) GLUCOSE RANDOM (BEAKER) 128 mg/dL 70-105 (test pmob=923) CALCIUM (BEAKER) (test 8.9 mg/dL 8.4-10.2 ddyd=262) AST (SGOT) (BEAKER) (test 32 U/L 5-34 ueec=180) ALT (SGPT) (BEAKER) (test 77 U/L 6-55 dbav=268) EGFR (BEAKER) (test 69 mL/min/1.73 sq m ESTIMATED GFR IS NOT mclw=4441) ACCURATE CREATININE CLEARANCE IN PREDICTING GLOMERULAR FILTRATION RATE. ESTIMATED GFR IS NOT APPLICABLE FOR DIALYSIS PATIENTS. CBC W/PLT COUNT & AUTO [id number] 06:40:00 Test Item Value Reference Range Comments WHITE BLOOD CELL COUNT (BEAKER) (test pvww=685) 10.2 K/ L 3.5-10.5 RED BLOOD CELL COUNT (BEAKER) (test ejcl=534) 4.16 M/ L 4.63-6.08 HEMOGLOBIN (BEAKER) (test ammg=696) 12.4 GM/DL 13.7-17.5 HEMATOCRIT (BEAKER) (test bzhb=949) 39.4 % 40.1-51.0 MEAN CORPUSCULAR VOLUME (BEAKER) (test yeuf=814) 94.7 fL 79.0-92.2 MEAN CORPUSCULAR HEMOGLOBIN (BEAKER) (test 29.8 pg 25.7-32.2 oshg=282) MEAN CORPUSCULAR HEMOGLOBIN CONC (BEAKER) (test 31.5 GM/DL 32.3-36.5 qbcx=836) RED CELL DISTRIBUTION WIDTH (BEAKER) (test 15.2 % 11.6-14.4 dpdl=721) PLATELET COUNT (BEAKER) (test dnae=576) 192 K/CU MM 150-450 MEAN PLATELET VOLUME (BEAKER) (test sxnc=491) 10.8 fL 9.4-12.4 NUCLEATED RED BLOOD CELLS (BEAKER) (test 0 /100 WBC 0-0 zfrk=157) NEUTROPHILS RELATIVE PERCENT (BEAKER) (test 79 % giib=105) LYMPHOCYTES RELATIVE PERCENT (BEAKER) (test 9 % kzht=986) MONOCYTES RELATIVE PERCENT (BEAKER) (test 9 % lrcn=646) EOSINOPHILS RELATIVE PERCENT (BEAKER) (test 0 % syoe=528) BASOPHILS RELATIVE PERCENT (BEAKER) (test 0 % bpdk=426) NEUTROPHILS ABSOLUTE COUNT (BEAKER) (test 8.13 K/ L 1.78-5.38 rcea=850) LYMPHOCYTES ABSOLUTE COUNT (BEAKER) (test 0.96 K/ L 1.32-3.57 kbmg=304) MONOCYTES ABSOLUTE COUNT (BEAKER) (test 0.90 K/ L 0.30-0.82 prtz=592) EOSINOPHILS ABSOLUTE COUNT (BEAKER) (test 0.04 K/ L 0.04-0.54 vrwr=076) BASOPHILS ABSOLUTE COUNT (BEAKER) (test 0.03 K/ L 0.01-0.08 zkvz=349) IMMATURE GRANULOCYTES-RELATIVE PERCENT (BEAKER) 2 % 0-1 (test ujhc=0856) PROTHROMBIN [id number] 06:29:00 Test Item Value Reference Range Comments PROTIME (BEAKER) (test adkn=054) 15.2 seconds 11.7-14.7 INR (BEAKER) (test xgxg=219) 1.2 <=5.9 RECOMMENDED COUMADIN/WARFARIN INR THERAPY RANGESSTANDARD DOSE: 2.0 - 3.0 Includes: PROPHYLAXIS forvenous thrombosis, systemic embolization; TREATMENT for venous thrombosis and/or pulmonary embolus.HIGH RISK: Target INR is 2.5-3.5 for patients with mechanical heart valves.POCT-GLUCOSE [id number] 05:55:00 Test Item Value Reference Range Comments POC-GLUCOSE METER (BEAKER) 164 mg/dL 70-110 TESTED AT [address] (test emvw=5021) [facility] [address] POCT-GLUCOSE [id number] 23:49:00 Test Item Value Reference Range Comments POC-GLUCOSE METER (BEAKER) 127 mg/dL 70-110 TESTED AT [address] (test qfas=4457) [facility] [address] POCT-GLUCOSE [id number] 16:20:00 Test Item Value Reference Range Comments POC-GLUCOSE METER (BEAKER) 134 mg/dL 70-110 TESTED AT [address] (test bhdh=8692) [facility] [address] POCT-GLUCOSE [id number] 13:16:00 Test Item Value Reference Range Comments POC-GLUCOSE METER (BEAKER) 154 mg/dL 70-110 TESTED AT [address] (test tvkb=7762) [facility] [address] RAD, CHEST, 1 VIEW, NON [id number] 07:38:00Reason for exam:->pleural effusionShould this be performed at the bedside?->YesFINAL REPORT CLINICAL HISTORY: pleural effusion TECHNIQUE: 1 view of the chest. COMPARISON: 11/04/2018 IMPRESSION: The right central line has been removed. Bilateral lower lung opacities are unchanged. The cardiomediastinal silhouette is magnified by technique. Signed: Perez Keith MDReport Verified Date/Time: 11/05/2018 07:38:09 Reading Location: [facility] Radiology Reading Room POCT- GLUCOSE [id number] 05:22:00 Test Item Value Reference Range Comments POC-GLUCOSE METER (BEAKER) 141 mg/dL 70-110 TESTED AT [address] (test gacu=9026) [place] [address] [id number] 04:47:00 Test Item Value Reference Range Comments MAGNESIUM (BEAKER) (test twgp=116) 2.1 mg/dL 1.6-2.6 COMPREHENSIVE METABOLIC [id number] 04:47:00 Test Item Value Reference Range Comments TOTAL PROTEIN (BEAKER) 6.0 gm/dL 6.0-8.3 (test inka=922) ALBUMIN (BEAKER) (test 2.9 g/dL 3.5-5.0 otoo=7640) ALKALINE PHOSPHATASE 109 U/L 40-150 (BEAKER) (test olcj=190) BILIRUBIN TOTAL (BEAKER) 1.9 mg/dL 0.2-1.2 (test brya=166) SODIUM (BEAKER) (test 144 meq/L 136-145 gbpo=363) POTASSIUM (BEAKER) (test 4.0 meq/L 3.5-5.1 moku=204) CHLORIDE (BEAKER) (test 110 meq/L 98-107 esqp=435) CO2 (BEAKER) (test 27 meq/L 22-29 hndi=093) BLOOD UREA NITROGEN 33 mg/dL 7-21 (BEAKER) (test sejr=255) CREATININE (BEAKER) (test 1.21 mg/dL 0.57-1.25 qxnn=700) GLUCOSE RANDOM (BEAKER) 123 mg/dL 70-105 (test gvwi=892) CALCIUM (BEAKER) (test 9.0 mg/dL 8.4-10.2 kcrq=891) AST (SGOT) (BEAKER) (test 42 U/L 5-34 meqj=089) ALT (SGPT) (BEAKER) (test 109 U/L 6-55 arpi=546) EGFR (BEAKER) (test 59 mL/min/1.73 sq m ESTIMATED GFR IS NOT cgng=2362) ACCURATE CREATININE CLEARANCE IN PREDICTING GLOMERULAR FILTRATION RATE. ESTIMATED GFR IS NOT APPLICABLE FOR DIALYSIS PATIENTS. PROTHROMBIN TIME/[id number] 04:42:00 Test Item Value Reference Range Comments PROTIME (BEAKER) (test crkz=256) 14.4 seconds 11.7-14.7 INR (BEAKER) (test gqre=266) 1.1 <=5.9 RECOMMENDED COUMADIN/WARFARIN INR THERAPY RANGESSTANDARD DOSE: 2.0 - 3.0 Includes: PROPHYLAXIS forvenous thrombosis, systemic embolization; TREATMENT for venous thrombosis and/or pulmonary embolus.HIGH RISK: Target INR is 2.5-3.5 for patients with mechanical heart valves.CBC W/PLT COUNT & AUTO [id number] 04:35:00 Test Item Value Reference Range Comments WHITE BLOOD CELL COUNT (BEAKER) (test zdex=033) 11.0 K/ L 3.5-10.5 RED BLOOD CELL COUNT (BEAKER) (test ibru=624) 4.05 M/ L 4.63-6.08 HEMOGLOBIN (BEAKER) (test apda=622) 12.0 GM/DL 13.7-17.5 HEMATOCRIT (BEAKER) (test kvzv=929) 38.6 % 40.1-51.0 MEAN CORPUSCULAR VOLUME (BEAKER) (test vexi=754) 95.3 fL 79.0-92.2 MEAN CORPUSCULAR HEMOGLOBIN (BEAKER) (test 29.6 pg 25.7-32.2 tmpu=341) MEAN CORPUSCULAR HEMOGLOBIN CONC (BEAKER) (test 31.1 GM/DL 32.3-36.5 yarx=693) RED CELL DISTRIBUTION WIDTH (BEAKER) (test 15.2 % 11.6-14.4 igwr=554) PLATELET COUNT (BEAKER) (test itza=585) 171 K/CU MM 150-450 MEAN PLATELET VOLUME (BEAKER) (test atdg=570) 10.8 fL 9.4-12.4 NUCLEATED RED BLOOD CELLS (BEAKER) (test 0 /100 WBC 0-0 oclk=501) NEUTROPHILS RELATIVE PERCENT (BEAKER) (test 83 % fsjy=471) LYMPHOCYTES RELATIVE PERCENT (BEAKER) (test 7 % otmy=168) MONOCYTES RELATIVE PERCENT (BEAKER) (test 9 % qxky=606) EOSINOPHILS RELATIVE PERCENT (BEAKER) (test 1 % fvem=500) BASOPHILS RELATIVE PERCENT (BEAKER) (test 0 % vmbg=401) NEUTROPHILS ABSOLUTE COUNT (BEAKER) (test 9.12 K/ L 1.78-5.38 wyfn=897) LYMPHOCYTES ABSOLUTE COUNT (BEAKER) (test 0.72 K/ L 1.32-3.57 lwsy=314) MONOCYTES ABSOLUTE COUNT (BEAKER) (test 0.94 K/ L 0.30-0.82 nokh=880) EOSINOPHILS ABSOLUTE COUNT (BEAKER) (test 0.08 K/ L 0.04-0.54 evuq=149) BASOPHILS ABSOLUTE COUNT (BEAKER) (test 0.02 K/ L 0.01-0.08 pbwh=192) IMMATURE GRANULOCYTES-RELATIVE PERCENT (BEAKER) 1 % 0-1 (test sjtf=4897) POCT-GLUCOSE [id number] 23:38:00 Test Item Value Reference Range Comments POC-GLUCOSE METER (BEAKER) 140 mg/dL 70-110 TESTED AT [facility] [address] [facility] (test wusf=1881) [facility] [address] POCT-GLUCOSE [id number] 18:02:00 Test Item Value Reference Range Comments POC-GLUCOSE METER (BEAKER) 131 mg/dL 70-110 TESTED AT [place] [id number] [facility] (test ihel=3783) [facility] [address] RAD, ABDOMEN/KUB, 1 VIEW [id number] 16:24:00Reason for exam:->ileus evalShould this be performed [...] MDReport Verified Date/Time: 11/04 16:24:26 Reading Location: [facility] Reading Room Electronicallysigned by: OTTONIEL HOLLY on 11/04/2018 04:24 PMPOCT-GLUCOSE [id number] 12:28:00 Test Item Value Reference Range Comments POC-GLUCOSE METER (BEAKER) 152 mg/dL 70-110 TESTED AT [address] (test audl=7731) [facility] [address] CBC W/PLT COUNT & AUTO [id number] 10:34:00 Test Item Value Reference Range Comments WHITE BLOOD CELL COUNT (BEAKER) (test gzmy=130) 9.0 K/ L 3.5-10.5 RED BLOOD CELL COUNT (BEAKER) (test qqwu=654) 4.00 M/ L 4.63-6.08 HEMOGLOBIN (BEAKER) (test inxp=174) 11.8 GM/DL 13.7-17.5 HEMATOCRIT (BEAKER) (test hpla=387) 37.7 % 40.1-51.0 MEAN CORPUSCULAR VOLUME (BEAKER) (test uaux=678) 94.3 fL 79.0-92.2 MEAN CORPUSCULAR HEMOGLOBIN (BEAKER) (test 29.5 pg 25.7-32.2 bfba=917) MEAN CORPUSCULAR HEMOGLOBIN CONC (BEAKER) (test 31.3 GM/DL 32.3-36.5 qkmk=982) RED CELL DISTRIBUTION WIDTH (BEAKER) (test 15.0 % 11.6-14.4 xdgw=270) PLATELET COUNT (BEAKER) (test ktgn=169) 154 K/CU MM 150-450 MEAN PLATELET VOLUME (BEAKER) (test yysq=242) 10.9 fL 9.4-12.4 NUCLEATED RED BLOOD CELLS (BEAKER) (test 0 /100 WBC 0-0 gmvp=125) (CELLAVISION MANUAL DIFF)2018-11-04 10:34:00 Test Item Value Reference Range Comments NEUTROPHILS - REL (CELLAVISION)(BEAKER) (test 63 % oyyh=6754) LYMPHOCYTES - REL (CELLAVISION)(BEAKER) (test 5 % shnd=7814) MONOCYTES - REL (CELLAVISION)(BEAKER) (test 6 % pkgf=8171) BANDS - REL (CELLAVISION)(BEAKER) (test ysmn=8135) 26 % 0-10 NEUTROPHILS - ABS (CELLAVISION)(BEAKER) (test 5.67 K/ul 1.78-5.38 eltv=7638) LYMPHOCYTES - ABS (CELLAVISION)(BEAKER) (test 0.45 K/ul 1.32-3.57 dweh=3153) MONOCYTES - ABS (CELLAVISION)(BEAKER) (test 0.54 K/uL 0.30-0.82 ndzy=1247) BANDS - ABS (CELLAVISION)(BEAKER) (test jkmn=7662) 2.34 K/uL 0.00-0.80 TOTAL COUNTED (BEAKER) (test ieny=1228) 100 WBC MORPHOLOGY (BEAKER) (test kaaq=191) Normal PLT MORPHOLOGY (BEAKER) (test ngjh=797) Normal POLYCHROMATOPHILLIC RBCS(BEAKER) (test zwvc=047) 1+ few ANISOCYTOSIS (BEAKER) (test hseh=913) 1+ few ARTIFACT (CELLAVISION)(BEAKER) (test yzbo=3097) Present PLATELET CONCENTRATION (CELLAVISION)(BEAKER) (test Adequate yoet=6514) Received comment: User comments: Slide comments:LACTIC ACID, ARTERIAL, WHOLE [id number] 06:07:00 Test Item Value Reference Range Comments LACTATE BLOOD ARTERIAL (2) 0.8 mmol/L 0.5-2.2 Specimen slightly hemolyzed (BEAKER) (test fmxn=6068) POCT-GLUCOSE [id number] 05:56:00 Test Item Value Reference Range Comments POC-GLUCOSE METER (BEAKER) 143 mg/dL 70-110 TESTED AT [facility] [address] (test ufuj=7674) [place] [address] [id number] 05:11:00 Test Item Value Reference Range Comments MAGNESIUM (BEAKER) (test sdjn=566) 1.9 mg/dL 1.6-2.6 COMPREHENSIVE METABOLIC [id number] 05:11:00 Test Item Value Reference Range Comments TOTAL PROTEIN (BEAKER) 5.9 gm/dL 6.0-8.3 (test rgjh=737) ALBUMIN (BEAKER) (test 2.8 g/dL 3.5-5.0 wqpk=4402) ALKALINE PHOSPHATASE 98 U/L 40-150 (BEAKER) (test dkjd=052) BILIRUBIN TOTAL (BEAKER) 2.3 mg/dL 0.2-1.2 (test udlf=512) SODIUM (BEAKER) (test 142 meq/L 136-145 ucwu=626) POTASSIUM (BEAKER) (test 3.8 meq/L 3.5-5.1 voro=239) CHLORIDE (BEAKER) (test 109 meq/L 98-107 pxaf=414) CO2 (BEAKER) (test 26 meq/L 22-29 kpeh=591) BLOOD UREA NITROGEN 40 mg/dL 7-21 (BEAKER) (test izke=672) CREATININE (BEAKER) (test 1.48 mg/dL 0.57-1.25 anqc=487) GLUCOSE RANDOM (BEAKER) 128 mg/dL 70-105 (test ownp=733) CALCIUM (BEAKER) (test 8.9 mg/dL 8.4-10.2 ybkj=007) AST (SGOT) (BEAKER) (test 74 U/L 5-34 sdrt=786) ALT (SGPT) (BEAKER) (test 153 U/L 6-55 fsqj=355) EGFR (BEAKER) (test 47 mL/min/1.73 sq m ESTIMATED GFR IS NOT jjjr=1646) ACCURATE CREATININE CLEARANCE IN PREDICTING GLOMERULAR FILTRATION RATE. ESTIMATED GFR IS NOT APPLICABLE FOR DIALYSIS PATIENTS. PROTHROMBIN TIME/[id number] 05:00:00 Test Item Value Reference Range Comments PROTIME (BEAKER) (test txia=779) 15.4 seconds 11.7-14.7 INR (BEAKER) (test ajzz=291) 1.2 <=5.9 RECOMMENDED COUMADIN/WARFARIN INR THERAPY RANGESSTANDARD DOSE: 2.0 - 3.0 Includes: PROPHYLAXIS forvenous thrombosis, systemic embolization; TREATMENT for venous thrombosis and/or pulmonary embolus.HIGH RISK: Target INR is 2.5-3.5 for patients with mechanical heart valves.RAD, CHEST, 1 VIEW, NON [id number] 04:38:00Reason for exam:->pleural effusionShould this be [...] Alvarado Verified Date/Time: 11/04/2018 04:38:30 Reading Location: [address] Transitional Reading Room POCT-GLUCOSE [id number] 00:09:00 Test Item Value Reference Range Comments POC-GLUCOSE METER (BEAKER) 135 mg/dL 70-110 TESTED AT [address] (test ayoo=4755) [facility] [address] POCT-GLUCOSE [id number] 17:42:00 Test Item Value Reference Range Comments POC-GLUCOSE METER (BEAKER) 160 mg/dL 70-110 TESTED AT [address] (test aaxf=1842) [facility] [address] BILIRUBIN, [id number] 12:54:00 Test Item Value Reference Range Comments BILIRUBIN DIRECT (BEAKER) (test ipwm=299) 2.7 mg/dL 0.1-0.5 LACTIC ACID, ARTERIAL, WHOLE [id number] 12:48:00 Test Item Value Reference Range Comments LACTATE BLOOD ARTERIAL (2) (BEAKER) (test 2.3 mmol/L 0.5-2.2 buwr=2829) HEMOGLOBIN AND [id number] 12:36:00 Test Item Value Reference Range Comments HEMOGLOBIN (BEAKER) (test syig=823) 12.7 GM/DL 13.7-17.5 HEMATOCRIT (BEAKER) (test iyjp=889) 40.4 % 40.1-51.0 BLOOD GAS, [id number] 12:30:00 Test Item Value Reference Range Comments PH ARTERIAL (BEAKER) (test sewk=291) 7.32 7.35-7.45 PCO2 ARTERIAL (BEAKER) (test veku=498) 49 mmHg 35-45 PO2 ARTERIAL (BEAKER) (test jiut=378) 83 mmHg 80-90 O2 SATURATION ARTERIAL (BEAKER) (test fdnn=450) 95.0 % 96.0-97.0 HCO3 ARTERIAL (BEAKER) (test ejgb=868) 24 mmol/L 21-29 BASE EXCESS ARTERIAL (BEAKER) (test garn=677) -1.9 mmol/L -2.0-3.0 PATIENT TEMPERATURE (BEAKER) (test huhw=6368) 37.5 C FIO2 (BEAKER) (test uqgo=6386) 40.0 % POCT-GLUCOSE [id number] 12:18:00 Test Item Value Reference Range Comments POC-GLUCOSE METER (BEAKER) 150 mg/dL 70-110 TESTED AT [address] (test uxrf=9323) [facility] [address] CBC W/PLT COUNT & AUTO [id number] 10:47:00 Test Item Value Reference Range Comments WHITE BLOOD CELL COUNT (BEAKER) (test kfln=451) 8.0 K/ L 3.5-10.5 RED BLOOD CELL COUNT (BEAKER) (test lkip=217) 4.18 M/ L 4.63-6.08 HEMOGLOBIN (BEAKER) (test qpxj=976) 12.5 GM/DL 13.7-17.5 HEMATOCRIT (BEAKER) (test aunf=265) 38.8 % 40.1-51.0 MEAN CORPUSCULAR VOLUME (BEAKER) (test qoio=351) 92.8 fL 79.0-92.2 MEAN CORPUSCULAR HEMOGLOBIN (BEAKER) (test 29.9 pg 25.7-32.2 lbsq=738) MEAN CORPUSCULAR HEMOGLOBIN CONC (BEAKER) (test 32.2 GM/DL 32.3-36.5 ldxy=472) RED CELL DISTRIBUTION WIDTH (BEAKER) (test 14.9 % 11.6-14.4 dsbd=654) PLATELET COUNT (BEAKER) (test docf=688) 145 K/CU MM 150-450 MEAN PLATELET VOLUME (BEAKER) (test vzih=713) 11.0 fL 9.4-12.4 NUCLEATED RED BLOOD CELLS (BEAKER) (test 0 /100 WBC 0-0 qdwx=690) (CELLAVISION MANUAL DIFF)2018-11-03 10:47:00 Test Item Value Reference Range Comments NEUTROPHILS - REL (CELLAVISION)(BEAKER) (test 72 % zctd=3738) LYMPHOCYTES - REL (CELLAVISION)(BEAKER) (test 1 % kngd=3714) MONOCYTES - REL (CELLAVISION)(BEAKER) (test 2 % qggz=1799) BASOPHILS - REL (CELLAVISION)(BEAKER) (test 1 % cjfl=7439) BANDS - REL (CELLAVISION)(BEAKER) (test lktk=7767) 24 % 0-10 NEUTROPHILS - ABS (CELLAVISION)(BEAKER) (test 5.76 K/ul 1.78-5.38 hujr=0393) LYMPHOCYTES - ABS (CELLAVISION)(BEAKER) (test 0.08 K/ul 1.32-3.57 usuo=7756) MONOCYTES - ABS (CELLAVISION)(BEAKER) (test 0.16 K/uL 0.30-0.82 rplp=0713) BASOPHILS - ABS (CELLAVISION)(BEAKER) (test 0.08 K/uL 0.01-0.08 zuyf=7032) BANDS - ABS (CELLAVISION)(BEAKER) (test zrrp=8831) 1.92 K/uL 0.00-0.80 TOTAL COUNTED (BEAKER) (test ubkk=3138) 100 RBC MORPHOLOGY (BEAKER) (test tzqa=972) Normal WBC MORPHOLOGY (BEAKER) (test bkcc=618) Normal PLT MORPHOLOGY (BEAKER) (test yjfs=243) Normal ARTIFACT (CELLAVISION)(BEAKER) (test aqjo=0502) Present PLATELET CONCENTRATION (CELLAVISION)(BEAKER) (test Decreased lbep=2479) Received comment: User comments: Slide comments:POCT-GLUCOSE [id number] 09: 01:00 Test Item Value Reference Range Comments POC-GLUCOSE METER (BEAKER) 129 mg/dL 70-110 TESTED AT [facility] [address] (test yvep=6134) [place] [address] RAD, CHEST, 1 VIEW, NON [id number] 07:42:00Reason for exam:->intubated cvc placement verificationShould this [...] with adjacent basilar atelectasis. Signed: Silvino Kenny Verified Date/ Time: 11/03/2018 07:42:20 Reading Location: [address] Neuro Reading Room COMPREHENSIVE METABOLIC [id number] 07:21:00 Test Item Value Reference Range Comments TOTAL PROTEIN (BEAKER) 5.3 gm/dL 6.0-8.3 (test sdqp=196) ALBUMIN (BEAKER) (test 2.7 g/dL 3.5-5.0 zmph=3651) ALKALINE PHOSPHATASE 98 U/L 40-150 (BEAKER) (test bnpn=628) BILIRUBIN TOTAL (BEAKER) 4.1 mg/dL 0.2-1.2 (test pxpl=284) SODIUM (BEAKER) (test 141 meq/L 136-145 xntc=797) POTASSIUM (BEAKER) (test 4.0 meq/L 3.5-5.1 rdvb=919) CHLORIDE (BEAKER) (test 110 meq/L 98-107 jadr=577) CO2 (BEAKER) (test 23 meq/L 22-29 klfy=859) BLOOD UREA NITROGEN 46 mg/dL 7-21 (BEAKER) (test ddcs=177) CREATININE (BEAKER) (test 1.91 mg/dL 0.57-1.25 nwdv=522) GLUCOSE RANDOM (BEAKER) 122 mg/dL 70-105 (test kimv=415) CALCIUM (BEAKER) (test 8.2 mg/dL 8.4-10.2 vnlx=245) AST (SGOT) (BEAKER) (test 136 U/L 5-34 yyyg=544) ALT (SGPT) (BEAKER) (test 199 U/L 6-55 fpis=467) EGFR (BEAKER) (test mL/min/1.73 sq m INSUFFICIENT CLINICAL DATA cnfr=5227) TO CALCULATE ESTIMATED GFR. Specimen slightly [id number] 07:19:00 Test Item Value Reference Range Comments MAGNESIUM (BEAKER) (test zimz=660) 1.7 mg/dL 1.6-2.6 PROTHROMBIN TIME/[id number] 05:43:00 Test Item Value Reference Range Comments PROTIME (BEAKER) (test wdwv=876) 17.3 seconds 11.7-14.7 INR (BEAKER) (test imgj=429) 1.4 <=5.9 RECOMMENDED COUMADIN/WARFARIN INR THERAPY RANGESSTANDARD DOSE: 2.0 - 3.0 Includes: PROPHYLAXIS forvenous thrombosis, systemic embolization; TREATMENT for venous thrombosis and/or pulmonary embolus.HIGH RISK: Target INR is 2.5-3.5 for patients with mechanical heart valves.LACTIC ACID, ARTERIAL, WHOLE [id number] 05:17:00 Test Item Value Reference Range Comments LACTATE BLOOD ARTERIAL (2) (BEAKER) (test 1.3 mmol/L 0.5-2.2 srgd=2413) Specimen slightly ictericBLOOD GAS, [id number] 05:11:00 Test Item Value Reference Range Comments PH ARTERIAL (BEAKER) (test pbxi=791) 7.40 7.35-7.45 PCO2 ARTERIAL (BEAKER) (test tsdq=295) 38 mmHg 35-45 PO2 ARTERIAL (BEAKER) (test deil=222) 72 mmHg 80-90 O2 SATURATION ARTERIAL (BEAKER) (test kotn=847) 94.8 % 96.0-97.0 HCO3 ARTERIAL (BEAKER) (test fjid=960) 23 mmol/L 21-29 BASE EXCESS ARTERIAL (BEAKER) (test dvpu=162) -1.4 mmol/L -2.0-3.0 PATIENT TEMPERATURE (BEAKER) (test gzpy=5699) 36.8 C FIO2 (BEAKER) (test ymkf=0441) 75.0 % POCT-GLUCOSE [id number] 04:59:00 Test Item Value Reference Range Comments POC-GLUCOSE METER (BEAKER) 121 mg/dL 70-110 TESTED AT [address] (test psqz=2295) [place] [address] BASIC METABOLIC [id number] 00:03:00 Test Item Value Reference Range Comments SODIUM (BEAKER) (test 139 meq/L 136-145 pgvb=146) POTASSIUM (BEAKER) (test 3.8 meq/L 3.5-5.1 riaw=136) CHLORIDE (BEAKER) (test 106 meq/L 98-107 xoor=467) CO2 (BEAKER) (test 24 meq/L 22-29 bihm=184) BLOOD UREA NITROGEN 49 mg/dL 7-21 (BEAKER) (test cmsr=102) CREATININE (BEAKER) (test 2.11 mg/dL 0.57-1.25 nzho=199) GLUCOSE RANDOM (BEAKER) 176 mg/dL 70-105 (test jhgh=210) CALCIUM (BEAKER) (test 8.0 mg/dL 8.4-10.2 cwtk=227) EGFR (BEAKER) (test mL/min/1.73 sq m INSUFFICIENT CLINICAL DATA qhdj=9286) TO CALCULATE ESTIMATED GFR. Specimen slightly ictericPOCT-GLUCOSE [id number] 23:45:00 Test Item Value Reference Range Comments POC-GLUCOSE METER (BEAKER) 209 mg/dL 70-110 TESTED AT [address] (test cvft=5738) [place] [address] LACTIC ACID, ARTERIAL, WHOLE [id number] 23:40:00 Test Item Value Reference Range Comments LACTATE BLOOD ARTERIAL (2) (BEAKER) (test 1.8 mmol/L 0.5-2.2 xqbq=9158) Specimen slightly ictericBLOOD GAS, [id number] 23:16:00 Test Item Value Reference Range Comments PH ARTERIAL (BEAKER) (test yhix=933) 7.30 7.35-7.45 PCO2 ARTERIAL (BEAKER) (test ksoj=854) 55 mmHg 35-45 PO2 ARTERIAL (BEAKER) (test tfuh=253) 66 mmHg 80-90 O2 SATURATION ARTERIAL (BEAKER) (test zjta=186) 91.0 % 96.0-97.0 HCO3 ARTERIAL (BEAKER) (test smgv=356) 27 mmol/L 21-29 BASE EXCESS ARTERIAL (BEAKER) (test vosy=330) -0.5 mmol/L -2.0-3.0 PATIENT TEMPERATURE (BEAKER) (test xlvb=2375) 36.7 C FIO2 (BEAKER) (test iicu=5737) 60.0 % LIPID [id number] 23:08:00 Test Item Value Reference Range Comments TRIGLYCERIDES (BEAKER) (test agcd=476) 118 mg/dL CHOLESTEROL (BEAKER) (test etiu=629) 73 mg/dL HDL CHOLESTEROL (BEAKER) (test evze=248) 15 mg/dL LDL CHOLESTEROL CALCULATED (BEAKER) (test 34 mg/dL qlrp=445) Triglyceride Reference Range: Low Risk <150 Borderline 150- 199 High Risk 200-499 Very High Risk >=500Cholesterol Reference Range: Low Risk <200 Borderline 200-239 High Risk > 240HDL Cholesterol Reference Range: Low Risk >=60 High Risk <40LDL Cholesterol Reference Range: Optimal <100 Near Optimal 100-129 Borderline 130-159 High 160-189 Very High >=190 Specimen slightly ictericCT, ABDOMEN, WITHOUT [id number] 22:49:00FINAL REPORT CT, ABDOMEN, WITHOUT CONTRAST INDICATION: [...] Alvarado Verified Date/Time: 11/02/2018 22:49:35 Reading Location: [address] Transitional Reading Room POCT-GLUCOSE [id number] 22:34:00 Test Item Value Reference Range Comments POC-GLUCOSE METER (BEAKER) 218 mg/dL 70-110 TESTED AT [facility] [address] [facility] (test brzp=6295) [facility] [address] U/S, ABDOMINAL, [id number] 20:43:00Abdomen limited area? Add comment if clarification [...] Alvarado Verified Date/Time: 2018 20:43:03 Reading Location: [address] Transitional Reading Room POCT -GLUCOSE [id number] 20:27:00 Test Item Value Reference Range Comments POC-GLUCOSE METER (BEAKER) 297 mg/dL 70-110 TESTED AT [facility] [address] [facility] (test hwlb=2978) [facility] [address] URINALYSIS W/ [id number] 20:25:00 Test Item Value Reference Range Comments COLOR (BEAKER) (test jhsx=249) Yellow CLARITY (BEAKER) (test shgj=089) Clear SPECIFIC GRAVITY UA (BEAKER) (test lors=963) 1.014 1.001-1.035 PH UA (BEAKER) (test qjfw=088) 5.0 5.0-8.0 PROTEIN UA (BEAKER) (test xlns=234) Negative Negative GLUCOSE UA (BEAKER) (test qygw=876) >1000 mg/dL Negative KETONES UA (BEAKER) (test cqui=848) Negative Negative BILIRUBIN UA (BEAKER) (test jpqs=292) Positive Negative BLOOD UA (BEAKER) (test jgzj=848) Small Negative NITRITE UA (BEAKER) (test oztj=094) Negative Negative LEUKOCYTE ESTERASE UA (BEAKER) (test jvti=991) Negative Negative UROBILINOGEN UA (BEAKER) (test nikx=116) 0.2 mg/dL 0.2-1.0 RBC UA (BEAKER) (test hbba=720) 2 /HPF WBC UA (BEAKER) (test lizx=822) 2 /HPF BACTERIA (BEAKER) (test dbdb=036) Rare MUCUS (BEAKER) (test fllc=9473) Rare SQUAMOUS EPITHELIAL (BEAKER) (test pwce=778) < /HPF SOURCE(BEAKER) (test rklx=4818) Urine, [place] COMPREHENSIVE METABOLIC [id number] 20:16:00 Test Item Value Reference Range Comments TOTAL PROTEIN (BEAKER) 5.7 gm/dL 6.0-8.3 (test tnxo=040) ALBUMIN (BEAKER) (test 2.9 g/dL 3.5-5.0 rodj=3994) ALKALINE PHOSPHATASE 103 U/L 40-150 (BEAKER) (test czho=071) BILIRUBIN TOTAL (BEAKER) 5.9 mg/dL 0.2-1.2 (test tdbh=462) SODIUM (BEAKER) (test 135 meq/L 136-145 hykf=218) POTASSIUM (BEAKER) (test 3.7 meq/L 3.5-5.1 eqop=385) CHLORIDE (BEAKER) (test 103 meq/L 98-107 owfx=437) CO2 (BEAKER) (test 23 meq/L 22-29 jaet=220) BLOOD UREA NITROGEN 50 mg/dL 7-21 (BEAKER) (test obpj=898) CREATININE (BEAKER) (test 2.20 mg/dL 0.57-1.25 wxtl=208) GLUCOSE RANDOM (BEAKER) 440 mg/dL 70-105 (test vprs=775) CALCIUM (BEAKER) (test 8.5 mg/dL 8.4-10.2 rdyi=650) AST (SGOT) (BEAKER) (test 105 U/L 5-34 njpe=392) ALT (SGPT) (BEAKER) (test 187 U/L 6-55 uhha=359) EGFR (BEAKER) (test mL/min/1.73 sq m INSUFFICIENT CLINICAL DATA uufb=5148) TO CALCULATE ESTIMATED GFR. Specimen moderately [id number] 20:15:00 Test Item Value Reference Range Comments MAGNESIUM (BEAKER) (test lxtx=491) 1.7 mg/dL 1.6-2.6 [id number] 20:15:00 Test Item Value Reference Range Comments PHOSPHORUS (BEAKER) (test ixvx=557) 3.8 mg/dL 2.3-4.7 LACTIC ACID, ARTERIAL, WHOLE [id number] 20:11:00 Test Item Value Reference Range Comments LACTATE BLOOD ARTERIAL (2) 2.3 mmol/L 0.5-2.2 Specimen slightly hemolyzed (BEAKER) (test mcsb=6039) Specimen slightly ictericPT/[id number] 20:03:00 Test Item Value Reference Range Comments PROTIME (BEAKER) (test zobk=274) 18.7 seconds 11.7-14.7 INR (BEAKER) (test rfqo=837) 1.6 <=5.9 PARTIAL THROMBOPLASTIN TIME (BEAKER) (test 33.1 seconds 22.5-36.0 dqqw=527) RECOMMENDED COUMADIN/WARFARIN INR THERAPY RANGESSTANDARD DOSE: 2.0 - 3.0 Includes: PROPHYLAXIS forvenous thrombosis, systemic embolization; TREATMENT for venous thrombosis and/or pulmonary embolus.HIGH RISK: Target INR is 2.5-3.5 for patients with mechanical heart valves.HEMOGLOBIN AND [id number] 19 :50:00 Test Item Value Reference Range Comments HEMOGLOBIN (BEAKER) (test wban=391) 12.0 GM/DL 13.7-17.5 HEMATOCRIT (BEAKER) (test blcf=788) 37.9 % 40.1-51.0 BLOOD GAS, [id number] 19:47:00 Test Item Value Reference Range Comments PH ARTERIAL (BEAKER) (test bktp=642) 7.32 7.35-7.45 PCO2 ARTERIAL (BEAKER) (test nwjj=375) 48 mmHg 35-45 PO2 ARTERIAL (BEAKER) (test etul=745) 80 mmHg 80-90 O2 SATURATION ARTERIAL (BEAKER) (test gdpj=364) 95.4 % 96.0-97.0 HCO3 ARTERIAL (BEAKER) (test nfyb=919) 24 mmol/L 21-29 BASE EXCESS ARTERIAL (BEAKER) (test csmt=336) -2.4 mmol/L -2.0-3.0 PATIENT TEMPERATURE (BEAKER) (test fxhj=0167) 36.0 C FIO2 (BEAKER) (test llhu=2713) 60.0 % RAD, ABDOMEN/KUB, 1 VIEW [id number] 19:17:00Reason for exam:->OG tube placementShould this be [...] Alvarado Verified Date/Time: 11/02/2018 19:17:28 Reading Location: [address] Reading Room RAD , CHEST, 1 VIEW, NON [id number] 19:13:00Reason for exam:->verify intubationShould this be performed [...] Alvarado Verified Date/Time: 11/02/2018 19:13:30 Reading Location: [facility] C013T Transitional Reading Room [id number] 18:12:00 Test Item Value Reference Range Comments AMYLASE (BEAKER) (test adnq=666) 16 U/L 25-125 Specimen moderately ictericBILIRUBIN, [id number] 18:12:00 Test Item Value Reference Range Comments BILIRUBIN DIRECT (BEAKER) (test dzqc=301) 5.5 mg/dL 0.1-0.5 [id number] 18:12:00 Test Item Value Reference Range Comments LIPASE (BEAKER) (test vbgm=432) 49 U/L 8-78 Specimen moderately ictericBLOOD GAS, [id number] 17:47:00 Test Item Value Reference Range Comments PH ARTERIAL (BEAKER) (test sshw=639) 7.30 7.35-7.45 PCO2 ARTERIAL (BEAKER) (test xyot=794) 48 mmHg 35-45 PO2 ARTERIAL (BEAKER) (test nblp=390) 175 mmHg 80-90 O2 SATURATION ARTERIAL (BEAKER) (test tgxs=824) 99.1 % 96.0-97.0 HCO3 ARTERIAL (BEAKER) (test jemm=093) 24 mmol/L 21-29 BASE EXCESS ARTERIAL (BEAKER) (test efku=027) -3.4 mmol/L -2.0-3.0 PATIENT TEMPERATURE (BEAKER) (test pvfw=6219) 36.0 C FIO2 (BEAKER) (test shwr=2055) 100.0 % POCT-GLUCOSE [id number] 16:31:00 Test Item Value Reference Range Comments POC-GLUCOSE METER (BEAKER) 203 mg/dL 70-110 TESTED AT [facility] [address] [facility] (test dxik=1429) [facility] [address] POCT-BLOOD GASES, [id number] 16:04:00 Test Item Value Reference Range Comments TEMP, CELSIUS-POC (BEAKER) 37.0 (test bviu=7273) FIO2-POC (BEAKER) (test TESTED AT [address] ltpb=7723) [place] [address] PH, ARTERIAL-POC (BEAKER) 7.280 7.350-7.450 (test akjt=1088) PCO2, ARTERIAL-POC (BEAKER) 50.6 mm Hg 35.0-45.0 (test ugzp=9546) PO2, ARTERIAL-POC (BEAKER) 98.0 mm Hg 80.0-90.0 (test rupw=3589) SO2, ARTERIAL-POC (BEAKER) 97.0 % 96.0-97.0 (test xvji=4575) HCO3, ARTERIAL-POC (BEAKER) 23.8 meq/L 21.0-29.0 (test ghnl=9293) BASE EXCESS, ARTERIAL-POC -3.0 meq/L -2.0-3.0 (BEAKER) (test fnbp=5088) [id number] 16:04:00 Test Item Value Reference Range Comments POC-SODIUM (BEAKER) (test 139 meq/L 135-148 TESTED AT [address] gcmu=2309) [place] [address] [id number] 16:04:00 Test Item Value Reference Range Comments POC-POTASSIUM (BEAKER) (test 3.9 meq/L 3.6-5.5 TESTED AT [address] mgpo=4001) [place] [address] [id number] 16:04:00 Test Item Value Reference Range Comments POC-GLUCOSE (BEAKER) (test 209 mg/dL 70-110 TESTED AT [address] adpp=9628) [place] [address] POCT-CALCIUM [id number] 16:04:00 Test Item Value Reference Range Comments POC-CALCIUM IONIZED (BEAKER) 1.16 mmol/L 1.12-1.27 TESTED AT [address] (test zhfx=3637) [place] [address] [id number] 16:04:00 Test Item Value Reference Range Comments POC-HEMATOCRIT (BEAKER) (test 40 % 40-50 TESTED AT [address] pzoc=1609) [place] [address] [id number] 16:04:00 Test Item Value Reference Range Comments POC-HEMOGLOBIN (BEAKER) 13.6 g/dL 13.0-16.8 TESTED AT [facility] [address] [facility] (test fqlc=6744) [facility] [address]FHGGTG AT [facility] [address] [facility] [address] RAD, ABDOMEN/KUB, 1 VIEW [id number] 14:50:00Reason for exam:->Bowel obstructionShould this be performed at the bedside?->YesFINAL REPORT INDICATION:Bowel obstruction. COMPARISON: None. TECHNIQUE: Abdomen radiograph one view FINDINGS / IMPRESSION:Contrast is present in nondilated small bowel loops in the mid abdomen and pelvis. Gas-filled nondilated colon is present. No obvious free intraperitoneal air. Bifurcating abdominal aortic stent graft noted. Signed: Davonte Cavazos MDReport Verified Date/Time: 11/02/2018 14:50:15 Reading Location: [address] Consult Reading Room Electronically signed by: DAVONTE CAVAZOS M.D. on 2018 02:50 PMCBC W/PLT COUNT & AUTO [id number] 14:40:00 Test Item Value Reference Range Comments WHITE BLOOD CELL COUNT (BEAKER) (test agqb=542) 16.1 K/ L 3.5-10.5 RED BLOOD CELL COUNT (BEAKER) (test nipp=624) 4.61 M/ L 4.63-6.08 HEMOGLOBIN (BEAKER) (test ygkc=013) 13.9 GM/DL 13.7-17.5 HEMATOCRIT (BEAKER) (test sbya=236) 43.2 % 40.1-51.0 MEAN CORPUSCULAR VOLUME (BEAKER) (test ewen=700) 93.7 fL 79.0-92.2 MEAN CORPUSCULAR HEMOGLOBIN (BEAKER) (test 30.2 pg 25.7-32.2 iqxf=557) MEAN CORPUSCULAR HEMOGLOBIN CONC (BEAKER) (test 32.2 GM/DL 32.3-36.5 dwph=056) RED CELL DISTRIBUTION WIDTH (BEAKER) (test 14.6 % 11.6-14.4 rvbr=809) PLATELET COUNT (BEAKER) (test vqdn=781) 148 K/CU MM 150-450 MEAN PLATELET VOLUME (BEAKER) (test vpjd=549) 10.8 fL 9.4-12.4 NUCLEATED RED BLOOD CELLS (BEAKER) (test 0 /100 WBC 0-0 qzeq=939) (CELLAVISION MANUAL DIFF)2018-11-02 14:40:00 Test Item Value Reference Range Comments NEUTROPHILS - REL (CELLAVISION)(BEAKER) (test 78 % vpry=3118) MONOCYTES - REL (CELLAVISION)(BEAKER) (test 9 % uylm=3918) BANDS - REL (CELLAVISION)(BEAKER) (test 13 % 0-10 uyvd=8829) NEUTROPHILS - ABS (CELLAVISION)(BEAKER) (test 12.56 K/ul 1.78-5.38 hweg=6513) MONOCYTES - ABS (CELLAVISION)(BEAKER) (test 1.45 K/uL 0.30-0.82 wzqw=1359) BANDS - ABS (CELLAVISION)(BEAKER) (test 2.09 K/uL 0.00-0.80 plqq=6635) TOTAL COUNTED (BEAKER) (test arex=1281) 100 WBC MORPHOLOGY (BEAKER) (test ftda=617) Normal PLT MORPHOLOGY (BEAKER) (test iutj=785) Normal RONA CELLS (BEAKER) (test xvkg=010) 2+ moderate ARTIFACT (CELLAVISION)(BEAKER) (test oczk=5250) Present PLATELET CONCENTRATION (CELLAVISION)(BEAKER) Decreased (test jdfb=0529) Received comment: User comments: Slide comments:COMPREHENSIVE METABOLIC [id number] 14:32:00 Test Item Value Reference Range Comments TOTAL PROTEIN (BEAKER) 6.9 gm/dL 6.0-8.3 Specimen slightly (test jfvq=950) hemolyzed ALBUMIN (BEAKER) (test 3.6 g/dL 3.5-5.0 Specimen slightly qcwb=8557) hemolyzed ALKALINE PHOSPHATASE 134 U/L 40-150 (BEAKER) (test unbm=596) BILIRUBIN TOTAL (BEAKER) 7.6 mg/dL 0.2-1.2 Specimen slightly (test yzxt=447) hemolyzed SODIUM (BEAKER) (test 136 meq/L 136-145 bisv=603) POTASSIUM (BEAKER) (test 4.4 meq/L 3.5-5.1 Specimen slightly nsei=342) hemolyzed CHLORIDE (BEAKER) (test 103 meq/L 98-107 afxk=900) CO2 (BEAKER) (test 20 meq/L 22-29 hwvs=470) BLOOD UREA NITROGEN 54 mg/dL 7-21 (BEAKER) (test mztw=168) CREATININE (BEAKER) (test 2.27 mg/dL 0.57-1.25 Specimen slightly qahb=219) hemolyzed GLUCOSE RANDOM (BEAKER) 160 mg/dL 70-105 (test ecud=604) CALCIUM (BEAKER) (test 8.8 mg/dL 8.4-10.2 ggnx=611) AST (SGOT) (BEAKER) (test 152 U/L 5-34 Specimen slightly ksur=412) hemolyzed ALT (SGPT) (BEAKER) (test 245 U/L 6-55 Specimen slightly iloj=986) hemolyzed EGFR (BEAKER) (test mL/min/1.73 sq m INSUFFICIENT CLINICAL DATA twuq=9048) TO CALCULATE ESTIMATED GFR. Specimen moderately [id number] 14:28:00 Test Item Value Reference Range Comments PROCALCITONIN (BEAKER) (test fjzb=9884) 15.73 ng/mL <0.05 SEPSIS RISK (ng/mL)Low: 0.05-0.50Intermediate: 0.51-2.00High: & gt;=2.01B-TYPE NATRIURETIC FACTOR (BNP)2018-11-02 14:20:00 Test Item Value Reference Range Comments B-TYPE NATRIURETIC PEPTIDE (BEAKER) (test 191 pg/mL 0-100 eemz=275) TROPONIN [id number] 14:20:00 Test Item Value Reference Range Comments TROPONIN I (BEAKER) (test vxtk=835) 0.03 ng/mL 0.00-0.03 Troponin I (TnI) levels [...] disease, and persistent tachyarrhythmia.LACTIC ACID, VENOUS, WHOLE [id number] 14:10:00 Test Item Value Reference Range Comments LACTATE BLOOD VENOUS (2) 1.6 mmol/L 0.5-2.2 Specimen slightly hemolyzed (BEAKER) (test fcwi=1217) Specimen moderately ictericPT/[id number] 14:08:00 Test Item Value Reference Range Comments PROTIME (BEAKER) (test trcd=845) 17.3 seconds 11.7-14.7 INR (BEAKER) (test bbze=406) 1.4 <=5.9 PARTIAL THROMBOPLASTIN TIME (BEAKER) (test 22.2 seconds 22.5-36.0 msvy=071) RECOMMENDED COUMADIN/WARFARIN INR THERAPY RANGESSTANDARD DOSE: 2.0 - 3.0 Includes: PROPHYLAXIS forvenous thrombosis, systemic embolization; TREATMENT for venous thrombosis and/or pulmonary embolus.HIGH RISK: Target INR is 2.5-3.5 for patients with mechanical heart valves.POCT-LACTIC ACID, [id number] 13:28:00 Test Item Value Reference Range Comments POC-LACTIC ACID, ARTERIAL 1.7 mmol/L 0.4-1.3 TESTED AT [facility] [address] (BEAKER) (test hhct=6568) [facility] [id number]
[2019-11-16] MEDS ORDERED: NA CHLORIDE 0.9% 500 ML ONE (18:50)
[2019-11-16 19:27] LABS: Bilirubin Direct 0.3 mg/dL (0-0.2); Bilirubin Total 0.9 mg/dL (0.2-1.0); Potassium 4.4 mmol/L (3.5-5.1); Protein, Total 6.4 g/dL (6.4-8.2)
--- NOTE | 2019-11-16 19:58 | RAD REPORT ---
EXAM DESCRIPTION: RAD - Chest Single View - 11/16/2019 7:44 pm CLINICAL HISTORY: Congestion, shortness of breath COMPARISON: November 02 TECHNIQUE: AP portable chest image was obtained 1904 hours . FINDINGS: Lungs are clear. Heart and vasculature are normal. No measurable pleural effusion and no p neumothorax. No acute bony abnormality seen. No acute aortic findings suspected. IMPRESSION: No acute cardiopulmonary process.
[2019-11-16 20:06] LABS: Absolute Lymphocytes (CBC) 1.1 K/uL (0.7-4.9); Basophils % 0.6 % (0-1.3); Hematocrit 23.5 % (39.6-49.0); Lymphocytes % 17.9 % (15.3-44.8); MPV 9.7 fL (7.6-11.3); RBC Red Blood Cell Count 2.83 M/uL (4.33-5.43)
[2019-11-16 20:49] LABS: Platelet Estimate DECR
[2019-11-16 20:50] LABS: Anisocytosis 1+; Blood Morphology Comment NOTED (NOT SEEN); Elliptocytes 1+; Poikilocytosis 1+; Stomatocytes 1+; Teardrop Cell 1+
--- NOTE | 2019-11-16 21:46 | EDPHYS ---
Physician Documentation [facility] Name: Liam Richards Age: 69 yrs Sex: Male : 1950 Arrival Date: 11/16/2019 Time: 18:12 Bed 14 Private MD: ED Physician Mendy Baptiste HPI: 11/16 20:43 This 69 yrs old Male presents to ER via EMS with complaints of Shortness Of pm1 Breath. 20:43 The patient has shortness of breath at rest. Onset: The symptoms/episode began/occurred pm1 1.5 week(s) ago. Duration: The symptoms are continuous, and are steadily getting worse. The patient's shortness of breath is aggravated by AML, is alleviated by transfusions. Associated signs and symptoms: Pertinent negatives: chest pain, non-productive cough, productive cough, fever. Severity of symptoms: in the emergency department the symptoms are worse. The patient has experienced similar episodes in the past. 11/12/2019 [facility]. Transfusion of 2 units blood and 1 unit of platelets at that time for the same complaint. Historical: - Allergies: 18:33 No Known Allergies; ae4 - Home Meds: 18:33 allopurinol 100 mg Oral tab 1 tab once daily [Active]; amlodipine 5 mg tab 1 tab once ae4 daily [Active]; aspirin 81 mg Oral chew 1 tab once daily [Active]; atorvastatin 40 mg Oral tab 0.5 tab once daily [Active]; Fish Oil 1,000 mg Oral cap twice a day [Active]; glipizide 5 mg Oral tab 0.5 tab 2 times per day [Active]; lisinopril 10 mg Oral tab 1 tab once daily [Active]; metoprolol succinate 25 mg Oral Tb24 1 tab once daily [Active]; - PMHx: 18:33 AAA; Hyperlipidemia; Hypertension; Leukemia; ae4 - Social history:: Smoking status: Patient reports the use of cigarette tobacco products, Distant hx of smoking, quit 5 years prior.. - Ebola Screening: : Patient negative for fever greater than or equal to 101.5 degrees Fahrenheit, and additional compatible Ebola Virus Disease symptoms Patient denies exposure to infectious person Patient denies travel to an Ebola-affected area in the 21 days before illness onset No symptoms or risks identified at this time. ROS: 20:43 Constitutional: Negative for fever, chills, and weight loss, Eyes: Negative for injury, pm1 pain, redness, and discharge, ENT: Negative for injury, pain, and discharge, Neck: Negative for injury, pain, and swelling, Cardiovascular: Negative for chest pain, palpitations, and edema. 20:43 Abdomen/GI: Negative for abdominal pain, nausea, vomiting, diarrhea, and constipation, Back: Negative for injury and pain, : Negative for injury, bleeding, discharge, and swelling, MS/Extremity: Negative for injury and deformity, Skin: Negative for injury, rash, and discoloration, Neuro: Negative for headache, weakness, numbness, tingling, and seizure. 20:43 Respiratory: Positive for shortness of breath, Negative for cough, sputum production. Exam: 20:43 Constitutional: This is a well developed, well nourished patient who is awake, alert, pm1 and in no acute distress. Head/Face: Normocephalic, atraumatic. 20:43 ENT: Nares patent. No nasal discharge, no septal abnormalities noted. Tympanic membranes are normal and external auditory canals are clear. Oropharynx with no redness, swelling, or masses, exudates, or evidence of obstruction, uvula midline. Mucous membranes moist. Neck: Trachea midline, no thyromegaly or masses palpated, and no cervical lymphadenopathy. Supple, full range of motion without nuchal rigidity, or vertebral point tenderness. No Meningismus. Chest/axilla: Normal chest wall appearance and motion. Nontender with no deformity. No lesions are appreciated. Cardiovascular: Regular rate and rhythm with a normal S1 and S2. No gallops, murmurs, or rubs. Normal PMI, no JVD. No pulse deficits. Respiratory: Lungs have equal breath sounds bilaterally, clear to auscultation and percussion. No rales, rhonchi or wheezes noted. No increased work of breathing, no retractions or nasal flaring. Abdomen/GI: Soft, non-tender, with normal bowel sounds. No distension or tympany. No guarding or rebound. No evidence of tenderness throughout. Back: No spinal tenderness. No costovertebral tenderness. Full range of motion. 20:43 MS/ Extremity: Pulses equal, no cyanosis. Neurovascular intact. Full, normal range of motion. 20:43 Eyes: Conjunctiva: pale, bilaterally. 20:43 Skin: Appearance: normal except for affected area, Color: pale. 20:43 Neuro: Orientation: is normal, Motor: is normal, moves all fours. Vital Signs: 18:21 BP 138 / 52; Pulse 92; Resp 15; Temp 98.4(O); Pulse Ox 94% on R/A; mh5 20:30 BP 152 / 100; Pulse 92; Resp 18; Pulse Ox 99% on R/A; wh 22:54 BP 136 / 58; Pulse 101; Resp 18; Pulse Ox 100% 2 lpm ; wh 11/17 00:15 BP 131 / 59; Pulse 95; Resp 18; Pulse Ox 99% on R/A; wh MDM: 11/16 18:24 Patient medically screened. ma2 20:53 Data reviewed: vital signs. Data interpreted: Pulse oximetry: on room air is 94 %. pm1 Interpretation: normal. Counseling: I had a detailed discussion with the patient and/or guardian regarding: the historical points, exam findings, and any diagnostic results supporting the discharge/admit diagnosis, lab results, the need for further work-up and treatment in the hospital, to return to the emergency department if symptoms worsen or persist or if there are any questions or concerns that arise at home. 21:00 Physician consultation: Darrell Huitron Left message with answering service for consult. pm1 22:46 Physician consultation: Mendy Romero MD was contacted at 22:46, regarding admission, pm1 patient's condition, and will see patient. 11/16 18:26 Order name: Basic Metabolic Panel; Complete Time: 19:28 [facility] 11/16 18:26 Order name: CBC with Diff; Complete Time: 20:53 [facility] 11/16 18:26 Order name: Creatinine for Radiology; Complete Time: 19:26 [facility] 11/16 18:26 Order name: Hepatic Function; Complete Time: 19:28 [facility] 11/16 18:26 Order name: Lipase; Complete Time: 19:28 [facility] 11/16 18:44 Order name: Blood Culture Adult (2) [facility] 11/16 20:49 Order name: Manual Differential; Complete Time: 20:53 EDMS 11/16 20:56 Order name: Type And Screen mt 11/16 20:56 Order name: Type and Screen EDMS 11/16 21:08 Order name: Packed RBC Leukored [facility] 11/16 21:08 Order name: Platelets, Leukored Pheresis [facility] 11/16 21:58 Order name: Urine Dipstick--Ancillary (enter results); Complete Time: 22:18 mt 11/16 23:16 Order name: Comprehensive Metabolic Panel [facility] 11/16 23:17 Order name: Comprehensive Metabolic Panel [facility] 11/16 18:26 Order name: IV Saline Lock; Complete Time: 19:11 [facility] 11/16 18:26 Order name: Labs collected and sent; Complete Time: 19:11 [facility] 11/16 18:26 Order name: Chest Single View XRAY; Complete Time: 20:11 [facility] 11/16 18:44 Order name: Urine Dipstick-Ancillary (obtain specimen); Complete Time: 21:54 [facility] 11/16 20:52 Order name: Transfuse; Complete Time: 21:07 pm1 11/16 23:17 Order name: Protime (+INR) [facility] 11/16 23:17 Order name: Protime (+INR) [facility] 11/16 23:17 Order name: CONS Pharmacy Consult [facility] 11/16 23:17 Order name: Regular [facility] 11/16 23:17 Order name: CBC with Automated Diff [facility] 11/16 23:17 Order name: CBC with Automated Diff [facility] 11/16 23:17 Order name: PTT, Activated Partial Thromb [facility] 11/16 23:17 Order name: PTT, Activated Partial Thromb [facility] Administered Medications: 19:00 Drug: NS 0.9% 500 ml Route: IV; Rate: 1 bolus; Site: right antecubital; ae4 Disposition: 11/17 15:48 Co-signature as Attending Physician, Mendy Baptiste MD. ma2 Disposition: 11/16/19 21:44 Hospitalization ordered by Mendy Romero for Observation. Preliminary diagnosis are Anemia, unspecified, Shortness of breath, Acute myeloid leukemia. - Bed requested for Telemetry/MedSurg (observation). - Status is Observation. bb - Condition is Stable. - Problem is new. - Symptoms have improved. UTI on Admission? No Signatures: Dispatcher [employer] [facility] Alfreda Enamorado RN RN mw Ballard, Brenda, RN RN bb Mahin Perdomo, SMASHER HAND SMASHER HAND pm1 Mendy Baptiste MD MD ma2 Gerald Maciel, RN RN ae4 Corrections: (The following items were deleted from the chart) 11/16 23: 21:44 Hospitalization Ordered by Mendy Romero MD for Observation. Preliminary mw diagnosis is Anemia, unspecified; Shortness of breath; Acute myeloid leukemia. Bed requested for Telemetry/MedSurg (observation). Status is Observation. Condition is Stable. Problem is new. Symptoms have improved. UTI on Admission? No. pm1 11/17 00:27 11/16 23:19 11/16/2019 21:44 Hospitalization Ordered by Mendy Romero MD for bb Observation. Preliminary diagnosis is Anemia, unspecified; Shortness of breath; Acute myeloid leukemia. Bed requested for Telemetry/MedSurg (observation). Status is Observation. Condition is Stable. Problem is new. Symptoms have improved. UTI on Admission? No. mw
--- NOTE | 2019-11-16 21:46 | ER ---
Nurse's Notes [facility] Name: Liam Richards Age: 69 yrs Sex: Male : 1950 Arrival Date: 11/16/2019 Time: 18:12 Bed 14 Private MD: Diagnosis: Anemia, unspecified;Shortness of breath;Acute myeloid leukemia Presentation: 11/16 18:16 Presenting complaint: EMS states: EMS states patient has leukemia, reports shortness of ae4 breath that has increased since Sunday of the prior week. Patient reports he had 2 units of blood and 1 unit of platelets the previous Sunday. Transition of care: patient was not received from another setting of care. Onset of symptoms was November 12, 2019 at 18:00. Risk Assessment: Do you want to hurt yourself or someone else? Patient reports no desire to harm self or others. Initial Sepsis Screen: Does the patient meet any 2 criteria? No. Patient's initial sepsis screen is negative. Does the patient have a suspected source of infection? No. Patient's initial sepsis screen is negative. Care prior to arrival: None. 18:16 Method Of Arrival: EMS: [facility] ae4 18:16 Acuity: ALE 2 ae4 Triage Assessment: 19:25 General: Appears in no apparent distress. Respiratory: Onset: The symptoms/episode ae4 began/occurred gradually, the patient has mild shortness of breath. Historical: - Allergies: 18:33 No Known Allergies; ae4 - Home Meds: 18:33 allopurinol 100 mg Oral tab 1 tab once daily [Active]; amlodipine 5 mg tab 1 tab once ae4 daily [Active]; aspirin 81 mg Oral chew 1 tab once daily [Active]; atorvastatin 40 mg Oral tab 0.5 tab once daily [Active]; Fish Oil 1,000 mg Oral cap twice a day [Active]; glipizide 5 mg Oral tab 0.5 tab 2 times per day [Active]; lisinopril 10 mg Oral tab 1 tab once daily [Active]; metoprolol succinate 25 mg Oral Tb24 1 tab once daily [Active]; - PMHx: 18:33 AAA; Hyperlipidemia; Hypertension; Leukemia; ae4 - Social history:: Smoking status: Patient reports the use of cigarette tobacco products, Distant hx of smoking, quit 5 years prior.. - Ebola Screening: : Patient negative for fever greater than or equal to 101.5 degrees Fahrenheit, and additional compatible Ebola Virus Disease symptoms Patient denies exposure to infectious person Patient denies travel to an Ebola-affected area in the 21 days before illness onset No symptoms or risks identified at this time. Screenin:34 Abuse screen: Denies threats or abuse. Nutritional screening: No deficits noted. ae4 Tuberculosis screening: No symptoms or risk factors identified. Fall Risk None identified. Assessment: 18:12 General: Appears in no apparent distress. uncomfortable, Behavior is calm, cooperative. ae4 Pain: Denies pain. Neuro: Level of Consciousness is awake, alert, obeys commands, Oriented to person, place, time, situation, Appropriate for age. Cardiovascular: Heart tones S1 S2 present Patient's skin is warm and dry. ARJUN hands and ARJUN feet cold.. Rhythm is regular. Respiratory: Reports shortness of breath at rest on exertion Airway is patent Respiratory effort is even, shallow, Mildly labored. Breath sounds are clear bilaterally. GI: No deficits noted. Abdomen is round obese. : No signs and/or symptoms were reported regarding the genitourinary system. EENT: No signs and/or symptoms were reported regarding the EENT system. wears glasses. Derm: Bruising that is dark purple, on left antecubital area and dorsal aspect of left forearm. Musculoskeletal: No signs and/or symptoms reported regarding the musculoskeletal system. 18:12 Derm: Skin is pale. ae4 19:15 Reassessment: Patient appears in no apparent distress at this time. No changes from previously documented assessment. Patient and/or family updated on plan of care and expected duration. Pain level reassessed. Patient is alert, oriented x 3, equal unlabored respirations, skin warm/dry/pink. Patient denies pain at this time. 21:10 Reassessment: Patient appears in no apparent distress at this time. No changes from previously documented assessment. Patient and/or family updated on plan of care and expected duration. Pain level reassessed. Patient is alert, oriented x 3, equal unlabored respirations, skin warm/dry/pink. 22:51 Reassessment: Patient appears in no apparent distress at this time. No changes from previously documented assessment. Patient and/or family updated on plan of care and expected duration. Pain level reassessed. Patient is alert, oriented x 3, equal unlabored respirations, skin warm/dry/pink. Patient denies pain at this time. 11/17 00:00 Reassessment: Patient appears in no apparent distress at this time. No changes from previously documented assessment. Patient and/or family updated on plan of care and expected duration. Pain level reassessed. Patient is alert, oriented x 3, equal unlabored respirations, skin warm/dry/pink. Patient denies pain at this time. Vital Signs: 11/16 18:21 BP 138 / 52; Pulse 92; Resp 15; Temp 98.4(O); Pulse Ox 94% on R/A; 5 20:30 BP 152 / 100; Pulse 92; Resp 18; Pulse Ox 99% on R/A; 22:54 BP 136 / 58; Pulse 101; Resp 18; Pulse Ox 100% 2 lpm ; 11/17 00:15 BP 131 / 59; Pulse 95; Resp 18; Pulse Ox 99% on R/A; ED Course: 11/16 18:12 Patient arrived in ED. ae4 18:12 Arm band placed on right wrist. EKG completed in triage. Results shown to MD. ae4 18:16 Gerald Maciel, RN is Primary Nurse. ae4 18:16 EKG done, by ED staff, reviewed by Mendy Baptiste MD. mh5 18:17 Patient has correct armband on for positive identification. Bed in low position. Call mh5 light in reach. Side rails up X2. Adult w/ patient. Warm blanket given. satellite project site monitor on. Pulse ox on. NIBP on. 18:19 Triage completed. ae4 18:24 Mendy Baptiste MD is Attending Physician. ma2 19:00 Inserted saline lock: 22 gauge in right antecubital area, using aseptic technique. ae4 ,using aseptic technique. !st set of Blood cultures obtained at this time. Blood collected. 19:04 Mahin Perdomo NP is PHCP. pm1 19:45 Chest Single View XRAY In Process Unspecified. EDMS 20:11 Notified Nurse Practitioner and/or Physician Supervisor Nutritional Yeast of a critical lab result(s), bb platelets of 12. Mahin Perdomo NP notified. 21:42 Mendy Romero MD is Hospitalizing Provider. pm1 11/17 00:15 No provider procedures requiring assistance completed. Patient admitted, IV remains in place. Administered Medications: 11/16 19:00 Drug: NS 0.9% 500 ml Route: IV; Rate: 1 bolus; Site: right antecubital; ae4 Outcome: 21:44 Decision to Hospitalize by Provider. pm1 11/17 00:15 Admitted to Med/surg accompanied by nurse, family with patient, via stretcher, with chart, Report called to Heather Martínez RN Condition: stable Instructed on the need for admit. 00:27 Patient left the ED. bb Signatures: Dispatcher [employer] EDMS Kalyn David RN RN bb Mahin Perdomo, PRINT PRODUCTION COORDINATOR PRINT PRODUCTION COORDINATOR 1 Fara Joya [facility] Mendy Baptiste MD MD ma2 Gerald Maciel RN RN ae4
[2019-11-16 22:08] LABS: Urine Glucose NEGATIVE (NEG)
[2019-11-16 22:10] LABS: Urine Blood NEGATIVE (NEG); Urine Protein 2+ (NEG)
[2019-11-16] MEDS ORDERED: ACETAMINOPHEN 500 MG TAB PO PRN (23:14)
[2019-11-16] MEDS ORDERED: MORPHINE 2 MG/ML SYR IV PRN (23:14)
[2019-11-16] MEDS ORDERED: ONDANSETRON 4 MG/2 ML VIAL IV PRN (23:14)
[2019-11-16] MEDS ORDERED: NA CHLORIDE 0.9% 250 ML ONE (23:42)
[2019-11-17 00:38] VITALS: BMI 27.6
[2019-11-17] MEDS ORDERED: NA CHLORIDE 0.9% 250 ML ONE (03:38)
[2019-11-17 04:18] VITALS: O2SAT 94
[2019-11-17 04:19] VITALS: BP 149/58; TEMP 97.2
[2019-11-17 06:19] LABS: Protime INR 1.49
[2019-11-17 06:26] LABS: Absolute Lymphocytes (CBC) 1.3 K/uL (0.7-4.9); Basophils % 0.6 % (0-1.3); Hematocrit 24.1 % (39.6-49.0); Lymphocytes % 19.9 % (15.3-44.8); MPV 8.2 fL (7.6-11.3); RBC Red Blood Cell Count 2.96 M/uL (4.33-5.43)
[2019-11-17 06:33] LABS: Albumin 2.8 g/dL (3.4-5.0); Bilirubin Total 1.2 mg/dL (0.2-1.0); Protein, Total 5.7 g/dL (6.4-8.2)
[2019-11-17 08:35] LABS: Anisocytosis 1+; Blood Morphology Comment NOTED (NOT SEEN); Ovalocytes 1+; Platelet Estimate DECR; Rouleau SLIGHT
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
--- NOTE | 2019-11-17 09:41 | P.HP ---
Certification for Inpatient Patient admitted to: Observation With expected LOS: <2 Midnights Patient will require the following post-hospital care: None Practitioner: I am a practitioner with admitting privileges, knowledge of patient current condition, hospital course, and medical plan of care. Services: Services provided to patient in accordance with Admission requirements found in Title 42 Section 412.3 of the Code of Federal Regulations Patient History Date of Service: 11/16/19 Reason for admission: Anemia; thrombocytopenia History of Present Illness: Patient is a 69yo who was admitted to the hospital with anemia and thrombocytopenia. Patient has a history of acute myeloid leukemia. Patient been on chemotherapy. Patient has anemia and thrombocytopenia because of the leukemia. Patient is admitted for blood transfusion and platelet transfusion. Otherwise, patient with no new complaints. Will monitor patient on the floor closely to monitor for any hemodynamic or respiratory complications. Allergies No Known Allergies Allergy (Verified 11/17/19 01:02) Home Medications: Atorvastatin Calcium [Lipitor*] 20 mg PO BEDTIME 11/17/19 Furosemide 40 mg PO DAILY PRN 11/17/19 Lactobacillus Acidophilus [Acidophilus Lactobacilli] 1 tab PO BID 11/17/19 Magnesium Oxide [Mag 0X*] 40 mg PO DAILY 11/17/19 Melatonin 5 mg PO BEDTIME PRN 11/17/19 Metoprolol Tartrate [Lopressor*] 50 mg PO BEDTIME 11/17/19 [place]-3/Dha/Epa/Fish Oil [Fish Oil 1,000 mg Softgel] 1 cap PO BID 11/17/19 [place]-3/Dha/Epa/Fish Oil [[place] 3 500 Softgel] 1 cap PO BID 11/17/19 Pantoprazole [Protonix Tab*] 1 tab PO BID 11/17/19 Phenyleph/Mineral Oil/Petrolat [Hemorrhoidal Ointment] 1 keith [place] PRN PRN Venetoclax [Venclexta] 1 tab PO DAILY 11/17/19 - Past Medical/Surgical History Has patient received pneumonia vaccine in the past: Yes Diabetic: No -: hyperlipidemia -: Hypertension -: Abdominal aortic aneurysm repair -: Cardiac catheterization -: Coronary artery stent placement -: Bilateral carotid endarterectomy -: Left total knee replacement -: Appendectomy - Family History mom Medical History: Heart disease, Diabetes - Social History Smoking Status: Former smoker Alcohol use: No CD- Drugs: No Caffeine use: Yes Place of Residence: Home Review of Systems 10-point ROS is otherwise unremarkable Physical Examination - Vital Signs Temperature: 97.2 F Blood Pressure: 149/58 Pulse: 80 Respirations: 18 Pulse Ox (%): 94 - Physical Exam General: Alert, In no apparent distress, Oriented x3 HEENT: Atraumatic, PERRLA, Mucous membr. moist/pink, EOMI, Sclerae nonicteric Neck: Supple, 2+ carotid pulse no bruit, No LAD, Without JVD or thyroid abnormality Respiratory: Clear to auscultation bilaterally, Normal air movement Cardiovascular: Regular rate/rhythm, Normal S1 S2 Gastrointestinal: Normal bowel sounds, No tenderness Musculoskeletal: No tenderness Integumentary: No rashes Neurological: Normal gait, Normal speech, Normal strength at 5/5 x4 extr, Normal tone, Normal affect Lymphatics: No axilla or inguinal lymphadenopathy - Studies Laboratory Data (last 24 hrs) 11/16/19 19:43: WBC 6.1, Hgb 8.2 L, Hct 23.5 L, Plt Count 12 L* 11/16/19 18:55: Creatinine 1.32 H 11/16/19 18:55: Sodium 140, Potassium 4.4, BUN 33 H, Creatinine 1.28, Glucose 120 H, Total Bilirubin 0.9, AST 34, ALT 29, Alkaline Phosphatase 148 H, Lipase 89 Assessment & Plan - Problems (Diagnosis) (1) Anemia Current Visit: Yes Status: Acute (2) Thrombocytopenia Current Visit: Yes Status: Acute (3) Acute myeloid leukemia Current Visit: Yes Status: Acute - Plan Plan: 1. Transfuse 2 units packed red blood cells 2. Transfuse 1 bag of platelets 3. Monitor electrolytes and labs closely 4. Monitor hemodynamics & respiratory status Discharge Plan: Home Plan to discharge in: 24 Hours - Advance Directives Does patient have a Living Will: No Does patient have a Durable POA for Healthcare: No - Code Status/Comfort Care Code Status: Full Code Critical Care: No Time Spent Managing PTS Care (In Minutes): 40
--- NOTE | 2019-11-17 09:41 | P.DS ---
Discharge Date: 11/17/19 Disposition: ROUTINE DISCHARGE Discharge Condition: GOOD Reason for Admission: Anemia; thrombocytopenia - Problems (1) Anemia Current Visit: Yes Status: Acute (2) Thrombocytopenia Current Visit: Yes Status: Acute (3) Acute myeloid leukemia Current Visit: Yes Status: Acute Brief History of Present Illness: Patient is a 69yo who was admitted to the hospital with anemia and thrombocytopenia. Patient has a history of acute myeloid leukemia. Patient been on chemotherapy. Patient has anemia and thrombocytopenia because of the leukemia. Patient is admitted for blood transfusion and platelet transfusion. Otherwise, patient with no new complaints. Will monitor patient on the floor closely to monitor for any hemodynamic or respiratory complications. Hospital Course: Patient was transfused and hemoglobin and platelets are stable. Patient stable for discharge home. Vital Signs/Physical Exam: Temp Pulse Resp BP Pulse Ox 97.2 F 80 18 149/58 H 94 11/17/19 09:40 11/17/19 09:40 11/17/19 09:40 11/17/19 09:40 11/17/19 09:40 General: Alert, In no apparent distress, Oriented x3 Laboratory Data at Discharge: WBC 6.8 K/uL (4.3-10.9) 11/17/19 06:01 Hgb 8.4 g/dL (13.6-17.9) L 11/17/19 06:01 Hct 24.1 % (39.6-49.0) L 11/17/19 06:01 Plt Count 34 K/uL (152-406) L* D 11/17/19 06:01 PT 17.3 SECONDS (9.5-12.5) H 11/17/19 06:01 INR 1.49 11/17/19 06:01 APTT 25.3 SECONDS (24.3-36.9) 11/17/19 06:01 Sodium 140 mmol/L (136-145) 11/17/19 06:01 Potassium 4.0 mmol/L (3.5-5.1) 11/17/19 06:01 BUN 31 mg/dL (7-18) H 11/17/19 06:01 Creatinine 1.25 mg/dL (0.55-1.3) 11/17/19 06:01 Glucose 113 mg/dL (74-106) H 11/17/19 06:01 Total Bilirubin 1.2 mg/dL (0.2-1.0) H 11/17/19 06:01 AST 36 U/L (15-37) 11/17/19 06:01 ALT 27 U/L (12-78) 11/17/19 06:01 Alkaline Phosphatase 128 U/L (45-117) H 11/17/19 06:01 Lipase 89 U/L (73-393) 11/16/19 18:55 Home Medications: Atorvastatin Calcium [Lipitor*] 20 mg PO BEDTIME 11/17/19 Furosemide 40 mg PO DAILY PRN 11/17/19 Lactobacillus Acidophilus [Acidophilus Lactobacilli] 1 tab PO BID 11/17/19 Magnesium Oxide [Mag 0X*] 40 mg PO DAILY 11/17/19 Melatonin 5 mg PO BEDTIME PRN 11/17/19 Metoprolol Tartrate [Lopressor*] 50 mg PO BEDTIME 11/17/19 [place]-3/Dha/Epa/Fish Oil [Fish Oil 1,000 mg Softgel] 1 cap PO BID 11/17/19 [place]-3/Dha/Epa/Fish Oil [[place] 3 500 Softgel] 1 cap PO BID 11/17/19 Pantoprazole [Protonix Tab*] 1 tab PO BID 11/17/19 Phenyleph/Mineral Oil/Petrolat [Hemorrhoidal Ointment] 1 keith VA PRN PRN Venetoclax [Venclexta] 1 tab PO DAILY 11/17/19 Patient Discharge Instructions: OK TO DC IV AND DC HOME. FOLLOW-UP WITH PRIMARY CARE PROVIDER IN 1-2 WEEKS. FOLLOW-UP WITH Oncologist later this week. RETURN TO THE ER IF symptoms worsen. CALL or TEXT DR. JIMENEZ AT [phone] IF ANY QUESTIONS REGARDING HOSPITAL STAY. PLEASE CALL THE FLOOR AT [phone] IF ANY MEDICATION OR NURSING QUESTIONS. Diet: Regular Activity: Fall precautions Time spent managing pt's care (in minutes): 20
--- NOTE | 2019-11-17 14:54 | EKG ---
Test Date: 2019-11-16 Test Time: 18:13:18 [place] Operator: YARELIS MEASUREMENT RESULTS: Intervals: Rate: 91 FL: 156 QRSD: 134 QT: 386 QTc: 474 [place]: P: -7 FL: 156 QRS: 3 T: 26 INTERPRETIVE STATEMENTS: Normal sinus rhythm Right bundle branch block Abnormal ECG Compared to ECG 09/12/2019 08:54:39 No significant changes Electronically Signed On 11-17-19 14:52:04 PROGRAM MANAGER by Denis Lomas
== END 2019-11-17 11:09 | disposition home or self-care (01) ==
LOC: ER 17:57 → ERHOLD 23:15 → 2ND 23:42
PROVIDERS: ADMIT Hospitalist; ATTEND Hospitalist
DX: C92.00 Acute myeloblastic leukemia, not having achieved remission (principal); D63.8 Anemia in other chronic diseases classified elsewhere; D69.6 Thrombocytopenia, unspecified; E78.5 Hyperlipidemia, unspecified; I10 Essential (primary) hypertension; Z96.652 Presence of left artificial knee joint
CPT/HCPCS: 36430; 93005; 87040; 85025 ×2; 80048; 36415; 86900; 86850; 85610; 86901; 80076; 85730; 81003; 83690; 80053; 71045; 99285; G0378 ×2; P9035; P9016; J7030 ×2; J7040